=== PATIENT | female | born 1940 | race Caucasian/White ===

== ENCOUNTER 2023-04-29 20:00 | Emergency (ER) | payer MEDICARE, OTHER, SELFPAY ==
[2023-04-29 20:10] VITALS: BP 133/92; PULSE 74; RESP 18; TEMP 36.4; O2SAT 97
--- NOTE | 2023-04-29 20:53 | XR_ITS ---
The [address] [address] Patient Name: MARY SHEPHERD MRN: [facility]:[id number] date: 1940 Sex: F Assigned Patient Location: ER Current Patient Location: ER Accession/Order Number: [id number] Exam Date: 04/29/2023 21:33 Report Date: 04/29/2023 22:23 At the request of: NOLBERTO ESPINO Procedure: XR knee RT 3V PROCEDURE: XR knee RT 3V DATE: 04/29/2023 8:33 PM CDT COMPARISONS: None CLINICAL INDICATION: trauma Knee pain FINDINGS: There is no evidence of fractures or other acute osseous abnormalities. No right knee joint effusion identified Mild tricompartmental spurring. Mild narrowing of the medial compartment. Evidence of chondrocalcinosis which can be seen with pseudogout or can sometimes be associated with degenerative changes IMPRESSION: Mild tricompartmental spurring most prominently involving the medial compartment. No evidence of acute osseous abnormalities.. Electronically authenticated by: DAVE RACHEL Date: 04/29/2023 22:23
--- NOTE | 2023-04-29 20:53 | XR_ITS ---
The [address] [address] Patient Name: MARY SHEPHERD MRN: [facility]:[id number] date: 1940 Sex: F Assigned Patient Location: ER Current Patient Location: ER Accession/Order Number: [id number] Exam Date: 04/29/2023 21:33 Report Date: 04/29/2023 22:27 At the request of: NOLBERTO ESPINO Procedure: XR foot LT min 3V PROCEDURE: XR foot LT min 3V DATE: 04/29/2023 8:33 PM CDT COMPARISONS: None CLINICAL INDICATION: Reason trauma. Left foot pain. FINDINGS: There is no evidence of fractures or other acute osseous abnormalities. There is small spur off the posterior inferior os calcis. IMPRESSION: Left foot radiographs show no evidence of significant abnormalities. Electronically authenticated by: DAVE RACHEL Date: 04/29/2023 22:27
--- NOTE | 2023-04-29 20:53 | XR_ITS ---
The [address] [address] Patient Name: MARY SHEPHERD MRN: [facility]:[id number] date: 1940 Sex: F Assigned Patient Location: ER Current Patient Location: ER Accession/Order Number: [id number] Exam Date: 04/29/2023 21:33 Report Date: 04/29/2023 22:28 At the request of: NOLBERTO ESPINO Procedure: XR hip LT 2V w/ pelvis EXAM: XR hip LT 2V w/ pelvis HISTORY: Fall onto left side COMPARISON: None. TECHNIQUE: AP pelvis and 2 views of the left hip FINDINGS: No visualized fracture, dislocation, subluxation or osseous lesion. 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 The hip joints, pubic symphysis and sacroiliac joints are otherwise unremarkable for patient's age. Bowel gas pattern is nonobstructed. IMPRESSION: No visualized acute abnormality. Chondrocalcinosis pyrophosphate deposition disease. Electronically authenticated by: VAN HAN Date: 04/29/2023 22:28
--- NOTE | 2023-04-29 20:53 | ECG_ITS ---
The [facility] Test Date: 2023-04-29 Pat Name: Morena Vivas Department: Room: - Gender: Female Religious Assistant: : 1940 Requested By: EDI JOSEPH Order Number: [id number] Reading MD: JUNO KURTZ Measurements Intervals [place] Rate: 64 P: 42 RI: 152 QRS: -11 QRSD: 76 T: 53 QT: 392 QTc: 401 Interpretive Statements 1100 Sinus rhythm 8102 Low QRS voltage in chest leads 9120 atypical ECG No previous ECG available for comparison Electronically Signed On 05-01-2023 6:44:34 EDT by JUNO KURTZ
--- NOTE | 2023-04-29 20:56 | CT_ITS ---
[address] [address] Patient Name: MARY SHEPHERD MRN: [facility]:[id number] date: 1940 Sex: F Assigned Patient Location: ER Current Patient Location: Accession/Order Number: [id number] Exam Date: 04/29/2023 21:33 Report Date: 04/29/2023 22:35 At the request of: NOLBERTO ESPINO Procedure: CT chest wo con CT chest wo con: 04/29/2023 9:33 PM EDT CLINICAL HISTORY: 82 years old Female with trauma. Fall with left-sided pain. TECHNIQUE: CT chest wo con was performed with axial CT images obtained as well as sagittal and coronal reformations without the administration of intravenous contrast. Dose reduction techniques were achieved by using automated exposure control and/or adjustment of mA and/or kV according to patient size and/or use of iterative reconstruction technique. COMPARISON: None available. FINDINGS: Evaluation of the vasculature and hilar lymphadenopathy is degraded secondary to lack of intravenous contrast. The heart appears borderline enlarged without pericardial effusion with mild biatrial prominence. Mitral annular calcifications and minimal coronary artery calcifications are present.. The aorta is normal in course and caliber without aneurysm. There are no enlarged mediastinal lymph nodes. The tracheobronchial tree is patent. The lungs are clear. There is no consolidation, mass or pleural effusion. There is no pneumothorax. Left simple renal cyst is partially included measuring 1.9 x 1.7 cm. The visualized portion of the upper abdomen is otherwise grossly unremarkable. Likely soft tissue contusion at the lateral left breast is partially included. Osseous structures:No acute compression fracture deformity or suspicious osseous abnormality. No displaced rib fractures are identified. Senescent changes are present with diffuse endplate spurring and intervertebral disc space narrowing at the thoracic spine. IMPRESSION: 1. Likely soft tissue contusion/hematoma at the left lateral breast partially included. Correlate for site of injury and need for mammographic/sonographic workup or follow-up. 2. No acute fracture or dislocation or intrathoracic traumatic injury is identified. CT is not sensitive for nondisplaced rib fractures. 3. The lungs are clear. 4. Borderline cardiomegaly and mild coronary artery calcifications. 5. Left simple renal cyst. Electronically authenticated by: MUKESH CORTES Date: 04/29/2023 22:35
--- NOTE | 2023-04-29 20:57 | ED.FALL1 ---
HPI - Fall General Chief Complaint: Fall Stated Complaint: LEFT SIDE AND ANKLE PAIN Time Seen by Provider: 04/29/23 20:53 Source: patient and family Limitations: no limitations History of Present Illness HPI Narrative: states she loss her balance while walking on concrete and fell. Injured her left hip, left 4th toe and left breast/rib cage. also has minor abrasion left elbow but only mild pain. Injured right knee. Has pain with weight bearing. No numbness or weakness of her extremities. Denies hitting her head. denies neck pain or nausea. No complaint of abdominal pain. Not short of breath and denies pain of her back Onset (ago): hour(s) Fall from: Reports standing Fall witnessed: Reports yes, by family Place fall occurred: Reports home and street Loss of consciousness: none Location of injury: Reports pelvis Location of injury - extremities: Left: arm and foot and Right: knee Related Data Home Medications Medication Instructions Recorded Confirmed aspirin 325 mg tablet,delayed 325 mg PO DAILY 04/29/23 04/29/23 release (Aspir-Leelee) atorvastatin 40 mg tablet 30 mg PO DAILY 04/29/23 04/29/23 budesonide-formoterol HFA 80 2 puff inhalation Q12H 04/29/23 04/29/23 mcg-4.5 mcg/actuation aerosol inhaler (Symbicort) colestipol 1 gram tablet 2 g PO DAILY 04/29/23 04/29/23 levothyroxine 112 mcg tablet mcg PO DAILY 04/29/23 metoprolol tartrate 25 mg tablet 37.5 mg PO Q12H 04/29/23 04/29/23 omeprazole 20 mg capsule,delayed mg 04/29/23 release venlafaxine 150 mg mg PO DAILY 04/29/23 capsule,extended release 24 hr Allergies Allergy/AdvReac Type Severity Reaction Status Date / Time Penicillins Allergy Unknown Verified 04/29/23 20:17 shellfish Allergy Unknown Uncoded 04/29/23 20:17 Review of Systems ROS Status of ROS 10 or more systems reviewed and unremarkable except as noted in history and below PFSH PFS Social History Smoking status: Never smoker Exam Constitutional Vital Signs - 24 hr 04/29/23 20:10 Temperature 97.5 F L Pulse Rate [Monitor] 74 Respiratory Rate 18 Blood Pressure [Left Arm] 133/92 H Pulse Oximetry 97 Oxygen Delivery Method Room Air HENUT Common normals: normocephalic and head/scalp atraumatic Head and scalp: normal to inspection Face and sinus: normal facial exam Nose: external nose normal Eye Common normals: PERRL, EOMs intact bilaterally and conjunctivae normal Neck & C-Spine Common normals: full ROM and no lymphadenopathy Chest Other: left chest wall tender Respiratory Common normals: normal respiratory effort, no use of accessory muscles and clear to auscultation bilaterally Cardio Common normals: regular rate and regular rhythm GI Common normals: Normal to inspection, nondistended, normoactive bowel sounds present and soft to palpation Common normals: no CVA tenderness Back & Pelvis Other: left hip tender Extremity Other: minor abrasion left elbow. FROM of the elbow without sign of pain mild tenderness left 4th toe. No obvious defromity right knee with ecchymotic contusions, mild swelling and mod. tenderness Neuro Common normals: oriented x3 and CN's II-XII intact bilaterally Psych Common normals: mental status grossly normal Course Vital Signs Vital signs: Vital Signs Temperature 97.5 F L 04/29/23 20:10 Pulse Rate 74 04/29/23 20:10 Respiratory Rate 18 04/29/23 20:10 Blood Pressure 133/92 H 04/29/23 20:10 Pulse Oximetry 97 04/29/23 20:10 Oxygen Delivery Method Room Air 04/29/23 20:10 Temperature 97.5 F L 04/29/23 20:10 Pulse Rate 74 04/29/23 20:10 Respiratory Rate 18 04/29/23 20:10 Blood Pressure 133/92 H 04/29/23 20:10 Pulse Oximetry 97 04/29/23 20:10 Oxygen Delivery Method Room Air 04/29/23 20:10 MDM - Fall MDM Narrative Medical decision making narrative: patient presents after ground level fall at home. Injury to her left breast and chest wall as well as her left hip, left 4th toe and right knee. diagnostic studies demonstrate contusion to the left breath. No fractures seen. Patient and family informed of the above and she is discharged home. she does have elevated creat 1.36 that will need follow up per her PCP Lab Data Labs: Lab Results 04/29/23 Range/Units 21:15 WBC 9.0 (4.0-11.0) 10^3/uL RBC 3.72 L (4.20-5.40) 10^6/uL Hgb 11.6 L (12.0-16.0) g/dL Hct 36.1 (36.0-48.0) % MCV 97.0 (81.0-99.0) fL MCH 31.2 (26.7-34.0) pg MCHC 32.1 (29.9-35.2) g/dL RDW 13.2 (11.0-15.0) % Plt Count 229 (150-450) 10^3/uL MPV 10.3 (9.5-13.5) fL Neut % (Auto) 56.7 (43.0-75.0) % Lymph % (Auto) 27.6 (20.5-60.0) % Taliaferro % (Auto) 11.8 (1.7-12.0) % Eos % (Auto) 2.9 (0.9-7.0) % Baso % (Auto) 0.6 (0.2-2.0) % Neut # (Auto) 5.1 (1.4-6.5) 10^3/uL Lymph # (Auto) 2.5 (1.2-3.8) 10^3/uL Taliaferro # (Auto) 1.1 H (0.3-0.8) 10^3/uL Eos # (Auto) 0.3 (0.0-0.7) 10^3/uL Baso # (Auto) 0.1 (0.0-0.1) 10^3/uL Sodium 142 (136-145) mmol/L Potassium 4.1 (3.5-5.1) mmol/L Chloride 107 (98-107) mmol/L Carbon Dioxide 26.3 (21.0-32.0) mmol/L Anion Gap 12.8 BUN 30.0 H (7.0-18.0) mg/dL Creatinine 1.36 H (0.55-1.02) mg/dL Est GFR ( Amer) 45 L (>=60) Est GFR (Non-Af Amer) 37 L (>=60) BUN/Creatinine Ratio 22.1 Glucose 71 L (74-106) mg/dL Lactate 0.8 (0.4-2.0) mmol/L Calcium 9.0 (8.5-10.1) mg/dL Total Bilirubin 0.6 (0.2-1.0) mg/dL AST 21 (15-37) U/L ALT 32 (14-59) U/L Troponin I High Sens 9.7 (4.0-51.3) pg/mL Total Protein 6.3 L (6.4-8.2) g/dL Albumin 3.3 L (3.4-5.0) g/dL Globulin 3.0 g/dL Albumin/Globulin Ratio 1.1 Discharge Plan Discharge Chief Complaint: Fall Clinical Impression: Contusion of chest wall, Contusion of breast, left, Contusion of hip, left, Contusion of knee, right Prescriptions / Home Meds: No Action atorvastatin 40 mg tablet 30 mg PO DAILY levothyroxine 112 mcg tablet PO DAILY budesonide-formoterol [Symbicort] 80-4.5 mcg/actuation HFA aerosol inhaler 2 puff INHALATION Q12H metoprolol tartrate 25 mg tablet 37.5 mg PO Q12H venlafaxine 150 mg capsule,extended release 24hr PO DAILY omeprazole 20 mg capsule,delayed release(DR/EC) colestipol 1 gram tablet 2 g PO DAILY aspirin [Aspir-Leelee] 325 mg tablet,delayed release (DR/EC) 325 mg PO DAILY Instructions: Contusion in Adults (ED), Foot Contusion (ED), Hip Contusion (ED), Rib Contusion (ED) Stand Alone Forms: Portal Instructions Referrals: EDI JOSEPH [Primary Care Provider] - 1 week Follow Up Appointments: follow up with family doctor next week for recheck
[2023-04-29] MEDS: 0.9 % SODIUM CHLORIDE 1,000 ML 999 ML IV (21:24)
[2023-04-29 21:27] LABS: Basophils Absolute Auto 0.1 10^3/uL (0.0-0.1); Basophils Percent Auto 0.6 % (0.2-2.0); Eosinophils Absolute Auto 0.3 10^3/uL (0.0-0.7); Eosinophils Percent Auto 2.9 % (0.9-7.0); Hematocrit 36.1 % (36.0-48.0); Hemoglobin 11.6 g/dL (12.0-16.0); Immature Granulocytes Abs Auto 0.04 10^3/uL (0.00-0.03); Immature Granulocytes Pct Auto 0.4 % (0.0-0.5); Lymphocytes Absolute Auto 2.5 10^3/uL (1.2-3.8); Lymphocytes Percent Auto 27.6 % (20.5-60.0); Mean Corpuscular HGB Conc 32.1 g/dL (29.9-35.2); Mean Corpuscular Hemoglobin 31.2 pg (26.7-34.0); Mean Platelet Volume 10.3 fL (9.5-13.5); Monocytes Absolute Auto 1.1 10^3/uL (0.3-0.8); Monocytes Percent Auto 11.8 % (1.7-12.0); Neutrophils Absolute Auto 5.1 10^3/uL (1.4-6.5); Neutrophils Percent Auto 56.7 % (43.0-75.0); Platelet Count 229 10^3/uL (150-450); Red Blood Count 3.72 10^6/uL (4.20-5.40); Red Cell Distribution Width 13.2 % (11.0-15.0)
[2023-04-29 21:31] VITALS: PULSE 64
--- NOTE | 2023-04-29 21:34 | PC.NURSE ---
PT LOST BALANCE AT HOME AND FELL ON LEFT SIDE. LEFT BREAST SWOLLEN AND BRUISED, ABRASIONS TO LEFT ARM AND LEG. BRUISING TO LEFT HIP
[2023-04-29 21:43] LABS: Lactate/Lactic Acid 0.8 mmol/L (0.4-2.0)
[2023-04-29 21:52] LABS: Alanine Aminotransferase 32 U/L (14-59); Albumin Globulin Ratio 1.1; Albumin Level 3.3 g/dL (3.4-5.0); Alkaline Phosphatase 128 U/L (46-116); Anion Gap 12.8; Aspartate Amino Transferase 21 U/L (15-37); BUN Creatinine Ratio 22.1; Bilirubin Total 0.6 mg/dL (0.2-1.0); Carbon Dioxide 26.3 mmol/L (21.0-32.0); Chloride 107 mmol/L (98-107); Estimated GFR (African America 45 (>=60); Estimated GFR (Non-African Ame 37 (>=60); Glucose 71 mg/dL (74-106); Potassium 4.1 mmol/L (3.5-5.1); Sodium 142 mmol/L (136-145); Total Protein 6.3 g/dL (6.4-8.2); Troponin I High Sensitivity 9.7 pg/mL (4.0-51.3)
== END 2023-04-30 00:09 | disposition home or self-care (01) ==
PROVIDERS: Emergency Provider Internal Medicine; PCP Family Medicine
DX: S20.219A Contusion of unspecified front wall of thorax, initial encounter (principal); S70.02XA Contusion of left hip, initial encounter; W18.30XA Fall on same level, unspecified, initial encounter; S80.01XA Contusion of right knee, initial encounter; S20.02XA Contusion of left breast, initial encounter; Z79.82 Long term (current) use of aspirin; Z79.890 Hormone replacement therapy; Z79.899 Other long term (current) drug therapy
CPT/HCPCS: 36415; 71250; 73502; 73562; 73630; 80053; 81001; 83605; 84484; 85025; 93005; 99285

== ENCOUNTER 2024-06-09 18:58 | Emergency (ER) | payer MEDICARE, OTHER, SELFPAY ==
[2024-06-09 19:05] VITALS: BP 156/93; PULSE 82; TEMP 36.6; O2SAT 99; BMI 31.1
--- NOTE | 2024-06-09 19:14 | CT_ITS ---
The [address] [address] Patient Name: MARY SHEPHERD MRN: [facility]:[id number] date: 1940 Sex: F Assigned Patient Location: ER Current Patient Location: Accession/Order Number: [id number] Exam Date: 06/09/2024 19:32 Report Date: 06/09/2024 21:12 At the request of: CELSO DEE Procedure: CT lumbar spine wo con EXAM: CT lumbar spine wo con HISTORY: The patient is an 83-year-old female, fall, low back pain COMPARISON: CT scan of the abdomen and pelvis from 03/17/2018. TECHNIQUE: CT images were obtained through the lumbar spine without intravenous contrast and reformatted in 2 dimensions. Dose reduction techniques were achieved by using automated exposure control and/or adjustment of mA and/or kV according to patient size and/or use of iterative reconstruction technique. FINDINGS: The axial images demonstrate no fractures or cortical discontinuities throughout the lumbar spine. The sacroiliac joints are maintained. The coronal and sagittal reformatted images demonstrate no fractures or loss of vertebral body height throughout the lumbar spine. There is no malalignment throughout the lumbar spine. There is severe narrowing of the L2-L3 and L5-S1 discs, and mild narrowing of the L1-L2 discs. The soft tissue images demonstrate evidence of a sizable left paracentral disc osteophyte complex arising from the L1-L2 level. There is also evidence of disc herniations and posterior element hypertrophy at the L3-L4 and L4-L5 levels. If clinically necessary, the degree of central canal stenosis and neural foraminal narrowing could be better evaluated with an MRI of the lumbar spine. CT/CT lumbar spine wo con IMPRESSION: 1. No fractures or loss of vertebral body height throughout the lumbar spine. 2. Degenerative disc disease throughout the lumbar spine. Electronically authenticated by: GEMINI HILL Date: 06/09/2024 21:12
--- NOTE | 2024-06-09 19:14 | CT_ITS ---
[address] [address] Patient Name: MARY SHEPHERD MRN: [facility]:[id number] date: 1940 Sex: F Assigned Patient Location: ER Current Patient Location: Accession/Order Number: [id number] Exam Date: 06/09/2024 19:32 Report Date: 06/09/2024 20:21 At the request of: CELSO MARKER Procedure: CT cervical spine wo con EXAM: CT cervical spine wo con, CT head/brain wo con CLINICAL INDICATION: fall, head injury and neck pain COMPARISON: None TECHNIQUE: Unenhanced computerized tomography of the head was performed. Automated dose reduction technique was employed. Multiple axial slices of the cervical spine were obtained without contrast and with coronal and sagittal reformatted images. FINDINGS: The ventricles are normal in size, configuration, and position for age. There is no intra- or extra-axial mass, hemorrhage, or fluid collection. No areas of abnormal mass effect or attenuation are noted. There is mild subcortical, deep, and periventricular white matter low-attenuation, compatible with changes of chronic small vessel ischemic disease. Visualized paranasal sinuses are free of mucosal disease. No depressed calvarial fracture. Reversal of normal cervical lordosis. No acute fracture. Stepwise mild retrolisthesis from C4 through C6. Moderate multilevel degenerative changes of the cervical spine, worse at C4-C5, C5-C6 and C6/C7. The atlanto occipital joint is maintained.The odontoid and lateral masses are intact. The prevertebral soft tissues are within normal limits. The adjacent structures appear intact. The visualized soft tissues of the neck are normal. CT/CT cervical spine wo con IMPRESSION: 1. No acute intracranial abnormality noted. 2. No acute fracture or subluxation of the cervical spine. Multilevel degenerative changes of the cervical spine. Electronically authenticated by: ERICKSON OBRIEN Date: 06/09/2024 20:21
--- NOTE | 2024-06-09 19:14 | CT_ITS ---
[address] [address] Patient Name: MARY SHEPHERD MRN: [facility]:[id number] date: 1940 Sex: F Assigned Patient Location: ER Current Patient Location: Accession/Order Number: [id number] Exam Date: 06/09/2024 19:32 Report Date: 06/09/2024 20:21 At the request of: CELSO MARKER Procedure: CT head/brain wo con EXAM: CT cervical spine wo con, CT head/brain wo con CLINICAL INDICATION: fall, head injury and neck pain COMPARISON: None TECHNIQUE: Unenhanced computerized tomography of the head was performed. Automated dose reduction technique was employed. Multiple axial slices of the cervical spine were obtained without contrast and with coronal and sagittal reformatted images. FINDINGS: The ventricles are normal in size, configuration, and position for age. There is no intra- or extra-axial mass, hemorrhage, or fluid collection. No areas of abnormal mass effect or attenuation are noted. There is mild subcortical, deep, and periventricular white matter low-attenuation, compatible with changes of chronic small vessel ischemic disease. Visualized paranasal sinuses are free of mucosal disease. No depressed calvarial fracture. Reversal of normal cervical lordosis. No acute fracture. Stepwise mild retrolisthesis from C4 through C6. Moderate multilevel degenerative changes of the cervical spine, worse at C4-C5, C5-C6 and C6/C7. The atlanto occipital joint is maintained.The odontoid and lateral masses are intact. The prevertebral soft tissues are within normal limits. The adjacent structures appear intact. The visualized soft tissues of the neck are normal. CT/CT head/brain wo con IMPRESSION: 1. No acute intracranial abnormality noted. 2. No acute fracture or subluxation of the cervical spine. Multilevel degenerative changes of the cervical spine. Electronically authenticated by: ERICKSON OBRIEN Date: 06/09/2024 20:21
--- NOTE | 2024-06-09 19:15 | XR_ITS ---
The [address] [address] Patient Name: MARY SHEPHERD MRN: [facility]:[id number] date: 1940 Sex: F Assigned Patient Location: ER Current Patient Location: ER Accession/Order Number: [id number] Exam Date: 06/09/2024 19:32 Report Date: 06/09/2024 20:52 At the request of: CELSO MARKER Procedure: XR hand RT min 3V EXAMINATION: XR hand RT min 3V, , 06/09/2024 7:32 PM EDT INDICATION: fall HISTORY: Ordering Provider Reason for Exam: fall Technologist Note: Additional: COMPARISON: None. TECHNIQUE: Right hand x-ray: 3 view(s). FINDINGS: No acute fracture. Joint alignment is anatomic. Joint spaces are preserved. Soft tissues are within normal limits. XR/XR hand RT min 3V IMPRESSION: No acute fracture or traumatic malalignment. Electronically authenticated by: BRITTNEY NIELSON Date: 06/09/2024 20:52
--- NOTE | 2024-06-09 19:16 | ED.FALL1 ---
HPI HPI - Fall General Chief Complaint: Fall Stated Complaint: FALL Time Seen by Provider: 06/09/24 19:09 Source: patient and family History of Present Illness HPI Narrative: This 83-year-old for male is brought to the emergency department by her daughter. The patient was walking down some stairs and slipped falling backwards. She initially fell onto her buttocks and complains of pain in her buttocks/sacrococcygeal area. She then struck her head. She denies any loss of consciousness. Her daughter states she did not see her fall but saw her immediately after falling. The patient put out her right hand to break her fall and complains of some pain in her right third and fourth fingers. Related Data Home Medications ?Medication ?Instructions ?Recorded ?Confirmed aspirin 325 mg tablet,delayed 325 mg PO DAILY 04/29/23 04/29/23 release (Aspir-Leelee) atorvastatin 40 mg tablet 30 mg PO DAILY 04/29/23 04/29/23 budesonide-formoterol HFA 80 2 puff inhalation Q12H 04/29/23 04/29/23 mcg-4.5 mcg/actuation aerosol inhaler (Symbicort) colestipol 1 gram tablet 2 g PO DAILY 04/29/23 04/29/23 levothyroxine 112 mcg tablet mcg PO DAILY 04/29/23 metoprolol tartrate 25 mg tablet 37.5 mg PO Q12H 04/29/23 04/29/23 omeprazole 20 mg capsule,delayed mg 04/29/23 release venlafaxine 150 mg mg PO DAILY 04/29/23 capsule,extended release 24 hr Allergies Allergy/AdvReac Type Severity Reaction Status Date / Time Penicillins Allergy Unknown Verified 04/29/23 20:17 shellfish Allergy Unknown Uncoded 04/29/23 20:17 Opioid HPI Opioid Management Most Recent Pain and Opioid Data: No Data to Display Review of Systems ROS Status of ROS 10 or more systems reviewed and unremarkable except as noted in history and below PFSH PFSH Social History Smoking status: Never smoker Exam Narrative Exam Narrative: Vital signs and Nursing Notes reviewed: Patient is afebrile with a normal pulse, blood pressure elevated 156/93, she is not hypoxic with pulse ox of 99% on room air General: Awake, alert, oriented, no acute distress, lying comfortably on the stretcher, GCS 15 HEENT: Normocephalic atraumatic, no appreciable scalp hematoma, laceration bruising or other notable abnormality mucous membranes are moist and pink, eyes are clear, normal conjunctiva, vision is grossly intact, posterior pharynx is normal in appearance. Neck: Supple, mild tenderness to the mid lumbar region, no step-off Chest: Lungs are clear to auscultation with good air entry, there is no wheezing rhonchi or rales appreciated no accessory muscle use, patient is speaking in complete sentences-no chest wall tenderness to palpation CVS: Regular rate and rhythm S1-S2, no murmurs rubs or gallops, pulses are brisk and equal bilaterally ABD: Soft, nondistended, nontender, no rebound guarding or rigidity, bowel sounds are normal, no pulsatile masses appreciated Extremities: Moving all extremities, no lower extremity tenderness or swelling noted, negative Homans' sign, pulses are brisk and equal bilaterally, mild tenderness to the third and fourth fingers with no bony deformity, patient is able to make a fist, fingers are warm and sensate Skin: Normal in appearance without rash,pallor, petechiae or purpura Neuro: No focal deficits Constitutional Vital Signs, click to edit/add: Last Vital Signs Temp 97.8 F 06/09/24 19:05 Pulse 75 06/09/24 20:12 Resp 14 06/09/24 20:12 BP 155/99 H 06/09/24 20:12 Pulse Ox 99 06/09/24 20:12 O2 Del Method Room Air 06/09/24 19:05 Course Vital Signs Vital signs: Vital Signs Temperature 97.8 F 06/09/24 19:05 Pulse Rate 82 06/09/24 19:05 Respiratory Rate 18 06/09/24 19:05 Blood Pressure 156/93 H 06/09/24 19:05 Pulse Oximetry 99 06/09/24 19:05 Oxygen Delivery Method Room Air 06/09/24 19:05 Temperature 97.8 F 06/09/24 19:05 Pulse Rate 75 06/09/24 20:12 Respiratory Rate 14 06/09/24 20:12 Blood Pressure 155/99 H 06/09/24 20:12 Pulse Oximetry 99 06/09/24 20:12 Oxygen Delivery Method Room Air 06/09/24 19:05 MDM - Fall MDM Narrative Medical decision making narrative: This 83-year-old female is brought to the emergency department by her daughter after she fell at home. She missed a stair falling backwards onto her buttocks then striking her head. She put out her right hand to break her fall and injured her right third and fourth fingers as well. She was assisted to a standing position and brought to the emergency department by private vehicle. She has mild tenderness to the posterior occipital aspect of her scalp and her sacral coccygeal area. There is some tenderness to the mid thoracic spine and on examination mild tenderness to the cervical spine as well. She did not lose consciousness. She has no focal neurologic symptoms. She was medicated with oral Tylenol and CT scan of the head, cervical spine, thoracic and lumbar spine were ordered. CT scan of the brain and cervical spine was reviewed by radiology with no acute findings. X-ray of the right hand is negative for acute findings. CT scan of the thoracic and lumbar spine are negative for fracture or dislocation but do show degenerative changes throughout. The results of the scans were discussed with the patient and her daughter who verbalized understanding. I encouraged the patient to take Tylenol every 4 hours and Motrin every 6 hours as needed for pain. Patient and her daughter are in agreement with this plan. Medical Records Medical records narrative: The [address] [address] [address] Scan Report Signed Patient: MARY SHEPHERD MR#: [id number] : 1940 Acct:[id number] Age/Sex: 83 / F ADM Date: 06/09/24 Loc: ER Attending Dr: Ordering Physician: Patito Chapin Date of Service: 06/09/24 Procedure(s): CT cervical spine wo con Accession Number(s): [id number] cc: Herlinda Donald M.D.~ The [address] [address] Patient Name: MARY SHEPHERD MRN: [id number] date: 1940 Sex: F Assigned Patient Location: ER Current Patient Location: ER Accession/Order Number: [id number] Exam Date: 06/09/2024 19:32 Report Date: 06/09/2024 20:21 At the request of: PATITO CHAPIN Procedure: CT cervical spine wo con EXAM: CT cervical spine wo con, CT head/brain wo con CLINICAL INDICATION: fall, head injury and neck pain COMPARISON: None TECHNIQUE: Unenhanced computerized tomography of the head was performed. Automated dose reduction technique was employed. Multiple axial slices of the cervical spine were obtained without contrast and with coronal and sagittal reformatted images. FINDINGS: The ventricles are normal in size, configuration, and position for age. There is no intra- or extra-axial mass, hemorrhage, or fluid collection. No areas of abnormal mass effect or attenuation are noted. There is mild subcortical, deep, and periventricular white matter low-attenuation, compatible with changes of chronic small vessel ischemic disease. Visualized paranasal sinuses are free of mucosal disease. No depressed calvarial fracture. Reversal of normal cervical lordosis. No acute fracture. Stepwise mild retrolisthesis from C4 through C6. Moderate multilevel degenerative changes of the cervical spine, worse at C4-C5, C5-C6 and C6/C7. The atlanto occipital joint is maintained.The odontoid and lateral masses are intact. The prevertebral soft tissues are within normal limits. The adjacent structures appear intact. The visualized soft tissues of the neck are normal. CT/CT cervical spine wo con IMPRESSION: 1. No acute intracranial abnormality noted. 2. No acute fracture or subluxation of the cervical spine. Multilevel degenerative changes of the cervical spine. Electronically authenticated by: ERICKSON OBRIEN Date: 06/09/2024 20:[address] [address] [address] Scan Report Signed Patient: MARY SHEPHERD MR#: [id number] : 1940 Acct:[id number] Age/Sex: 83 / F ADM Date: 06/09/24 Loc: ER Attending Dr: Ordering Physician: Patito Chapin Date of Service: 06/09/24 Procedure(s): CT head/brain wo con Accession Number(s): [id number] cc: Herlinda Donald M.D.~ The [address] [address] Patient Name: MARY SHEPHERD MRN: [id number] date: 1940 Sex: F Assigned Patient Location: ER Current Patient Location: ER Accession/Order Number: [id number] Exam Date: 06/09/2024 19:32 Report Date: 06/09/2024 20:21 At the request of: PATITO CHAPIN Procedure: CT head/brain wo con EXAM: CT cervical spine wo con, CT head/brain wo con CLINICAL INDICATION: fall, head injury and neck pain COMPARISON: None TECHNIQUE: Unenhanced computerized tomography of the head was performed. Automated dose reduction technique was employed. Multiple axial slices of the cervical spine were obtained without contrast and with coronal and sagittal reformatted images. FINDINGS: The ventricles are normal in size, configuration, and position for age. There is no intra- or extra-axial mass, hemorrhage, or fluid collection. No areas of abnormal mass effect or attenuation are noted. There is mild subcortical, deep, and periventricular white matter low-attenuation, compatible with changes of chronic small vessel ischemic disease. Visualized paranasal sinuses are free of mucosal disease. No depressed calvarial fracture. Reversal of normal cervical lordosis. No acute fracture. Stepwise mild retrolisthesis from C4 through C6. Moderate multilevel degenerative changes of the cervical spine, worse at C4-C5, C5-C6 and C6/C7. The atlanto occipital joint is maintained.The odontoid and lateral masses are intact. The prevertebral soft tissues are within normal limits. The adjacent structures appear intact. The visualized soft tissues of the neck are normal. CT/CT head/brain wo con IMPRESSION: 1. No acute intracranial abnormality noted. 2. No acute fracture or subluxation of the cervical spine. Multilevel degenerative changes of the cervical spine. Electronically authenticated by: ERICKSON OBRIEN Date: 06/09/2024 20:21 [place] [address] XRay Report Signed Patient: MARY SHEPHERD MR#: [id number] : 1940 Acct:[id number] Age/Sex: 83 / F ADM Date: 06/09/24 Loc: ER Attending Dr: Ordering Physician: Patito Chapin Date of Service: 06/09/24 Procedure(s): XR hand RT min 3V Accession Number(s): [id number] cc: Herlinda Doanld M.D.; Patito Chapin~ The [address] [address] Patient Name: MARY SHEPHERD MRN: [id number] date: 1940 Sex: F Assigned Patient Location: ER Current Patient Location: ER Accession/Order Number: [id number] Exam Date: 06/09/2024 19:32 Report Date: 06/09/2024 20:52 At the request of: PATITO MARKER Procedure: XR hand RT min 3V EXAMINATION: XR hand RT min 3V, , 06/09/2024 7:32 PM EDT INDICATION: fall HISTORY: Ordering Provider Reason for Exam: fall Technologist Note: Additional: COMPARISON: None. TECHNIQUE: Right hand x-ray: 3 view(s). FINDINGS: No acute fracture. Joint alignment is anatomic. Joint spaces are preserved. Soft tissues are within normal limits. XR/XR hand RT min 3V IMPRESSION: No acute fracture or traumatic malalignment. Electronically authenticated by: BRITTNEY NIELSON Date: 06/09/2024 20:52 [place] [address] CT Scan Report Signed Patient: MARY SHEPHERD MR#: [id number] : 1940 Acct:[id number] Age/Sex: 83 / F ADM Date: 06/09/24 Loc: ER Attending Dr: Ordering Physician: Patito Chapin Date of Service: 06/09/24 Procedure(s): CT thoracic spine wo con Accession Number(s): [id number] cc: Herlinda Donald M.D.~ The [address] [id number] Patient Name: MARY SHEPHERD MRN: [id number] date: 1940 Sex: F Assigned Patient Location: ER Current Patient Location: ER Accession/Order Number: [id number] Exam Date: 06/09/2024 19:32 Report Date: 06/09/2024 21:03 At the request of: PATITO MARKER Procedure: CT thoracic spine wo con EXAM: CT thoracic spine wo con HISTORY: The patient is an 83-year-old female, fall, back pain COMPARISON: CT scan of the chest from 04/29/2023. TECHNIQUE: CT images were obtained through the thoracic spine without intravenous contrast and reformatted in 2 dimensions. Dose reduction techniques were achieved by using automated exposure control and/or adjustment of mA and/or kV according to patient size and/or use of iterative reconstruction technique. FINDINGS: The axial images demonstrate no fractures or cortical discontinuities throughout the thoracic spine. The coronal and sagittal reformatted images demonstrate no fractures or loss of vertebral body height throughout the thoracic spine. There is no malalignment throughout the thoracic spine. There is moderate to severe disc space narrowing throughout the thoracic spine. This is unchanged since the prior CT scan of 04/29/2023. The soft tissue images demonstrate no evidence of disc herniations or central canal stenosis throughout the thoracic spine. CT/CT thoracic spine wo con IMPRESSION: This is a relatively negative CT scan of the thoracic spine with no fractures or loss of vertebral body height. Electronically authenticated by: GEMINI HILL Date: 06/09/2024 21:03 [place] [address] CT Scan Report Signed Patient: MARY SHEPHERD MR#: [id number] : 1940 Acct:[id number] Age/Sex: 83 / F ADM Date: 06/09/24 Loc: ER Attending Dr: Ordering Physician: Patito Chapin Date of Service: 06/09/24 Procedure(s): CT lumbar spine wo con Accession Number(s): [id number] cc: Herlinda Donald M.D.~ The [place] [id number] Patient Name: MARY SHEPHERD MRN: [id number] date: 1940 Sex: F Assigned Patient Location: ER Current Patient Location: ER Accession/Order Number: [id number] Exam Date: 06/09/2024 19:32 Report Date: 06/09/2024 21:12 At the request of: PATITO CHAPIN Procedure: CT lumbar spine wo con EXAM: CT lumbar spine wo con HISTORY: The patient is an 83-year-old female, fall, low back pain COMPARISON: CT scan of the abdomen and pelvis from 03/17/2018. TECHNIQUE: CT images were obtained through the lumbar spine without intravenous contrast and reformatted in 2 dimensions. Dose reduction techniques were achieved by using automated exposure control and/or adjustment of mA and/or kV according to patient size and/or use of iterative reconstruction technique. FINDINGS: The axial images demonstrate no fractures or cortical discontinuities throughout the lumbar spine. The sacroiliac joints are maintained. The coronal and sagittal reformatted images demonstrate no fractures or loss of vertebral body height throughout the lumbar spine. There is no malalignment throughout the lumbar spine. There is severe narrowing of the L2-L3 and L5-S1 discs, and mild narrowing of the L1-L2 discs. The soft tissue images demonstrate evidence of a sizable left paracentral disc osteophyte complex arising from the L1-L2 level. There is also evidence of disc herniations and posterior element hypertrophy at the L3-L4 and L4-L5 levels. If clinically necessary, the degree of central canal stenosis and neural foraminal narrowing could be better evaluated with an MRI of the lumbar spine. CT/CT lumbar spine wo con IMPRESSION: 1. No fractures or loss of vertebral body height throughout the lumbar spine. 2. Degenerative disc disease throughout the lumbar spine. Electronically authenticated by: GEMINI HILL Date: 06/09/2024 21:12 Discharge Plan Discharge Stand Alone Forms: Portal Instructions Chief Complaint: Fall Clinical Impression: Fall from standing, Closed head injury, Contusion of sacrum, Contusion of hand, Contusion of back wall of thorax, Lumbar strain Patient Disposition: Home, Self-Care Time of Disposition Decision: 21:30 Condition: Good Prescriptions / Home Meds: No Action atorvastatin 40 mg tablet 30 mg PO DAILY levothyroxine 112 mcg tablet PO DAILY budesonide-formoterol [Symbicort] 80-4.5 mcg/actuation HFA aerosol inhaler 2 puff INHALATION Q12H metoprolol tartrate 25 mg tablet 37.5 mg PO Q12H venlafaxine 150 mg capsule,extended release 24hr PO DAILY omeprazole 20 mg capsule,delayed release(DR/EC) colestipol 1 gram tablet 2 g PO DAILY aspirin [Aspir-Leelee] 325 mg tablet,delayed release (DR/EC) 325 mg PO DAILY Print Language: Kyrgyz Instructions: Fall Prevention for Older Adults (ED), Head Injury (ED), Low Back Strain (ED), Contusion in Adults (ED) Referrals: Herlinda Donald MD [Primary Care Provider] - 1 week
[2024-06-09] MEDS: ACETAMINOPHEN 325 MG TABLET 650 MG PO (20:09)
[2024-06-09 20:12] VITALS: BP 155/99; PULSE 75; O2SAT 99
[2024-06-09 21:30] VITALS: BP 148/78; PULSE 71; O2SAT 97
== END 2024-06-09 21:30 | disposition home or self-care (01) ==
PROVIDERS: Emergency Provider Emergency Medicine; PCP Family Medicine
DX: S30.0XXA Contusion of lower back and pelvis, initial encounter (principal); S60.221A Contusion of right hand, initial encounter; S09.8XXA Other specified injuries of head, initial encounter; S20.229A Contusion of unspecified back wall of thorax, initial encounter; S39.012A Strain of muscle, fascia and tendon of lower back, initial encounter; W10.9XXA Fall (on) (from) unspecified stairs and steps, initial encounter
CPT/HCPCS: 70450; 72125; 72128; 72131; 73130; 99284

== ENCOUNTER 2024-09-14 10:44 | Emergency (ER) | payer MEDICARE, OTHER, SELFPAY ==
[2024-09-14] VITALS (44 sets, daily range): BP systolic 125–169; BP diastolic 61–87; PULSE 60–79; TEMP 36.8; O2SAT 84–100; BMI 22.8
--- NOTE | 2024-09-14 10:58 | ECG_ITS ---
The [facility] Test Date: 2024-09-14 Pat Name: MARY SHEPHERD Department: Room: - Gender: Female Answering Service Telephone Operator: : 1940 Requested By: EDI JOSEPH Order Number: [id number] Reading MD: JUNO KURTZ Measurements Intervals [place] Rate: 69 P: 55 ME: 140 QRS: -34 QRSD: 80 T: 54 QT: 370 QTc: 389 Interpretive Statements 1100 Sinus rhythm 7200 Abnormal left axis deviation, consistent w/ LAFB 8102 Low QRS voltage in chest leads 9130 borderline ECG Compared to ECG 04/29/2023 21:27:46 Left-axis deviation now present Electronically Signed On 09-15-2024 12:40:33 EDT by JUNO KURTZ
[2024-09-14 11:15] LABS: Basophils Percent Auto 0.5 % (0.2-2.0); Eosinophils Absolute Auto 0.3 10^3/uL (0.0-0.7); Hematocrit 37.6 % (36.0-48.0); Hemoglobin 12.3 g/dL (12.0-16.0); Immature Granulocytes Abs Auto 0.02 10^3/uL (0.00-0.03); Immature Granulocytes Pct Auto 0.2 % (0.0-0.5); Lymphocytes Absolute Auto 1.5 10^3/uL (1.2-3.8); Lymphocytes Percent Auto 18.1 % (20.5-60.0); Mean Corpuscular HGB Conc 32.7 g/dL (29.9-35.2); Mean Corpuscular Hemoglobin 31.4 pg (26.7-34.0); Mean Corpuscular Volume 95.9 fL (81.0-99.0); Mean Platelet Volume 9.9 fL (9.5-13.5); Monocytes Absolute Auto 0.7 10^3/uL (0.3-0.8); Neutrophils Absolute Auto 5.9 10^3/uL (1.4-6.5); Neutrophils Percent Auto 70.2 % (43.0-75.0); Platelet Count 206 10^3/uL (150-450); Red Blood Count 3.92 10^6/uL (4.20-5.40); Red Cell Distribution Width 12.9 % (11.0-15.0); White Blood Count 8.4 10^3/uL (4.0-11.0)
[2024-09-14 11:25] LABS: Ethanol <3 mg/dL
[2024-09-14 11:31] LABS: Alanine Aminotransferase 27 U/L (14-59); Albumin Level 2.9 g/dL (3.4-5.0); Alkaline Phosphatase 141 U/L (46-116); Anion Gap 14.2; Aspartate Amino Transferase 20 U/L (15-37); BUN Creatinine Ratio 18.5; Bilirubin Total 0.6 mg/dL (0.2-1.0); Calcium 9.1 mg/dL (8.5-10.1); Carbon Dioxide 28.3 mmol/L (21.0-32.0); Chloride 108 mmol/L (98-107); Estimated GFR (African America 52 (>=60 mL/min/1.73m^2); Estimated GFR (Non-African Ame 43 (>=60 mL/min/1.73m^2); Glucose 90 mg/dL (74-106); Potassium 4.5 mmol/L (3.5-5.1); Sodium 146 mmol/L (136-145); Total Protein 5.9 g/dL (6.4-8.2)
[2024-09-14 12:30] LABS: Amphetamine Screen Urine NEGATIVE (NEGATIVE); Barbiturates Screen Urine NEGATIVE (NEGATIVE); Benzodiazepines Screen Urine NEGATIVE (NEGATIVE); Buprenorphine Screen Urine NEGATIVE (NEGATIVE); Cannabinoid Screen Urine NEGATIVE (NEGATIVE); Cocaine Screen Urine NEGATIVE (NEGATIVE); Methadone Screen Urine NEGATIVE (NEGATIVE); Methamphetamines Screen Urine NEGATIVE (NEGATIVE); Opiate Screen Urine NEGATIVE (NEGATIVE); Oxycodone Screen Urine NEGATIVE (NEGATIVE); Phencyclidine Screen Urine NEGATIVE (NEGATIVE); Tricyclic Antidepressant Urine NEGATIVE (NEGATIVE)
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
[2024-09-14] MEDS: LORAZEPAM 2 MG/ML VIAL 1 MG IV (14:38)
[2024-09-14 15:20] LABS: SARS-CoV-2 Ag NEGATIVE (NEGATIVE)
[2024-09-14 15:21] LABS: Internal Control Within Normal Limits
[2024-09-14 16:37] LABS: Bilirubin Urine NEGATIVE (NEGATIVE); Blood Urine NEGATIVE (NEGATIVE); Clarity Urine CLEAR (CLEAR); Color Urine LT. YELLOW (YELLOW); Glucose Urine UA NEGATIVE (NEGATIVE); Ketones Urine NEGATIVE (NEGATIVE); Leukocyte Esterase Urine TRACE (NEGATIVE); Nitrite Urine NEGATIVE (NEGATIVE); Protein Urine NEGATIVE (NEG/TRACE); Urobilinogen Urine 0.2 EU/dL (0.2-1.0)
[2024-09-14 16:45] LABS: Urine Microscopic Indicated YES
[2024-09-14 16:51] LABS: Bacteria Urine TRACE #/HPF (NONE SEEN); Cast Seen? NONE SEEN #/LPF (NONE SEEN); Crystals Seen? None Seen #/HPF (None Seen); Mucus Urine NONE SEEN (NONE SEEN); RBC Urine NONE SEEN #/HPF (0-2); Squamous Epithelial Cell Urine FEW #/LPF (NONE/RARE); Urine Culture Indicated NO; WBC Urine 0-2 #/HPF (NONE SEEN)
== END 2024-09-14 18:43 ==
PROVIDERS: Emergency Provider Emergency Medicine; PCP Family Medicine
DX: F29 Unspecified psychosis not due to a substance or known physiological condition (principal); Z20.822 Contact with and (suspected) exposure to COVID-19; Z79.899 Other long term (current) drug therapy
CPT/HCPCS: 36415; 80053; 80307; 80320; 81001; 85025; 87811; 93005; 96374; 99285; J2060

== ENCOUNTER 2025-01-24 15:41 | Emergency (ER) | payer MEDICARE, OTHER, SELFPAY ==
[2025-01-24] VITALS (8 sets, daily range): BP systolic 152–177; BP diastolic 74–88; PULSE 70–74; TEMP 36.7; O2SAT 95–98; BMI 29.3
--- OUTSIDE RECORDS SUMMARY | 2025-01-24 15:53 | XMS_ITS | CCD ---
Author Organization [facility] ion [facility] Care Team Providers Care Fork Operator Name Role Phone SHASHIFLORINDAZAFAR Unavailable Unavailable EDI JOSEPH Unavailable Unavailable Shiva Jamison Unavailable Edi Joseph Unavailable JAKE, DR EDI Avelar Primary Care Unavailable HAY ., DR LEE Admitting Unavailable HAY ., DR LEE Attending Unavailable AGUILA, DR CANDIS Winn Consulting Unavailable PAY ., DR DANIELS Consulting Unavailable FRAN ., DR LEE Consulting Unavailable JAKE, DR EDI Avelar Admitting Unavailable JAKE, DR EDI Avelar Attending Unavailable JAKE, DR EDI Avelar Primary Care Unavailable JAKE, DR EDI Avelar Consulting Unavailable DAVE RACHEL Consulting Unavailable HEVER DHILLON Attending Unavailable SHIKHA FARIAS Attending Unavailable MD Edi Joseph Primary Care Provider [phone] DO Eladio Gonzalez Emergency Provider SHELBY Leong Emergency Provider [phone] Unavailable Primary Care Provider Unavailangi STALLINGS DELMER Referring Unavailable CHANDRAKANT DELMER Referring Unavailable NIKOLAY PACK Referring Unavailable Edi Joseph MD Primary Care Provider [phone] Eladio Gonzalez DO Emergency Provider Erlin Murillo MD Attending Provider [phone] Kevon Leong PA-C Emergency Provider Edi Joseph Admitting Unavailable NON STAFF Primary Care Unavailable Edi Joseph Attending Unavailable Edi Joseph Primary Care Unavailable Erlin Murillo Attending Unavailab Erlin Laughlin Admitting Unavailab Kevon Moody Attending Unavailable Kevon Leong Admitting Unavailable Edi Joseph Primary Care Unavailable Eladio Gonzalez Attending Unavailable Eladio Gonzalez Admitting Unavailable Edi Joseph Primary Care Unavailable Allergies Allergy Classification Reported Allergen(s) Allergy Type Date of Onset Reaction(s) Facility (12 sources) Furosemide; Translations: [FUROSEMIDE] Drug Allergy 4 [facility] Repository (6 sources) Shellfish Propensity to adverse reactions [facility] Other (6 sources) Sulfonamides (Antibiotic) Propensity to adverse reactions [facility] Other (1 source) Furosemide Drug Allergy 4 [facility] Repository (1 source) oxybutynin Drug Allergy 6 [facility] Repository (1 source) Shellfish Drug allergy (disorder) 4 [facility] Repository (1 source) Sulfonamides (Antibiotic) Drug allergy (disorder) 0 [facility] Repository (7 sources) Sulfonamides (Antibiotic); Translations: [SULFA (SULFONAMIDE ANTIBIOTICS)] Propensity to adverse reactions to drug (disorder) 2 [facility] Repository (1 source) SHELLFISH CONTAINING PRODUCTS; Translations: [SHELLFISH CONTAINING PRODUCTS] Propensity to adverse reactions to drug (disorder) 4 [facility] Repository (6 sources) Shellfish; Translations: [shellfish derived] Allergy to substance 4 [facility] (1 source) Furosemide Drug Allergy [address] [facility] Repository Medications Current Medications Medication Drug Class(es) Dates Sig (Normalized) Sig (Original) acetaminophen 500 mg oral capsule (1 source) Start: 10-11-2024 take 1 capsule by mouth every six hours as needed Acetaminophen 500 mg capsule Active 500 MG PO Every 6 hours as needed October 11, 2024 12:00am aspirin 325 mg oral tablet (8 sources) Platelet Aggregation Inhibitor, Nonsteroidal Anti-inflammatory Drug Start: 08-26-2024 take 1 tablet by mouth once daily Aspirin 325 mg tablet Active 325 MG PO Daily August 25, 2024 11:00pm take 1 tablet by kecia th every twenty-four hours Aspirin 325 MG 1 tablet Orally Once a day for 30 day(s) Active atorvastatin 40 mg oral tablet (18 sources) HMG-CoA Reductase Inhibitor Start: 10-11-2024 take 1 tablet by mouth once daily Atorvastatin 40 mg tablet Active 40 MG PO Daily October 11, 2024 12:00am Start: 08-21-2024 End: 10-11-2024 Atorvastatin 40 mg tablet Discontinued 0 .ROUTE .COMPLEX August 21, 2024 12:22pm October 11, 2024 12:33pm TAKE 1 TABLET EVERY DAY Start: 08-21-2024 Atorvastatin A ctive 0 .ROUTE .COMPLEX August 21, 2024 1:22pm TAKE 1 TABLET EVERY DAY Start: 06-18-2024 End: 08-21-2024 take 1 tablet by mouth once daily Atorvastatin 40 mg tablet Discontinued 40 MG PO Daily June 17, 2024 11:00pm August 21, 2024 12:22pm FreeTextSig: TAKE 1 TABLET EVERY DAY; Note: Source Status: Start; Refills: 3; Qty: 90 Tablet; Provider: Jake Pate ( ) take 1 tablet by kecia th every twenty-four hours Atorvastatin Calcium 40 MG 1 tablet Orally Once a day for 90 days Active Lipitor Active Azo Tabs (6 sources) Azo Tabs Active colestipol hydrochloride 1000 mg oral tablet (7 sources) Bile Acid Sequestrant Start: 10-11-2024 Colestipol 1 gram tablet Active 2 GM PO Daily October 11, 2024 12:00am Start: 11-08-2019 take 2 tablets by mo [facility] every twenty-four hours Colestipol HCl 1 GM 2 tablets Orally Once a day for 90 days Oct, Active donepezil hydrochloride 5 mg oral tablet (7 sources) Start: 10-11-2024 End: 10-15-2024 take 1 tablet by mouth once daily Donepezil 5 mg tablet Active 5 MG PO Daily October 15, 2024 1:43pm Start: 06-18-2024 End: 08-26-2024 take 1 tablet by mouth once daily at bedtime Donepezil (Aricept) 5 mg tablet Discontinued 5 MG PO Daily at bedtime June 17, 2024 11:00pm August 26, 2024 10:45am Geriatric Gngxtwqx-Jayi-Jppr (4 sources) Start: 06-18-2024 take 1 tablet by mouth once daily Geriatric Xrjzittd-Siwp-Telc Active 1 TAB PO Daily June 18, 2024 12:00am Geriatric Cmxzuicd-Cmcq-Fiko tablet (1 source) Start: 06-18-2024 take 1 tablet by mouth once daily Geriatric Rjvqbwfx-Ggii-Rgoa tablet Active 1 TAB PO Daily June 17, 2024 11:00pm levothyroxine sodium 0.112 mg oral tablet (14 sources) l-Thyro xine Start: 08-21-2024 Levothyroxine 112 mc g tablet Active 0 .ROUTE .COMPLEX August 21, 2024 12:22pm TAKE 1 TABLET ONE TIME DAILY IN THE MORNING ON AN EMPTY STOMACH Start: 06-18-2024 End: 08-21-2024 take 1 tablet by mouth once daily in the morning Levothyroxine 112 mcg tablet Discontinued 112 MCG PO Daily June 17, 2024 11:00pm August 21, 2024 12:22pm FreeTextSig: TAKE 1 TABLET ONE TIME DAILY IN THE MORNING ON AN EMPTY STOMACH; Note: Source Status: Start; Refills: 3; Qty: 90 Tablet; Provider: Jake Pate ( ) take 1 tablet by kecia th once daily in the morning Levothyroxine Sodium 112 MCG 1 tablet in the morning on an empty stomach Orally Once a day for 90 days Active take 1 tablet by kecia th once daily Levothyroxine Sodium 100 MCG TAKE 1 TABLET BY MOUTH DAILY Oral for 90 Active LORazepam 0.5 mg oral tablet (1 source) Benzodiazepine Start: 10-11-2024 take 1 tablet by mouth once daily as needed Lorazepam 0.5 mg tablet Active 0.5 MG PO Daily as needed October 11, 2024 12:00am melatonin 5 mg oral capsule (1 source) Start: 10-15-2024 take 1 mg by mouth at bedtime Melatonin 5 mg capsule Active MG PO Bedtime October 15, 2024 12:00am metoprolol tartrate 25 mg oral tablet (13 sources) beta-Adrenergic Nidhi Start: 10-15-2024 take 1 tablet by mouth twice daily Metoprolol Tartrate 25 mg tablet Active 25 MG PO Twice daily 60 October 15, 2024 1:34pm Start: 10-11-2024 End: 10-15-2024 take 1 tablet by mouth twice daily Metoprolol Tartrate 50 mg tablet Discontinued 50 MG PO Twice daily October 11, 2024 12:00am October 15, 2024 1:44pm Start: 06-18-2024 End: 10-11-2024 Metoprolol Succinate 25 mg t ablet extended release 24 hr Discontinued 75 MG PO Daily June 17, 2024 11:00pm October 11, 2024 12:33pm Start: 06-18-2024 take 75 mg by mouth once daily Metoprolol Succinate Active 75 MG PO Daily June 18, 2024 12:00am Metoprolol Succi jah Active Multivitamin preparation (6 sources) Multivitamin Act valarie omeprazole 20 mg delayed release oral capsule (11 sources) Proton Pump Inhibitor Start: take 1 capsule by mouth once daily Omeprazole 20 mg capsule,delayed release(DR/EC) Active 1 CAP PO Daily June 17, 2024 11:00pm FreeTextSi capsule 30 minutes before morning meal Orally Once a day; Note: Source Status: Refill; Refills: 11; Provider: Shaheen Monroe take 1 capsule by mouth once gabo ly PriLOSEC 20 MG 1 capsule Orally Once a day for 90 days Active risperiDONE 0.5 mg oral tablet (6 sources) Atypical Antipsychotic Start: 10-11-2024 take 1 tablet by mouth twice daily Risperidone (Risperdal) 0.5 mg tablet Active 0.5 MG PO Twice daily October 11, 2024 12:00am Start: 08-26-2024 End: 10-11-2024 take 1 tablet by mouth twice daily Risperidone 0.25 mg tablet Discontinued 0.25 MG PO Twice daily 60 September 02, 2024 7:20am October 11, 2024 12:33pm Start: 08-26-2024 End: 08-26-2024 take 1 tablet by mouth once daily Risperidone 0.25 mg tablet Discontinued 0.25 MG PO Daily August 25, 2024 11:00pm August 26, 2024 10:52am 24 hr venlafaxine 75 mg extended release oral capsule (12 sources) Serotonin and Norepinephrine Reuptake Inhibitor Start: 10-15-2024 take 1 capsule by mouth once daily Venlafaxine 75 mg capsule,extended release 24hr Active 75 MG PO Daily October 15, 2024 12:00am Start: 06-18-2024 take 1 capsule by [facility] once daily at mealtime Venlafaxine 150 mg capsule,extended release 24hr Active 1 CAP PO Daily June 17, 2024 11:00pm FreeTextSi capsule with food Orally Once a day; Note: Source Status: Taking; Provider: Shaheen Shannon ( ) take 1 capsule by [facility] every twenty-four hours Venlafaxine HCl ER 150 MG 1 capsule with food Orally Once a day Active Venlafaxine HCl Active Vitamin D3 (6 sources) Vitamin D3 Activ e Vitamins A,C,L-Hasy-Ycnirw (Icaps Areds) 4,296 mcg-226 mg-90 mg capsule (5 sources) Start: 06-18-2024 take 1 capsule by mouth twice daily Vitamins A,C,Z-Tmyx-Jruzzk (Icaps Areds) 4,296 mcg-226 mg-90 mg capsule Active 1 CAP PO Twice daily June 17, 2024 11:00pm Start: 06-18-2024 take 1 capsule by [facility] twice daily Vitamins A,C,J-Oywf-Jpilaf (Icaps Areds) 4,296 mcg-226 mg-90 mg capsule Active 1 CAP PO Twice daily June 18, 2024 12:00am Completed/Discontinued Medications Medication Drug Class(es) Dates Sig (Normalized) Sig (Original) [id number] 200 actuat albuterol 0.09 mg/actuat metered dose inhaler (11 sources) beta2-Adrenergic Agonist Start: 06-18-2024 End: 10-11-2024 take 2 puff(s) by inhalation every four hours as needed Albuterol Sulfate (Ventolin Hfa) 90 mcg/actuation HFA aerosol inhaler Discontinued 2 PUFF INHALATION Every 4 hours June 17, 2024 11:00pm October 11, 2024 12:33pm FreeTextSi puffs as needed Inhalation every 4 hrs; Note: Source Status: Taking; Provider: Ameena Ponce take 2 puff(s) by in halation every four hours as needed Ventolin HFA 108 (90 Base) MCG/ACT 2 puffs as needed Inhalation every 4 hrs Active bimatoprost 0.1 mg/ml ophthalmic solution (5 sources) Prostaglandin Analog Start: 06-18-2024 End: 10-15-2024 take 0.01 drop(s) into the eye(s) once daily Bimatoprost (Lumigan) 0.01 % drops Discontinued 1 DROPS EYE-BOTH Daily June 17, 2024 11:00pm October 15, 2024 1:13pm bisacodyl 10 mg rectal suppository (1 source) Stimulant Laxative Start: 10-11-2024 End: 10-15-2024 Bisacodyl (Dulcolax (Bisacodyl)) 10 mg suppository Discontinued 10 MG IN Daily as needed October 11, 2024 12:00am October 15, 2024 1:13pm 120 actuat budesonide 0.08 mg/actuat / formoterol fumarate 0.0045 mg/actuat metered dose inhaler (12 sources) Corticosteroid, beta2-Adrenergic Agonist Start: 10-11-2024 End: 10-15-2024 take 1 puff(s) by inhalation every twelve hours Budesonide-Formot ronak (Symbicort) 80-4.5 mcg/actuation HFA aerosol inhaler Discontinued 2 PUFF INHALATION Every 12 hours October 11, 2024 12:00am October 15, 2024 1:13pm Start: 06-18-2024 End: 08-26-2024 take 2 puff(s) by inhalation twice daily Budesonide-Formoterol (Symbicort) 160-4.5 mcg/actuation HFA aerosol inhaler Discontinued 2 PUFF INHALATION Twice daily June 17, 2024 11:00pm August 26, 2024 10:45am FreeTextSi puffs Inhalation Twice a day; Note: Source Status: Taking; Provider: Ameena Ponce Start: 03-13-2014 take 2 puff(s) by in halation twice daily Symbicort 160-4.5 MCG/ACT 2 puffs Inhalation Twice a day Feb, Active cholecalciferol 0.125 mg oral capsule (5 sources) Vitamin D Start: 06-18-2024 End: 10-15-2024 take 1 capsule by mouth once daily Cholecalciferol (Vitamin D3) 125 mcg (5,000 unit) capsule Discontinued 125 MCG PO Daily June 17, 2024 11:00pm October 15, 2024 1:13pm Cranberry (11 sources) Non-Standardized Food Allergenic Extract, Non-Standardized Plant Allergenic Extract Start: 06-18-2024 End: 10-15-2024 take 1 capsule by mouth twice daily at mealtime Cranberry 500 mg capsule Discontinued 500 MG PO Twice daily June 17, 2024 11:00pm October 15, 2024 1:13pm administer with meals Start: 06-18-2024 take 500 mg by mouth twice daily at mealtime Cranberry Active 500 MG PO Twice daily June 18, 2024 12:00am administer with meals Cranberry Active docusate sodium 100 mg oral capsule (1 source) Start: 10-11-2024 End: 10-15-2024 take 1 capsule by mouth once daily Docusate Sodium (Colace) 100 mg capsule Discontinued 100 MG PO Daily October 11, 2024 12:00am October 15, 2024 1:13pm folic acid 0.4 mg oral tablet (8 sources) Start: 06-18-2024 End: 10-15-2024 take 1 tablet by mouth once daily Folic Acid 400 mcg tablet Discontinued 1 TAB PO Daily June 17, 2024 11:00pm October 15, 2024 1:14pm FreeTextSi tablet Orally Once a day; Note: Source Status: Taking; Provider: Shaheen Shannon ( ) Start: 06-18-2024 take 1 tablet by kecia th once daily Folic Acid Active 1 TAB PO Daily June 18, 2024 12:00am FreeTextSi tablet Orally Once a day; Note: Source Status: Taking; Provider: Shaheen Shannon ( ) take 1 tablet by kecia th every twenty-four hours Folic Acid 400 MCG 1 tablet Orally Once a day Active hydroCHLOROthiazide 25 mg oral tablet (12 sources) Thiazide Diuretic Start: 10-11-2024 End: 10-15-2024 take 1 tablet by mouth once daily Hydrochlorothiazide 25 mg tablet Discontinued 25 MG PO Daily October 11, 2024 12:00am October 15, 2024 1:14pm Start: 06-18-2024 End: 08-26-2024 take 1 tablet by mouth once daily Hydrochlorothiazide 25 mg tablet Discontinued 1 TAB PO Daily June 17, 2024 11:00pm August 26, 2024 10:45am FreeTextSi tablet Orally Once a day; Note: Source Status: Not-TakingundefinedPRNQOD; Provider: Shaheen Shannon ( ) take 1 tablet by kecia th every twenty-four hours hydroCHLOROthiazide 25 MG 1 tablet Orall y Once a day for 30 day(s) QOD Not-Taking 24 hr mirabegron 25 mg extended release oral tablet (6 sources) beta3-Adrenergic Agonist take 1 tablet by mouth every twenty-four hours Myrbetriq 25 MG 1 tablet Orally Once a day Not-Taking nystatin [id number] unt/ml topical cream (9 sources) Polyene Antifungal Start: End: 024 Nystatin 100,000 unit/gram cream Discontinued 1 APPLIC TOPICAL Twice daily July 05, 2024 11:07am August 26, 2024 10:46am Problems Active Problems Problem Classification Problem Date Documented Date Episodic/Chronic Abdominal pain (6 sources) Epigastric pain; Translations: [Epigastric pain] Episodic Attention-deficit, conduct, and disruptive behavior disorders (4 sources) Altered behavior; Translations: [Other symptoms and signs involving appearance and behavior] 08-06-2024 Episodic Chronic obstructive pulmonary disease and bronchiectasis (7 sources) Chronic obstructive lung disease; Translations: [Chronic obstructive pulmonary disease, unspecified] Onset: 11-03-20 Chronic Congestive heart failure; nonhypertensive (1 source) Heart failure, unspecified; Translations: [HEART FAILURE UNSPECIFIED] Onset: 11-03-20 Chronic Delirium, dementia, and amnestic and other cognitive disorders (14 sources) Alzheimer's disease; Translations: [Alzheimer's disease, unspecified] Chronic Disorders of lipid metabolism (1 source) Pure hypercholesterolemia, unspecified; Translations: [PURE HYPERCHOLESTEROLEMIA UNSPEC] Onset: 11-03-20 Chronic E Codes: Fall (4 sources) Fall; Translations: [Unspecified fall, initial encounter] 08-06-2024 Episodic Esophageal disorders (8 sources) Gastroesophageal reflux disease; Translations: [Gastro-esophageal reflux disease without esophagitis] Onset: 11-03-20 Chronic Essential hypertension (2 sources) Malignant essential hypertension; Translations: [Essential (primary) hypertension] 09-02-2024 Chronic Genitourinary symptoms and ill-defined conditions (1 source) Dysuria; Translations: [Dysuria] Onset: 11-05-20 Episodic Heart valve disorders (2 sources) Nonrheumatic mitral (valve) insufficiency; Translations: [Nonrheumatic mitral (valve) insufficiency] Onset: 08-22-20 Chronic Hypertension with complications and secondary hypertension (1 source) Hypertensive heart disease with heart failure; Translations: [HTN HEART DISEASE W/HEART FAIL] Onset: 11-03-20 Chronic Mood disorders (2 sources) Major depression with psychotic features; Translations: [Major depressive disorder, single episode, severe with psychotic features] 09-02-2024 Chronic Mycoses (9 sources) Candidiasis of skin; Translations: [Candidiasis of skin and nail] 06-18-2024 Episodic Other aftercare (3 sources) Other shelter (current) drug therapy; Translations: [OTH REVENUE DIRECTOR CURRENT DRUG THERAPY] Onset: 11-03-20 Episodic Other connective tissue disease (5 sources) Recurrent falls ; Translations: [Repeated falls] 06-18-2024 Episodic Other connective tissue disease (4 sources) Repeated falls; Translations: [History of fall] 06-18-2024 Episodic Other gastrointestinal disorders (6 sources) Diarrhea; Translations: [Diarrhea, unspecified] Episodic Other gastrointestinal disorders (1 source) Diarrhea, unspecified Episodic Other nervous system disorders (5 sources) Impairment of balance; Translations: [Other abnormalities of gait and mobility] 06-18-2024 Episodic Other nervous system disorders (4 sources) Other abnormalities of gait and mobility; Translations: [Other symptoms involving nervous and musculoskeletal systems] 06-18-2024 Episodic Other non-traumatic joint disorders (5 sources) Pain in right knee; Translations: [PAIN IN RIGHT KNEE] Onset: 03-13-20 Episodic Other screening for suspected conditions (not mental disorders or infectious disease) (6 sources) Elevated liver enzymes level; Translations: [Other specified abnormal findings of blood chemistry] Episodic Residual codes; unclassified (6 sources) Obstructive sleep apnea syndrome; Translations: [Obstructive sleep apnea (adult) (pediatric)] Chronic Residual codes; unclassified (1 source) Sleep apnea, unspecified; Translations: [SLEEP APNEA UNSPECIFIED] Onset: 11-03-20 Chronic Residual codes; unclassified (1 source) Restlessness and agitation; Translations: [Restlessness and agitation] Onset: 08-06-20 24 Chronic Thyroid disorders (1 source) Hypothyroidism, unspecified; Translations: [HYPOTHYROIDISM UNSPECIFIED] Onset: 11-03-20 Chronic Past or Other Problems Problem Classification Problem Date Documented Da te Episodic/Chronic Nausea and vomiting (4 sources) Nausea with vomiting, unspecified; Translations: [NAUSEA WITH VOMITING UNSPECIFIED] Onset: 11-01-2022 Episodic Other aftercare (1 source) manager intermediate (current) use of aspirin; Translations: [REVENUE DIRECTOR CURRENT USE OF ASPIRIN] Onset: 11-03-2022 Episodic Other circulatory disease (1 source) Personal history of transient ischemic attack (TIA), and cerebral infarction without residual deficits; Translations: [PERS HX TIA AND CI NO RESID DEFICIT] Onset: 11-03-2022 Episodic Residual codes; unclassified (1 source) Acquired absence of other specified parts of digestive tract; Translations: [ACQ ABSENCE OTH PART DIGESTV TRACT] Onset: 11-03-2022 Episodic Residual codes; unclassified (1 source) Acquired absence of both cervix and uterus; Translations: [ACQUIRED ABSENCE BOTH CERVIX AND UTERUS] Onset: 11-03-2022 Episodic Residual codes; unclassified (3 sources) Altered mental status, unspecified; Translations: [Altered mental status, unspecified] Onset: 08-12-2024 Episodic Unclassified (1 source) Dementia in other diseases classified elsewhere, moderate, without behavioral disturbance, psychotic disturbance, mood disturbance, and anxiety F02.B0 Urinary tract infections (1 source) Urinary tract infection, site not specified; Translations: [UTI SITE NOT SPECIFIED] Onset: 11-03-2022 Episodic Results Test Name Value Interpretation Reference Range Facility Urine Cultureon 11-05-2024 Bacteria identified Cx Nom (U) 40,000 colonies/ml mixed bacterial skin contaminants 2 Days PERFORMED BY: [facility] [address] [place] [address] PATHOLOGIST TIME ANALYSIS CLERK FLAKITO MAYS M.D. Normal [facility] Comment on above: Performed By: #### C UU ####[facility] [id number] [facility] [place] [id number] [facility] Lipid Panelon 11-12-2024 Cholesterol [Mass/Vol] 170 mg/dL 0 - 1 99 mg/dL [facility] [employer] Comment on above: Cholesterol Guidelines: <200 Desirable 200-240 Borderline >240 Undesirable Cholesterol in HDL [Mass/Vol] 47 mg/dL 40 - PINF mg/dL [facility] [employer] Comment on above: HDL Guidelines: <40 Undesirable 40-59 Borderline >59 Desirable Cholesterol in LDL [Mass/Vol] 92 mg/dL 0 - 100 mg/dL [facility] [employer] Comment on above: LDL Guidelines: <100 Desirable 100-129 Near to/above Desirable 130-159 Borderline >159 Undesirable Direct (measured) LDL and calculated LDL are not interchangeable tests. Cholesterol in VLDL [Mass/Vol] 31 mg/dL High 1 - 30 mg/dL [facility] [employer] Cholesterol.total/Chol esterol in HDL [Mass ratio] 3.6 {ratio} [facility] [employer] Interpretation and review of laboratory results Abnormal [facility] [employer] Triglyceride [Mass/Vol] 156 mg/dL High NINF - 150 mg/dL [facility] [employer] Comment on above: Triglyceride Guidelines: <150 Desirable 150-199 Borderline 200-499 High >499 Very high Based on AHA Guidelines for fasting triglyceride, August 2012. [facility] [employer] Lipid Profileon 10-08-2024 Cholesterol [Mass/Vol] 170 mg/dL Normal 0-199 [facility] Comment on above: Result Comment: Cholesterol Guidelines: <200 Desirable 200-240 Borderline >240 Undesirable Performed By: #### L IPR #### [employer] [address] [place], [place] [id number] Vehicle Fare Collector: Tal Silva MD Cholesterol in HDL [Mass/Vol] 47 mg/dL Normal >[address] [facility] Comment on above: Result Comment: HDL Guidelines: <40 Undesirable 40-59 Borderline >59 Desirable Performed By: #### L IPR #### [employer] [address] [place], [place] [id number] Vehicle Fare Collector: Tal Silva MD Cholesterol in LDL [Mass/Vol] 92 mg/dL Normal 0-[address] [facility] Comment on above: Result Comment: LDL Guidelines: <100 Desirable 100-129 Near to/above Desirable 130-159 Borderline >159 Undesirable Direct (measured) LDL and calculated LDL are not interchangeable tests. Performed By: #### L IPR #### [place] [id number] [place] [address] Vehicle Fare Collector: Tal Silva MD Cholesterol in VLDL [Mass/Vol] 31 mg/dL High 1-[address] [facility] Comment on above: Performed By: #### L IPR #### [address] [address] Vehicle Fare Collector: Tal Silva MD Cholesterol.total/Chol esterol in HDL [Mass ratio] 3.6 {ratio} Normal [facility] Comment on above: Performed By: #### L IPR #### [address] [address] Vehicle Fare Collector: Tal Silva MD Triglyceride [Mass/Vol] 156 mg/dL High <[address] [facility] Comment on above: Result Comment: Triglyceride Guidelines: <150 Desirable 150-199 Borderline 200-499 High >499 Very high Based on AHA Guidelines for fasting triglyceride, August 2012. Performed By: #### L IPR #### [address] [address] Vehicle Fare Collector: Tal Silva MD Cult,Urineon 09-26-2024 Cult,Urine Specimen Description .VOIDED URINE Culture NO SIGNIFICANT GROWTH Report Status FINAL 09/26/[address] [facility] Comment on above: Performed By: #### U RC #### [address] [address] Vehicle Fare Collector: Tal Silva MD [facility] [address] [place] [id number] Vehicle Fare Collector: Aydin Garcia MD Urinalysison 09-25-2024 Bilirubin Ql (U) Negative NEGATIVE [facility] [employer] Clarity (U) Clear Clear [facility] [employer] Color (U) Yellow Yellow [facility] [employer] Glucose Test strip (U) [Mass/Vol] Negative NEGATIVE mg/dL [facility] [employer] Hemoglobin Auto test strip Ql (U) Negative NEGATIVE [facility] Ketones (U) [Mass/Vol] Negative NEGAT VALARIE mg/dL [facility] Leukocyte esterase Test strip Ql (U) Negative NEGATIVE [facility] Nitrite Ql (U) Negative NEGATIVE [facility] pH (U) 6.5 [pH] 5.0 - 9.0 [facility] Protein (U) [Mass/Vol] Negative NEGAT VALARIE mg/dL [facility] Specific gravity (U) [Rel density] 1.015 1.010 - 1.020 [facility] Urobilinogen Qn (U) Normal 0.0 - 1. 0 EU/dL [facility] Urinalysis, Microon 09-25-20 24 Bacteria LM Ql (Urine sed) TRACE Abnormal None [facility] Epithelial cells LM.HPF (Urine sed) [#/Area] 0 TO 2 [facility] Interpretation and review of laboratory results Abnormal [facility] RBC LM.HPF (Urine sed) [#/Area] None [facility] WBC LM.HPF (Urine sed) [#/Area] None [facility] Urinalysis, Routineon 2023 Bilirubin, SemiQt,Ur Negative Normal NEG [facility] Comment on above: Performed By: #### U JODI, UA #### [facility] [address] [place] [address] Vehicle Fare Collector: Aydin Garcia MD Blood, Urine Negative Normal NEG [facility] Comment on above: Performed By: #### U JODI, UA #### [facility] [address] [place] [address] Vehicle Fare Collector: Aydin Garcia MD Clarity (U) Clear Normal CLEAR [facility] Comment on above: Performed By: #### U JODI, UA #### [facility] [address] [place] [address] Vehicle Fare Collector: Aydin Garcia MD Color (U) Yellow Normal YEL [facility] Comment on above: Performed By: #### U JODI, UA #### [facility] [address] [place], [place] [id number] Vehicle Fare Collector: Aydin Garcia MD Glucose Ql (U) Negative Normal NEG [facility] Comment on above: Performed By: #### U JODI, UA #### [facility] [address] [place], [place] [id number] Vehicle Fare Collector: Aydin Garcia MD Ketones Ql (U) Negative Normal NEG [facility] Comment on above: Performed By: #### U JODI, UA #### [address] [place], [place] [id number] Vehicle Fare Collector: Aydin Garcia MD Leukocyte esterase Test strip Ql (U) Negative Normal NEG [facility] Comment on above: Performed By: #### U JODI, UA #### [facility] [address] [place] [address] Dr[place], [place] [phone] Vehicle Fare Collector: Aydin Garcia MD Nitrite,Ur Negative Normal [facility] Comment on above: Performed By: #### U JODI, UA #### [facility] [address] [place] [address] Dr[place], [place] [phone] Vehicle Fare Collector: Aydin Garcia MD PH,Ur 6.5 Normal 5.0-9.[address] [facility] Comment on above: Performed By: #### U JODI, UA #### [facility] [address] [place], [place] [id number] Vehicle Fare Collector: Aydin Garcia MD Protein Ql (U) Negative Normal [facility] Comment on above: Performed By: #### U JODI, UA #### [facility] [address] [place] [address] Dr. [place], [place] [id number] Vehicle Fare Collector: Aydin Gacria MD Spec. [place],Ur 1.015 Normal 1.010-1.[address] [facility] Comment on above: Performed By: #### U JODI, UA #### [facility] [address] [place] [address] Vehicle Fare Collector: Aydin Garcia MD Urobilinogen,Ur Normal Normal 0.0-1.[address] [facility] Comment on above: Performed By: #### U JODI, UA #### [facility] [address] [place], [place] [phone] Vehicle Fare Collector: Aydin Garcia MD Urinalysis,Microon 4 Bacteria TRACE Abnormal NONE [facility] Comment on above: Performed By: #### U JODI, UA #### [facility] [address] [place] [address] Vehicle Fare Collector: Aydin Garcia MD Epithelial cells LM Ql (Urine sed) 0 TO 2 Normal 0-[address] [facility] Comment on above: Performed By: #### U JODI, UA #### [facility] [address] [place] [address] Vehicle Fare Collector: Aydin Garcia MD Urine RBC's None Normal 0-[address] [facility] Comment on above: Performed By: #### U JODI, UA #### [facility] [address] [place] [address] Vehicle Fare Collector: Aydin Garcia MD Urine WBC's None Normal 0-[address] [facility] Comment on above: Performed By: #### U JODI, UA #### [facility] [address] [place] [address] Vehicle Fare Collector: Aydin Garcia MD Basophils Auto (Bld) [#/Vol] on 09-14-2024 Basophils (Bld) [#/Vol] Automated basophil count 0.0-0.1 [facility] Basophils/100 WBC Auto (Bld) on 09-14-2024 Basophils/100 WBC (Bld) Automated basophil % 0.2-2.[address] [facility] Buprenorphine [Presence] in Urineon 09-14-2024 Buprenorphine Ql (U) Buprenorphine [Pres ence] in Urine NEGATIVE [facility] Comment on above: DRUG CLASS TEST SYST EM CUT-OFF CONCENTRATIONS ARE ASFOLLOWS:AMP (Amphetamine): 500 ng/mLBAR (Barbiturates): 200 ng/mLBZO (Benzodiazepines): 150 ng/mLBUP (Buprenorphine): 10 ng/mLCOC (Cocaine): 150 ng/mLmAMP (Methamphetamine): 500 ng/mLMTD (Methadone): 200 ng/mLOPI (Opiates): 100 ng/mLOXY (Oxycodone): 100 ng/mLPCP (Phencyclidine): 25 ng/mLTHC (Cannabinoids): 50 ng/mLTCA (Trycyclic Antidepressants): 300 ng/mL Eosinophils/100 WBC Auto (Bl d)on 09-14-2024 Eosinophils/100 WBC (Bld) Automated eosinophil % 0.9-7.[address] [facility] Erythrocyte distribution wid th Auto (RBC) [Ratio]on 09-14-2024 Erythrocyte distribution width (RBC) [Ratio] Erythrocyte distribution width [Ratio] by Automated count 11.0-15.[address] [facility] Estimated glomerular filtrat ion rate (GFR) non- Americanon 09-14-2024 GFR/1.73 sq M.predicted among non-blacks MDRD (S/P/Bld) [Vol rate/Area] Estimated glomerular filtration rate (GFR) non- Low >=60 mL/min/1.7 3m [address] [facility] Globulin Calc (S) [Mass/Vol] on 09-14-2024 Globulin (S) [Mass/Vol] Serum globulin measurement by calculation (mass/volume) [facility] Hematocrit Auto (Bld) [Volum e fraction]on 09-14-2024 Hematocrit (Bld) [Volume fraction] Hematocrit [Volume Fraction] of Blood by Automated count 36.0-48.[address] [facility] Hemoglobin [Mass/volume] in Bloodon 09-14-2024 Hemoglobin (Bld) [Mass/Vol] Hemoglobin [Mass/volume] in Blood 12.0-16.[address] [facility] Laboratory - Chemistry and C hemistry - challengeon 09-14-2024 Bilirubin Ql (U) Negative NEGATIVE [facility] Glucose (U) [Mass/Vol] Negative NEGATIVE Fi [facility] Ketones Ql (U) Negative NEGATIVE [facility] pH (U) 6.0 [pH] 5.0-9.[address] [facility] Specific gravity (U) [Rel density] 1.020 1.005-1.[address] [facility] Urobilinogen Qn (U) 0.2 {Kip'U}/dL 0.2-1.[address] [facility] Albumin [Mass/Vol] 2.9 g/dL Low 3.4-5.0 [facility] ALP [Catalytic activity/Vol] 141 U/L High 46-[address] [facility] ALT [Catalytic activity/Vol] 27 U/L 14-[address] [facility] AST [Catalytic activity/Vol] 20 U/L 15-[address] [facility] Bilirubin [Mass/Vol] 0.6 mg/dL 0.2-1.0 [facility] Calcium [Mass/Vol] 9.1 mg/dL 8.5-10.1 [facility] Chloride [Moles/Vol] 108 mmol/L High 98-107 [facility] CO2 [Moles/Vol] 28.3 mmol/L 21.0-32.0 [facility] Creatinine [Mass/Vol] 1.19 mg/dL High 0.55-1.02 [facility] GFR/1.73 sq M.predicted MDRD (S/P/Bld) [Vol rate/Area] 52 mL/min/{1.73_m2} Low >=60 mL/min/1.7 3m [address] [facility] Glucose [Mass/Vol] 90 mg/dL 74-106 [facility] Potassium [Moles/Vol] 4.5 mmol/L 3.5-5.1 [facility] Protein [Mass/Vol] 5.9 g/dL Low 6.4-8.2 [facility] Sodium [Moles/Vol] 146 mmol/L High 136-145 [facility] Urea nitrogen [Mass/Vol] 22.0 mg/dL High 7.0-18.[address] [facility] Urea nitrogen/Creatinine [Mass ratio] 18.5 mg/mg [facility] Laboratory - Drug toxicology on 09-14-2024 Amphetamines Ql (U) Negative NEGATIVE [facility] Benzodiazepines Ql (U) Negative NEGATIVE relaFormerly [facility] Cocaine Ql (U) Negative NEGATIVE [facility] Opiates Ql (U) Negative NEGATIVE [facility] Phencyclidine Ql (U) Negative NEGATIVE [facility] Laboratory - Hematology and Cell countson 09-14-2024 Immature granulocytes/100 WBC (Bld) 0.2 % 0.0-0.[address] [facility] Laboratory - Microbiology an d Antimicrobial susceptibilityon 09-14-2024 SARS-CoV-2 (COVID-19) RNA LAURA+probe Ql (Unsp spec) Negative NEGATIVE [facility] Comment on above: This test has not be en FDA cleared or approved, but has beenauthorized by the FDA under an Emergency Use Authorization(EUA) for use by authorized laboratories certified underIA that meet the requirements to perform moderate or highcomplexity testing. This test has been authorized only forthe detection of proteins from SARS-CoV-2, not for any otherviruses or pathogens. The emergency use of this test isauthorized for the duration of the declaration thatcircumstances exist justifying the authorization ofemergency use of in vitro diagnostic tests for detectionand/or diagnosis of Covid-19 under section 564(b)(1) of theAct, 21 U.S.C. 360bbb-3(b)(1), unless the declaration isterminated or authorization is revoked sooner. Laboratory - Specimen inform ationon 09-14-2024 Appearance (U) CLEAR CLEAR [facility] Color (U) LT. YELLOW YELLOW [facility] Laboratory - Urinalysison Leukocyte esterase Test strip Ql (U) TRACE Abnormal NEGATIVE [facility] Mucus Ql (Urine sed) NONE SEEN NONE SEEN [facility] Nitrite Ql (U) Negative NEGATIVE [facility] Protein Ql (U) Negative NEG/TRACE [facility] Leukocytes [#/volume] correc wilfrido for nucleated erythrocytes in Blood by Automated counon 09-14-2024 WBC corrected for nucl RBC Auto (Bld) [#/Vol] Leukocytes [#/volume] corrected for nucleated erythrocytes in Blood by Automated coun 4.0-11.[address] [facility] Lymphocytes Auto (Bld) [#/Vo l]on 09-14-2024 Lymphocytes (Bld) [#/Vol] Lymphocytes [#/volume] in Blood by Automated count 1.2-3.[address] [facility] Lymphocytes/100 WBC Auto (Bl d)on 09-14-2024 Lymphocytes/100 WBC (Bld) Lymphocytes/100 leukocytes in Blood by Automated count Low 20.5-60.[address] [facility] MCH Auto (RBC) [Entitic mass ]on 09-14-2024 MCH (RBC) [Entitic mass] MCH [Entitic mass] by Automated count 26.7-34.[address] [facility] MCHC Auto (RBC) [Mass/Vol]on 09-14-2024 MCHC (RBC) [Mass/Vol] MCHC [Mass/volume] by Automated count 29.9-35.[address] [facility] MCV Auto (RBC) [Entitic vol] on 09-14-2024 MCV (RBC) [Entitic vol] MCV [Entitic volume] by Automated count 81.0-99.[address] [facility] Methadone [Presence] in Urin e by Screen methodon 09-14-2024 Methadone Screen Ql (U) Methadone [Presence] in Urine by Screen method NEGATIVE [facility] Monocytes Auto (Bld) [#/Vol] on 09-14-2024 Monocytes (Bld) [#/Vol] Automated blood monocyte count 0.3-0.[address] [facility] Monocytes/100 WBC Auto (Bld) on 09-14-2024 Monocytes/100 WBC (Bld) Automated monocyte % 1.7-12.[address] [facility] Neutrophils Auto (Bld) [#/Vo l]on 09-14-2024 Neutrophils (Bld) [#/Vol] Neutrophils [#/volume] in Blood by Automated count 1.4-6.[address] [facility] Neutrophils/100 WBC Auto (Bl d)on 09-14-2024 Neutrophils/100 WBC (Bld) Automated neutrophil % 43.0-75.[address] [facility] No Panel Informationon 09-14 Urine Bacteria TRACE #/HPF Abnormal NONE SEEN [facility] Urine Barbiturates Screen Negative NEGATIVE [facility] Urine Culture Reflexed NO Fi [facility] Urine Marijuana (THC) Screen Negative NEGATIVE [facility] Urine Methamphetamines Screen Negative NEGATIVE [facility] Urine Microscopic Review YES [facility] Urine Occult Blood Negative NEGATIVE [facility] Urine Other Casts NONE SEEN #/LPF NONE SEEN Fi [facility] Urine Other Crystals None Seen #/HPF None Seen [facility] Urine RBC NONE SEEN #/HPF 0-[address] [facility] Urine Squamous Epithelial Cells FEW #/LPF Abnormal NONE/RARE [facility] Urine WBC 0-2 #/HPF Abnormal NONE SEEN [facility] Eosinophils # (Auto) 0.3 10 3/uL 0.0-0.7 [facility] Ethyl Alcohol Level <3 mg/dL [facility] Comment on above: NOTE: 80 mg/dl is th e legal limit for a blood alcohol level Immature Granulocyte # (Auto) 0.02 10 3/uL 0.00-0.[address] [facility] Platelet mean volume Auto (B ld) [Entitic vol]on 09-14-2024 Platelet mean volume (Bld) [Entitic vol] Platelet mean volume [Entitic volume] in Blood by Automated count 9.5-13.[address] [facility] Platelets Auto (Bld) [#/Vol] on 09-14-2024 Platelets (Bld) [#/Vol] Platelets [#/volume] in Blood by Automated count 150-[address] [facility] RBC Auto (Bld) [#/Vol]on RBC (Bld) [#/Vol] Erythrocytes [#/volu me] in Blood by Automated count Low 4.20-5.[address] [facility] Serum or plasma albumin/glob ulin mass ratioon 09-14-2024 Albumin/Globulin [Mass ratio] Serum or plasma albumin/globulin mass ratio [facility] Serum or plasma anion gap de terminationon 09-14-2024 Anion gap [Moles/Vol] Serum or plasma an ion gap determination [facility] Urine tricyclic antidepressa nt measurementon 09-14-2024 Tricyclic antidepressants (U) [Mass/Vol] Urine tricyclic antidepressant measurement NEGATIVE [facility] oxyCODONE+oxyMORphone [Prese nce] in Urine by Screen methodon 09-14-2024 oxyCODONE+oxyMORphone Screen Ql (U) oxyCODONE+oxyMORphone [Presence] in Urine by Screen method NEGATIVE [facility] Alanine aminotransferase [En zymatic activity/volume] in Serum or PlasmaOrdered By: Kevon Leong on 08-12-2024 ALT [Catalytic activity/Vol] 22 U/L Normal [facility] Comment on above: Performed By: #### C MP, CBC, ETOH ####[facility] [id number] [place] [id number] [facility] ALT [Catalytic activity/Vol] Alanine aminotransferase [Enzymatic activity/volume] in Serum or Plasma [facility] Albumin [Mass/volume] in Ser um or Plasma by Bromocresol green (BCG) dye binding methoOrdered By: Kevon Leong on 08-12-2024 Albumin BCG dye [Mass/Vol] 3.6 g/dL 3.5-5.[address] [facility] Albumin BCG dye [Mass/Vol] Albumin [Mass/volume] in Serum or Plasma by Bromocresol green (BCG) dye binding metho 3.5-5.[address] [facility] Alkaline phosphatase [Enzyma tic activity/volume] in Serum or PlasmaOrdered By: Kevon Leong on 08-12-2024 ALP [Catalytic activity/Vol] 113 U/L High 34-[address] [facility] Comment on above: Performed By: #### C MP, CBC, ETOH ####[facility] [id number] [place] [id number] [facility] ALP [Catalytic activity/Vol] Alkaline phosphatase [Enzymatic activity/volume] in Serum or Plasma High 34-[address] [facility] Amphetamine Screen Ql (U)Ord ered By: Kevon Leong on 08-12-2024 Amphetamines Ql (U) Amphetamines screen Negativ e [facility] Amphetamines Ql (U) Negative Negative [facility] Appearance of UrineOrdered B y: Kevon Leong on 08-12-2024 Appearance (U) Urine appearance Clear [facility] Aspartate aminotransferase [ Enzymatic activity/volume] in Serum or PlasmaOrdered By: Kevon Leong on 08-12-2024 AST [Catalytic activity/Vol] 27 U/L Normal [facility] Comment on above: Performed By: #### C MP, CBC, ETOH ####[place] [id number] [address] AST [Catalytic activity/Vol] Aspartate aminotransferase [Enzymatic activity/volume] in Serum or Plasma [facility] Automated basophil %Ordered By: Kevon Leong on 08-12-2024 Basophils/100 WBC (Bld) 1.1 % Normal . [facility] Comment on above: Performed By: #### C MP, CBC, ETOH ####[address] Automated basophil countOrde red By: Kevon Leong on 08-12-2024 Basophils (Bld) [#/Vol] 0.1 10*3/uL Normal 0.0-0.[address] [facility] Comment on above: Result Comment: PERF ORMED BY: [facility] [address] [facility] [place] [address] PATHOLOGIST TIME ANALYSIS CLERK TOÑA MCFARLAND M.D. Performed By: #### C MP, CBC, ETOH ####[address] Automated blood monocyte cou ntOrdered By: Kevon Leong on 08-12-2024 Monocytes (Bld) [#/Vol] 0.7 10*3/uL Normal 0.0-0.[address] [facility] Comment on above: Performed By: #### C MP, CBC, ETOH ####[address] Automated eosinophil %Ordere d By: Kevon Leong on 08-12-2024 Eosinophils/100 WBC (Bld) 4.3 % Normal . [facility] Comment on above: Performed By: #### C MP, CBC, ETOH ####[place] [id number] [facility] Automated eosinophil countOr dered By: Kevon Leong on 08-12-2024 Eosinophils (Bld) [#/Vol] 0.3 10*3/uL Normal 0.0-0.[address] [facility] Comment on above: Performed By: #### C MP, CBC, ETOH ####[facility] [id number] Automated monocyte %Ordered By: Kevon Leong on 08-12-2024 Monocytes/100 WBC (Bld) 9.9 % Normal . [facility] Comment on above: Performed By: #### C MP, CBC, ETOH ####[facility] Automated neutrophil %Ordere d By: Kevon Leong on 08-12-2024 Neutrophils/100 WBC (Bld) 59.6 % Normal . [facility] Comment on above: Performed By: #### C MP, CBC, ETOH ####[address] Bacteria [Presence] in Urine by AutomatedOrdered By: Kevon Leong on 08-12-2024 Bacteria Auto Ql (U) 1+ [HPF] High None Seen [facility] Bacteria Auto Ql (U) Bacteria [Presence] in Urine by Automated High None Seen [facility] Barbiturates [Presence] in U rine by Screen methodOrdered By: Kevon Leong on 08-12-2024 Barbiturates Screen Ql (U) Negative Negative [facility] Barbiturates Screen Ql (U) Barbiturates [Presence] in Urine by Screen method Negative [facility] Basophils Auto (Bld) [#/Vol] Ordered By: Kevon Leong on 08-12-2024 Basophils (Bld) [#/Vol] Automated basophil count 0.0-0.2 [facility] Basophils/100 WBC Auto (Bld) Ordered By: Kevon Leong on 08-12-2024 Basophils/100 WBC (Bld) Automated basophil % . [facility] Benzodiazepines Screen Ql (U )Ordered By: Kevon Leong on 08-12-2024 Benzodiazepines Ql (U) Negative Negative [facility] Benzodiazepines Ql (U) Benzodiazepines [ Presence] in Urine by Screen method Negative [facility] Benzoylecgonine [Presence] i n Urine by Screen methodOrdered By: Kevon Leong on 08-12-2024 Benzoylecgonine Screen Ql (U) Negative Negative [facility] Benzoylecgonine Screen Ql (U) Benzoylecgonine [Presence] in Urine by Screen method Negative [facility] Bilirubin Test strip Ql (U)O rdered By: Kevon Leong on 08-12-2024 Bilirubin Ql (U) Negative Negative [facility] Bilirubin Ql (U) Bilirubin.total [Pre sence] in Urine by Test strip Negative [facility] Bilirubin.total [Mass/volume ] in Serum or PlasmaOrdered By: Kevon Leong on 08-12-2024 Bilirubin [Mass/Vol] 0.4 mg/dL Normal 0.3-1.0 [facility] Comment on above: Performed By: #### C MP, CBC, ETOH ####[facility] [id number] Bilirubin [Mass/Vol] Bilirubin.total [Mass/volume] in Serum or Plasma 0.3-1.[address] [facility] COVID-19 Antigenon COVID-19 Antigen Healthcare Worker?: N Reference Range: Negative Negative results, from patients with symptom onset beyond five days, should be treated as presumptive and confirmation with a molecular assay, if necessary, for patient management, may be performed. Negative results do not rule out COVID-19 and should not be used as the sole basis for treatment or patient management decisions, including infection control decisions. Negative results should be considered in the context of a patient's recent exposures, history and the presence of clinical signs and symptoms consistent with COVID-19. The Kalpesh SARS Antigen ARIANNA does not differentiate between SARS-CoV and SARS-CoV-2. This test was developed and its performance characteristic determined by [employer] and validated at [facility]. This test has not been FDA cleared or approved. This test has been authorized by FDA under an Emergency Use Authorization (EUA). This test has been validated in accordance with the FDA's Guidance Document (Policy for Diagnostics Testing in Laboratories Certified to Perform High Complexity Testing under CLIA prior to Emergency Use Authorization for Coronavirus Disease-2019 during the Public Health Emergency) issued on February 27, 2020. This test is only authorized for the duration of time the declaration that circumstances exist justifying the authorization of the emergency use of in vitro diagnostic tests for detection of SARS-CoV-2 virus and/or diagnosis of COVID-19 infection under section 564(b)(1) of the Act, 21 U.S.C. 360bbb-3(b)(1), unless the authorization is terminated or revoked sooner. SARS-CoV+SARS-CoV-2 (COVID-19) Ag [Presence] in Respiratory specimen by Rapid immunoassay Negative for SARS Antigen by ARIANNA PERFORMED BY: [place] [address] PATHOLOGIST TIME ANALYSIS CLERK TOÑA MCFARLAND M.D. Normal [facility] Comment on above: Performed By: #### C OVID-19 KALPESH, SOFIANEG #### [facility] [address] COVID-19 SOFIAOrdered By: Kenney Leong on 08-12-2024 SARS-CoV+SARS-CoV-2 (COVID-19) Ag IA.rapid Ql (Resp) Negative Negative [facility] Comment on above: This is a duplicate Kalpesh SARS Antigen (ARIANNA) result to be used for statistical tracking purpose only. Calcium [Mass/volume] in Ser um or PlasmaOrdered By: Kevon Leong on 08-12-2024 Calcium [Mass/Vol] 8.8 mg/dL Normal 8.6-10.3 [facility] System Comment on above: Performed By: #### C MP, CBC, ETOH ####[facility] [id number] Calcium [Mass/Vol] Calcium [Mass/volume ] in Serum or Plasma 8.6-10.[address] [facility] Cannabinoids [Presence] in U rine by Screen methodOrdered By: Kevon Leong on 08-12-2024 Cannabinoids Screen Ql (U) Negative Negative [facility] Comment on above: These are unconfirme d results and should not be used for legal purposes. Drug Cut-Off Concentration: AMPH 1000 ng/mL SONIA 200 ng/mL AMANUEL 200 ng/mL COCM 300 ng/mL OP 300 ng/mL PCP 25 ng/mL THC 20 ng/mL Cannabinoids Screen Ql (U) Cannabinoids [Presence] in Urine by Screen method Negative [facility] Comment on above: These are unconfirme d results and should not be used for legal purposes. Drug Cut-Off Concentration: AMPH 1000 ng/mL SONIA 200 ng/mL AMANUEL 200 ng/mL COCM 300 ng/mL OP 300 ng/mL PCP 25 ng/mL THC 20 ng/mL Carbon dioxide, total [Moles /volume] in Serum or PlasmaOrdered By: Kevon Leong on 08-12-2024 CO2 [Moles/Vol] 28.8 mmol/L Normal 21.0-31.0 [facility] Comment on above: Performed By: #### C MP, CBC, ETOH ####[facility] [id number] [address] CO2 [Moles/Vol] Carbon dioxide, tota l [Moles/volume] in Serum or Plasma 21.0-31.[address] [facility] Chloride [Moles/volume] in S lisandro or PlasmaOrdered By: Kevon Leong on 08-12-2024 Chloride [Moles/Vol] 108 mmol/L High 98-107 [facility] Comment on above: Performed By: #### C MP, CBC, ETOH ####[facility] [id number] Chloride [Moles/Vol] Chloride [Moles/vol ume] in Serum or Plasma High 98-[address] [facility] Color Auto (U)Ordered By: Kenney Leong on 08-12-2024 Color (U) Color of Urine by Auto Yellow [facility] Color of Urine by AutoOrdere d By: Kevon Leong on 08-12-2024 Color (U) Light-yellow Normal Yellow [facility] Comment on above: Order Comment: Name Collection Type:: Voided Performed By: #### C UU, ADDONUAPLUS ####[address] Complete Blood Count Auto Di ffon 08-12-2024 Mean Corpuscular HGB Conc 33.8 g/dL Normal 32.0-35.0 [facility] Comment on above: Performed By: #### C MP, CBC, ETOH ####[place] [id number] [facility] Monocytes/100 WBC (Bld) 18.67 % Normal 0.00-20.00 [facility] Comment on above: Performed By: #### C MP, CBC, ETOH ####[address] NRBC% 0.1 /100{WBC} Normal 0-0.5 [facility] Comment on above: Performed By: #### C MP, CBC, ETOH ####[address] Comprehensive Metabolic Pane dixie 08-12-2024 Albumin [Mass/Vol] 3.6 g/dL Normal 3.5-5.7 [facility] Comment on above: Performed By: #### C MP, CBC, ETOH ####[address] Creatinine Clr Calc Pharmacy 42.80 Normal [facility] Comment on above: Result Comment: PERF ORMED BY: [facility] [address] [place] [address] PATHOLOGIST TIME ANALYSIS CLERK TOÑA MCFARLAND M.D. Performed By: #### C MP, CBC, ETOH ####[place] [id number] [facility] GFR/1.73 sq M.predicted MDRD (S/P/Bld) [Vol rate/Area] 55.235 mL/min/{1.73_m2} Normal [facility] Comment on above: Performed By: #### C MP, CBC, ETOH ####[place] [id number] [facility] Creatinine [Mass/volume] in Serum or PlasmaOrdered By: Kevon Leong on 08-12-2024 Creatinine [Mass/Vol] 1.01 mg/dL Normal 0.60-1.20 [facility] Comment on above: Performed By: #### C MP, CBC, ETOH ####[place] [address] Creatinine [Mass/Vol] Creatinine [Mass/v olume] in Serum or Plasma 0.60-1.[address] [facility] Dipstick and Microscopicon 0 08-12-2024 Bacteria,Urine 1+ High None Seen [facility] Comment on above: Order Comment: Name Collection Type:: Voided Performed By: #### C UU, ADDONUAPLUS ####[address] Bilirubin,Urine Negative Normal Negative [facility] Comment on above: Order Comment: Name Collection Type:: Voided Performed By: #### C UU, ADDONUAPLUS ####[address] Glucose Ql (U) Normal Normal Normal [facility] Comment on above: Order Comment: Name Collection Type:: Voided Performed By: #### C UU, ADDONUAPLUS ####[address] Hyaline Casts,Urine None Normal 0-8 [facility] Comment on above: Order Comment: Name Collection Type:: Voided Result Comment: PERF ORMED BY: [address] [place] [address] PATHOLOGIST TIME ANALYSIS CLERK TOÑA MCFARLAND M.D. Performed By: #### C UU, ADDONUAPLUS ####[address] Nitrite,Urine Positive High Negative [facility] Comment on above: Order Comment: Name Collection Type:: Voided Performed By: #### C UU, ADDONUAPLUS ####[place] [id number] [facility] Occult Blood,Urine Negative Normal Negative [facility] Comment on above: Order Comment: Name Collection Type:: Voided Result Comment: PERF ORMED BY: [facility] [address] [place] [address] PATHOLOGIST TIME ANALYSIS CLERK TOÑA MCFARLAND M.D. Performed By: #### C UU, ADDONUAPLUS ####[place] [id number] Protein,Urine Negative Normal Negative [facility] Comment on above: Order Comment: Name Collection Type:: Voided Performed By: #### C UU, ADDONUAPLUS ####[address] RBC,Urine 1-2 Normal 0-4 [facility] Comment on above: Order Comment: Name Collection Type:: Voided Performed By: #### C UU, ADDONUAPLUS ####[address] Specificy [place],Urine 1.018 Normal 1.001-1.03 0 [facility] Comment on above: Order Comment: Name Collection Type:: Voided Performed By: #### C UU, ADDONUAPLUS ####[address] Squamous Epithelial Cell,Urine 1-2 Normal 0-2 [facility] Comment on above: Order Comment: Name Collection Type:: Voided Performed By: #### C UU, ADDONUAPLUS ####[address] Urobilinogen,Urine Normal Normal Normal [facility] Comment on above: Order Comment: Name Collection Type:: Voided Performed By: #### C UU, ADDONUAPLUS ####[address] WBC,Urine 5-9 High 0-4 [facility] Comment on above: Order Comment: Name Collection Type:: Voided Performed By: #### C UU, ADDONUAPLUS ####[address] Drug Screen,Urineon 08-12-20 24 Amphetamine Screen,Urine Negative Normal Negative [facility] Comment on above: Performed By: #### U RDS #### [facility] [address] Barbiturate Screen,Urine Negative Normal Negative [facility] Comment on above: Performed By: #### U RDS #### [address] Benzodiazepines Screen,Urine Negative Normal Negative [facility] Comment on above: Performed By: #### U RDS #### [address] Cannabinoid Screen,Urine Negative Normal Negative [facility] Comment on above: Result Comment: Thes e are unconfirmed results and should not be used for legal purposes. Drug Cut-Off Concentration: AMPH 1000 ng/mL SONIA 200 ng/mL AMANUEL 200 ng/mL COCM 300 ng/mL OP 300 ng/mL PCP 25 ng/mL THC 20 ng/mL PERFORMED BY: [place] [address] PATHOLOGIST TIME ANALYSIS CLERK TOÑA MCFARLAND M.D. Performed By: #### U RDS #### [address] Cocaine Screen,Urine Negative Normal Negative [facility] Comment on above: Performed By: #### U RDS #### [address] Opiate Screen,Urine Negative Normal Negative [facility] Comment on above: Performed By: #### U RDS #### [address] Phencyclidine Screen,Urine Negative Normal Negative [facility] Comment on above: Performed By: #### U RDS #### [place] [address] [place] Eosinophils Auto (Bld) [#/Vo l]Ordered By: Kevon Leong on 08-12-2024 Eosinophils (Bld) [#/Vol] Automated eosinophil count 0.0-0.45 [facility] Eosinophils/100 WBC Auto (Bl d)Ordered By: Kevon Leong on 08-12-2024 Eosinophils/100 WBC (Bld) Automated eosinophil % . [facility] Epithelial cells.squamous [# /area] in Urine sediment by Automated countOrdered By: Kevon Leong on 08-12-2024 Epithelial cells.squamous Auto (Urine sed) [#/Area] 1-2 [HPF] 0-[address] [facility] Epithelial cells.squamous Auto (Urine sed) [#/Area] Epithelial cells.squamous [#/area] in Urine sediment by Automated count 0-[address] [facility] Erythrocyte distribution wid th Auto (RBC) [Ratio]Ordered By: Kevon Leong on 08-12-2024 Erythrocyte distribution width (RBC) [Ratio] Erythrocyte distribution width [Ratio] by Automated count 11.9-15.[address] [facility] Erythrocyte distribution wid th [Ratio] by Automated countOrdered By: Kevon Leong on 08-12-2024 Erythrocyte distribution width (RBC) [Ratio] 13.4 % Normal 11.9-15.[address] [facility] Comment on above: Performed By: #### C MP, CBC, ETOH ####[place] [id number] [address] Erythrocytes [#/area] in Uri ne sediment by Automated countOrdered By: Kevon Leong on 08-12-2024 RBC Auto (Urine sed) [#/Area] 1-2 [HPF] 0-[address] [facility] RBC Auto (Urine sed) [#/Area] Erythrocytes [#/area] in Urine sediment by Automated count 0-[address] [facility] Erythrocytes [#/volume] in B lood by Automated countOrdered By: Kevon Leong on 08-12-2024 RBC (Bld) [#/Vol] 3.46 10*6/uL Low 3.60-5.00 [facility] Comment on above: Performed By: #### C MP, CBC, ETOH ####[address] Ethanol [Mass/volume] in Ser um or PlasmaOrdered By: Kevon Leong on 08-12-2024 Ethanol [Mass/Vol] mg/dL Normal [facility] Comment on above: Performed By: #### C MP, CBC, ETOH ####[address] Ethanol [Mass/Vol] TNP [facility] Comment on above: Test not performed Ethanol [Mass/Vol] Ethanol [Mass/volume ] in Serum or Plasma [facility] Comment on above: Test not performed Ethyl Alcohol Profileon 07-28 Percent Ethanol Not performed Normal [facility] Comment on above: Result Comment: PERF ORMED BY: [facility] [address] [place] [id number] PATHOLOGIST TIME ANALYSIS CLERK TOÑA MCFARLAND M.D. Performed By: #### C MP, CBC, ETOH ####[facility] [id number] [place] [id number] [facility] Globulin Calc (S) [Mass/Vol] Ordered By: Kevon Leong on 08-12-2024 Globulin (S) [Mass/Vol] Serum globulin measurement by calculation (mass/volume) [facility] Glucose [Mass/volume] in Ser um or PlasmaOrdered By: Kevon Leong on 08-12-2024 Glucose [Mass/Vol] 80 mg/dL Normal 70-100 [facility] Comment on above: ADA recommended refe rence rangeRandom Glucose Reference Range is dependent on time and content of last meal. Glucose of more than 200 mg/dL in a nonstressed, ambulatory subject supports the diagnosis of Diabetes Mellitus. Result Comment: [place] Glucose Reference Range is dependent on time and content of last meal. Glucose of more than 200 mg/dL in a nonstressed, ambulatory subject supports the diagnosis of Diabetes Mellitus. ADA recommended reference range Performed By: #### C MP, CBC, ETOH ####[facility] [id number] [place] [address] [facility] Glucose [Mass/Vol] Glucose [Mass/volume ] in Serum or Plasma 70-[address] [facility] Comment on above: ADA recommended refe rence rangeRandom Glucose Reference Range is dependent on time and content of last meal. Glucose of more than 200 mg/dL in a nonstressed, ambulatory subject supports the diagnosis of Diabetes Mellitus. Glucose [Mass/volume] in Uri ne by Test stripOrdered By: Kevon Leong on 08-12-2024 Glucose Test strip (U) [Mass/Vol] Normal mg/dL Normal [facility] Glucose Test strip (U) [Mass/Vol] Glucose [Mass/volume] in Urine by Test strip Normal [facility] Hematocrit Auto (Bld) [Volum e fraction]Ordered By: Kevon Leong on 08-12-2024 Hematocrit (Bld) [Volume fraction] Hematocrit [Volume Fraction] of Blood by Automated count Low 34.0-46.[address] [facility] Hematocrit [Volume Fraction] of Blood by Automated countOrdered By: Kevon Leong on 08-12-2024 Hematocrit (Bld) [Volume fraction] 32.7 % Low 34.0-46.[address] [facility] Comment on above: Performed By: #### C MP, CBC, ETOH ####[facility] [id number] [address] Hemoglobin Test strip Ql (U) Ordered By: Kevon Leong on 08-12-2024 Hemoglobin Ql (U) Negative Negative [facility] Hemoglobin Ql (U) Hemoglobin [Presence ] in Urine by Test strip Negative [facility] Hemoglobin [Mass/volume] in BloodOrdered By: Kevon Leong on 08-12-2024 Hemoglobin (Bld) [Mass/Vol] 11.1 g/dL Low 11.8-15.[address] [facility] Comment on above: Performed By: #### C MP, CBC, ETOH ####[facility] [id number] [address] Hemoglobin (Bld) [Mass/Vol] Hemoglobin [Mass/volume] in Blood Low 11.8-15.[address] [facility] Hyaline casts [#/area] in Ur ine sediment by Automated countOrdered By: Kevon Leong on 08-12-2024 Hyaline casts Auto (Urine sed) [#/Area] None [LPF] 0-[address] [facility] Hyaline casts Auto (Urine sed) [#/Area] Hyaline casts [#/area] in Urine sediment by Automated count 0-[address] [facility] Ketones Test strip Ql (U)Ord ered By: Kevon Leong on 08-12-2024 Ketones Ql (U) Ketones [Presence] i n Urine by Test strip Negative [facility] Ketones [Presence] in Urine by Test stripOrdered By: Kevon Leong on 08-12-2024 Ketones Ql (U) Negative Normal Negative [facility] Comment on above: Order Comment: Name Collection Type:: Voided Performed By: #### C UU, ADDONUAPLUS ####[facility] Leukocyte esterase [Presence ] in Urine by Test stripOrdered By: Kevon Leong on 08-12-2024 Leukocyte esterase Test strip Ql (U) 2+ High Negative [facility] Comment on above: Order Comment: Name Collection Type:: Voided Performed By: #### C UU, ADDONUAPLUS ####[place] [id number] [address] Leukocyte esterase Test strip Ql (U) Leukocyte esterase [Presence] in Urine by Test strip High Negative [facility] Leukocytes [#/area] in Urine sediment by Automated countOrdered By: Kevon Leong on 08-12-2024 WBC Auto (Urine sed) [#/Area] 5-9 [HPF] High 0-[address] [facility] WBC Auto (Urine sed) [#/Area] Leukocytes [#/area] in Urine sediment by Automated count High 0-[address] [facility] Leukocytes [#/volume] correc wilfrido for nucleated erythrocytes in Blood by Automated counOrdered By: Kevon Leong on 08-12-2024 WBC corrected for nucl RBC Auto (Bld) [#/Vol] 7.1 10*3/uL 3.8-11.[address] [facility] WBC corrected for nucl RBC Auto (Bld) [#/Vol] Leukocytes [#/volume] corrected for nucleated erythrocytes in Blood by Automated coun 3.8-11.[address] [facility] Leukocytes [#/volume] in Blo od by Automated countOrdered By: Kevon Leong on 08-12-2024 WBC (Bld) [#/Vol] 7.1 10*3/uL Normal 3.8-11.6 [facility] Comment on above: Performed By: #### C MP, CBC, ETOH ####[facility] [id number] [place] [address] Lymphocytes Auto (Bld) [#/Vo l]Ordered By: Kevon Leong on 08-12-2024 Lymphocytes (Bld) [#/Vol] Lymphocytes [#/volume] in Blood by Automated count 1.00-4.[address] [facility] Lymphocytes [#/volume] in Bl ood by Automated countOrdered By: Kevon Leong on 08-12-2024 Lymphocytes (Bld) [#/Vol] 1.8 10*3/uL Normal 1.00-4.[address] [facility] Comment on above: Performed By: #### C MP, CBC, ETOH ####[facility] [id number] [address] Lymphocytes/100 WBC Auto (Bl d)Ordered By: Kevon Leong on 08-12-2024 Lymphocytes/100 WBC (Bld) Lymphocytes/100 leukocytes in Blood by Automated count . [facility] Lymphocytes/100 leukocytes i n Blood by Automated countOrdered By: Kevon Leong on 08-12-2024 Lymphocytes/100 WBC (Bld) 25.1 % Normal . [facility] Comment on above: Performed By: #### C MP, CBC, ETOH ####[address] MCH Auto (RBC) [Entitic mass ]Ordered By: Kevon Leong on 08-12-2024 MCH (RBC) [Entitic mass] MCH [Entitic mass] by Automated count 24.7-34.[address] [facility] MCH [Entitic mass] by Automa wilfrido countOrdered By: Kevon Leong on 08-12-2024 MCH (RBC) [Entitic mass] 32.0 pg Normal 24.7-34.[address] [facility] Comment on above: Performed By: #### C MP, CBC, ETOH ####[address] MCHC Auto (RBC) [Mass/Vol]Or dered By: Kevon Leong on 08-12-2024 MCHC (RBC) [Mass/Vol] 33.8 g/dL 32.0-35.0 [facility] MCHC (RBC) [Mass/Vol] MCHC [Mass/volume] by Automated count 32.0-35.[address] [facility] MCV Auto (RBC) [Entitic vol] Ordered By: Kevon Leong on 08-12-2024 MCV (RBC) [Entitic vol] MCV [Entitic volume] by Automated count 80-100 [facility] MCV [Entitic volume] by Auto mated countOrdered By: Kevon Leong on 08-12-2024 MCV (RBC) [Entitic vol] 94.5 fL Normal 80-[address] [facility] Comment on above: Performed By: #### C MP, CBC, ETOH ####[facility] [id number] [address] Monocyte distribution width [Entitic volume] in Blood by AutomatedOrdered By: Kevon Leong on 08-12-2024 Monocyte distribution width Auto (Bld) [Entitic vol] 18.67 % 0.00-20.[address] [facility] Monocyte distribution width Auto (Bld) [Entitic vol] Monocyte distribution width [Entitic volume] in Blood by Automated 0.00-20.[address] [facility] Monocytes Auto (Bld) [#/Vol] Ordered By: Kevon Leong on 08-12-2024 Monocytes (Bld) [#/Vol] Automated blood monocyte count 0.0-0.[address] [facility] Monocytes/100 WBC Auto (Bld) Ordered By: Kevon Leong on 08-12-2024 Monocytes/100 WBC (Bld) Automated monocyte % . [facility] Neutrophils Auto (Bld) [#/Vo l]Ordered By: Kevon Leong on 08-12-2024 Neutrophils (Bld) [#/Vol] Neutrophils [#/volume] in Blood by Automated count 1.8-7.[address] [facility] Neutrophils [#/volume] in Bl ood by Automated countOrdered By: Kevon Leong on 08-12-2024 Neutrophils (Bld) [#/Vol] 4.2 10*3/uL Normal 1.8-7.[address] [facility] Comment on above: Performed By: #### C MP, CBC, ETOH ####[facility] [id number] [address] Neutrophils/100 WBC Auto (Bl d)Ordered By: Kevon Leong on 08-12-2024 Neutrophils/100 WBC (Bld) Automated neutrophil % . [facility] Nitrite Test strip Ql (U)Ord ered By: Kevon Leong on 08-12-2024 Nitrite Ql (U) Positive High Negative [facility] Nitrite Ql (U) Nitrite [Presence] i n Urine by Test strip High Negative [facility] No Panel InformationOrdered By: Kevon Leong on 08-12-2024 SARS Antigen (LFIA) [facility] SARS Antigen (LFIA) [facility] Estimated GFR (CKD-EPI) 55.235 mL/Min [facility] Creatinine Clearance (Chem 42.[address] [facility] Nucleated erythrocytes [Pres ence] in Blood by Automated countOrdered By: Kevon Leong on 08-12-2024 Nucleated RBC Auto Ql (Bld) 0.1 /100{WBC} 0-0.[address] [facility] Nucleated RBC Auto Ql (Bld) Nucleated erythrocytes [Presence] in Blood by Automated count 0-0.[address] [facility] Opiates [Presence] in Urine by Screen methodOrdered By: Kevon Leong on 08-12-2024 Opiates Screen Ql (U) Negative Negative [facility] Opiates Screen Ql (U) Opiates [Presence] in Urine by Screen method Negative [facility] Phencyclidine Screen Ql (U)O rdered By: Kevon Leong on 08-12-2024 Phencyclidine Ql (U) Negative Negative [facility] Phencyclidine Ql (U) Phencyclidine [Pres ence] in Urine by Screen method Negative [facility] Platelet mean volume Auto (B ld) [Entitic vol]Ordered By: Kevon Leong on 08-12-2024 Platelet mean volume (Bld) [Entitic vol] Platelet mean volume [Entitic volume] in Blood by Automated count 6.3-10.[address] [facility] Platelet mean volume [Entiti c volume] in Blood by Automated countOrdered By: Kevon Leong on 08-12-2024 Platelet mean volume (Bld) [Entitic vol] 9.2 fL Normal 6.3-10.[address] [facility] Comment on above: Performed By: #### C MP, CBC, ETOH ####[facility] [id number] [place] [address] [facility] Platelets Auto (Bld) [#/Vol] Ordered By: Kevon Leong on 08-12-2024 Platelets (Bld) [#/Vol] Platelets [#/volume] in Blood by Automated count 150-[address] [facility] Platelets [#/volume] in Bloo d by Automated countOrdered By: Kevon Leong on 08-12-2024 Platelets (Bld) [#/Vol] 206 10*3/uL Normal 150-[address] [facility] Comment on above: Performed By: #### C MP, CBC, ETOH ####[facility] [place] [address] [facility] Potassium [Moles/volume] in Serum or PlasmaOrdered By: Kevon Leong on 08-12-2024 Potassium [Moles/Vol] 4.5 mmol/L Normal 3.5-5.1 [facility] Comment on above: Performed By: #### C MP, CBC, ETOH ####[place] [id number] [facility] Potassium [Moles/Vol] Potassium [Moles/v olume] in Serum or Plasma 3.5-5.[address] [facility] Protein Test strip (U) [Mass /Vol]Ordered By: Kevon Leong on 08-12-2024 Protein (U) [Mass/Vol] Negative Negative [facility] Protein (U) [Mass/Vol] Protein [Mass/vol ume] in Urine by Test strip Negative [facility] Protein [Mass/volume] in Ser um or PlasmaOrdered By: Kevon Leong on 08-12-2024 Protein [Mass/Vol] 6.0 g/dL Low 6.4-8.9 [facility] Comment on above: Performed By: #### C MP, CBC, ETOH ####[place] [id number] [facility] Protein [Mass/Vol] Protein [Mass/volume ] in Serum or Plasma Low 6.4-8.[address] [facility] RBC Auto (Bld) [#/Vol]Ordere d By: Kevon Leong on 08-12-2024 RBC (Bld) [#/Vol] Erythrocytes [#/volu me] in Blood by Automated count Low 3.60-5.[address] [facility] SARS-CoV+SARS-CoV-2 (COVID-1 9) Ag [Presence] in Respiratory specimen by Rapid immunoaOrdered By: Kevon Leong on 08-12-2024 SARS-CoV+SARS-CoV-2 (COVID-19) Ag IA.rapid Ql (Resp) COVID-19 KALPESH Negative [facility] Comment on above: This is a duplicate Kalpesh SARS Antigen (ARIANNA) result to be used for statistical tracking purpose only. Serum globulin measurement b y calculation (mass/volume)Ordered By: Kevon Leong on 08-12-2024 Globulin (S) [Mass/Vol] 2.4 g/dL [facility] Comment on above: Performed By: #### C MP, CBC, ETOH ####[place] [id number] [address] Serum or plasma albumin/glob ulin mass ratioOrdered By: Kevon Leong on 08-12-2024 Albumin/Globulin [Mass ratio] 1.5 {ratio} [facility] Comment on above: Performed By: #### C MP, CBC, ETOH ####[address] Albumin/Globulin [Mass ratio] Serum or plasma albumin/globulin mass ratio [facility] Serum or plasma anion gap de terminationOrdered By: Kevon Leong on 08-12-2024 Anion gap [Moles/Vol] 10.7 mmol/L Normal 6.0-15.0 [facility] Comment on above: Performed By: #### C MP, CBC, ETOH ####[address] Anion gap [Moles/Vol] Serum or plasma an ion gap determination 6.0-15.[address] [facility] Sodium [Moles/volume] in Ser um or PlasmaOrdered By: Kevon Leong on 08-12-2024 Sodium [Moles/Vol] 143 mmol/L Normal 136-145 [facility] Comment on above: Performed By: #### C MP, CBC, ETOH ####[place] [id number] [facility] Sodium [Moles/Vol] Sodium [Moles/volume ] in Serum or Plasma 136-[address] [facility] Kalpesh Ag Negativeon 09-16-20 24 Kalpesh Ag Negative Negative Normal Negative [facility] Comment on above: Result Comment: This is a duplicate Kalpesh SARS Antigen (ARIANNA) result to be used for statistical tracking purpose only. PERFORMED BY: [facility] [address] [id number] PATHOLOGIST TIME ANALYSIS CLERK TOÑA MCFARLAND M.D. Performed By: #### C OVID-19 KALPESH, SOFIANEG ####[place] [address] [place] [address] [facility] Specific gravity Test strip (U) [Rel density]Ordered By: Kevon Leong on 08-12-2024 Specific gravity (U) [Rel density] 1.018 1.001-1.[address] [facility] Specific gravity (U) [Rel density] Specific gravity of Urine by Test strip 1.001-1.[address] [facility] Urea nitrogen [Mass/volume] in Serum or PlasmaOrdered By: Kevon Leong on 08-12-2024 Urea nitrogen [Mass/Vol] 18 mg/dL Normal 06-[address] [facility] Comment on above: Performed By: #### C MP, CBC, ETOH ####[place] [id number] [facility] Urea nitrogen [Mass/Vol] Urea nitrogen [Mass/volume] in Serum or Plasma 06-[address] [facility] Urine Cultureon 08-12-2024 Bacteria identified Cx Nom (U) ORGANISM: Proteus mirabilis (O:PROMIR) [place]lord Count >100,000 Aerobic JODI Charge (NMIC56) SUSCEPTIBILITY ORGANISM: O:PROMIR ANTIBIOTIC INTERPRETATION JODI Amikacin S <16 Amoxacillin/K Clavulanate S <8 Ampicillin S <8 Ampicillin/Sulbactam S <4 Aztreonam S <4 Cefazolin S <2 Cefepime S <2 Ceftazidime S <1 Ceftazidime/Avibactam S <4 Ceftolozane/Tazobactam S <2 Ceftriaxone S <1 Cefuroxime S <4 Ciprofloxacin S <0.25 Ertapenem S <0.5 Gentamicin S <2 Levofloxacin S <0.5 Meropenem S <1 Meropenem/Vaborbactam S <2 Piperacillin/Tazobactam S <8 Tobramycin S <2 Trimethoprim/Sulfamethoxazo le S <0.5 S = SUSCEPTIBLE I = INTERMEDIATE R = RESISTANT BLANK = DATA NOT AVAILABLE, OR DRUG NOT ADVISABLE OR TESTED R* = RESISTANCE DUE TO EXTENDED SPECTRUM BETA-LACTAMASES ESBL = EXTENDED SPECTRUM BETA-LACTAMASE TFG = THYMIDINE-DEPENDENT STRAIN ALENA = BETA-LACTAMASE POSITIVE IB = INDUCIBLE BETA-LACTAMASE. APPEARS IN PLACE OF 'S' WITH SPECIES KNOWN TO POSSESS INDUCIBLE BETA-LACTAMASES. POTENTIALLY THEY MAY BECOME RESISTANT TO ALL B-LACTAM DRUGS. PERFORMED BY: [facility] [address] [place] [address] PATHOLOGIST TIME ANALYSIS CLERK TOÑA MCFARLAND M.D. Normal [facility] Comment on above: Performed By: #### C ADRI BAKERPLUS ####[place] [address] [address] Urine appearanceOrdered By: Kevon Leong on 08-12-2024 Appearance (U) Clear Normal Clear [facility] Comment on above: Order Comment: Name Collection Type:: Voided Performed By: #### C SAMUEL, ADRIPLUS ####[address] Urine cultureOrdered By: Vinay Leong on 08-12-2024 Bacteria identified Cx Nom (U) Abnormal [facility] Urine culture routineOrdered By: Kevon Leong on 08-12-2024 Bacteria identified Cx Nom (U) Proteus mirabilis Abnormal [facility] Urobilinogen Test strip (U) [Mass/Vol]Ordered By: Kevon Leong on 08-12-2024 Urobilinogen (U) [Mass/Vol] Normal mg/dL Normal [facility] Urobilinogen (U) [Mass/Vol] Urobilinogen [Mass/volume] in Urine by Test strip Normal [facility] WBC Auto (Bld) [#/Vol]Ordere d By: Kevon Leong on 09-16-2024 WBC (Bld) [#/Vol] Leukocytes [#/volume ] in Blood by Automated count 3.8-11.[address] [facility] pH Test strip (U)Ordered By: Kevon Leong on 08-12-2024 pH (U) pH of Urine by Test strip 5.0-9.[address] [facility] pH of Urine by Test stripOrd ered By: Kevon Leong on 08-12-2024 pH (U) 7.0 [pH] Normal 5.0-9.[address] [facility] Comment on above: Order Comment: Name Collection Type:: Voided Performed By: #### C UU, ADDONUAPLUS ####[facility] [id number] [place] [address] [place] Alanine aminotransferase [En zymatic activity/volume] in Serum or PlasmaOrdered By: Eladio Gonzalez on 08-06-2024 ALT [Catalytic activity/Vol] 34 U/L Normal [facility] Comment on above: Performed By: #### C BC, CMP, CK, HS TROP #### [facility] [address] [place] [address] [place] ALT [Catalytic activity/Vol] Alanine aminotransferase [Enzymatic activity/volume] in Serum or Plasma [facility] Albumin [Mass/volume] in Ser um or Plasma by Bromocresol green (BCG) dye binding methoOrdered By: Eladio Gonzalez on 08-06-2024 Albumin BCG dye [Mass/Vol] 4.1 g/dL 3.5-5.[address] [facility] Albumin BCG dye [Mass/Vol] Albumin [Mass/volume] in Serum or Plasma by Bromocresol green (BCG) dye binding metho 3.5-5.[address] [facility] Alkaline phosphatase [Enzyma tic activity/volume] in Serum or PlasmaOrdered By: Eladio Gonzalez on 08-06-2024 ALP [Catalytic activity/Vol] 115 U/L High [address] Comment on above: Performed By: #### C BC, CMP, CK, HS TROP #### [facility] [address] [place] [address] [place] ALP [Catalytic activity/Vol] Alkaline phosphatase [Enzymatic activity/volume] in Serum or Plasma High -[address] [facility] Amphetamine Screen Ql (U)Ord ered By: Eladiotaras Bazzizi on 08-06-2024 Amphetamines Ql (U) Amphetamines screen Negativ e [facility] Amphetamines Ql (U) Negative Negative [facility] Appearance of UrineOrdered B y: Eladiotaras Bazzizi on 08-06-2024 Appearance (U) Urine appearance Clear [facility] Aspartate aminotransferase [ Enzymatic activity/volume] in Serum or PlasmaOrdered By: Eladio Gonzalez on 08-06-2024 AST [Catalytic activity/Vol] 30 U/L Normal -[address] [facility] Comment on above: Performed By: #### C BC, CMP, CK, HS TROP #### [facility] [address] [place] [address] AST [Catalytic activity/Vol] Aspartate aminotransferase [Enzymatic activity/volume] in Serum or Plasma [facility] Automated basophil %Ordered By: Eladio Gonzalez on 08-06-2024 Basophils/100 WBC (Bld) 0.7 % Normal . [facility] Comment on above: Performed By: #### C BC, CMP, CK, HS TROP #### [facility] [address] [place] [address] Automated basophil countOrde red By: Eladio Gonzalez on 08-06-2024 Basophils (Bld) [#/Vol] 0.1 10*3/uL Normal 0.0-0.[address] [facility] Comment on above: Result Comment: PERF ORMED BY: [place] [address] PATHOLOGIST TIME ANALYSIS CLERK TOÑA MCFARLAND M.D. Performed By: #### C BC, CMP, CK, HS TROP #### [facility] [address] [place] [address] Automated blood monocyte cou ntOrdered By: Eladio Gonzalez on 08-06-2024 Monocytes (Bld) [#/Vol] 1.1 10*3/uL High 0.0-0.[address] [facility] Comment on above: Performed By: #### C BC, CMP, CK, HS TROP #### [facility] [address] Automated eosinophil %Ordere d By: Eladio Gonzalez on 08-06-2024 Eosinophils/100 WBC (Bld) 4.6 % Normal . [facility] Comment on above: Performed By: #### C BC, CMP, CK, HS TROP #### [address] Automated eosinophil countOr dered By: Eladio Gonzalez on 08-06-2024 Eosinophils (Bld) [#/Vol] 0.4 10*3/uL Normal 0.0-0.[address] [facility] Comment on above: Performed By: #### C BC, CMP, CK, HS TROP #### [address] Automated monocyte %Ordered By: Eladio Gonzalez on 08-06-2024 Monocytes/100 WBC (Bld) 12.6 % Normal . [facility] Comment on above: Performed By: #### C BC, CMP, CK, HS TROP #### [address] Automated neutrophil %Ordere d By: Eladio Gonzalez on 08-06-2024 Neutrophils/100 WBC (Bld) 47.3 % Normal . [facility] Comment on above: Performed By: #### C BC, CMP, CK, HS TROP #### [address] Barbiturates [Presence] in U rine by Screen methodOrdered By: Eladio Gonzalez on 08-06-2024 Barbiturates Screen Ql (U) Negative Negative [facility] Barbiturates Screen Ql (U) Barbiturates [Presence] in Urine by Screen method Negative [facility] Basophils Auto (Bld) [#/Vol] Ordered By: Eladio Gonzalez on 08-06-2024 Basophils (Bld) [#/Vol] Automated basophil count 0.0-0.2 [facility] Basophils/100 WBC Auto (Bld) Ordered By: Eladio Gonzalez on 08-06-2024 Basophils/100 WBC (Bld) Automated basophil % . [facility] Benzodiazepines Screen Ql (U )Ordered By: Eladio Gonzalez on 08-06-2024 Benzodiazepines Ql (U) Negative Negative [facility] Benzodiazepines Ql (U) Benzodiazepines [ Presence] in Urine by Screen method Negative [facility] Benzoylecgonine [Presence] i n Urine by Screen methodOrdered By: Eladio Gonzalez on 08-06-2024 Benzoylecgonine Screen Ql (U) Negative Negative [facility] Benzoylecgonine Screen Ql (U) Benzoylecgonine [Presence] in Urine by Screen method Negative [facility] Bilirubin Test strip Ql (U)O rdered By: Eladio Gonzalez on 08-06-2024 Bilirubin Ql (U) Negative Negative [facility] Bilirubin Ql (U) Bilirubin.total [Pre sence] in Urine by Test strip Negative [facility] Bilirubin.total [Mass/volume ] in Serum or PlasmaOrdered By: Eladio Gonzalez on 08-06-2024 Bilirubin [Mass/Vol] 0.5 mg/dL Normal 0.3-1.0 [facility] Comment on above: Performed By: #### C BC, CMP, CK, HS TROP #### [address] Bilirubin [Mass/Vol] Bilirubin.total [Mass/volume] in Serum or Plasma 0.3-1.[address] [facility] CT cervical spine wo conon 0 08-06-2024 CT cervical spine wo con [facility] [place] [address] CT Scan Report Signed Patient: Mary Vivas MR#: [id number] : 1940 Acct:[id number] Age/Sex: 83 / F ADM Date: 08/06/24 Loc: ER Room: Type: [facility] ER Attending Dr: Copies to: Eladio Gonzalez DO Ordering Provider: Eladio Gonzalez DO Date of Service: 08/06/24 CT/CT head/brain wo con: fall ([id number]) CT/CT cervical spine wo con: fall Unenhanced head CT TECHNIQUE: Contiguous axial imaging of the head. The CT exam was performed using one or more the following dose reduction techniques: Automated exposure control, adjustment of the MA and/or Kv according to patient size, or use of the iterative reconstruction technique. COMPARISON: None HISTORY: Fell. Head injury. Altered mental status VENTRICLES: Within normal limits ATROPHY: Diffuse atrophy BRAIN PARENCHYMA: Decreased density of the white matter is most consistent with chronic small vessel disease. HEMORRHAGE: None HERNIATION: No mass effect or herniation INFARCTION: No recent vascular distribution infarction is seen. EXTRA-AXIAL FLUID COLLECTIONS None MIDBRAIN: Unremarkable MAUREEN: Unremarkable MEDULLA: Unremarkable SINUSES: Unremarkable ORBITS: Grossly unremarkable MASTOIDS: Unremarkable BONY STRUCTURES Intact ADDITIONAL FINDINGS: Atherosclerosis of carotid siphons and V4 segments CT/CT head/brain wo con IMPRESSION: No acute findings. CT Cervical Spine withoutcontrast TECHNIQUE: Axial imaging with 2-D and 3-D reconstruction. The CT exam was performed using one or more the following dose reduction techniques: Automated exposure control, adjustment of the MA and/or Kv according to patient size, or use of the iterative reconstruction technique. COMPARISON: None HISTORY: As above POST SURGERY CHANGES: None BONY ALIGNMENT: Reversal with mild degenerative listhesis BONY SPINAL CANAL: Patent central bony canal FRACTURE: None BONY LESIONS: None SOFT TISSUES: Unremarkable DEGENERATIVE CHANGES: Extensive C4-C7 spondylosis. C2-C4 facet fusion. C4-C7 facet degeneration. LUNG APICES: Unremarkable ADDITIONAL FINDINGS: IMPRESSION: No acute process Impression dictated by: Varghese Heaton M.D.08/06/2024 11:06 PM Dictation Location: [place] [address] Transcribed By: [facility] 08/06/242305 Dictated By: Varghese Heaton DO 08/06/24 105 Signed By: 08/06/242305 Normal [facility] Calcium [Mass/volume] in Ser um or PlasmaOrdered By: Eladio Gonzalez on 08-06-2024 Calcium [Mass/Vol] 9.0 mg/dL Normal 8.6-10.3 [facility] Comment on above: Performed By: #### C BC, CMP, CK, HS TROP #### [address] Calcium [Mass/Vol] Calcium [Mass/volume ] in Serum or Plasma 8.6-10.[address] [facility] Cannabinoids [Presence] in U rine by Screen methodOrdered By: Eladio Gonzalez on 08-06-2024 Cannabinoids Screen Ql (U) Negative Negative [facility] Comment on above: These are unconfirme d results and should not be used for legal purposes. Drug Cut-Off Concentration: AMPH 1000 ng/mL SONIA 200 ng/mL AMANUEL 200 ng/mL COCM 300 ng/mL OP 300 ng/mL PCP 25 ng/mL THC 20 ng/mL Cannabinoids Screen Ql (U) Cannabinoids [Presence] in Urine by Screen method Negative [facility] Comment on above: These are unconfirme d results and should not be used for legal purposes. Drug Cut-Off Concentration: AMPH 1000 ng/mL SONIA 200 ng/mL AMANUEL 200 ng/mL COCM 300 ng/mL OP 300 ng/mL PCP 25 ng/mL THC 20 ng/mL Carbon dioxide, total [Moles /volume] in Serum or PlasmaOrdered By: Eladio Gonzalez on 08-06-2024 CO2 [Moles/Vol] 24.6 mmol/L Normal 21.0-31.0 [facility] Comment on above: Performed By: #### C BC, CMP, CK, HS TROP #### [facility] [address] [place] [id number] [place] CO2 [Moles/Vol] Carbon dioxide, tota l [Moles/volume] in Serum or Plasma 21.0-31.[address] [facility] Chloride [Moles/volume] in S lisandro or PlasmaOrdered By: Eladio Gonzalez on 08-06-2024 Chloride [Moles/Vol] 104 mmol/L Normal 98-107 [facility] Comment on above: Performed By: #### C BC, CMP, CK, HS TROP #### [facility] [address] [place] [address] [place] Chloride [Moles/Vol] Chloride [Moles/vol ume] in Serum or Plasma 98-[address] [facility] Color Auto (U)Ordered By: Henri Gonzalez on 08-06-2024 Color (U) Color of Urine by Auto Yellow [facility] Color of Urine by AutoOrdere d By: Eladio Gonzalez on 08-06-2024 Color (U) Colorless Normal Yellow [facility] Comment on above: Order Comment: Name Collection Type:: Straight Catheter Performed By: #### U A ####[facility] Complete Blood Count Auto Di ffon 08-06-2024 Mean Corpuscular HGB Conc 32.9 g/dL Normal 32.0-35.0 [facility] Comment on above: Performed By: #### C BC, CMP, CK, HS TROP #### [address] Monocytes/100 WBC (Bld) 18.15 % Normal 0.00-20.00 [facility] Comment on above: Performed By: #### C BC, CMP, CK, HS TROP #### [address] NRBC% 0.2 /100{WBC} Normal 0-0.5 [facility] Comment on above: Performed By: #### C BC, CMP, CK, HS TROP #### [address] Comprehensive Metabolic Pane dixie 08-06-2024 Albumin [Mass/Vol] 4.1 g/dL Normal 3.5-5.7 [facility] Comment on above: Performed By: #### C BC, CMP, CK, HS TROP #### [address] Creatinine Clr Calc Pharmacy 38.36 Normal [facility] Comment on above: Result Comment: PERF ORMED BY: [place] [address] PATHOLOGIST TIME ANALYSIS CLERK TOÑA MCFARLAND M.D. Performed By: #### C BC, CMP, CK, HS TROP #### [address] GFR/1.73 sq M.predicted MDRD (S/P/Bld) [Vol rate/Area] 48.791 mL/min/{1.73_m2} Normal [facility] Comment on above: Performed By: #### C BC, CMP, CK, HS TROP #### [address] Creatine kinase [Enzymatic a ctivity/volume] in Serum or PlasmaOrdered By: Eladio Gonzalez on 08-06-2024 CK [Catalytic activity/Vol] 51 U/L Normal [facility] Comment on above: Performed By: #### C BC, CMP, CK, HS TROP #### [address] CK [Catalytic activity/Vol] Creatine kinase [Enzymatic activity/volume] in Serum or Plasma [facility] Creatinine [Mass/volume] in Serum or PlasmaOrdered By: Eladio Gonzalez on 08-06-2024 Creatinine [Mass/Vol] 1.12 mg/dL Normal 0.60-1.20 [facility] Comment on above: Performed By: #### C BC, CMP, CK, HS TROP #### [address] Creatinine [Mass/Vol] Creatinine [Mass/v olume] in Serum or Plasma 0.60-1.[address] [facility] Drug Screen,Urineon 08-06-20 24 Amphetamine Screen,Urine Negative Normal Negative [facility] Comment on above: Performed By: #### U RDS #### [address] Barbiturate Screen,Urine Negative Normal Negative [facility] Comment on above: Performed By: #### U RDS #### [place] [address] [place] Benzodiazepines Screen,Urine Negative Normal Negative [facility] Comment on above: Performed By: #### U RDS #### [place] [address] [place] Cannabinoid Screen,Urine Negative Normal Negative [facility] Comment on above: Result Comment: Thes e are unconfirmed results and should not be used for legal purposes. Drug Cut-Off Concentration: AMPH 1000 ng/mL SONIA 200 ng/mL AMANUEL 200 ng/mL COCM 300 ng/mL OP 300 ng/mL PCP 25 ng/mL THC 20 ng/mL PERFORMED BY: [address] [place] [address] PATHOLOGIST TIME ANALYSIS CLERK TOÑA MCFARLAND M.D. Performed By: #### U RDS #### [address] Cocaine Screen,Urine Negative Normal Negative [facility] Comment on above: Performed By: #### U RDS #### [address] Opiate Screen,Urine Negative Normal Negative [facility] Comment on above: Performed By: #### U RDS #### [address] Phencyclidine Screen,Urine Negative Normal Negative [facility] Comment on above: Performed By: #### U RDS #### [address] ECG 12 lead ECGon 08-06-2024 ECG 12 lead ECG [facility] [address] [place] [address] [place] [address] Electrocardiograph Report Signed Patient: Mary Vivas MR#: [id number] : 1940 Acct:[id number] Age/Sex: 83 / F ADM Date: 08/06/24 Loc: ER Room: Type: [facility] ER Attending Dr: Ordering Provider: Eladio Gonzalez DO Date of Service: 08/06/2409/19/1818 ECG/ECG 12 lead ECG: Altered Mental Status Copies to: Test Reason : Blood Pressure : */* mmHG Vent. Rate : 67 BPM Atrial Rate : 67 BPM P-R Int : 126 ms QRS Dur : 74 ms QT Int : 378 ms P-R-T Axes : 37 -1 29 degrees QTcB Int : 399 ms Normal sinus rhythm Low voltage QRS Borderline ECG No previous ECGs available Confirmed by Eladio Gonzalez DO ([id number]) on 08/07/2024 12:41:47 AM Referred By: Electronically Signed By: Eladio Gonzalez DO Transcribed By: MUS Signed By Eladio Gonzalez DO 4 0041 Normal [facility] Eosinophils Auto (Bld) [#/Vo l]Ordered By: Eladio Gonzalez on 08-06-2024 Eosinophils (Bld) [#/Vol] Automated eosinophil count 0.0-0.45 [facility] Eosinophils/100 WBC Auto (Bl d)Ordered By: Eladio Gonzalez on 08-06-2024 Eosinophils/100 WBC (Bld) Automated eosinophil % . [facility] Erythrocyte distribution wid th Auto (RBC) [Ratio]Ordered By: Eladio Gonzalez on 08-06-2024 Erythrocyte distribution width (RBC) [Ratio] Erythrocyte distribution width [Ratio] by Automated count 11.9-15.[address] [facility] Erythrocyte distribution wid th [Ratio] by Automated countOrdered By: Eladio Gonzalez on 08-06-2024 Erythrocyte distribution width (RBC) [Ratio] 13.8 % Normal 11.9-15.[address] [facility] Comment on above: Performed By: #### C BC, CMP, CK, HS TROP #### [facility] [address] [place] [address] [place] Erythrocytes [#/volume] in B lood by Automated countOrdered By: Eladio Gonzalez on 08-06-2024 RBC (Bld) [#/Vol] 4.16 10*6/uL Normal 3.60-5.00 [facility] Comment on above: Performed By: #### C BC, CMP, CK, HS TROP #### [facility] [address] Ethanol [Mass/volume] in Ser um or PlasmaOrdered By: Eladio Gonzalez on 08-06-2024 Ethanol [Mass/Vol] mg/dL Normal [facility] Comment on above: Performed By: #### E MASSIMO ####[facility] [address] [place] [address] [place] Ethanol [Mass/Vol] TNP [facility] Comment on above: Test not performed Ethanol [Mass/Vol] Ethanol [Mass/volume ] in Serum or Plasma [facility] Comment on above: Test not performed Ethyl Alcohol Profileon 07-28 Percent Ethanol Not performed Normal [facility] Comment on above: Result Comment: PERF ORMED BY: [facility] [address] [place] [address] PATHOLOGIST TIME ANALYSIS CLERK TOÑA MCFARLAND M.D. Performed By: #### E MASSIMO ####[facility] [id number] [place] [id number] [facility] Globulin Calc (S) [Mass/Vol] Ordered By: Eladio Gonzalez on 08-06-2024 Globulin (S) [Mass/Vol] Serum globulin measurement by calculation (mass/volume) [facility] Glucose [Mass/volume] in Ser um or PlasmaOrdered By: Eladio Gonzalez on 08-06-2024 Glucose [Mass/Vol] 81 mg/dL Normal 70-100 [facility] Comment on above: ADA recommended refe rence rangeRandom Glucose Reference Range is dependent on time and content of last meal. Glucose of more than 200 mg/dL in a nonstressed, ambulatory subject supports the diagnosis of Diabetes Mellitus. Result Comment: [place] om Glucose Reference Range is dependent on time and content of last meal. Glucose of more than 200 mg/dL in a nonstressed, ambulatory subject supports the diagnosis of Diabetes Mellitus. ADA recommended reference range Performed By: #### C BC, CMP, CK, HS TROP #### [facility] [address] Glucose [Mass/Vol] Glucose [Mass/volume ] in Serum or Plasma 70-[address] [facility] Comment on above: ADA recommended refe rence rangeRandom Glucose Reference Range is dependent on time and content of last meal. Glucose of more than 200 mg/dL in a nonstressed, ambulatory subject supports the diagnosis of Diabetes Mellitus. Glucose [Mass/volume] in Uri ne by Test stripOrdered By: Eladio Gonzalez on 08-06-2024 Glucose Test strip (U) [Mass/Vol] Normal mg/dL Normal [facility] Glucose Test strip (U) [Mass/Vol] Glucose [Mass/volume] in Urine by Test strip Normal [facility] Hematocrit Auto (Bld) [Volum e fraction]Ordered By: Eladio Gonzalez on 08-06-2024 Hematocrit (Bld) [Volume fraction] Hematocrit [Volume Fraction] of Blood by Automated count 34.0-46.[address] [facility] Hematocrit [Volume Fraction] of Blood by Automated countOrdered By: Eladio Gonzalez on 08-06-2024 Hematocrit (Bld) [Volume fraction] 39.4 % Normal 34.0-46.[address] [facility] Comment on above: Performed By: #### C BC, CMP, CK, HS TROP #### [facility] [address] Hemoglobin Test strip Ql (U) Ordered By: Eladio Gonzalez on 08-06-2024 Hemoglobin Ql (U) Negative Negative [facility] Hemoglobin Ql (U) Hemoglobin [Presence ] in Urine by Test strip Negative [facility] Hemoglobin [Mass/volume] in BloodOrdered By: Eladio Gonzalez on 08-06-2024 Hemoglobin (Bld) [Mass/Vol] 13.0 g/dL Normal 11.8-15.[address] [facility] Comment on above: Performed By: #### C BC, CMP, CK, HS TROP #### [facility] [address] Hemoglobin (Bld) [Mass/Vol] Hemoglobin [Mass/volume] in Blood 11.8-15.[address] [facility] Ketones Test strip Ql (U)Ord ered By: Eladio Gonzalez on 08-06-2024 Ketones Ql (U) Ketones [Presence] i n Urine by Test strip Negative [facility] Ketones [Presence] in Urine by Test stripOrdered By: Eladio Gonzalez on 08-06-2024 Ketones Ql (U) Negative Normal Negative [facility] Comment on above: Order Comment: Name Collection Type:: Straight Catheter Performed By: #### U A ####[facility] [place] [address] [place] Leukocyte esterase [Presence ] in Urine by Test stripOrdered By: Eladio Gonzalez on 08-06-2024 Leukocyte esterase Test strip Ql (U) Negative Normal Negative [facility] Comment on above: Order Comment: Name Collection Type:: Straight Catheter Performed By: #### U A ####[facility] Leukocyte esterase Test strip Ql (U) Leukocyte esterase [Presence] in Urine by Test strip Negative [facility] Leukocytes [#/volume] correc wilfrido for nucleated erythrocytes in Blood by Automated counOrdered By: Eladio Gonzalez on 08-06-2024 WBC corrected for nucl RBC Auto (Bld) [#/Vol] 8.4 10*3/uL 3.8-11.[address] [facility] WBC corrected for nucl RBC Auto (Bld) [#/Vol] Leukocytes [#/volume] corrected for nucleated erythrocytes in Blood by Automated coun 3.8-11.[address] [facility] Leukocytes [#/volume] in Blo od by Automated countOrdered By: Eladio Gonzalez on 08-06-2024 WBC (Bld) [#/Vol] 8.4 10*3/uL Normal 3.8-11.6 [facility] Comment on above: Performed By: #### C BC, CMP, CK, HS TROP #### [facility] [address] [place] [address] Lymphocytes Auto (Bld) [#/Vo l]Ordered By: Eladio Gonzalez on 08-06-2024 Lymphocytes (Bld) [#/Vol] Lymphocytes [#/volume] in Blood by Automated count 1.00-4.[address] [facility] Lymphocytes [#/volume] in Bl ood by Automated countOrdered By: Eladio Gonzalez on 08-06-2024 Lymphocytes (Bld) [#/Vol] 2.9 10*3/uL Normal 1.00-4.[address] [facility] Comment on above: Performed By: #### C BC, CMP, CK, HS TROP #### [address] Lymphocytes/100 WBC Auto (Bl d)Ordered By: Eladio Gonzalez on 08-06-2024 Lymphocytes/100 WBC (Bld) Lymphocytes/100 leukocytes in Blood by Automated count . [facility] Lymphocytes/100 leukocytes i n Blood by Automated countOrdered By: Eladio Gonzalez on 08-06-2024 Lymphocytes/100 WBC (Bld) 34.8 % Normal . [facility] Comment on above: Performed By: #### C BC, CMP, CK, HS TROP #### [facility] [address] [place] [address] MCH Auto (RBC) [Entitic mass ]Ordered By: Eladio Gonzalez on 08-06-2024 MCH (RBC) [Entitic mass] MCH [Entitic mass] by Automated count 24.7-34.[address] [facility] MCH [Entitic mass] by Automa wilfrido countOrdered By: Eladio Gonzalez on 08-06-2024 MCH (RBC) [Entitic mass] 31.1 pg Normal 24.7-34.[address] [facility] Comment on above: Performed By: #### C BC, CMP, CK, HS TROP #### [facility] [address] MCHC Auto (RBC) [Mass/Vol]Or dered By: Eladio Gonzalez on 08-06-2024 MCHC (RBC) [Mass/Vol] 32.9 g/dL 32.0-35.0 [facility] MCHC (RBC) [Mass/Vol] MCHC [Mass/volume] by Automated count 32.0-35.[address] [facility] MCV Auto (RBC) [Entitic vol] Ordered By: Eladio Gonzalez on 08-06-2024 MCV (RBC) [Entitic vol] MCV [Entitic volume] by Automated count 80-[address] [facility] MCV [Entitic volume] by Auto mated countOrdered By: Eladio Gonzalez on 08-06-2024 MCV (RBC) [Entitic vol] 94.8 fL Normal 80-[address] [facility] Comment on above: Performed By: #### C BC, CMP, CK, HS TROP #### [facility] [address] Monocyte distribution width [Entitic volume] in Blood by AutomatedOrdered By: Eladio Gonzalez on 08-06-2024 Monocyte distribution width Auto (Bld) [Entitic vol] 18.15 % 0.00-20.[address] [facility] Monocyte distribution width Auto (Bld) [Entitic vol] Monocyte distribution width [Entitic volume] in Blood by Automated 0.00-20.[address] [facility] Monocytes Auto (Bld) [#/Vol] Ordered By: Eladio Gonzalez on 08-06-2024 Monocytes (Bld) [#/Vol] Automated blood monocyte count High 0.0-0.[address] [facility] Monocytes/100 WBC Auto (Bld) Ordered By: Eladio Gonzalez on 08-06-2024 Monocytes/100 WBC (Bld) Automated monocyte % . [facility] Neutrophils Auto (Bld) [#/Vo l]Ordered By: Eladio Gonzalez on 08-06-2024 Neutrophils (Bld) [#/Vol] Neutrophils [#/volume] in Blood by Automated count 1.8-7.[address] [facility] Neutrophils [#/volume] in Bl ood by Automated countOrdered By: Eladio Gonzalez on 08-06-2024 Neutrophils (Bld) [#/Vol] 4.0 10*3/uL Normal 1.8-7.[address] [facility] Comment on above: Performed By: #### C BC, CMP, CK, HS TROP #### [address] Neutrophils/100 WBC Auto (Bl d)Ordered By: Eladio Gonzalez on 08-06-2024 Neutrophils/100 WBC (Bld) Automated neutrophil % . [facility] Nitrite Test strip Ql (U)Ord ered By: Eladio Gonzalez on 08-06-2024 Nitrite Ql (U) Negative Negative [facility] Nitrite Ql (U) Nitrite [Presence] i n Urine by Test strip Negative [facility] No Panel InformationOrdered By: Eladio Gonzalez on 08-06-2024 Estimated GFR (CKD-EPI) 48.791 mL/Min [facility] Creatinine Clearance (Chem 38.[address] [facility] Nucleated erythrocytes [Pres ence] in Blood by Automated countOrdered By: Eladio Gonzalez on 08-06-2024 Nucleated RBC Auto Ql (Bld) 0.2 /100{WBC} 0-0.[address] [facility] Nucleated RBC Auto Ql (Bld) Nucleated erythrocytes [Presence] in Blood by Automated count 0-0.[address] [facility] Opiates [Presence] in Urine by Screen methodOrdered By: Eladio Gonzalez on 08-06-2024 Opiates Screen Ql (U) Negative Negative [facility] Opiates Screen Ql (U) Opiates [Presence] in Urine by Screen method Negative [facility] Phencyclidine Screen Ql (U)O rdered By: Eladio Gonzalez on 08-06-2024 Phencyclidine Ql (U) Negative Negative [facility] Phencyclidine Ql (U) Phencyclidine [Pres ence] in Urine by Screen method Negative [facility] Platelet mean volume Auto (B ld) [Entitic vol]Ordered By: Eladio Gonzalez on 08-06-2024 Platelet mean volume (Bld) [Entitic vol] Platelet mean volume [Entitic volume] in Blood by Automated count 6.3-10.[address] [facility] Platelet mean volume [Entiti c volume] in Blood by Automated countOrdered By: Eladio Gonzalez on 08-06-2024 Platelet mean volume (Bld) [Entitic vol] 8.6 fL Normal 6.3-10.[address] [facility] Comment on above: Performed By: #### C BC, CMP, CK, HS TROP #### [facility] [address] Platelets Auto (Bld) [#/Vol] Ordered By: Eladio Gonzalez on 08-06-2024 Platelets (Bld) [#/Vol] Platelets [#/volume] in Blood by Automated count 150-[address] [facility] Platelets [#/volume] in Bloo d by Automated countOrdered By: Eladio Gonzalez on 08-06-2024 Platelets (Bld) [#/Vol] 224 10*3/uL Normal 150-[address] [facility] Comment on above: Performed By: #### C BC, CMP, CK, HS TROP #### [facility] [address] [place] [address] Potassium [Moles/volume] in Serum or PlasmaOrdered By: Eladio Gonzalez on 08-06-2024 Potassium [Moles/Vol] 4.5 mmol/L Normal 3.5-5.1 [facility] Comment on above: Hemolysis is present at a level that could interfere with the result.Contact lab if redraw is required Result Comment: Hemo lysis is present at a level that could interfere with the result. Contact lab if redraw is required Performed By: #### C BC, CMP, CK, HS TROP #### [facility] [address] Potassium [Moles/Vol] Potassium [Moles/v olume] in Serum or Plasma 3.5-5.[address] [facility] Comment on above: Hemolysis is present at a level that could interfere with the result.Contact lab if redraw is required Protein Test strip (U) [Mass /Vol]Ordered By: Eladio Gonzalez on 08-06-2024 Protein (U) [Mass/Vol] Negative Negative [facility] Protein (U) [Mass/Vol] Protein [Mass/vol ume] in Urine by Test strip Negative [facility] Protein [Mass/volume] in Ser um or PlasmaOrdered By: Eladio Gonzalez on 08-06-2024 Protein [Mass/Vol] 6.9 g/dL Normal 6.4-8.9 [facility] Comment on above: Performed By: #### C BC, CMP, CK, HS TROP #### [address] Protein [Mass/Vol] Protein [Mass/volume ] in Serum or Plasma 6.4-8.[address] [facility] RBC Auto (Bld) [#/Vol]Ordere d By: Eladio Gonzalez on 08-06-2024 RBC (Bld) [#/Vol] Erythrocytes [#/volu me] in Blood by Automated count 3.60-5.[address] [facility] Serum globulin measurement b y calculation (mass/volume)Ordered By: Eladio Gonzalez on 08-06-2024 Globulin (S) [Mass/Vol] 2.8 g/dL Normal [facility] Comment on above: Performed By: #### C BC, CMP, CK, HS TROP #### [facility] [address] [place] [address] Serum or plasma albumin/glob ulin mass ratioOrdered By: Eladio Gonzalez on 08-06-2024 Albumin/Globulin [Mass ratio] 1.5 {ratio} [facility] Comment on above: Performed By: #### C BC, CMP, CK, HS TROP #### [facility] [address] [place] [address] Albumin/Globulin [Mass ratio] Serum or plasma albumin/globulin mass ratio [facility] Serum or plasma anion gap de terminationOrdered By: Eladio Gonzalez on 08-06-2024 Anion gap [Moles/Vol] 12.9 mmol/L Normal 6.0-15.0 [facility] Comment on above: Performed By: #### C BC, CMP, CK, HS TROP #### [facility] [address] Anion gap [Moles/Vol] Serum or plasma an ion gap determination 6.0-15.[address] [facility] Sodium [Moles/volume] in Ser um or PlasmaOrdered By: Eladio Gonzalez on 08-06-2024 Sodium [Moles/Vol] 137 mmol/L Normal 136-145 [facility] Comment on above: Performed By: #### C BC, CMP, CK, HS TROP #### [facility] [address] Sodium [Moles/Vol] Sodium [Moles/volume ] in Serum or Plasma 136-[address] [facility] Specific gravity Test strip (U) [Rel density]Ordered By: Eladio Gonzalez on 08-06-2024 Specific gravity (U) [Rel density] 1.005 1.001-1.[address] [facility] Specific gravity (U) [Rel density] Specific gravity of Urine by Test strip 1.001-1.[address] [facility] Troponin I High Sensitivityo n 08-06-2024 Troponin I High Sensitivity 10.8 pg/mL Normal 0.0-15.0 [facility] Comment on above: Result Comment: PERF ORMED BY: [place] [address] PATHOLOGIST TIME ANALYSIS CLERK TOÑA MCFARLAND M.D. Performed By: #### C BC, CMP, CK, HS TROP #### [facility] [address] Troponin I.cardiac [Mass/vol ume] in Serum or Plasma by Detection limit <= 0.01 ng/Ordered By: Eladio Gonzalez on 08-06-2024 Troponin I.cardiac DL <= 0.01 ng/mL [Mass/Vol] 10.8 pg/mL 0.0-15.[address] [facility] Troponin I.cardiac DL <= 0.01 ng/mL [Mass/Vol] Troponin I.cardiac [Mass/volume] in Serum or Plasma by Detection limit <= 0.01 ng/ 0.0-15.[address] [facility] Urea nitrogen [Mass/volume] in Serum or PlasmaOrdered By: Eladio Gonzalez on 08-06-2024 Urea nitrogen [Mass/Vol] 22 mg/dL Normal 06-[address] [facility] Comment on above: Performed By: #### C BC, CMP, CK, HS TROP #### [facility] [address] Urea nitrogen [Mass/Vol] Urea nitrogen [Mass/volume] in Serum or Plasma 06-[address] [facility] Urinalysison 08-06-2024 Bilirubin,Urine Negative Normal Negative [facility] Comment on above: Order Comment: Name Collection Type:: Straight Catheter Performed By: #### U A ####[place] [address] [address] Glucose Ql (U) Normal Normal Normal [facility] Comment on above: Order Comment: Name Collection Type:: Straight Catheter Performed By: #### U A ####[place] [address] [place] [address] [facility] Nitrite,Urine Negative Normal Negative [facility] Comment on above: Order Comment: Name Collection Type:: Straight Catheter Performed By: #### U A ####[place] [id number] [facility] Occult Blood,Urine Negative Normal Negative [facility] Comment on above: Order Comment: Name Collection Type:: Straight Catheter Result Comment: PERF ORMED BY: [facility] [address] [facility] [place] [address] PATHOLOGIST TIME ANALYSIS CLERK TOÑA MCFARLAND M.D. Performed By: #### U A ####[place] [id number] [facility] Protein,Urine Negative Normal Negative [facility] Comment on above: Order Comment: Name Collection Type:: Straight Catheter Performed By: #### U A ####[address] Specificy [place],Urine 1.005 Normal 1.001-1.03 0 [facility] Comment on above: Order Comment: Name Collection Type:: Straight Catheter Performed By: #### U A ####[address] Urobilinogen,Urine Normal Normal Normal [facility] Comment on above: Order Comment: Name Collection Type:: Straight Catheter Performed By: #### U A ####[address] Urine appearanceOrdered By: Eladio Gonzalez on 08-06-2024 Appearance (U) Clear Normal Clear [facility] Comment on above: Order Comment: Name Collection Type:: Straight Catheter Performed By: #### U A ####[address] Urobilinogen Test strip (U) [Mass/Vol]Ordered By: Eladio Gonzalez on 08-06-2024 Urobilinogen (U) [Mass/Vol] Normal mg/dL Normal [facility] Urobilinogen (U) [Mass/Vol] Urobilinogen [Mass/volume] in Urine by Test strip Normal [facility] WBC Auto (Bld) [#/Vol]Ordere d By: Eladio Gonzalez on 08-06-2024 WBC (Bld) [#/Vol] Leukocytes [#/volume ] in Blood by Automated count 3.8-11.[address] [facility] XR chest 1V portableon 08-06 XR chest 1V portable [facility] [place] [address] XRay Report Signed Patient: Mary Vivas MR#: [id number] : 1940 Acct:[id number] Age/Sex: 83 / F ADM Date: 08/06/24 Loc: ER Room: Type: PRE ER Attending Dr: Copies to: Eladio Gonzalez DO Ordering Provider: Eladio Gonzalez DO Date of Service: 08/06/24 XR/XR chest 1V portable: Altered Mental Status Plain film chest Single view HISTORY: History of fall. COMPARISON: None FINDINGS: SUPPORT DEVICES: None POSTSURGICAL CHANGES: None HEART: Within normal limits PULMONARY GUILHERME: Within normal limits MEDIASTINUM: Unremarkable LUNGS AND PLEURA: No acute lung process, pleural effusion or pneumothorax identified. BONY STRUCTURES: Intact ADDITIONAL FINDINGS None XR/XR chest 1V portable IMPRESSION: No acute process. Impression dictated by: Varghese Heaton M.D.08/06/2024 10:50 PM Dictation Location: [place] [address] Transcribed By: [facility] 08/06/242249 Dictated By: Varghese Heaton DO 08/06/242247 Signed By: 08/06/242249 Normal [facility] pH Test strip (U)Ordered By: Eladio Gonzalez on 08-06-2024 pH (U) pH of Urine by Test strip 5.0-9.[address] [facility] pH of Urine by Test stripOrd ered By: Eladio Gonzalez on 08-06-2024 pH (U) 6.0 [pH] Normal 5.0-9.[address] [facility] Comment on above: Order Comment: Name Collection Type:: Straight Catheter Performed By: #### U A ####[facility] [address] [place] [address] [facility] Follow-Upon 08-22-2023 Follow-Up [id number] Sonia Vivas 1940 F Date Provider Department Center 08/22/2023 Flor-HEVER DHILLON [facility] Family History Problem Relation Age of Onset Hypertension Mother Other Mother Hypertension Father Family Status - Relation Status Age at Mother Father Level of Service:12886 IN OFFICE/OUTPATIENT ESTABLISHED LOW MDM 20-29 MIN Normal [facility] CULTURE URINEon 11-03-2022 CULTURE URINE Isolate 1 Escherichia coli >100,000 cfu/mL of ORGANISM 1 Escherichia coli ANTIBIOTIC M.I.C RX STATUS Ampicillin <=2 S F Ampicillin/Sulbactam <=2 S F Piperacillin/Tazobactam <=4 S F Cefazolin <=4 S F Ceftazidime <=1 S F Ceftriaxone <=1 S F Ertapenem <=0.5 S F Imipenem <=0.25 S F Amikacin <=2 S F Gentamicin <=1 S F Tobramycin <=1 S F Ciprofloxacin <=0.25 S F Levofloxacin <=0.12 S F Nitrofurantoin <=16 S F Trimethoprim/Sulfamethoxazo le <=20 S F Normal [facility] Comment on above: Performed By: #### U RCX #### [facility] [address] [place] [address] Dr. Mervat Haynes AMYLASEon 11-01-2022 Amylase [Catalytic activity/Vol] 51 U/L Normal 25-115 [facility] Comment on above: Performed By: #### A MY, CMP, LIPA #### [facility] [address] [place] [address] Dr. Mervat Haynes CBC AUTO DIFFon 11-01-2022 BASO # 0.0 103/ul Normal 0.0-0.1 [facility] Comment on above: Performed By: #### C BC #### [facility] [address] [place] [address] Dr. Mervat Haynes Basophils/100 WBC (Bld) 0.5 % Normal 0.2-2.0 [facility] Comment on above: Performed By: #### C BC #### [facility] [address] [place] [address] Dr. Mervat Haynes EO # 0.3 103/ul Normal 0.0-0.7 [facility] Comment on above: Performed By: #### C BC #### [facility] [address] [place] [address] Dr. Mervat Haynes Eosinophils/100 WBC (Bld) 3.8 % Normal 0.9-7.0 [facility] Comment on above: Performed By: #### C BC #### [facility] [address] [place] [address] Dr. Mervat Haynes Erythrocyte distribution width (RBC) [Ratio] 12.5 % Normal 11.0-15.0 [facility] Comment on above: Performed By: #### C BC #### [facility] [address] [place] [address] Dr. Mervat Haynes Hematocrit (Bld) [Volume fraction] 41.8 % Normal 36.0-48.0 [facility] Comment on above: Performed By: #### C BC #### [facility] [address] [place] [address] Dr. Mervat Haynes Hemoglobin (Bld) [Mass/Vol] 13.7 g/dL Normal 12.0-16.0 [facility] Comment on above: Performed By: #### C BC #### [facility] [address] [place] [address] Dr. Mervat Haynes IG # 0.02 10e3/ul Normal 0.00-0.03 [facility] Comment on above: Performed By: #### C BC #### [facility] [address] [place] [address] Dr. Mervat Haynes IG % 0.3 % Normal 0.0-0.5 [facility] Comment on above: Performed By: #### C BC #### [facility] [address] [place] [address] Dr. Mervat Haynes LYMPH # 1.7 103/ul Normal 1.2-3.8 [facility] Comment on above: Performed By: #### C BC #### [facility] [address] [place] [address] Dr. Mervat Haynes Lymphocytes/100 WBC (Bld) 22.8 % Normal 20.5-60.0 [facility] Comment on above: Performed By: #### C BC #### [facility] [address] [place] [address] Dr. Mervat Haynes MANUAL DIFF REQ NO Normal [facility] Comment on above: Performed By: #### C BC #### [facility] [address] [place] [address] Dr. Mervat Haynes MCH (RBC) [Entitic mass] 30.7 pg Normal 26.7-34.0 [facility] Comment on above: Performed By: #### C BC #### [facility] [address] [place] [address] Dr. Mervat Haynes MCHC (RBC) [Mass/Vol] 32.8 g/dL Normal 29.9-35.2 [facility] Comment on above: Performed By: #### C BC #### [facility] [address] [place] [address] Dr. Mervat Haynes MCV (RBC) [Entitic vol] 93.7 fL Normal 81.0-99.0 [facility] Comment on above: Performed By: #### C BC #### [facility] [address] [place] [address] Dr. Mervat Haynes MONO # 0.6 103/ul Normal 0.3-0.8 [facility] Comment on above: Performed By: #### C BC #### [facility] [address] [place] [address] Dr. Mervat Haynes Monocytes/100 WBC (Bld) 8.3 % Normal 1.7-12.0 [facility] Comment on above: Performed By: #### C BC #### [facility] [address] [place] [address] Dr. Mervat Haynes NEUT # 4.7 103/ul Normal 1.4-6.5 [facility] Comment on above: Performed By: #### C BC #### [facility] [address] [place] [address] Dr. Mervat Haynes Neutrophils/100 WBC (Bld) 64.3 % Normal 43.0-75.0 [facility] Comment on above: Performed By: #### C BC #### [facility] [address] [place] [address] Dr. Mervat Haynes Platelet mean volume (Bld) [Entitic vol] 10.3 fL Normal 9.5-13.5 [facility] Comment on above: Performed By: #### C BC #### [facility] [address] [place] [address] Dr. Mervat Haynes PLT 238 103/ul Normal 150-450 [facility] Comment on above: Performed By: #### C BC #### [facility] [address] [place] [address] Dr. Mervat Haynes RBC 4.46 106/ul Normal 4.20-5.40 [facility] Comment on above: Performed By: #### C BC #### [facility] [address] [place] [address] Dr. Mervat Haynes WBC 7.4 103/ul Normal 4.0-11.0 [facility] Comment on above: Performed By: #### C BC #### [facility] [address] [place] [address] Dr. Mervat Haynes ER URINE PROFILEon 2 Bilirubin Ql (U) Negative Normal NEGATIVE [facility] Comment on above: Performed By: #### E RUR UMICRO #### [facility] [address] [place] [address] Dr. Mervat Haynes Clarity (U) SL CLOUDY Abnormal CLEAR [facility] Comment on above: Performed By: #### Rosio RUR UMICRO #### [facility] [address] [place] [address] Dr. Mervat Haynes Color (U) YELLOW Normal YELLOW [facility] Comment on above: Performed By: #### E RUR UMICRO #### [facility] [address] [place] [address] Dr. Mervat Haynes ERUSELVIN A micrscopic examina tion will be performed if indicated. Normal [facility] Comment on above: Performed By: #### Rosio SOLER UMICRO #### [facility] [address] [place] [address] Dr. Mervat Haynes Glucose Ql (U) Negative Normal NEGATIVE [facility] Comment on above: Performed By: #### E RUR, UMICRO #### [facility] [address] [place] [address] Dr. Mervat Haynes Hemoglobin Ql (U) Negative Normal NEGATIVE [facility] Comment on above: Performed By: #### E RUR, UMICRO #### [facility] [address] [place] [address] Dr. Mervat Haynes Ketones Ql (U) TRACE Abnormal NEGATIVE [facility] Comment on above: Performed By: #### E RUR UMICRO #### [facility] [address] [place] [address] Dr. Mervat Haynes LEUKOCYTES SMALL Abnormal NEGATIVE [facility] Comment on above: Performed By: #### COOPER URIBE #### [facility] [address] [place] [address] Dr. Mervat Haynes Nitrite Ql (U) Positive Abnormal NEGATIVE [facility] Comment on above: Performed By: #### COOPER URIBE #### [facility] [address] [place] [address] Dr. Mervat Haynes pH (U) 6.0 [pH] Normal 5-9 [facility] Comment on above: Performed By: #### COOPER URIBE #### [facility] [address] [place] [address] Dr. Mervat Haynes SPEC GRAVITY 1.025 Normal 1.005-<=1. 025 [facility] Comment on above: Performed By: #### COOPER URIBE #### [facility] [address] [place] [address] Dr. Mervat Haynes UA PROTEIN TRACE Normal NEGATIVE/ TRACE [facility] Comment on above: Performed By: #### COOPER URIBE #### [facility] [address] [place] [address] Dr. Mervat Haynes UR MICRO IND INDICATED Normal [facility] Comment on above: Performed By: #### COOPER URIBE #### [facility] [address] [place] [address] Dr. Mervat Haynes Urobilinogen Qn (U) 0.2 {Kip'U}/dL Normal 0.2 - 1. 0 [facility] Comment on above: Performed By: #### KD URIBERO #### [facility] [address] [place] [address] Dr. Mervat Haynes LIPASEon 11-01-2022 Lipase [Catalytic activity/Vol] 114.0 U/L Normal 73.0-393.0 [facility] Comment on above: Performed By: #### A MY, CMP, LIPA #### [facility] [address] [address] [address] Mervat Haynes PROF 14(COMP METB)on 022 Albumin [Mass/Vol] 3.6 g/dL Normal 3.4-5.0 [facility] Comment on above: Performed By: #### A MY, CMP, LIPA #### [facility] [address] [address] [address] Mervat Haynes Albumin/Globulin [Mass ratio] 1.0 {ratio} Normal [facility] Comment on above: Performed By: #### A MY, CMP, LIPA #### [facility] [address] [address] [address] Mervat Haynes ALP [Catalytic activity/Vol] 153 U/L Critically high 46-116 [facility] Comment on above: Performed By: #### A MY, CMP, LIPA #### [facility] [address] [address] [address] Mervat Haynes ALT [Catalytic activity/Vol] 24 U/L Normal 14-59 [facility] Comment on above: Performed By: #### A MY, CMP, LIPA #### [facility] [address] [address] [address] Mervta Haynes Anion gap [Moles/Vol] 10.1 mmol/L Normal [facility] Comment on above: Performed By: #### A MY, CMP, LIPA #### [facility] [address] [address] [address] Mervat Haynes AST [Catalytic activity/Vol] 19 U/L Normal 15-37 [facility] Comment on above: Performed By: #### A MY, CMP, LIPA #### [facility] [address] [address] [address] Mervat Haynes Bilirubin [Mass/Vol] 0.8 mg/dL Normal 0.2-1.0 [facility] Comment on above: Performed By: #### A MY, CMP, LIPA #### [facility] [address] [address] [address] Mervat Haynes Calcium [Mass/Vol] 9.6 mg/dL Normal 8.5-10.1 [facility] Comment on above: Performed By: #### A MY, CMP, LIPA #### [facility] [address] [address] [address] Mervat Haynes Chloride [Moles/Vol] 104 mmol/L Normal 98-107 [facility] Comment on above: Performed By: #### A MY, CMP, LIPA #### [facility] [address] [address] [address] Mervat Haynes CO2 [Moles/Vol] 29.7 mmol/L Normal 21.0-32.0 [facility] Comment on above: Performed By: #### A MY, CMP, LIPA #### [facility] [address] [place] [address] Dr. Mervat Haynes Creatinine [Mass/Vol] 1.19 mg/dL Critically high 0.55-1.02 [facility] Comment on above: Performed By: #### A MY, CMP, LIPA #### [facility] [address] [place] [address] Dr. Mervat Haynes EGFR-AF [place] 53 mL/min/1.73m2 Critically low >=60 [facility] Comment on above: Performed By: #### A MY, CMP, LIPA #### [facility] [address] [place] [address] Dr. Mervat Haynes EGFR-NON AF [place] 44 mL/min/1.73m2 Critically low >=60 [facility] Comment on above: Performed By: #### A MY, CMP, LIPA #### [facility] [address] [place] [address] Dr. Mervat Haynes Globulin (S) [Mass/Vol] 3.5 g/dL Normal [facility] Comment on above: Performed By: #### A MY, CMP, LIPA #### [facility] [address] [place] [address] Dr. Mervat Haynes Glucose [Mass/Vol] 102 mg/dL Normal 74-106 [facility] Comment on above: Performed By: #### A MY, CMP, LIPA #### [facility] [address] [address] [address] Mervat Haynes Potassium [Moles/Vol] 3.8 mmol/L Normal 3.5-5.1 [facility] Comment on above: Performed By: #### A MY, CMP, LIPA #### [facility] [address] [place] [address] Dr. Mervat Haynes Protein [Mass/Vol] 7.1 g/dL Normal 6.4-8.2 [facility] Comment on above: Performed By: #### A MY, CMP, LIPA #### [facility] [address] [place] [address] Dr. Mervat Haynes Sodium [Moles/Vol] 140 mmol/L Normal 136-145 [facility] Comment on above: Performed By: #### A MY, CMP, LIPA #### [facility] [address] [place] [address] Dr. Mervat Haynes Urea nitrogen [Mass/Vol] 16.0 mg/dL Normal 7.0-18.0 [facility] Comment on above: Performed By: #### A MY, CMP, LIPA #### [facility] [address] [place] [address] Dr. Mervat Haynes Urea nitrogen/Creatinine [Mass ratio] 13.4 mg/mg Normal [facility] Comment on above: Performed By: #### A MY, CMP, LIPA #### [facility] [address] [place] [address] Dr. Mervat Haynes URINE MICROSCOPIC ONLYon BACTERIA SMALL Abnormal NONE SEEN [facility] Comment on above: Performed By: #### Rosio SOLER UMICRO #### [facility] [address] [place] [address] Dr. Mervat Haynes Bacteria identified Cx Nom (U) INDICATED Normal [facility] Comment on above: Performed By: #### E RENAYR, UMICRO #### [facility] [address] [place] [address] Dr. Mervat Haynes CAST NONE SEEN Normal NONE SEEN [facility] Comment on above: Performed By: #### E RUR, UMICRO #### [facility] [address] [address] [address] Mervat Haynes Crystals LM Nom (Urine sed) NONE SEEN Normal NONE SEEN [facility] Comment on above: Performed By: #### E RUR, UMICRO #### [facility] [address] [address] [address] Mervat Haynes Epithelial cells LM Ql (Urine sed) RARE Normal NONE SEEN /RARE [facility] Comment on above: Performed By: #### E RUR, UMICRO #### [facility] [address] [address] [address] Mervat Haynes MUCOUS NONE SEEN Normal NONE SEEN [facility] Comment on above: Performed By: #### E RUR, UMICRO #### [facility] [address] [place] [address] Dr. Mervat Haynes RBC NONE SEEN Abnormal 0-2 [facility] Comment on above: Performed By: #### Rosio SOLER, UMICRO #### [facility] [address] [place] [address] Dr. Mervat Haynes WBC 5-10 Abnormal NONE SEEN [facility] Comment on above: Performed By: #### E RENAYR, UMICRO #### [facility] [address] [place] [address] Dr. Mervat Haynes XR ABD FLAT UP_PA Amy 11-01 XR ABD FLAT UP_PA CH EXAMINATION: XR ABD FLAT UP_PA CH HISTORY: NAUSEA WITH VOMITING, UNSPECIFIED , diarrhea, abdominal pain COMPARISON: No relevant comparison available. FINDINGS: LUNGS: No infiltrate, pneumothorax, or pleural effusion. MEDIASTINUM: No abnormal widening. BOWEL GAS PATTERN: Non-obstructed. No abnormal dilation or suspicious fluid levels. Moderate stool burden. FREE AIR: None. CALCIFICATIONS: None significant. BONES: Moderate degenerative changes of the hip joints. OTHER: Negative. IMPRESSION: 1. No acute cardiopulmonary process. 2. Normal bowel gas pattern. No suspicious findings. Electronically authenticated by: CANDIS SHEEHAN Date: 2022-11-01 15:15 Normal [facility] CNOVSPon 04-02-2018 CNOVSP Visit (SP) Office ([place]) -------MARY VIVAS ([id number]) 1940 FDate Time Provider Department04/02/18 3:00 PM ZAFAR CARRENOASA During your visit today, we recorded the following information about you: Temperature Pulse Respiration Blood pressure 98.2 degrees 77/minute 18/minute 130/53 Weight Height 80 kg 1.651 Zafar Irvin 04/02/2018 3:38 PM SignedHPSerge Vivas is a 77 year old female who presents in consultation todaywith an elevated ferritin. Her grandfather had sideroblastic anemia and sheremembers when his nailbeds would get white. This indicated that it was timefor transfusion. She's had pancreatitis and an elevated ferritin and morerecently she says that her nail beds have gotten white. She has pancreatitisof unknown etiology. She will be seeing gastroenterology soon. Her ferritinis elevated in the 600 range, expected with a diagnosis of pancreatitis. Sheis not anemic. Her hemoglobin is normal.PAST MEDICAL HISTORYDiagnosis Date- Depression- Elevated ferritin- GERD (gastroesophageal reflux disease)- Hyperlipidemia- Thyroid diseasePAST SURGICAL HISTORYProcedure Laterality Date- CARDIAC CATH 2008- CHOLECYSTECTOMY HX- HYSTERECTOMY HX- IN ANESTH,LUMBAR SPINE,CORD SURGERY 1973, 1978Social HistorySubstance Use Topics- Smoking status: Never Smoker- Smokeless tobacco: Never Used- Alcohol use Yes Comment: socialFAMILY HISTORYProblem Relation Age of Onset- dementia [OTHER] MotherCurrent Outpatient Prescriptions:LATANOPROST OPHTHALMIC Use 1 Drop in eyes once daily. 1 drop in right eye atnight every daycolestipol (COLESTID) 1 gram tablet colestipol 1 gram tablethydroCHLOROthiazide (HYDRODIURIL, ESIDRIX) 25 mg tablet hydrochlorothiazide 25mg tabletcholecalciferol (VITAMIN D-3) 5,000 unit tab Take 5,000 Units by mouth oncedaily.nystatin (MYCOSTATIN) powder nystatin 100,000 unit/gram topical powdermetoprolol tartrate, short acting, (LOPRESSOR) 25 mg tablet Take 25 mg by mouthtwice daily.lisinopril (ZESTRIL, PRINIVIL) 5 mg tablet Take 5 mg by mouth once daily.levothyroxine (SYNTHROID) 100 mcg tablet Take 100 mcg by mouth daily beforebreakfast.aspirin 325 mg tablet Take 325 mg by mouth once daily.venlafaxine ER (EFFEXOR XR) 150 mg 24 hr capsule Take 150 mg by mouth everymorning.TOVIAZ 8 mg Tb24 Take 1 tablet by mouth once daily.SYMBICORT 80-4.5 mcg/actuation inhaler use 2 (TWO) puffs TWICE DAILYatorvastatin (LIPITOR) 20 mg tablet Take 20 mg by mouth once daily.Omeprazole Magnesium (PRILOSEC OTC) 20 mg tablet Take 20 mg by mouth oncedaily.No current facility-administered medications for this visit.ALLERGIESAllergen Reactions- Furosemide Other: See Comments- Oxybutynin Hives- Shellfish Containin* Other: See Comments hivesREVIEW OF SYSTEMSGENERAL: No weight loss, malaise or fevers., SEE HPIHEENT: Negative for frequent or significant headaches, No changes in hearing orvision, no nose bleeds or other nasal problemsNECK: Negative for lumps, goiter, pain and significant neck swellingRESPIRATORY: Negative for cough, wheezing or shortness of breath.CARDIOVASCULAR: Negative for chest pain, leg swelling or palpitations.GI: Negative for abdominal discomfort, blood in stools or black stools orchange in bowel habitsMUSCULOSKELETAL: Negative for joint pain or swelling, back pain or muscle pain.SKIN: Negative for lesions, rash, and itching.PSYCH: Negative for sleep disturbance, mood disorder and recent psychosocialstressors.HEMAT OLOGY/LYMPHOLOGY: Negative for prolonged bleeding, bruising easily orswollen nodes.NEURO: No history of headaches, syncope, paralysis, seizures or tremorsAll other reviewed and negative other than HPI.PHYSICAL EXAM:BP 130/53 Pulse 77 Temp 36.8 ?C (98.2 ?F) (Oral) Resp 18 Ht 165.1cm (5' 5 ) Wt 80 kg (176 lb 6.4 oz) LMP (LMP Unknown) SpO2 99% BMI29.35 kg/m?General Appearance: alert and oriented, appearing in no acute distressSkin: skin color, texture, turgor normal, no suspicious rashes or lesions.Head: normal.Eyes: Anicteric sclera. Pupils are equally round. Extraocular movements areintact. .Ears: external ears normalNeck: Supple, no adenopathy; thyroid symmetric, normal size, no bruits.Back:no pain with ambulationLungs: good air exchange overallHeart: RRRAbdomen: No obvious evidence of rebound tenderness or guardingExtremities: Extremities normal. No deformities, edema, or skin discoloration.Good capillary refill..Musculoskeletal: Spine range of motion normal. Muscular strength intact.Peripheral Pulses: Normal.Neurologic: Gait normal. No gross cerebellar defectsPsychiatric: the patient has an appropriate affectNo results found for: HB, HCT, WBC, PLTASSESSMENT/PLAN:1. Acute pancreatitis, unspecified complication status, unspecifiedpancreatitis type - ICD9: 577.0, ICD10: K85.90The patient's pancreatitis is causing her elevation of ferritin and no workupneeds to be done for this. I've given the patient reassurance that she doesnot have sideroblastic anemia given her normal hemoglobin and hematocrit. Nofollow-up is needed at this time.Zafar Carreno, MDReferring Provider: EDI JOSEPH [[id number]]Allergies As of Date: 04/02/2018 Noted Allergy ReactionFUROSEMIDE 11/14/2014 14 - Other: See CommentsOXYBUTYNIN 08/09/2016 4 - HivesSHELLFISH CONTAINING PRODUCTS 11/14/2014 14 - Other: See Comments Comments: hivesDate Reviewed: 04/02/2018Reviewed by: Sandy Castro - Fully AssessedReason for Visit: elevated ferritin with no anemia [Other] Cmt: consultPrimary Visit Diagnosis:Acute pancreatitis, unspecified complication status, unspecified pancreatitis type [K85.90]Follow-up and Disposition History RecordedPrescriptions as of 04/02/2018 Sig: LATANOPROST OPHTHALMIC Use 1 Drop in eyes once daily* COLESTIPOL 1 GRAM TABLET colestipol 1 gram tablet HYDROCHLOROTHIAZIDE 25 MG TAB* hydrochlorothiazide 25 mg tab* CHOLECALCIFEROL (VITAMIN D3) * Take 5,000 Units by mouth onc* NYSTATIN 100,000 UNIT/GRAM TO* nystatin 100,000 unit/gram to* METOPROLOL TARTRATE 25 MG TAB* Take 25 mg by mouth twice gabo* LISINOPRIL 5 MG TABLET Take 5 mg by mouth once daily. LEVOTHYROXINE 100 MCG TABLET Take 100 mcg by mouth daily b* ASPIRIN 325 MG TABLET Take 325 mg by mouth once gabo* VENLAFAXINE ER 150 MG CAPSULE* Take 150 mg by mouth every mo* TOVIAZ 8 MG TABLET,EXTENDED R* Take 1 tablet by mouth once d* SYMBICORT 80 MCG-4.5 MCG/ACTU* use 2 (TWO) puffs TWICE DAILY ATORVASTATIN 20 MG TABLET Take 20 mg by mouth once flakito* OMEPRAZOLE MAGNESIUM 20 MG TA* Take 20 mg by mouth once flakito*Problem List As Of Date 04/02/2018 Noted Resolved Acute pancreatitis [K85.90] INVALID FOR*Encounter Status:Closed by ZAFAR CARRENO MD on 04/02/18 [facility] PROGRESSon 04-02-2018 PROGRESS HNO ID: [id number] thor: Zafar Carreno EService: (none)Author Type: PhysicianType: Progress NotesFiled: 04/02/2018 3:38 PMNote Text:Rick Vivas is a 77 year old female who presents in consultationtoday with an elevated ferritin. Her grandfather had sideroblastic anemiaand she remembers when his nailbeds would get white. This indicated thatit was time for transfusion. She's had pancreatitis and an elevatedferritin and more recently she says that her nail beds have gotten white.She has pancreatitis of unknown etiology. She will be seeinggastroenterology soon. Her ferritin is elevated in the 600 range,expected with a diagnosis of pancreatitis. She is not anemic. Herhemoglobin is normal.PAST MEDICAL HISTORYDiagnosis Date- Depression- Elevated ferritin- GERD (gastroesophageal reflux disease)- Hyperlipidemia- Thyroid diseasePAST SURGICAL HISTORYProcedure Laterality Date- CARDIAC CATH 2008- CHOLECYSTECTOMY HX- HYSTERECTOMY HX- IN ANESTH,LUMBAR SPINE,CORD SURGERY 1973, 1978Social HistorySubstance Use Topics- Smoking status: Never Smoker- Smokeless tobacco: Never Used- Alcohol use Yes Comment: socialFAMILY HISTORYProblem Relation Age of Onset- dementia [OTHER] MotherCurrent Outpatient Prescriptions:LATANOPROST OPHTHALMIC Use 1 Drop in eyes once daily. 1 drop in right eyeat night every daycolestipol (COLESTID) 1 gram tablet colestipol 1 gram tablethydroCHLOROthiazide (HYDRODIURIL, ESIDRIX) 25 mg tablethydrochlorothiazide 25 mg tabletcholecalciferol (VITAMIN D-3) 5,000 unit tab Take 5,000 Units by mouthonce daily.nystatin (MYCOSTATIN) powder nystatin 100,000 unit/gram topical powdermetoprolol tartrate, short acting, (LOPRESSOR) 25 mg tablet Take 25 mg bymouth twice daily.lisinopril (ZESTRIL, PRINIVIL) 5 mg tablet Take 5 mg by mouth once daily.levothyroxine (SYNTHROID) 100 mcg tablet Take 100 mcg by mouth dailybefore breakfast.aspirin 325 mg tablet Take 325 mg by mouth once daily.venlafaxine ER (EFFEXOR XR) 150 mg 24 hr capsule Take 150 mg by mouthevery morning.TOVIAZ 8 mg Tb24 Take 1 tablet by mouth once daily.SYMBICORT 80-4.5 mcg/actuation inhaler use 2 (TWO) puffs TWICE DAILYatorvastatin (LIPITOR) 20 mg tablet Take 20 mg by mouth once daily.Omeprazole Magnesium (PRILOSEC OTC) 20 mg tablet Take 20 mg by mouth oncedaily.No current facility-administered medications for this visit.ALLERGIESAllergen Reactions- Furosemide Other: See Comments- Oxybutynin Hives- Shellfish Containin* Other: See Comments hivesREVIEW OF SYSTEMSGENERAL: No weight loss, malaise or fevers., SEE HPIHEENT: Negative for frequent or significant headaches, No changes inhearing or vision, no nose bleeds or other nasal problemsNECK: Negative for lumps, goiter, pain and significant neck swellingRESPIRATORY: Negative for cough, wheezing or shortness of breath.CARDIOVASCULAR: Negative for chest pain, leg swelling or palpitations.GI: Negative for abdominal discomfort, blood in stools or black stools orchange in bowel habitsMUSCULOSKELETAL: Negative for joint pain or swelling, back pain or musclepain.SKIN: Negative for lesions, rash, and itching.PSYCH: Negative for sleep disturbance, mood disorder and recentpsychosocial stressors.HEMATOLOGY/LYMPHO LOGY: Negative for prolonged bleeding, bruising easily orswollen nodes.NEURO: No history of headaches, syncope, paralysis, seizures or tremorsAll other reviewed and negative other than HPI.PHYSICAL EXAM:BP 130/53 Pulse 77 Temp 36.8 ?C (98.2 ?F) (Oral) Resp 18 Ht165.1 cm (5' 5 ) Wt 80 kg (176 lb 6.4 oz) LMP (LMP Unknown) [id number]% BMI 29.35 kg/m?General Appearance: alert and oriented, appearing in no acute distressSkin: skin color, texture, turgor normal, no suspicious rashes or lesions.Head: normal.Eyes: Anicteric sclera. Pupils are equally round. Extraocular movementsare intact. .Ears: external ears normalNeck: Supple, no adenopathy; thyroid symmetric, normal size, no bruits.Back:no pain with ambulationLungs: good air exchange overallHeart: RRRAbdomen: No obvious evidence of rebound tenderness or guardingExtremities: Extremities normal. No deformities, edema, or skindiscoloration. Good capillary refill..Musculoskeletal: Spine range of motion normal. Muscular strength intact.Peripheral Pulses: Normal.Neurologic: Gait normal. No gross cerebellar defectsPsychiatric: the patient has an appropriate affectNo results found for: HB, HCT, WBC, PLTASSESSMENT/PLAN:1. Acute pancreatitis, unspecified complication status, unspecifiedpancreatitis type - ICD9: 577.0, ICD10: K85.90The patient's pancreatitis is causing her elevation of ferritin and noworkup needs to be done for this. I've given the patient reassurance thatsteff does not have sideroblastic anemia given her normal hemoglobin andhematocrit. No follow-up is needed at this time.Zafar Carreno MD Normal [facility] Vital Signs Date Time Vital Sign Value Performing Clinician Facility 10-15-2024 13: Body mass index (BMI) [Ratio] 31.8 kg/m2 Edi Joseph MD Work Phone: [facility] 10-15-2024 13: Body weight 81.64 kg Edi Joseph MD Work Phone: [facility] 10-15-2024 13:07-0500 Diastolic blood pressure 60 mm[Hg] Edi Joseph MD Work Phone: [facility] 10-15-2024 13:07-0500 Heart rate 76 /min Edi Joseph MD Work Phone: [facility] 10-15-2024 13:07-0500 Systolic blood pressure 91 mm[Hg] Edi Joseph MD Work Phone: [facility] 10-15-2024 08:22-0500 Body height 160.02 cm Edi Joseph MD Work Phone: [facility] 08-26-2024 11:40-0400 Body height 160.02 cm MD Edi Joseph Work Phone: [facility] 08-26-2024 11:40-0400 Body mass index (BMI) [Ratio] 31.5 kg/m2 MD Edi Joseph Work Phone: [facility] 08-26-2024 11:40-0400 Body weight 80.73 kg MD Edi Joseph Work Phone: [facility] 08-26-2024 11:40-0400 Diastolic blood pressure 65 mm[Hg] MD Edi Joseph Work Phone: [facility] 08-26-2024 11:40-0400 Heart rate 70 /min MD Edi Joseph Work Phone: [facility] 08-26-2024 11:40-0400 Systolic blood pressure 100 mm[Hg] MD Edi Joseph Work Phone: [facility] 08-12-2024 23:40-0400 Diastolic blood pressure 88 mm[Hg] MD Edi Joseph Work Phone: [facility] 08-12-2024 23:40-0400 Heart rate 61 /min MD Edi Joseph Work Phone: [facility] 08-12-2024 23:40-0400 Respiratory rate 18 /min MD Edi Joseph Work Phone: [facility] 08-12-2024 23:40-0400 SaO2% (BldA) [Mass fraction] 98 % MD Edi Joseph Work Phone: [facility] 08-12-2024 23:40-0400 Systolic blood pressure 142 mm[Hg] MD Edi Joseph Work Phone: [facility] 08-12-2024 15:39-0400 Body height 160.02 cm MD Edi Joseph Work Phone: [facility] 08-12-2024 15:39-0400 Body temperature 98.3 [degF] MD Edi Joseph Work Phone: [facility] 08-12-2024 15:39-0400 Body weight 82 kg MD Edi Joseph Work Phone: [facility] 08-07-2024 04:10-0400 Diastolic blood pressure 83 mm[Hg] MD Edi Joseph Work Phone: [facility] 08-07-2024 04:10-0400 Heart rate 76 /min MD Edi Joseph Work Phone: [facility] 08-07-2024 04:10-0400 Respiratory rate 16 /min MD dEi Joseph Work Phone: [facility] 08-07-2024 04:10-0400 SaO2% (BldA) [Mass fraction] 99 % MD Edi Joseph Work Phone: [facility] 08-07-2024 04:10-0400 Systolic blood pressure 175 mm[Hg] MD Edi Joseph Work Phone: [facility] 08-06-2024 20:28-0400 Body temperature 98 [degF] MD Edi Joseph Work Phone: [facility] 08-06-2024 18:14-0400 Body height 160.02 cm MD Edi Joseph Work Phone: [facility] 08-06-2024 18:14-0400 Body weight 81 kg MD Edi Joseph Work Phone: [facility] 06-18-2024 14:09-0400 Body height 160.02 cm [facility] 06-18-2024 14:09-0400 Body mass index (BMI) [Ratio] 31.1 kg/m2 [facility] 06-18-2024 14:09-0400 Body weight 79.83 kg [facility] 06-18-2024 14:09-0400 Diastolic blood pressure 65 mm[Hg] [facility] 06-18-2024 14:09-0400 Heart rate 62 /min [facility] 06-18-2024 14:09-0400 Respiratory rate 12 /min [facility] 06-18-2024 14:09-0400 Systolic blood pressure 101 mm[Hg] [facility] 03-13-2023 14:45-0400 Body height 160.02 cm Edi Joseph Other [facility] Other 03-13-2023 14:45-0400 Body mass index (BMI) [Ratio] 33.12 kg/m2 Edi Joseph Other [facility] [employer] Other 03-13-2023 14:45-0400 Body weight 84.82 kg Edi Joseph Other [facility] [employer] Other 03-13-2023 14:45-0400 Diastolic blood pressure 68 mm[Hg] Edi Joseph Other [facility] Other 03-13-2023 14:45-0400 SaO2% (BldA) [Mass fraction] 98 % Edi Joseph Other [facility] Other 03-13-2023 14:45-0400 Systolic blood pressure 142 mm[Hg] Edi Joseph Other [facility] Other 08-24-2022 15:15-0400 Body height 167.64 cm Shiva Jamison Other [facility] Other 08-24-2022 15:15-0400 Body mass index (BMI) [Ratio] 30.18 kg/m2 Shiva Jamison Other [facility] Other 08-24-2022 15:15-0400 Body weight 84.82 kg Shiva Jamison Other [facility] Other Encounters Encounter Date Encounter Type Care Provider Facility Start: 11-05-2024 End: 11-05-2024 ambulatory Edi Joseph Facility:[facility] Start: 10-15-2024 End: 10-15-2024 ambulatory Edi Joseph MD Work Phone: [facility] Work Phone: Start: 10-15-2024 End: 10-15-2024 Patient encounter procedure Edi Joseph MD Work Phone: [facility] Work Phone: Start: 10-08-2024 End: 10-08-2024 ambulatory [facility]IKOL[facility] Start: 10-08-2024 End: 10-08-2024 Subsequent hospital visit by physician [facility] Start: 09-25-2024 End: 09-25-2024 ambulatory DELMER STALLINGS [facility] Start: 09-25-2024 End: 09-25-2024 Subsequent hospital visit by physician [facility] Start: 09-15-2024 Non-patient / Non-visit Edi Jospeh MD Work Phone: [facility] Work Phone: Start: 09-14-2024 Non-patient / Non-visit Edi Joseph MD Work Phone: [facility] Work Phone: Start: 08-26-2024 End: 08-26-2024 ambulatory MD Edi Joseph Work Phone: [facility] Work Phone: Start: 08-26-2024 End: 08-26-2024 Patient encounter procedure MD dEi Joseph Work Phone: [facility] Work Phone: Start: 08-12-2024 End: 08-13-2024 Emergency department patient visit MD Edi Joseph Work Phone: [facility] Work Phone: Start: 08-12-2024 ambulatory Edi Joseph Facility :[facility] Start: 08-12-2024 Registered Recurring Edi sullivan MD Work Phone: [facility] Start: 08-06-2024 End: 08-07-2024 Emergency department patient visit MD Edi Joseph Work Phone: [facility] Work Phone: Start: 06-18-2024 End: 06-18-2024 ambulatory [facility] Work Phone: Start: 06-18-2024 End: 06-18-2024 Patient encounter procedure [facility] Work Phone: Start: 02-28-2024 End: 02-28-2024 ambulatory SHIKHA FARIAS Not Available Start: 08-22-2023 End: 08-24-2023 ambulatory EHAB [facility] Start: 06-13-2023 End: 06-13-2023 ambulatory Shiva Jamison Other [employer] Other Start: 06-13-2023 Telephone encounter Shiva BURLESON [facility] Start: 03-29-2023 End: 03-29-2023 ambulatory Edi Joseph Other [employer] Other Start: 03-29-2023 Telephone encounter Edi Joseph [facility] Start: 03-13-2023 End: 03-14-[address] EDI JOSEPH [facility] [employer] Other Start: 03-13-2023 Office outpatient visit 15 minutes Edi Joseph [facility] Start: 01-09-2023 End: 01-09-2023 ambulatory Edi Joseph Other [employer] Other Start: 01-09-2023 Telephone encounter Edi Joseph [facility] Start: 11-01-2022 End: 11-01-[address] EDI JOSEPH Facility: Start: 08-24-2022 End: 08-24-2022 ambulatory Shiva Jamison Other [employer] Other Start: 08-24-2022 Patient encounter procedure Shiva CORDERO [facility] Start: 07-19-2022 End: 07-19-2022 ambulatory Shiva Jamison Other [employer] Other Start: 07-19-2022 Telephone encounter Shiva Jamison [facility] Start: 04-02-2018 End: 04-03-2018 Ambulatory ZAFAR Avelar SHASHIFLORINDA [facility] Procedures Date Procedure Procedure Detail Performing Clinician Start: 10-08-2024 Lipid panel Nikolay bowles MD Work Phone: Start: 09-25-2024 Urnls dip stick/tabl et reagent auto microscopy [employer] Work Phone: Start: 09-25-2024 Urnls dip stick/tabl et rgnt auto w/o microscopy Delmer Chandrakant Work Phone: Start: 08-12-2024 SARS Antigen (LFIA) MD Edi Joseph Work Phone: Start: 08-12-2024 Urine culture MD Edi Joseph Work Phone: Start: 08-06-2024 CT cervical spine wi thout contrast MD Edi Joseph Work Phone: Start: 08-06-2024 CT of head without contrast MD Edi Joseph Work Phone: Start: 08-06-2024 Plain chest X-ray MD Ortega Joseph Work Phone: Plan of Treatment Date Care Activity Detail Author Start: 08-12-2024 Bacteria identified in Urine by Culture [facility] Start: 07-28-2024 COVID-19 Vaccine ( season) COVID-19 Vaccine ( season) [facility] [employer] Start: 06-27-2024 Influenza vaccination Flu vaccine (# 1) [facility] Start: 2000 Respiratory Syncytia l Virus (RSV) or age 60 yrs+ (1 - 1-dose 60+ series) Respiratory Syncytial Virus (RSV) or age 60 yrs+ (1 - 1-dose 60+ series) [facility] Start: 1959 DTaP/Tdap/Td vaccine (1 - Tdap) DTaP/Tdap/Td vaccine (1 - Tdap) [facility] End: 09-25-2024 Culture, Urine [facility] Work Phone: Comment on above: Once for 1 Occurrenc es starting 09/25/2024 until 09/25/2024 Patient Education Altered Mental Status Preventing Falls ED [facility] Work Phone: Patient referral [facility] Work Phone: Payers Date Payer Category Payer Unknown [id number] 2024 Self-pay [id number] 2024 Unknown [id number] 2010 Unknown [id number] 1959 Medicare [id number] 2.1 [id number] 1959 Unknown [id number] 1940 Unknown [id number] 1940 Unknown [id number] 1940 Unknown [id number] 1940 Unknown [id number] Private Health Insurance [facility] [id number] Unknown [id number] Unknown [id number] Unknown [id number] Unknown [id number] Social History Date Type Detail Facility Unknown if ever smoked [facility] [employer] Other Start: 03-17-2013 Sex Assigned At N [facility] Other Start: 01-17-2019 End: 08-13-2024 Tobacco smoking status PRIS Never smoked tobacco (finding) [facility] Start: 1940 Sex Assigned At Female F [facility] Tobacco smoking status [facility] Tobacco smoking consumption unknown [place] Start: 03-17-2013 History of Social function [place] Start: 1940 Sex assigned at Not on file [facility] [place] Start: 10-15-2024 Sex Female (finding) [facility] Evaluation note 08-26-2024 Note Date & Type Note Facility 08-26-2024 Evaluation note Diagnosis Onset Date Resolution Accelerated essential hypertension acute August 26, 2024 11:27am Dementia acute July 11:27am Major depressive disorder with psychotic features acute August 26, 2024 11:27am [facility] Work Phone: Progress note 08-22-2023 Note Date & Type Note Facility 08-22-2023 Note [facility] Clinic Note Chief Complaint: Patient here for 1 year follow up CAD, hypertension, and hyperlipidemia. She was seen in [facility] ED in April 2023 for fall. She denies lightheadedness and syncope. Denies chest pain and SOB. Palpitations are no more than her usual, about once a week- lasting seconds at a time. HPI: Mary Vivas is a 82 y.o. female Cardiology ROS: Review of Systems Constitutional: Positive for diaphoresis. Cardiovascular: Positive for irregular heartbeat and palpitations. Hematologic/Lymphatic: Bruises/bleeds easily. Neurological: Positive for headaches. Psychiatric/Behavioral: Positive for memory loss. All other systems reviewed and are negative. Past Medical History She has a past medical history of Coronary artery disease, Hyperlipidemia, and Hypertension. Surgical History She has a past surgical history that includes Cardiac catheterization (06/10/2010) and Cardiac catheterization (10/13/2009). Social History She reports that she has never smoked. She has never used smokeless tobacco. She reports current alcohol use. She reports that she does not use drugs. Family History Family History Problem Relation Name Age of Onset Hypertension Mother Other (pacemaker) Mother Hypertension Father Allergies Furosemide, Shellfish containing products, and Sulfa (sulfonamide antibiotics) Medications Current Outpatient Medications: aspirin 325 mg tablet, Take 325 mg by mouth in the morning., Disp: , Rfl: atorvastatin (Lipitor) 20 mg tablet, Take 1 tablet every day by oral route., Disp: , Rfl: budesonide-formoteroL (Symbicort) 80-4.5 mcg/actuation inhaler, Inhale 2 puffs twice a day by inhalation route for 90 days., Disp: , Rfl: cholecalciferol (D3-5) 5,000 Units tablet, Take 1 tablet every day by oral route., Disp: , Rfl: colestipol (Colestid) 1 gram tablet, Take 2 tablets every day by oral route for 30 days., Disp: , Rfl: levothyroxine (Tirosint) 112 mcg capsule, Take by mouth before breakfast., Disp: , Rfl: metoprolol tartrate (Lopressor) 25 mg tablet, Take 1.5 tablets in the morning and 1.5 tablets in the evening, Disp: 270 tablet, Rfl: 3 omeprazole (PriLOSEC) [address] capsule, Take 1 capsule every day by oral route for 90 days., Disp: , Rfl: venlafaxine XR (Effoxor-XR) 150 mg 24 hr capsule, Take 1 capsule every day by oral route for 90 days., Disp: , Rfl: Last Recorded Vitals BP 128/78 (BP Location: Left arm, Patient Position: Sitting) Pulse 60 Ht 1.676 m (5' 6 ) Wt 87.1 kg (192 lb) SpO2 98% BMI 30.99 kg/m??? Physical Examination: GENERAL: alert and oriented x3, well developed, in no acute distress. HEAD: atraumatic, normocephalic. EYES: SANDER, EOMI. NECK: trachea midline, no JVD present, no carotid bruits present. CARDIAC: S1, S2 present. RRR. No murmur, rubs, or gallops. RESPIRATORY: CTAB, no increased effort of breathing, no rales, rhonchi, or wheezing. ABDOMEN: soft, nontender, nondistended. EXTREMITIES: no lower extremity edema, peripheral pulses are 2+ bilaterally. No rash/skin discoloration present. NEURO: strength/sensation equal and symmetric in bilateral upper and lower extremities. PSYCH: appropriate mood, affect, and judgement. CV Testing: Lexiscan stress test 08/24/2020 normal Echocardiogram 02/13/2020 essentially normal ECHO 2012 The left ventricle is normal in size and wall thickness is within normal limits. Global left ventricular systolic function is normal, no regional wall motion abnormalities. Mild diastolic dysfunction is seen by Doppler echo. The left atrium is normal in size. The right atrium is mildly enlarged. The right ventricle is mildly enlarged with normal systolic function. Doppler studies suggest normal right-sided pressures. The tricuspid valve is thickened with normal mobility, mild regurgitation is noted. The mitral valve is thickened with normal mobility, mild regurgitation noted. Mild mitral annular calcification is seen. The aortic valve is thickened with normal mobility, trivial regurgitation is noted. The aortic root is normal in size. The pulmonic valve is normal, trivial regurgitation is noted. No pericardial effusion is seen. Cardiovascular Laboratory Report 06/10/2010 FINAL IMPRESSION: 1. Mildly elevated right-sided heart pressures. 2. Mildly elevated pulmonary capillary wedge pressures. 3. Normal transpulmonary gradient suggesting pulmonary venous hypertension. 4. Normal cardiac output/index. RECOMMENDATIONS: 1. Optimization of medical management; will start her on Lasix 10 mg p.o. every day. 2. A follow-up chem-7 has been ordered. 3. Follow-up with me in the [place] [facility] in 1 month. 4. Follow-up with Dr. Joseph as scheduled. Cardiovascular Laboratory Report 09/2009 FINAL IMPRESSION: 1. Mild atherosclerotic coronary disease. 2. Normal global left ventricular systolic function. 3. Mild mitral regurgitat (more content not included)... [facility] Clinical Note 03-13-2023 Note Date & Type Note Facility 03-13-2023 Note PROCEDURE: XR KNEE R T 4V or > DATE: 03/13/2023 1:53 PM CDT COMPARISONS: 08/18/2021 CLINICAL INDICATION: Pain of right knee joint FINDINGS: There is no evidence of fractures or other acute osseous abnormalities. There is mild to moderate narrowing of the medial femoral tibial joint space compartment consistent with medial compartment degenerative change. There is slight patellofemoral degenerative change. There is slight lateral compartment spurring. There is chondrocalcinosis which could be related to the degenerative changes. Alternatively, this may be secondary to pseudogout. It is stable. IMPRESSION: 1. No evidence of acute osseous abnormalities 2. No right knee joint effusion 3. Mild to moderate knee degenerative changes most prominently involving the medial compartment area #4 images are similar to 08/18/2021 . Electronically authenticated by: DAVE RACHEL Date: 2023-03-13 15:23 [facility] Evaluation note 03-13-2023 Note Date & Type Note Facility 03-13-2023 Evaluation note Encounter Date Diagnosis Assessment Notes Feb, Right anterior knee pain (ICD-10 - M25.561) PT order given to pt. Continue NSAIDs. Will check xray. Feb, Alzheimer's disease, unspecified (ICD-10 - G30.9) No acute concerns. Continue present meds. Feb, Dementia in other diseases classified elsewhere, moderate, without behavioral disturbance, psychotic disturbance, mood disturbance, and anxiety (ICD-10 - F02.B0) [employer] Other Evaluation note 08-24-2022 Note Date & Type Note Facility 08-24-2022 Evaluation note Encounter Date Diagnosis Assessment Notes Jul, GERD (gastroesoph ageal reflux disease) (ICD-10 - K21.9) PATIENT AND DAUGTER STATES THAT THIS IS UNDER CONTROL WITH THE MEDICATION. PATIENT DOES NOT GET SYMPTOMS DURING THE DAY. WE WILL CONTINUE ON THE MEDICATION DIRECTED. Jul, Diarrhea (ICD-10 - R19.7) PATIENT IS MAINTAINED ON THE MEDICATION WE WILL CONTINUE THE MEDICATION. [employer] Other Evaluation note Note Date & Type Note Facility Evaluation note No Information [employer] Other Evaluation note Note Date & Type Note Facility Evaluation note Diagnosis Onset Date Balance disorder acute Cutaneous candidiasis acute Dementia acute Multiple falls acute [facility] Work Phone: History general Narrative - Reported Note Date & Type Note Facility History general Narrative - Reported Type Medical History asthma Medical History Esophageal reflux Medical History sleep apnea Medical History congestive heart failure Medical History COPD Medical History HARDIK (obstructive sleep apnea) Medical History hypothyroidism Medical History HTN Medical History hyperlipidemia Medical History HARDIK (obstructive sleep apnea) Surgical History back surgery Surgical History hysterectomy Surgical History cholecystectomy Surgical History stroke Hospitalization History see above [employer] Other Hospital Discharge instructions Note Date & Type Note Facility Hospital Discharge instructions Additional Instructions Follow-up with your primary care doctor and with mental health as directed Return to ED if develop worsening symptoms or concerns [facility] Work Phone: Summary Purpose Family History No Family History Records Found Relationship Condition Age at Onset Recorded Date/T ramesh father Unknown Heart disease Unknown mother Unknown Family history of mental disorder Unknown Advance Directives No Advanced Directives Records Found Advance Directive Response Recorded Date/ Time Advance Directives No July 12:10pm Advance Directive Response Recorded Date/ Time Advance Directives No July 11:10am Chief Complaint and Reason for Visit Chief Complaint fall f/u, rash under breast, [facility] paperwork Reason for Visit Balance disorder Cutaneous candidiasis Dementia Multiple falls Chief Complaint fall f/u, rash under breast, [facility] paperwork ams after fall Reason for Visit Balance disorder Cutaneous candidiasis Dementia Multiple falls Chief Complaint fall f/u, rash under breast, [facility] paperwork ams after fall mental eval Reason for Visit Balance disorder Cutaneous candidiasis Dementia Multiple falls Chief Complaint fall f/u, rash under breast, [facility] paperwork ams after fall mental eval [facility], Major depression disorder/phycosis Reason for Visit Balance disorder Cutaneous candidiasis Dementia Multiple falls Chief Complaint Admit Date ams after fall August 06, 2024 5:52pm BH August 12, 2024 11:01am mental eval August 12, 2024 3:30pm [facility], Major depression disorde r/phycosis August 26, 2024 11:27am Psychosis f/u October 15, 2024 1:02pm Reason for Visit Admit Date Accelerated essential hypertension [facility] 2023 11:27am Dementia August 26, 2024 11:27am Major depressive disorder with psychotic features August 26, 2024 11:27am Additional Source Comments INFORMATION SOURCE (unrecogn ized section and content) DATE CREATED AUTHOR 05/17/2018 [facility] DATE CREATED AUTHOR AUTHOR'S ORGANIZ ATION 03/22/2023 [facility] DATE CREATED AUTHOR AUTHOR'S ORGANIZ ATION 08/30/2023 [facility] DATE CREATED AUTHOR AUTHOR'S ORGANIZ ATION 02/29/2024 [facility] DATE CREATED AUTHOR AUTHOR'S ORGANIZ ATION 10/09/2024 [facility] DATE CREATED AUTHOR AUTHOR'S ORGANIZ ATION 11/12/2024 [facility] REASON FOR VISIT (unrecogniz ed section and content) PREVIOUS DR FREIRE PATIENT - PT HERE FOR FOLLOW UP, PATIENT STATES LONG CONTINUE ON THE OMEPRAZOLE BEFORE BED SHE IS FINE.RefillsHandicap PlacardKneeorderELECTRONIC REFILL REQUEST Care Teams (unrecognized sec tion and content) Team Status: Active Member Role Status Dates Edi Joseph MD Primary Care Provider Active Team Status: Inactive Member Role Status Dates Edi Joseph MD Primary Care Provide r, Attending Provider Active Start: June 18, 2024 End: June 18, 2024 Team Status: Inactive Member Role Status Dates Edi Joseph MD Primary Care Provider Active Start: August 06, 2024 End: August 07, 2024 Eladio Gonzalez DO Emergency Provider Active Sta rt: August 06, 2024 End: August 07, 2024 Carlos Hall DO RES Active Start: August 06, 2024 End: August 07, 2024 Team Status: Inactive Member Role Status Dates Edi Joseph MD Primary Care Provider Active Start: August 12, 2024 End: August 13, 2024 Kevon Leong PA-C Emergency Provider Active Start: August 12, 2024 End: August 13, 2024 Team Status: Inactive Member Role Status Dates Edi Joseph MD Primary Care Provide r, Attending Provider Active Start: August 26, 2024 End: August 26, 2024 Team Status: Active Member Role Status Dates Edi Joseph MD Primary Care Provider Active Start: August 12, 2024 Erlin Murillo MD Attending Provider Active Start: August 12, 2024 Team Status: Active Member Role Status Dates Edi Joseph MD Primary Care Provider Active Start: September 14, 2024 Rebecca Cadena MD Attending Provider Active Sta rt: September 14, 2024 Team Status: Active Member Role Status Dates Edi Joseph MD Primary Care Provider Active Start: September 15, 2024 Archie Pardo DO Attending Provider Active Sta rt: September 15, 2024 Team Status: Inactive Member Role Status Dates Edi Joseph MD Primary Care Provide r, Attending Provider Active Start: October 15, 2024 End: October 15, 2024 Goals (unrecognized section and content) Goals may be documented in a n alternate section FOR RECORDS PERTAINING TO PATIENTS WHO ARE OR HAVE BEEN ENROLLED IN A CHEMICAL DEPENDENCY/SUBSTANCEABUSE PROGRAM, SOME INFORMATION MAY BE OMITTED. This clinical summary was aggregated from multiple sources. Caution should be exercised in using it in the provision of clinical care. This summary normalizes information from multiple sources, and as a consequence, information in this document may materially change the coding, format and clinical context of patient data. In addition, data may be omitted in some cases. CLINICAL DECISIONS SHOULD BE BASED ON THE PRIMARY CLINICAL RECORDS. [facility] provides no warranty or guarantee of the accuracy or completeness of information in this document.
--- NOTE | 2025-01-24 15:55 | ED.GENADUL1 ---
HPI HPI - General Adult General Chief complaint: Weakness Stated complaint: FATIGUE Time Seen by Provider: 01/24/25 15:54 Source: other Source information: ems Mode of arrival: ambulance Limitations: other Limitations comment: dementia History of Present Illness HPI narrative: Patient is a 84-year-old patient who has 2 daughters at bedside is here for generalized weakness today, unsteady gait and almost falling twice with daughter. Patient uses a cane, sometimes a walker. Patient lives at home by herself, but they have 24 care during the week, and the daughter stay with her on the weekends. Patient was going to a hair appointment today. Patient felt weak when she is walking from the car into the hair appointment approximate 20 feet. Patient had to sit down and take a breath. She was able to get a hair appointment and have her hair done at a salon. Then they went to the grocery store. Patient sat in the car while daughter was in the grocery store. Then they went back home, patient felt fatigued, would sit down and states she feels weak. Patient was given the following take a nap this afternoon. Patient however Stating today that she was weak, and with the 2-week episode/almost falls trying to get into the salon, and earlier today, patient came in by EMS and daughters are at bedside is excellent historians. Patient has no cardiac history. She has no history of WA or stents. Patient had no nausea or vomiting. Patient been having intermittent chest tightness or sharp pain in the last 2 or 3 days, she has not had it today. Patient did have a few episodes of diarrhea 2 days ago. Patient had some nausea earlier today, not now. Patient is asymptomatic at this time. All systems are negative except as noted/marked. All systems reviewed and otherwise negative. Nurses note and vital signs reviewed and patient is not hypoxic. General: The patient appears well and in no apparent distress. Patient is resting comfortably on cart. Patient is not toxic, lethargic, or listless Skin: Warm, dry, no pallor noted. There is no rash noted. No petechiae, purpura. Head: Normocephalic, atraumatic Eye: Normal conjunctiva, no drainage, EOMI. PERRL Ears, Nose, Mouth, and Throat: oral mucosa is slightly dry, upper dentures.. Nares patent. Mouth without vesicles. Cardiovascular: Regular Rate and Rhythm, no murmur, gallop, rub Respiratory: Patient is in no distress, no accessory muscle use, lungs are clear to auscultation, no wheezing, rales or rhonchi Back: non-tender, no CVA tenderness bilaterally to percussion. No CT LS midline pain GI: No midepigastric tenderness palpation, no peritoneal signs, no pulsatile mass, no tenderness to palpation, no masses appreciated. No rebound, guarding, or rigidity noted. No distention Musculoskeletal: Patient has full range of motion of all of the extremities, no motor, sensory, or focal neurological deficits Neurological: A&O x4, normal speech; NIH of 0 Psychiatric: Cooperative Related Data Home Medications ?Medication ?Instructions ?Recorded ?Confirmed aspirin 325 mg tablet,delayed 325 mg PO DAILY 04/29/23 09/14/24 release (Aspir-Leelee) atorvastatin 40 mg tablet 30 mg PO DAILY 04/29/23 09/14/24 budesonide-formoterol HFA 80 2 puff inhalation Q12H 04/29/23 09/14/24 mcg-4.5 mcg/actuation aerosol inhaler (Symbicort) colestipol 1 gram tablet 2 g PO DAILY 04/29/23 09/14/24 levothyroxine 112 mcg tablet 112 mcg PO DAILY 04/29/23 09/14/24 metoprolol tartrate 25 mg tablet 37.5 mg PO Q12H 04/29/23 09/14/24 omeprazole 20 mg capsule,delayed 20 mg PO DAILY 04/29/23 09/14/24 release venlafaxine 150 mg 150 mg PO DAILY 04/29/23 09/14/24 capsule,extended release 24 hr donepezil 5 mg tablet 5 mg PO DAILY 09/14/24 09/14/24 risperidone 0.25 mg tablet 0.25 mg PO BID 09/14/24 09/14/24 Allergies Allergy/AdvReac Type Severity Reaction Status Date / Time Penicillins Allergy Unknown Rash Verified 01/24/25 15:55 shellfish Allergy Unknown Anaphylaxis Uncoded 01/24/25 15:55 Opioid HPI Opioid Management Most Recent Opioid Data: Ur Phencyclidine Scrn Negative (NEGATIVE) 09/14/24 12:05 09/14/24 PFSH PFSH Social History Smoking status: Never smoker Exam Constitutional Vital Signs, click to edit/add: Last Vital Signs Temp 98.1 F 01/24/25 15:45 Pulse 70 01/24/25 16:30 Resp 16 01/24/25 16:30 BP 177/88 H 01/24/25 15:52 Pulse Ox 96 01/24/25 16:30 O2 Del Method Room Air 01/24/25 15:45 Course Vital Signs Vital signs: Vital Signs Temperature 98.1 F 01/24/25 15:45 Pulse Rate 72 01/24/25 15:45 Respiratory Rate 12 01/24/25 15:45 Blood Pressure 177/88 H 01/24/25 15:45 Pulse Oximetry 96 01/24/25 15:45 Oxygen Delivery Method Room Air 01/24/25 15:45 Temperature 98.1 F 01/24/25 15:45 Pulse Rate 70 01/24/25 16:30 Respiratory Rate 16 01/24/25 16:30 Blood Pressure 177/88 H 01/24/25 15:52 Pulse Oximetry 96 01/24/25 16:30 Oxygen Delivery Method Room Air 01/24/25 15:45 Medical Decision Making MDM Narrative Medical decision making narrative: Patient will have 1 L of IV fluids, lab test done. She has not had any chest pain today. Patient looks well. 2 daughters at bedside and are excellent historians. Patient has no symptoms when she is laying at this time. Patient lab work is not showing any significant abnormalities. Patient did receive 1 L of IV fluid. Patient did ambulate with a walker, patient was feeling better and had no unsteadiness when she ambulated with a walker. Education increasing fluids at home was discussed. Patient will be discharged. Patient daughter is on the questions. Patient feels safe going home along with daughters feel safe taking her home as well. Lab Data Labs: Lab Results 01/24/25 Range/Units 16:27 WBC 10.8 (4.0-11.0) 10^3/uL RBC 4.10 L (4.20-5.40) 10^6/uL Hgb 12.3 (12.0-16.0) g/dL Hct 37.9 (36.0-48.0) % MCV 92.4 (81.0-99.0) fL MCH 30.0 (26.7-34.0) pg MCHC 32.5 (29.9-35.2) g/dL RDW 12.9 (11.0-15.0) % Plt Count 178 (150-450) 10^3/uL MPV 10.2 (9.5-13.5) fL Neut % (Auto) 71.1 (43.0-75.0) % Lymph % (Auto) 15.4 L (20.5-60.0) % [place] % (Auto) 9.5 (1.7-12.0) % Eos % (Auto) 1.8 (0.9-7.0) % Baso % (Auto) 0.7 (0.2-2.0) % Neut # (Auto) 7.7 H (1.4-6.5) 10^3/uL Lymph # (Auto) 1.7 (1.2-3.8) 10^3/uL [place] # (Auto) 1.0 H (0.3-0.8) 10^3/uL Eos # (Auto) 0.2 (0.0-0.7) 10^3/uL Baso # (Auto) 0.1 (0.0-0.1) 10^3/uL Abs Immat Gran (auto) 0.16 H (0.00-0.03) 10^3/uL Imm/Tot Granulo (auto) 1.5 H (0.0-0.5) % Sodium 140 (136-145) mmol/L Potassium 4.1 (3.5-5.1) mmol/L Chloride 104 (98-107) mmol/L Carbon Dioxide 25.4 (21.0-32.0) mmol/L Anion Gap 14.7 BUN 12.0 (7.0-18.0) mg/dL Creatinine 0.98 (0.55-1.02) mg/dL Est GFR ( Amer) >60 (>=60 mL/min/1.73m^2) Est GFR (Non-Af Amer) 54 L (>=60 mL/min/1.73m^2) BUN/Creatinine Ratio 12.2 Glucose 77 (74-106) mg/dL Calcium 9.1 (8.5-10.1) mg/dL Total Bilirubin 0.4 (0.2-1.0) mg/dL AST 17 (15-37) U/L ALT 12 L (14-59) U/L Alkaline Phosphatase 163 H (46-116) U/L Troponin I High Sens 14.9 (4.0-51.3) pg/mL NT-Pro-B Natriuret Pep 711.0 (<=1800.0) pg/mL Total Protein 6.1 L (6.4-8.2) g/dL Albumin 3.0 L (3.4-5.0) g/dL Globulin 3.1 g/dL Albumin/Globulin Ratio 1.0 Lipase 43.0 (16.0-77.0) U/L Free T4 1.44 (0.76-1.46) ng/dL TSH & Free T4 Interp 0.120 L (0.358-3.740) uIU/mL ECG Data Attestation: I personally reviewed and interpreted this ECG as follows: (EKG interpretation. Normal sinus rhythm at 76 beats a minute. Left axis deviation. No acute ST elevation, no acute ectopy. QTc of 431.) Discharge Plan Discharge Chief Complaint: Weakness Clinical Impression: Weakness, Mild dehydration Patient Disposition: Home, Self-Care Time of Disposition Decision: 18:08 Condition: Fair Prescriptions / Home Meds: No Action atorvastatin 40 mg tablet 30 mg PO DAILY levothyroxine 112 mcg tablet 112 mcg PO DAILY budesonide-formoterol [Symbicort] 80-4.5 mcg/actuation HFA aerosol inhaler 2 puff INHALATION Q12H metoprolol tartrate 25 mg tablet 37.5 mg PO Q12H venlafaxine 150 mg capsule,extended release 24hr 150 mg PO DAILY omeprazole 20 mg capsule,delayed release(DR/EC) 20 mg PO DAILY colestipol 1 gram tablet 2 g PO DAILY aspirin [Aspir-Leelee] 325 mg tablet,delayed release (DR/EC) 325 mg PO DAILY donepezil 5 mg tablet 5 mg PO DAILY risperidone 0.25 mg tablet 0.25 mg PO BID Print Language: Marshallese Instructions: Dehydration (ED), Weakness (ED) Additional Instructions: Continue to increase fluids at home; Gatorade, Powerade, water. If patient continues to have unsteadiness with gait, follow-up with PCP or neurology evaluation. Dr. Cedeño name and number has been given to you for neurology from [facility]. Referrals: Herlinda Donald MD [Primary Care Provider] - 1 week
--- NOTE | 2025-01-24 15:59 | ECG_ITS ---
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
[2025-01-24 16:40] LABS: Basophils Absolute Auto 0.1 10^3/uL (0.0-0.1); Basophils Percent Auto 0.7 % (0.2-2.0); Eosinophils Absolute Auto 0.2 10^3/uL (0.0-0.7); Eosinophils Percent Auto 1.8 % (0.9-7.0); Hematocrit 37.9 % (36.0-48.0); Hemoglobin 12.3 g/dL (12.0-16.0); Immature Granulocytes Abs Auto 0.16 10^3/uL (0.00-0.03); Immature Granulocytes Pct Auto 1.5 % (0.0-0.5); Lymphocytes Absolute Auto 1.7 10^3/uL (1.2-3.8); Lymphocytes Percent Auto 15.4 % (20.5-60.0); Mean Corpuscular HGB Conc 32.5 g/dL (29.9-35.2); Mean Corpuscular Volume 92.4 fL (81.0-99.0); Mean Platelet Volume 10.2 fL (9.5-13.5); Monocytes Percent Auto 9.5 % (1.7-12.0); Neutrophils Absolute Auto 7.7 10^3/uL (1.4-6.5); Neutrophils Percent Auto 71.1 % (43.0-75.0); Platelet Count 178 10^3/uL (150-450); Red Cell Distribution Width 12.9 % (11.0-15.0); White Blood Count 10.8 10^3/uL (4.0-11.0)
[2025-01-24] MEDS: 0.9 % SODIUM CHLORIDE 1,000 ML 1000 ML IV (16:42)
[2025-01-24 17:07] LABS: Alanine Aminotransferase 12 U/L (14-59); Alkaline Phosphatase 163 U/L (46-116); Anion Gap 14.7; Aspartate Amino Transferase 17 U/L (15-37); BUN Creatinine Ratio 12.2; Bilirubin Total 0.4 mg/dL (0.2-1.0); Calcium 9.1 mg/dL (8.5-10.1); Carbon Dioxide 25.4 mmol/L (21.0-32.0); Chloride 104 mmol/L (98-107); Estimated GFR (African America >60 (>=60 mL/min/1.73m^2); Estimated GFR (Non-African Ame 54 (>=60 mL/min/1.73m^2); Glucose 77 mg/dL (74-106); Potassium 4.1 mmol/L (3.5-5.1); Sodium 140 mmol/L (136-145); Total Protein 6.1 g/dL (6.4-8.2); Troponin I High Sensitivity 14.9 pg/mL (4.0-51.3)
[2025-01-24 17:08] LABS: Globulin 3.1 g/dL
[2025-01-24 17:27] LABS: Free T4 1.44 ng/dL (0.76-1.46)
--- NOTE | 2025-01-24 18:06 | PC.NURSE ---
pt ambulated with walker at baseline status. pt denies dizziness or lightheadedness while ambulating. 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 daughters at bedside state she is walking almost better than her normal . pt expresses readiness for discharge and daughters at bedside are agreeable with discharging pt back home. Dr. Ang notified.
== END 2025-01-24 18:27 | disposition home or self-care (01) ==
PROVIDERS: Emergency Provider Emergency Medicine; PCP Family Medicine
DX: E86.0 Dehydration (principal); R53.1 Weakness; R07.9 Chest pain, unspecified
CPT/HCPCS: 36415; 71045; 80053; 83690; 83880; 84439; 84443; 84484; 85025; 93005; 96360; 99285

== ENCOUNTER 2025-03-17 10:59 | Outpatient (OUT) | payer MEDICARE, OTHER, SELFPAY ==
--- NOTE | 2025-03-17 11:08 | XR_ITS ---
The [address] [address] Patient Name: MARY SHEPHERD MRN: [id number] date: 1940 Sex: F Assigned Patient Location: [facility] Current Patient Location: [facility] Accession/Order Number: [id number] Exam Date: 03/17/2025 14:09 Report Date: 03/17/2025 14:11 At the request of: EDI JOSEPH MD Procedure: XR lumbar spine 2-3V 3 views Lumbar Spine HISTORY: Left posterior hip and lumbar pain for one month COMPARISON: CT lumbar spine 06/09/2024 POSTSURGICAL CHANGES: None BONY ALIGNMENT: Mild scoliosis HYPERMOBILITY:No bending imaging. 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 No new findings. Impression dictated by: Varghese Heaton M.D.03/17/2025 2:11 PM Dictation Location: [place] [address] Electronically authenticated by: [id number] Y Date: 03/17/2025 14:11
--- NOTE | 2025-03-17 11:08 | XR_ITS ---
[address] [address] Patient Name: MARY SHEPHERD MRN: [id number] date: 1940 Sex: F Assigned Patient Location: [facility] Current Patient Location: [facility] Accession/Order Number: [id number] Exam Date: 03/17/2025 14:00 Report Date: 03/17/2025 14:02 At the request of: EDI JOSEPH MD Procedure: XR pelvis 1-2V Single view of the pelvis plain film HISTORY: Left posterior hip pain. COMPARISON: 04/29/2023 ACUTE FINDINGS: None BONY ALIGNMENT: Adequate SOFT TISSUES: Unremarkable DEGENERATIVE CHANGE:Unremarkable INTRAPELVIC STRUCTURES: Unremarkable POSTSURGICAL CHANGES:None XR/XR pelvis 1-2V IMPRESSION:Unremarkable exam. Impression dictated by: Varghese Heaton M.D.03/17/2025 2:02 PM Dictation Location: [place] [address] Electronically authenticated by: [id number] Y Date: 03/17/2025 14:02
== END 2025-03-17 11:00 | disposition home or self-care (01) ==
LOC: RAD 11:01
PROVIDERS: PCP Family Medicine; Visit Provider Family Medicine
DX: M25.552 Pain in left hip (principal); M51.369 Other intervertebral disc degeneration, lumbar region without mention of lumbar back pain or lower extremity pain
CPT/HCPCS: 72100; 72170

== ENCOUNTER 2025-05-26 10:36 | Emergency (ER) | payer MEDICARE, OTHER, SELFPAY ==
[2025-05-26] VITALS (24 sets, daily range): BP systolic 142; BP diastolic 68; PULSE 59–79; TEMP 36.3; O2SAT 96; BMI 27.4
--- NOTE | 2025-05-26 10:53 | XR_ITS ---
The [address] [address] Patient Name: MARY SHEPHERD MRN: [facility]:[id number] date: 1940 Sex: F Assigned Patient Location: ER Current Patient Location: ER Accession/Order Number: [id number] Exam Date: 05/26/2025 11:47 Report Date: 05/26/2025 11:48 At the request of: JEAN-CLAUDE EDWARD MD Procedure: XR chest 1V PORTABLE AP ERECT CHEST 1057 hours CLINICAL HISTORY: Chest pain and shortness of breath today. COMPARISON: 01/24/2025 The heart is within normal limits. There is no vascular congestion. There is continued blunting at the left lateral costophrenic angle. No developing consolidation, sizable effusion or pneumothorax is noted. The osseous structures are intact. Ankle tendons are visualized at the right humeral head. There is slight dextroscoliotic curvature. XR/XR chest 1V IMPRESSION: CONTINUED BLUNTING AT THE LEFT LATERAL COSTOPHRENIC ANGLE. NO ACUTE FINDINGS Impression dictated by: Yari Estrada M.D. 05/26/2025 11:48 AM Dictation Location: [place] [address] Electronically authenticated by: [id number] Y Date: 05/26/2025 11:48
--- NOTE | 2025-05-26 10:53 | ECG_ITS ---
The 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 Measurements Intervals [place] Rate: 69 P: 55 MN: 130 QRS: -13 QRSD: 82 T: 50 QT: 376 QTc: 395 Interpretive Statements 1100 Sinus rhythm 8102 Low QRS voltage in chest leads 9120 atypical ECG Compared to ECG 01/24/2025 16:00:17 No significant changes Electronically Signed On 05-26-2025 17:11:28 EDT by ISH HILL M.D.
--- NOTE | 2025-05-26 10:54 | ED.GENADUL1 ---
HPI HPI - General Adult General Chief complaint: Chest Pain Stated complaint: CHEST PAINS SOB Time Seen by Provider: 05/26/25 10:49 Source: patient and family Mode of arrival: Wheelchair Limitations: no limitations History of Present Illness HPI narrative: 84-year-old female presents to the emergency department for chest pain. She has dementia and is not a great historian. The patient's daughter gives much of the history and states she was with her mother at 4 AM and the patient was not having chest pain at that time. It may have started around 830 this morning, a few hours ago. There was no injury or fever or cough. She has no history of heart disease. The patient points to the right upper chest and states it feels like a pressure. Related Data Home Medications ?Medication ?Instructions ?Recorded ?Confirmed aspirin 325 mg tablet,delayed 325 mg PO HS 04/29/23 05/26/25 release (Aspir-Leelee) atorvastatin 40 mg tablet 40 mg PO BEDTIME 04/29/23 05/26/25 colestipol 1 gram tablet 2 g PO DAILY 04/29/23 05/26/25 levothyroxine 112 mcg tablet 112 mcg PO DAILY 04/29/23 05/26/25 metoprolol tartrate 25 mg tablet 12.5 mg PO Q12H 04/29/23 05/26/25 omeprazole 20 mg capsule,delayed 20 mg PO HS 04/29/23 05/26/25 release venlafaxine 150 mg 150 mg PO DAILY 04/29/23 05/26/25 capsule,extended release 24 hr risperidone 0.25 mg tablet 0.5 mg PO TID 09/14/24 05/26/25 albuterol sulfate 90 mcg/actuation 2 inh inhalation Q4H PRN shortness 05/26/25 05/26/25 aerosol inhaler (Ventolin HFA) of breath or wheezing bimatoprost 0.01 % eye drops 1 drp ophthalmic (eye) QPM 05/26/25 05/26/25 (Opal) donepezil 10 mg tablet 10 mg PO HS 05/26/25 05/26/25 lorazepam 0.5 mg tablet 0.5 mg PO DAILY 05/26/25 05/26/25 multivitamin (Daily Multi-Vitamin 1 tab PO DAILY 05/26/25 05/26/25 tablet) vitamins A,C,F-iaaw-uwlrjg 2,148 1 tab PO BID 05/26/25 05/26/25 mcg-113 mg-45 mg-17.4 mg tablet (PreserVision AREDS) Allergies Allergy/AdvReac Type Severity Reaction Status Date / Time Penicillins Allergy Unknown Rash Verified 05/26/25 10:44 shellfish derived Allergy Unknown Unknown Verified 05/26/25 10:44 Opioid HPI Opioid Management Most Recent Opioid Data: Last Pain Scale 1 Today, 11:08 Last ED Pain Assessment Today, 11:08 Ur Phencyclidine Scrn, (NEGATIVE) Negative 09/14/24, 12:05 Review of Systems ROS Narrative A ten point review of systems is negative except as noted above. PFSH PFSH Social History Smoking status: Never smoker Little interest or pleasure in doing things: not at all Feeling down, depressed, or hopeless: not at all Exam Narrative Exam Narrative: Nurses note and vital signs reviewed and patient is not hypoxic. General: The patient appears well and in no apparent distress. Patient is resting comfortably on cart. Skin: Warm, dry, no pallor noted. There is no rash noted. Head: Normocephalic, atraumatic Eye: Normal conjunctiva, no drainage Ears, Nose, Mouth, and Throat: oral mucosa is moist. Nares patent. Cardiovascular: Regular Rate and Rhythm Respiratory: Patient is in no distress, no accessory muscle use, lungs are clear to auscultation, no wheezing, rales or rhonchi Back: non-tender GI: Normal bowel sounds, no tenderness to palpation, no masses appreciated. No rebound, guarding, or rigidity noted. Musculoskeletal: The patient has no evidence of calf tenderness, no pitting edema, symmetrical pulses noted bilaterally Neurological: Awake and alert. She knows who she is and where she is and why she is here. She does not know the year. Psychiatric: Cooperative Constitutional Vital Signs, click to edit/add: Last Vital Signs Temp 97.4 F L 05/26/25 10:44 Pulse 59 L 05/26/25 13:00 Resp 20 05/26/25 13:00 BP 142/68 H 05/26/25 10:45 Pulse Ox 96 05/26/25 11:08 O2 Del Method Room Air 05/26/25 11:08 Course Vital Signs Vital signs: Vital Signs Temperature 97.4 F L 05/26/25 10:44 Pulse Rate 73 06/30/25 10:44 Respiratory Rate 16 05/26/25 10:44 Blood Pressure 142/68 H 05/26/25 10:44 Pulse Oximetry 96 05/26/25 10:44 Oxygen Delivery Method Room Air 05/26/25 10:44 Temperature 97.4 F L 05/26/25 10:44 Pulse Rate 59 L 05/26/25 13:00 Respiratory Rate 20 05/26/25 13:00 Blood Pressure 142/68 H 05/26/25 10:45 Pulse Oximetry 96 05/26/25 11:08 Oxygen Delivery Method Room Air 05/26/25 11:08 Medical Decision Making MDM Narrative Medical decision making narrative: Workup including 2 sets of troponin and a CTA of her chest is negative. She will be discharged home. At this point I do not suspect acute coronary syndrome. There is no evidence of pneumothorax or PE or pneumonia or CA. Treatment diagnosis and follow-up were discussed with the patient and her family. Differential Diagnosis Differential Diagnosis: CA, PE, pneumothorax, pneumonia, muscle strain Lab Data Lab results reviewed: Yes I reviewed the patient's lab results Labs: Lab Results 05/26/25 05/26/25 Range/Units 11:05 13:17 WBC 9.1 (4.0-11.0) 10^3/uL RBC 3.93 L (4.20-5.40) 10^6/uL Hgb 12.4 (12.0-16.0) g/dL Hct 37.7 (36.0-48.0) % MCV 95.9 (81.0-99.0) fL MCH 31.6 (26.7-34.0) pg MCHC 32.9 (29.9-35.2) g/dL RDW 13.4 (11.0-15.0) % Plt Count 246 (150-450) 10^3/uL MPV 10.5 (9.5-13.5) fL Neut % (Auto) 70.0 (43.0-75.0) % Lymph % (Auto) 18.2 L (20.5-60.0) % [place] % (Auto) 8.9 (1.7-12.0) % Eos % (Auto) 2.0 (0.9-7.0) % Baso % (Auto) 0.6 (0.2-2.0) % Neut # (Auto) 6.4 (1.4-6.5) 10^3/uL Lymph # (Auto) 1.7 (1.2-3.8) 10^3/uL [place] # (Auto) 0.8 (0.3-0.8) 10^3/uL Eos # (Auto) 0.2 (0.0-0.7) 10^3/uL Baso # (Auto) 0.1 (0.0-0.1) 10^3/uL Abs Immat Gran (auto) 0.03 (0.00-0.03) 10^3/uL Imm/Tot Granulo (auto) 0.3 (0.0-0.5) % D-Dimer 1.72 H* (<=0.59) mg/L FEU Sodium 143 (136-145) mmol/L Potassium 4.2 (3.5-5.1) mmol/L Chloride 106 (98-107) mmol/L Carbon Dioxide 29.2 (21.0-32.0) mmol/L Anion Gap 12.0 BUN 18.0 (7.0-18.0) mg/dL Creatinine 0.92 (0.55-1.02) mg/dL Est GFR ( Amer) >60 (>=60 mL/min/1.73m^2) Est GFR (Non-Af Amer) 58 L (>=60 mL/min/1.73m^2) BUN/Creatinine Ratio 19.6 Glucose 96 (74-106) mg/dL Calcium 9.3 (8.5-10.1) mg/dL Troponin I High Sens 14.4 14.1 (4.0-51.3) pg/mL Imaging Data Chest x-ray: Radiologist's impression: ITS Impressions Chest X-Ray 05/26/25 10:53 IMPRESSION: CONTINUED BLUNTING AT THE LEFT LATERAL COSTOPHRENIC ANGLE. NO ACUTE FINDINGS Impression dictated by: Yari Estrada M.D. 05/26/2025 11:48 AM Dictation Location: [place] [address] Electronically authenticated by: [id number] Y Date: 05/26/2025 11:48 Chest CTA 05/26/25 11:45 IMPRESSION: No acute findings. No acute aortic pathology. No evidence of acute pulmonary embolism. Impression dictated by: Tray Bonilla Jr., D.O. 05/26/2025 12:58 PM Dictation Location: [place] [address] Electronically authenticated by: [id number] Y Date: 05/26/2025 12:58 ECG Data Attestation: I personally reviewed and interpreted this ECG as follows: (EKG on my interpretation shows normal sinus rhythm with rate of 69 and no acute change) Discharge Plan Discharge Chief Complaint: Chest Pain Clinical Impression: Chest pain Patient Disposition: Home, Self-Care Time of Disposition Decision: 13:50 Condition: Good Mode of Transportation: Private Vehicle Prescriptions / Home Meds: No Action atorvastatin 40 mg tablet 40 mg PO BEDTIME levothyroxine 112 mcg tablet 112 mcg PO DAILY metoprolol tartrate 25 mg tablet 12.5 mg PO Q12H venlafaxine 150 mg capsule,extended release 24hr 150 mg PO DAILY omeprazole 20 mg capsule,delayed release(DR/EC) 20 mg PO HS colestipol 1 gram tablet 2 g PO DAILY aspirin [Aspir-Leelee] 325 mg tablet,delayed release (DR/EC) 325 mg PO HS risperidone 0.25 mg tablet 0.5 mg PO TID albuterol sulfate [Ventolin HFA] 90 mcg/actuation HFA aerosol inhaler 2 inh inhalation Q4H PRN (Reason: shortness of breath or wheezing) donepezil 10 mg tablet 10 mg PO HS lorazepam 0.5 mg tablet 0.5 mg PO DAILY Rx Instructions: NOON multivitamin [Daily Multi-Vitamin] Tablet 1 tab PO DAILY PreserVision AREDS 2,148 mcg-113 mg-45 mg-17.4mg tablet 1 tab PO BID Rx Instructions: administer with AM and PM meals [place] 0.01 % drops 1 drp ophthalmic (eye) QPM Print Language: [place]ican Instructions: Chest Pain (ED) Referrals: Herlinda Donald MD [Primary Care Provider, Family Practice] - 1 week
--- OUTSIDE RECORDS SUMMARY | 2025-05-26 11:01 | XMS_ITS | CCD ---
Author Organization [facility] Care Team Providers Care Site Coordinator Name Role Phone ZAFAR CARRENO Unavailable Unavailable EDI JOSEPH Unavailable Unavailable Shiva Jamison Unavailable Edi Joseph Unavailable DR EDI JOSEPH Primary Care Unavailable HAY ., DR LEE Admitting Unavailable HAY ., DR LEE Attending Unavailable ZICELY, DR CANDIS Winn Consulting Unavailable PAY ., DR DANIELS Consulting Unavailable HAY ., DR LEE Consulting Unavailable JAKE, DR EDI Avelar Admitting Unavailable JAKE, DR EDI Avelar Attending Unavailable JAKE, DR EDI Avelar Primary Care Unavailable JAKE, DR EDI Avelar Consulting Unavailable DAVE RACHEL Consulting Unavailable MD Edi Joseph Primary Care Provider [phone] DO Eladio Gonzalez Emergency Provider SHELBY Leong Emergency Provider Unavailable Primary Care Provider Unavailangi e BAKIES, DELMER Referring Unavailable CHANDRAKANT, DELMER Referring Unavailable NIKOLAY PACK Referring Unavailable Edi Joseph MD Primary Care Provider Eladio Gonzalez DO Emergency Provider [phone] Erlin Murillo MD Attending Provider [phone] Kevon Leong PA-C Emergency Provider NON STAFF Primary Care Unavailable Edi Joseph Admitting Unavailable Edi Joseph Attending Unavailable Edi Joseph Primary Care Unavailable Erlin Murillo Admitting Unavailab Erlin Laughlin Attending Unavailab le Edi Joseph Primary Care Unavailable Kevon Leong Admitting Unavailable Kevon Leong Attending Unavailable Eladio Gonzalez Attending Unavailable Edi Joseph Primary Care Unavailable Eladio Gonzalez Admitting Unavailable Edi Joseph MD Primary Care Provider [phone] CANDIS SENIOR Attending Unavailable Allergies Allergy Classification Reported Allergen(s) Allergy Type Date of Onset Reaction(s) Facility (12 sources) Furosemide Drug Allergy 06-18-20 24 [facility] (6 sources) Shellfish Propensity to adverse reactions [facility] [employer] Other (6 sources) Sulfonamides (Antibiotic) Propensity to adverse reactions [facility] [employer] Other (1 source) Furosemide Drug Allergy 02-01-20 14 [facility] (1 source) oxybutynin Drug Allergy 08-09-20 16 [facility] (1 source) Shellfish Drug allergy (disorder) 02-01-20 14 [facility] (1 source) Sulfonamides (Antibiotic) Drug allergy (disorder) 11-27-18 80 [facility] (7 sources) Shellfish; Translations: [shellfish derived] Allergy to substance 06-18-20 [facility] (7 sources) Sulfonamides (Antibiotic); Translations: [Sulfa (Sulfonamide Antibiotics)] Allergy to substance 06-18-20 [facility] (1 source) Furosemide Drug Allergy 10-15-20 24 [facility] (3 sources) Furosemide Drug Allergy 11-14-20 14 Unknown, [facility] (3 sources) oxybutynin Drug Allergy 08-09-20 16 [facility] (3 sources) Shellfish Allergy to substance 11-14-20 14 Hives, Unknown, [facility] (3 sources) Sulfonamides (Antibiotic) Drug Allergy 07-19-20 22 [facility] Medications Current Medications Medication Drug Class(es) Dates Sig (Normalized) Sig (Original) acetaminophen 500 mg oral capsule (2 sources) Start: 10-11-2024 take 1 capsule by mouth every six hours as needed Acetaminophen 500 mg capsule Active 500 MG PO Every 6 hours as needed October 11, 2024 1:00am aspirin 325 mg oral tablet (12 sources) Platelet Aggregation Inhibitor, Nonsteroidal Anti-inflammatory Drug Start: 08-26-2024 take 1 tablet by mouth once daily Aspirin 325 mg tablet Active 325 MG PO Daily August 26, 2024 12:00am atorvastatin 40 mg oral tablet (20 sources) HMG-CoA Reductase Inhibitor Start: 08-21-2024 End: 10-11-2024 Atorvastatin 40 mg tablet Discontinued 0 .ROUTE .COMPLEX August 21, 2024 1:22pm October 11, 2024 1:33pm TAKE 1 TABLET EVERY DAY Start: 08-21-2024 End: 10-11-2024 Atorvastatin 40 mg tablet Discontinued 0 .ROUTE .COMPLEX August 21, 2024 12:22pm October 11, 2024 12:33pm TAKE 1 TABLET EVERY DAY Start: 08-21-2024 Atorvastatin A ctive 0 .ROUTE .COMPLEX August 21, 2024 1:22pm TAKE 1 TABLET EVERY DAY Start: 01-13-2024 End: 08-21-2024 atorvastatin (Lipitor) 40 MG tablet 01/13/2024 Active atorvastatin (Li pitor) 20 MG tablet Active take 1 tablet by kecia every twenty-four hours Atorvastatin Calcium 40 MG 1 tablet Orally Once a day for 90 days Active Lipitor Active Azo Tabs (6 sources) Azo Tabs Active colestipol hydrochloride 1000 mg oral tablet (12 sources) Bile Acid Sequestrant Start: 10-11-2024 End: 01-02-2025 Colestipol 1 gram tablet Active 2 GM PO Daily January 02, 2025 1:43pm Start: 11-08-2019 take 2 tablets by mo [facility] every twenty-four hours Colestipol HCl 1 GM 2 tablets Orally Once a day for 90 days Oct, Active donepezil hydrochloride 10 mg oral tablet (14 sources) Start: 10-21-2024 take 1 tablet by mouth once daily Donepezil 10 mg tablet Active 10 MG PO Daily October 21, 2024 1:00am Dr Payne prescribes. Start: 06-18-2024 End: 10-21-2024 donepezil (Aricept) 5 MG tab let 06/18/2024 Active Geriatric Okwnuxki-Kxah-Yxkz (4 sources) Start: 06-18-2024 take 1 tablet by mouth once daily Geriatric Wqbfviik-Azcb-Qwer Active 1 TAB PO Daily June 18, 2024 12:00am Geriatric Ncioqxir-Oqlu-Pdnm tablet (2 sources) Start: 06-18-2024 take 1 tablet by mouth once daily Geriatric Bogjpddi-Cmvw-Hord tablet Active 1 TAB PO Daily June 18, 2024 12:00am Start: 06-18-2024 take 1 tablet by kecia th once daily Geriatric Ddnujgjd-Jwqe-Uojh tablet Active 1 TAB PO Daily June 17, 2024 11:00pm hydroCHLOROthiazide 25 mg oral tablet (17 sources) Thiazide Diuretic Start: 06-18-2024 End: 10-15-2024 hydroCHLOROthiazide (HYDRODiuril) 25 MG tablet 1 tablet 06/18/2024 Active take 1 tablet by kecia th every twenty-four hours hydroCHLOROthiazide 25 MG 1 tablet Orall y Once a day for 30 day(s) QOD Not-Taking levothyroxine sodium 0.112 mg oral tablet (19 sources) l-Thyroxine Start: 08-21-2024 Levothyroxine 112 mcg tablet Active 0 .ROUTE .COMPLEX 90 August 21, 2024 1:22pm TAKE 1 TABLET ONE TIME DAILY IN THE MORNING ON AN EMPTY STOMACH Start: 08-12-2023 End: 08-21-2024 levothyroxine (Synthroid, Le voxyl) 112 MCG tablet 08/12/2023 Active take 1 tablet by kecia th once daily in the morning Levothyroxine Sodium 112 MCG 1 tablet in the morning on an empty stomach Orally Once a day for 90 days Active take 1 tablet by kecia th once daily Levothyroxine Sodium 100 MCG TAKE 1 TABLET BY MOUTH DAILY Oral for 90 Active LORazepam 0.5 mg oral tablet (5 sources) Benzodiazepine Start: 10-11-2024 End: 03-17-2025 take 1 tablet by mouth once daily Lorazepam 0.5 mg tablet Active 0.5 MG PO Daily March 17, 2025 10:16am melatonin 5 mg oral capsule (2 sources) Start: 10-15-2024 take 1 mg by mouth at bedtime Melatonin 5 mg capsule Active MG PO Bedtime October 15, 2024 1:00am Melatonin / pyridoxine (2 sources) Melatonin-Pyrido xi ne (MELATONIN CR PO) Take by mouth Active metoprolol tartrate 25 mg oral tablet (19 sources) beta-Adrenergic Nidhi Start: 10-11-2024 End: 10-15-2024 take 1 tablet by mouth twice daily Metoprolol Tartrate 50 mg tablet Discontinued 50 MG PO Twice daily October 11, 2024 1:00am October 15, 2024 2:44pm Start: 06-18-2024 End: 10-11-2024 Metoprolol Succinate 25 mg t ablet extended release 24 hr Discontinued 75 MG PO Daily June 18, 2024 12:00am October 11, 2024 1:33pm Start: 06-18-2024 take 75 mg by mouth once daily Metoprolol Succinate Active 75 MG PO Daily June 18, 2024 12:00am Start: 09-26-2022 metoprolol tar trate (Lopressor) 25 MG tablet 09/26/2022 Active Metoprolol Succi jah Active 24 hr mirabegron 25 mg extended release oral tablet (7 sources) beta3-Adrenergic Agonist Start: 03-13-2025 take 1 tablet by mouth once daily Mirabegron (Myrbetriq) 25 mg tablet extended release 24 hr Active 25 MG PO Daily March 13, 2025 12:00am Free[employer] tablet Orally Once a day; Note: Source Status: Not-TakingundefinedPRN; Provider: Shaheen Shannon ( ) take 1 tablet by kecia th every twenty-four hours Myrbetriq 25 MG 1 tablet Orally Once a day Not-Taking Multiple Vitamin (multivitamin) tablet (2 sources) take 1 tablet by mouth once daily Multiple Vitamin (multivitamin) tablet Take 1 tablet by mouth Daily Active Multiple Vitamins-Minerals (ICAPS AREDS 2 PO) (2 sources) Multiple Vitamins-Minerals (ICAPS AREDS 2 PO) Take by mouth Active Multivitamin preparation (6 sources) Multivitamin Act valarie nystatin [id number] unt/ml topical cream (14 sources) Polyene Antifungal Start: 06-18-20 nystatin (Mycostatin) cream Twice daily 06/18/2024 Active Start: 06-18-2024 End: 08-26-2024 Nystatin 100,000 unit/gram c ream Discontinued 1 APPLIC TOPICAL Twice daily July 05, 2024 12:07pm August 26, 2024 11:46am omeprazole 20 mg delayed release oral capsule (15 sources) Proton Pump Inhibitor Start: 06-18-2024 take 1 capsule by mouth once daily Omeprazole 20 mg capsule,delayed release(DR/EC) Active 1 CAP PO Daily June 18, 2024 12:00am FreeTextSi capsule 30 minutes before morning meal Orally Once a day; Note: Source Status: Refill; Refills: 11; Provider: Shaheen Monroe risperiDONE 0.5 mg oral tablet (10 sources) Atypical Antipsychotic Start: 10-11-2024 take 1 tablet by mouth twice daily Risperidone (Risperdal) 0.5 mg tablet Active 0.5 MG PO Twice daily October 11, 2024 1:00am Start: 08-26-2024 End: 10-11-2024 take 1 tablet by mouth twice daily Risperidone 0.25 mg tablet Discontinued 0.25 MG PO Twice daily 60 September 02, 2024 8:20am October 11, 2024 1:33pm Start: 08-26-2024 End: 08-26-2024 take 1 tablet by mouth once daily Risperidone 0.25 mg tablet Discontinued 0.25 MG PO Daily August 26, 2024 12:00am August 26, 2024 11:52am 24 hr venlafaxine 75 mg extended release oral capsule (17 sources) Serotonin and Norepinephrine Reuptake Inhibitor Start: 10-15-2024 take 1 capsule by mouth once daily Venlafaxine 75 mg capsule,extended release 24hr Active 75 MG PO Daily October 15, 2024 1:00am Start: 06-18-2024 take 1 capsule by mo ut once daily at mealtime Venlafaxine 150 mg capsule,extended release 24hr Active 1 CAP PO Daily June 18, 2024 12:00am FreeTextSi capsule with food Orally Once a day; Note: Source Status: Taking; Provider: Shaheen Shannon ( ) venlafaxine XR ( Effexor XR) 150 MG 24 hr capsule Active take 1 capsule by mo uth every twenty-four hours Venlafaxine HCl ER 150 MG 1 capsule with food Orally Once a day Active Venlafaxine HCl Active Vitamin D3 (6 sources) Vitamin D3 Activ e Vitamins A,C,R-Hcnp-Nhrsla (Icaps Areds) 4,296 mcg-226 mg-90 mg capsule (6 sources) Start: 06-18-2024 take 1 capsule by mouth twice daily Vitamins A,C,Q-Djug-Sqyjdd (Icaps Areds) 4,296 mcg-226 mg-90 mg capsule Active 1 CAP PO Twice daily June 17, 2024 11:00pm Start: 06-18-2024 take 1 capsule by [facility] twice daily Vitamins A,C,X-Ucex-Mchftd (Icaps Areds) 4,296 mcg-226 mg-90 mg capsule Active 1 CAP PO Twice daily June 18, 2024 12:00am Completed/Discontinued Medications Medication Drug Class(es) Dates Sig (Normalized) Sig (Original) [id number] 200 actuat albuterol 0.09 mg/actuat metered dose inhaler (15 sources) beta2-Adrenergic Agonist Start: 06-18-2024 End: 10-11-2024 take 2 puff(s) by inhalation every four hours as needed Albuterol Sulfate (Ventolin Hfa) 90 mcg/actuation HFA aerosol inhaler Discontinued 2 PUFF INHALATION Every 4 hours June 18, 2024 12:00am October 11, 2024 1:33pm FreeTextSi puffs as needed Inhalation every 4 hrs; Note: Source Status: Taking; Provider: Ameena Ponce Start: 05-12-2023 take 2 puff(s) by in halation every four hours for wheezing albuterol HFA 90 mcg/act inhaler Indications: Chronic obstructive pulmonary disease, unspecified COPD type (CMS/HCC) Inhale 2 puffs every 4 (four) hours if needed for wheezing. 54 g 3 05/12/2023 Active take 2 puff(s) by in halation every four hours as needed Ventolin HFA 108 (90 Base) MCG/ACT 2 puffs as needed Inhalation every 4 hrs Active bimatoprost 0.1 mg/ml ophthalmic solution (9 sources) Prostaglandin Analog Start: 06-18-2024 End: 10-15-2024 take 0.01 drop(s) into the eye(s) once daily Bimatoprost (Lumigan) 0.01 % drops Discontinued 1 DROPS EYE-BOTH Daily June 18, 2024 12:00am October 15, 2024 2:13pm Start: 10-24-2023 Lumigan 0.01 % ophthalmic solution 10/24/2023 Active bisacodyl 10 mg rectal suppository (2 sources) Stimulant Laxative Start: 10-11-2024 End: 10-15-2024 Bisacodyl (Dulcolax (Bisacodyl)) 10 mg suppository Discontinued 10 MG OH Daily as needed October 11, 2024 1:00am October 15, 2024 2:13pm 120 actuat budesonide 0.08 mg/actuat / formoterol fumarate 0.0045 mg/actuat metered dose inhaler (17 sources) Corticosteroid, beta2-Adrenergic Agonist Start: 10-11-2024 End: 10-15-2024 take 1 puff(s) by inhalation every twelve hours Budesonide-Formote rol (Symbicort) 80-4.5 mcg/actuation HFA aerosol inhaler Discontinued 2 PUFF INHALATION Every 12 hours October 11, 2024 1:00am October 15, 2024 2:13pm Start: 06-18-2024 End: 08-26-2024 take 2 puff(s) by inhalation twice daily Budesonide-Formoterol (Symbicort) 160-4.5 mcg/actuation HFA aerosol inhaler Discontinued 2 PUFF INHALATION Twice daily June 18, 2024 12:00am August 26, 2024 11:45am FreeTextSi puffs Inhalation Twice a day; Note: Source Status: Taking; Provider: Ameena Ponce Start: 02-28-2024 take 2 puff(s) by in halation in the morning budesonide-formoterol (Symbicort) 80-4.5 MCG/ACT inhaler Indications: Chronic obstructive pulmonary disease, unspecified COPD type (CMS/HCC) Inhale 2 puffs in the morning and 2 puffs before bedtime. Rinse mouth with water after use to reduce aftertaste and incidence of candidiasis. Do not swallow.. 3 each 3 02/28/2024 Active Start: 03-13-2014 take 2 puff(s) by in halation twice daily Symbicort 160-4.5 MCG/ACT 2 puffs Inhalation Twice a day Feb, Active cholecalciferol 0.125 mg oral capsule (9 sources) Vitamin D Start: 06-18-2024 End: 10-15-2024 take 1 capsule by mouth once daily Cholecalciferol (Vitamin D3) 125 mcg (5,000 unit) capsule Discontinued 125 MCG PO Daily June 18, 2024 12:00am October 15, 2024 2:13pm cholecalciferol (D3-5) 5,000 Units tablet Daily. Active Cranberry (15 sources) Non-Standardized Food Allergenic Extract, Non-Standardized Plant Allergenic Extract Start: 06-18-2024 End: 10-15-2024 take 1 capsule by mouth twice daily at mealtime Cranberry 500 mg capsule Discontinued 500 MG PO Twice daily June 18, 2024 12:00am October 15, 2024 2:13pm administer with meals Start: 06-18-2024 End: 10-15-2024 take 1 capsule by mouth twice daily at mealtime Cranberry 500 mg capsule Discontinued 500 MG PO Twice daily June 17, 2024 11:00pm October 15, 2024 1:13pm administer with meals Start: 06-18-2024 take 500 mg by mouth twice daily at mealtime Cranberry Active 500 MG PO Twice daily June 18, 2024 12:00am administer with meals Cranberry 250 MG capsule as directed Orally Active Cranberry Active docusate sodium 100 mg oral capsule (2 sources) Start: 10-11-2024 End: 10-15-2024 take 1 capsule by mouth once daily Docusate Sodium (Colace) 100 mg capsule Discontinued 100 MG PO Daily October 11, 2024 1:00am October 15, 2024 2:13pm folic acid 0.4 mg oral tablet (12 sources) Start: 06-18-2024 End: 10-15-2024 take 1 tablet by mouth once daily Folic Acid 400 mcg tablet Discontinued 1 TAB PO Daily June 18, 2024 12:00am October 15, 2024 2:14pm FreeTextSi tablet Orally Once a day; Note: Source Status: Taking; Provider: Shaheen Shannon ( ) take 1 tablet by kecia th every twenty-four hours Folic Acid 400 MCG 1 tablet Orally Once a day Active Problems Active Problems Problem Classification Problem Date Documented Date Episodic/Chronic Abdominal pain (6 sources) Epigastric pain; Translations: [Epigastric pain] Episodic Attention-deficit, conduct, and disruptive behavior disorders (5 sources) Altered behavior; Translations: [Other symptoms and signs involving appearance and behavior] 08-06-2024 Episodic Chronic obstructive pulmonary disease and bronchiectasis (10 sources) Chronic obstructive lung disease; Translations: [Chronic obstructive pulmonary disease, unspecified] Onset: 08-23-20 12 05-10-2023 Chronic Congestive heart failure; nonhypertensive (1 source) Heart failure, unspecified; Translations: [HEART FAILURE UNSPECIFIED] Onset: 11-03-20 Chronic Delirium, dementia, and amnestic and other cognitive disorders (15 sources) Alzheimer's disease; Translations: [Alzheimer's disease, unspecified] Chronic Disorders of lipid metabolism (1 source) Pure hypercholesterolemia, unspecified; Translations: [PURE HYPERCHOLESTEROLEMIA UNSPEC] Onset: 11-03-20 Chronic E Codes: Fall (5 sources) Fall; Translations: [Unspecified fall, initial encounter] 08-06-2024 Episodic Esophageal disorders (8 sources) Gastroesophageal reflux disease; Translations: [Gastro-esophageal reflux disease without esophagitis] Onset: 11-03-20 Chronic Genitourinary symptoms and ill-defined conditions (2 sources) Dysuria; Translations: [Dysuria] Onset: 11-05-2011-05-2024 Episodic Hypertension with complications and secondary hypertension (1 source) Hypertensive heart disease with heart failure; Translations: [HTN HEART DISEASE W/HEART FAIL] Onset: 11-03-20 Chronic Mood disorders (3 sources) Major depression with psychotic features; Translations: [Major depressive disorder, single episode, severe with psychotic features] 09-02-2024 Chronic Mycoses (15 sources) Candidiasis of skin; Translations: [Candidiasis of skin and nail] Onset: 07-16-20 Resolved : 07-16-20 24 06-18-2024 Episodic Osteoarthritis (6 sources) Osteoarthritis of right knee joint; Translations: [Unilateral primary osteoarthritis, right knee] Onset: 08-23-20 Resolved : 02-26-20 24 04-20-2023 Chronic Other aftercare (3 sources) Other ocean transportation intermediary (current) drug therapy; Translations: [OTH INTERMEDIATE CURRENT DRUG THERAPY] Onset: 11-03-20 Episodic Other connective tissue disease (4 sources) Repeated falls; Translations: [History of fall] 06-18-2024 Episodic Other connective tissue disease (2 sources) Pain in hallux; Translations: [Pain in left toe(s)] 04-03-2025 Episodic Other gastrointestinal disorders (6 sources) Diarrhea; Translations: [Diarrhea, unspecified] Episodic Other gastrointestinal disorders (1 source) Diarrhea, unspecified Episodic Other nervous system disorders (5 sources) Difficulty walking; Translations: [Difficulty in walking, not elsewhere classified] Onset: 04-20-2004-20-2023 Chronic Other nervous system disorders (4 sources) Other abnormalities of gait and mobility; Translations: [Other symptoms involving nervous and musculoskeletal systems] 06-18-2024 Episodic Other non-traumatic joint disorders (1 source) Arthralgia of the pelvic region and thigh; Translations: [Pain in left hip] 03-17-2025 Episodic Other non-traumatic joint disorders (1 source) Pain in left hip; Translations: [Pain in joint, pelvic region and thigh] 03-17-2025 Episodic Other skin disorders (2 sources) Ingrowing nail; Translations: [Ingrowing nail] 04-03-2025 Episodic Pulmonary heart disease (3 sources) Chronic cor pulmonale; Translations: [Pulmonary heart disease, unspecified] Onset: 09-18-20 13 05-10-2023 Chronic Residual codes; unclassified (6 sources) Obstructive sleep apnea syndrome; Translations: [Obstructive sleep apnea (adult) (pediatric)] Chronic Residual codes; unclassified (1 source) Sleep apnea, unspecified; Translations: [SLEEP APNEA UNSPECIFIED] Onset: 11-03-20 Chronic Residual codes; unclassified (1 source) Restlessness and agitation; Translations: [Restlessness and agitation] Onset: 08-06-20 Chronic Skin and subcutaneous tissue infections (2 sources) Paronychia of toe of left foot; Translations: [Cellulitis of left toe] 04-03-2025 Episodic Thyroid disorders (1 source) Hypothyroidism, unspecified; Translations: [HYPOTHYROIDISM UNSPECIFIED] Onset: 11-03-20 Chronic Past or Other Problems Problem Classification Problem Date Documented Da te Episodic/Chronic Cardiac dysrhythmias (3 sources) Palpitations; Translations: [Palpitations] Onset: 08-23-2012 Resolved: 02-26-2024 02-26-2024 Episodic Coronary atherosclerosis and other heart disease (3 sources) Coronary atherosclerosis; Translations: [Atherosclerotic heart disease of [place] coronary artery without angina pectoris] Onset: 08-23-2012 Resolved: 02-26-2024 02-26-2024 Chronic Essential hypertension (6 sources) Malignant essential hypertension; Translations: [Essential (primary) hypertension] Onset: 08-23-2012 Resolved: 02-26-2024 09-02-2024 Chronic Heart valve disorders (6 sources) Mitral valve disorder; Translations: [Rheumatic mitral valve disease, unspecified] Onset: 08-23-2012 Resolved: 02-26-2024 02-26-2024 Chronic Nausea and vomiting (4 sources) Nausea with vomiting, unspecified; Translations: [NAUSEA WITH VOMITING UNSPECIFIED] Onset: 11-01-2022 Episodic Nonspecific chest pain (3 sources) Chest pain; Translations: [Chest pain, unspecified] Onset: 08-23-2012 Resolved: 02-26-2024 02-26-2024 Episodic Other aftercare (1 source) 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; Translations: [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] Onset: 11-03-2022 Episodic Other and ill-defined heart disease (3 sources) Diastolic dysfunction; Translations: [Other ill-defined heart diseases] Onset: 07-19-2022 Resolved: 02-26-2024 02-26-2024 Chronic Other circulatory disease (1 source) Personal history of transient ischemic attack (TIA), and cerebral infarction without residual deficits; Translations: [PERS HX TIA AND CI NO RESID DEFICIT] Onset: 11-03-2022 Episodic Other connective tissue disease (9 sources) Recurrent falls ; Translations: [Repeated falls] Onset: 07-16-2024 Resolved: 07-16-2024 06-18-2024 Episodic Other nervous system disorders (9 sources) Impairment of balance; Translations: [Other abnormalities of gait and mobility] Onset: 07-16-2024 Resolved: 07-16-2024 06-18-2024 Episodic Other non-epithelial cancer of skin (3 sources) Primary malignant neoplasm of skin; Translations: [Unspecified malignant neoplasm of skin, unspecified] Onset: 08-23-2012 Resolved: 02-26-2024 02-26-2024 Episodic Other non-traumatic joint disorders (8 sources) Pain in right knee; Translations: [Pain in joint, lower leg] Onset: 03-13-2023 Episodic Other screening for suspected conditions (not mental disorders or infectious disease) (9 sources) Elevated liver enzymes level; Translations: [Other specified abnormal findings of blood chemistry] Onset: 02-07-2014 Resolved: 02-26-2024 02-26-2024 Episodic Pancreatic disorders (not diabetes) (3 sources) Acute pancreatitis; Translations: [Acute pancreatitis without necrosis or infection, unspecified] Onset: 04-02-2018 Resolved: 02-26-2024 02-26-2024 Episodic Residual codes; unclassified (1 source) Acquired [...] Test Name Value Interpretation Reference Range Facility 36on 04-02-2025 36 Patient has not been seen since 2022. Patient needs an appointment Normal [facility] Basophils Auto (Bld) [#/Vol] on 01-24-2025 Basophils (Bld) [#/Vol] Automated basophil count 0.0-0.1 [facility] Basophils/100 WBC Auto (Bld) on 01-24-2025 Basophils/100 WBC (Bld) Automated basophil % 0.2-2.0 [facility] Eosinophils/100 WBC Auto (Bl d)on 01-24-2025 Eosinophils/100 WBC (Bld) Automated eosinophil % 0.9-7.0 [facility] Erythrocyte distribution wid th Auto (RBC) [Ratio]on 01-24-2025 Erythrocyte distribution width (RBC) [Ratio] Erythrocyte distribution width [Ratio] by Automated count 11.0-15.0 [facility] Estimated glomerular filtrat ion rate (GFR) non- Americanon 01-24-2025 GFR/1.73 sq M.predicted among non-blacks MDRD (S/P/Bld) [Vol rate/Area] Estimated glomerular filtration rate (GFR) non- Low >=60 mL/min/1.7 3m 2 [facility] Globulin Calc (S) [Mass/Vol] on 01-24-2025 Globulin (S) [Mass/Vol] Serum globulin measurement by calculation (mass/volume) [facility] Hematocrit Auto (Bld) [Volum e fraction]on 01-24-2025 Hematocrit (Bld) [Volume fraction] Hematocrit [Volume Fraction] of Blood by Automated count 36.0-48.0 [facility] Hemoglobin [Mass/volume] in Bloodon 01-24-2025 Hemoglobin (Bld) [Mass/Vol] Hemoglobin [Mass/volume] in Blood 12.0-16.0 [facility] Laboratory - Chemistry and C hemistry - challengeon 01-24-2025 Albumin [Mass/Vol] 3.0 g/dL Low 3.4-5.0 [facility] ALP [Catalytic activity/Vol] 163 U/L High 46-116 [facility] ALT [Catalytic activity/Vol] 12 U/L Low 14-59 [facility] AST [Catalytic activity/Vol] 17 U/L 15-37 [facility] Bilirubin [Mass/Vol] 0.4 mg/dL 0.2-1.0 [facility] Calcium [Mass/Vol] 9.1 mg/dL 8.5-10.1 [facility] Chloride [Moles/Vol] 104 mmol/L 98-107 [facility] CO2 [Moles/Vol] 25.4 mmol/L 21.0-32.0 [facility] Creatinine [Mass/Vol] 0.98 mg/dL 0.55-1.02 [facility] Free T4 [Mass/Vol] 1.44 ng/dL 0.76-1.46 [facility] GFR/1.73 sq M.predicted MDRD (S/P/Bld) [Vol rate/Area] mL/min/{1.73_m2} >=60 mL/min/1.7 3m 2 [facility] Glucose [Mass/Vol] 77 mg/dL 74-106 [facility] Lipase [Catalytic activity/Vol] 43.0 U/L 16.0-77.0 [facility] Natriuretic peptide B (Bld) [Mass/Vol] 711.0 pg/mL <=1800.0 [facility] Potassium [Moles/Vol] 4.1 mmol/L 3.5-5.1 [facility] Protein [Mass/Vol] 6.1 g/dL Low 6.4-8.2 [facility] Sodium [Moles/Vol] 140 mmol/L 136-145 [facility] TSH Qn 0.120 m[IU]/L Low 0.358-3.74 0 [facility] Urea nitrogen [Mass/Vol] 12.0 mg/dL 7.0-18.0 [facility] Urea nitrogen/Creatinine [Mass ratio] 12.2 mg/mg [facility] Laboratory - Hematology and Cell countson 01-24-2025 Immature granulocytes/100 WBC (Bld) 1.5 % High 0.0-0.5 [facility] Leukocytes [#/volume] correc wilfrido for nucleated erythrocytes in Blood by Automated counon 01-24-2025 WBC corrected for nucl RBC Auto (Bld) [#/Vol] Leukocytes [#/volume] corrected for nucleated erythrocytes in Blood by Automated coun 4.0-11.0 [facility] Lymphocytes Auto (Bld) [#/Vo l]on 01-24-2025 Lymphocytes (Bld) [#/Vol] Lymphocytes [#/volume] in Blood by Automated count 1.2-3.8 [facility] Lymphocytes/100 WBC Auto (Bl d)on 01-24-2025 Lymphocytes/100 WBC (Bld) Lymphocytes/100 leukocytes in Blood by Automated count Low 20.5-60.0 [facility] MCH Auto (RBC) [Entitic mass ]on 01-24-2025 MCH (RBC) [Entitic mass] MCH [Entitic mass] by Automated count 26.7-34.0 [facility] MCHC Auto (RBC) [Mass/Vol]on 01-24-2025 MCHC (RBC) [Mass/Vol] MCHC [Mass/volume] by Automated count 29.9-35.2 [facility] MCV Auto (RBC) [Entitic vol] on 01-24-2025 MCV (RBC) [Entitic vol] MCV [Entitic volume] by Automated count 81.0-99.0 [facility] Monocytes Auto (Bld) [#/Vol] on 01-24-2025 Monocytes (Bld) [#/Vol] Automated blood monocyte count High 0.3-0.8 [facility] Monocytes/100 WBC Auto (Bld) on 01-24-2025 Monocytes/100 WBC (Bld) Automated monocyte % 1.7-12.0 [facility] Neutrophils Auto (Bld) [#/Vo l]on 01-24-2025 Neutrophils (Bld) [#/Vol] Neutrophils [#/volume] in Blood by Automated count High 1.4-6.5 [facility] Neutrophils/100 WBC Auto (Bl d)on 01-24-2025 Neutrophils/100 WBC (Bld) Automated neutrophil % 43.0-75.0 [facility] No Panel Informationon 01-24 Eosinophils # (Auto) 0.2 10 3/uL 0.0-0.7 [facility] Immature Granulocyte # (Auto) 0.16 10 3/uL High 0.00-0.03 [facility] Troponin I High Sensitivity 14.9 pg/mL 4.0-51.3 [facility] Comment on above: CUT-OFF POINTS HAVE BEEN ESTABLISHED BASED ON THE FOURTHUNIVERSAL DEFINITION OF MYOCARDIAL INFARCTION. THE UPPERREFERENCE LIMIT (URL) OF TROPONIN, DEFINED THE 99THPERCENTILE OF cTnI DISTRIBUTION IN A REFERENCE POPULATION,HAS BEEN CONFIRMED THE DECISION THRESHOLD FOR MIDIAGNOSIS.99TH PERCENTILE = 51.4 PG/MLNOTE: HIGH-SENSITIVITY TROPONIN ASSAY IS NOT INTENDED TO BEUSED IN ISOLATION BUT SHOULD BE INTERPRETED IN CONJUNCTIONWITH OTHER DIAGNOSTIC AND CLINICAL INFORMATION. Platelet mean volume Auto (B ld) [Entitic vol]on 01-24-2025 Platelet mean volume (Bld) [Entitic vol] Platelet mean volume [Entitic volume] in Blood by Automated count 9.5-13.5 [facility] Platelets Auto (Bld) [#/Vol] on 01-24-2025 Platelets (Bld) [#/Vol] Platelets [#/volume] in Blood by Automated count 150-450 [facility] RBC Auto (Bld) [#/Vol]on RBC (Bld) [#/Vol] Erythrocytes [#/volu me] in Blood by Automated count Low 4.20-5.40 [facility] Serum or plasma albumin/glob ulin mass ratioon 01-24-2025 Albumin/Globulin [Mass ratio] Serum or plasma albumin/globulin mass ratio [facility] Serum or plasma anion gap de terminationon 01-24-2025 Anion gap [Moles/Vol] Serum or plasma an ion gap determination [facility] Urine Cultureon 11-05-2024 Bacteria identified Cx Nom (U) 40,000 colonies/ml mixed bacterial skin contaminants 2 Days PERFORMED BY: [facility] [address] [place] [address] PATHOLOGIST [employer]PER[employer] FLAKITO Mckenna [facility] Comment on above: Performed By: #### C UU ####[facility] [id number] [id number] [facility] Lipid Panelon 10-08-2024 Cholesterol [Mass/Vol] 170 mg/dL 0 - 1 99 mg/dL [facility] Comment on above: Cholesterol Guidelines: <200 Desirable 200-240 Borderline >240 Undesirable Cholesterol in HDL [Mass/Vol] 47 mg/dL 40 - PINF mg/dL [facility] Comment on above: HDL Guidelines: <40 Undesirable 40-59 Borderline >59 Desirable Cholesterol in LDL [Mass/Vol] 92 mg/dL 0 - 100 mg/dL [facility] Comment on above: LDL Guidelines: <100 Desirable 100-129 Near to/above Desirable 130-159 Borderline >159 Undesirable Direct (measured) LDL and calculated LDL are not interchangeable tests. Cholesterol in VLDL [Mass/Vol] 31 mg/dL High 1 - 30 mg/dL [facility] Cholesterol.total/Chol esterol in HDL [Mass ratio] 3.6 {ratio} [facility]me Interpretation and review of laboratory results Abnormal [facility] Triglyceride [Mass/Vol] 156 mg/dL High NINF - 150 mg/dL [facility] Comment on above: Triglyceride Guidelines: <150 Desirable 150-199 Borderline 200-499 High >499 Very high Based on AHA Guidelines for fasting triglyceride, August 2012. [facility] Lipid Profileon 10-08-2024 Cholesterol [Mass/Vol] 170 mg/dL Normal 0-199 [facility] Comment on above: Result Comment: Cholesterol Guidelines: <200 Desirable 200-240 Borderline >240 Undesirable Performed By: #### L IPR #### [facility] [address] [place] [id number] Hydraulics Engineer: Tal Silva MD Cholesterol in HDL [Mass/Vol] 47 mg/dL Normal >40 [facility] Comment on above: Result Comment: HDL Guidelines: <40 Undesirable 40-59 Borderline >59 Desirable Performed By: #### L IPR #### [facility] [address] [place] [id number] Hydraulics Engineer: Tal Silva MD Cholesterol in LDL [Mass/Vol] 92 mg/dL Normal 0-100 [facility] Comment on above: Result Comment: LDL Guidelines: <100 Desirable 100-129 Near to/above Desirable 130-159 Borderline >159 Undesirable Direct (measured) LDL and calculated LDL are not interchangeable tests. Performed By: #### L IPR #### [facility] [address] [place] [id number] Hydraulics Engineer: Tal Silva MD Cholesterol in VLDL [Mass/Vol] 31 mg/dL High 1-30 [facility] Comment on above: Performed By: #### L IPR #### [facility] [address] [place] [id number] Hydraulics Engineer: Tal Silva MD Cholesterol.total/Chol esterol in HDL [Mass ratio] 3.6 {ratio} Normal [facility] Comment on above: Performed By: #### L IPR #### [facility] [address] [place] [id number] Hydraulics Engineer: Tal Silva MD Triglyceride [Mass/Vol] 156 mg/dL High <150 [facility] Comment on above: Result Comment: Triglyceride Guidelines: <150 Desirable 150-199 Borderline 200-499 High >499 Very high Based on AHA Guidelines for fasting triglyceride, August 2012. Performed By: #### L IPR #### [facility] [address] [place] [address] Hydraulics Engineer: Tal Silva MD Cult,Urineon 09-26-2024 Cult,Urine Specimen Description .VOIDED URINE Culture NO SIGNIFICANT GROWTH Report Status FINAL 09/26/2024 Normal [facility] Comment on above: Performed By: #### U RC #### [facility] [address] [place] [address] Hydraulics Engineer: Tal Silva MD [facility] [address] [place] [address] Hydraulics Engineer: Aydin Garcia MD Urinalysison 09-25-2024 Bilirubin Ql (U) Negative NEGATIVE [facility] Clarity (U) Clear Clear [facility] Color (U) Yellow Yellow [facility] Glucose Test strip (U) [Mass/Vol] Negative NEGATIVE mg/dL [facility] Hemoglobin Auto test strip Ql (U) Negative NEGATIVE [facility] Ketones (U) [Mass/Vol] Negative NEGAT VALARIE mg/dL [facility] Leukocyte esterase Test strip Ql (U) Negative NEGATIVE [facility] Nitrite Ql (U) Negative NEGATIVE [facility] pH (U) 6.5 [pH] 5.0 - 9.0 [facility] Protein (U) [Mass/Vol] Negative NEGAT VALARIE mg/dL [facility] Specific gravity (U) [Rel density] 1.015 1.010 - 1.020 [facility] Urobilinogen Qn (U) Normal 0.0 - 1. 0 EU/dL [facility] Urinalysis, Microon 09-25-20 24 Bacteria LM Ql (Urine sed) TRACE Abnormal None [facility] Epithelial cells LM.HPF (Urine sed) [#/Area] 0 TO 2 [facility] Interpretation and review of laboratory results Abnormal [facility] RBC LM.HPF (Urine sed) [#/Area] None [facility] WBC LM.HPF (Urine sed) [#/Area] None [facility] Urinalysis, Routineon 2023 Bilirubin, SemiQt,Ur Negative Normal NEG [facility] Comment on above: Performed By: #### U JODI, UA #### [facility] [address] [place], [place] [id number] Hydraulics Engineer: Aydin Garcia MD Blood, Urine Negative Normal NEG [facility] Comment on above: Performed By: #### U JODI, UA #### [facility] [address] [place], [place] [id number] Hydraulics Engineer: Aydin Garcia MD Clarity (U) Clear Normal CLEAR [facility] Comment on above: Performed By: #### U JODI, UA #### [facility] [address] [place], [place] [id number] Hydraulics Engineer: Aydin Garcia MD Color (U) Yellow Normal YEL [facility] Comment on above: Performed By: #### U JODI, UA #### [facility] [address] [place], [place] [id number] Hydraulics Engineer: Aydin Garcia MD Glucose Ql (U) Negative Normal [facility] Comment on above: Performed By: #### U JODI, UA #### [facility] [address] [place], [place] [id number] Hydraulics Engineer: Aydin Garcia MD Ketones Ql (U) Negative Normal NEG [facility] Comment on above: Performed By: #### U JODI, UA #### [facility] [address] [place], [place] [id number] Hydraulics Engineer: Aydin Garcia MD Leukocyte esterase Test strip Ql (U) Negative Normal NEG [facility] Comment on above: Performed By: #### U JODI, UA #### [facility] [address] [place] [address] Hydraulics Engineer: Aydin Garcia MD Nitrite,Ur Negative Normal NEG [facility] Comment on above: Performed By: #### U JODI, UA #### [facility] [address] [place], [facility] Hydraulics Engineer: Aydin Garcia MD PH,Ur 6.5 Normal 5.0-9.0 [facility] Comment on above: Performed By: #### U JODI, UA #### [facility] [address] [place], [facility] Hydraulics Engineer: Aydin Garcia MD Protein Ql (U) Negative Normal NEG [facility] Comment on above: Performed By: #### U JODI, UA #### [address] [place] [id number] Hydraulics Engineer: Aydin Garcia MD Spec. [place],Ur 1.015 Normal 1.010-1.02 0 [facility] Comment on above: Performed By: #### U JODI, UA #### [facility] [address] [place] [address] Dr[place], [facility] Hydraulics Engineer: Aydin Garcia MD Urobilinogen,Ur Normal Normal 0.0-1.0 [facility] Comment on above: Performed By: #### U JODI, UA #### [address] [place], [facility] Hydraulics Engineer: Aydin Garcia MD Urinalysis,Microon 4 Bacteria TRACE Abnormal NONE [facility] Comment on above: Performed By: #### U JODI, UA #### [facility] [address] [place], [facility] Hydraulics Engineer: Aydin Garcia MD Epithelial cells LM Ql (Urine sed) 0 TO 2 Normal 0-25 [facility] Comment on above: Performed By: #### U JODI, UA #### [facility] [address] [place] [address] Dr. [place], [facility] Hydraulics Engineer: Aydin Garcia MD Urine RBC's None Normal 0-2 [facility] Comment on above: Performed By: #### U JODI, UA #### [facility] [address] [place] [address] Hydraulics Engineer: Aydin Garcia MD Urine WBC's None Normal 0-5 [facility] Comment on above: Performed By: #### U JODI, UA #### [facility] [address] [place] [address] Hydraulics Engineer: Aydin Garcia MD Basophils Auto (Bld) [#/Vol] on 09-14-2024 Basophils (Bld) [#/Vol] Automated basophil count 0.0-0.1 [facility] Basophils/100 WBC Auto (Bld) on 09-14-2024 Basophils/100 WBC (Bld) Automated basophil % 0.2-2.0 [facility] Buprenorphine [Presence] in Urineon 09-14-2024 Buprenorphine Ql (U) Buprenorphine [Pres ence] in Urine NEGATIVE [facility] Comment on above: DRUG CLASS TEST SYST EM CUT-OFF CONCENTRATIONS ARE ASFOLLOWS:AMP (Amphetamine): 500 ng/mLBAR (Barbiturates): 200 ng/mLBZO (Benzodiazepines): 150 ng/mLBUP (Buprenorphine): 10 ng/mLCOC (Cocaine): 150 ng/mLmAMP (Methamphetamine): 500 ng/mLMTD (Methadone): 200 ng/mLOPI (Opiates): 100 ng/mLOXY (Oxycodone): 100 ng/mLPCP (Phencyclidine): 25 ng/mLTHC (Cannabinoids): 50 ng/mLTCA (Trycyclic Antidepressants): 300 ng/mL Eosinophils/100 WBC Auto (Bl d)on 09-14-2024 Eosinophils/100 WBC (Bld) Automated eosinophil % 0.9-7.0 [facility] Erythrocyte distribution wid th Auto (RBC) [Ratio]on 09-14-2024 Erythrocyte distribution width (RBC) [Ratio] Erythrocyte distribution width [Ratio] by Automated count 11.0-15.0 [facility] Estimated glomerular filtrat ion rate (GFR) non- Americanon 09-14-2024 GFR/1.73 sq M.predicted among non-blacks MDRD (S/P/Bld) [Vol rate/Area] Estimated glomerular filtration rate (GFR) non- Low >=60 mL/min/1.7 3m 2 [facility] Globulin Calc (S) [Mass/Vol] on 09-14-2024 Globulin (S) [Mass/Vol] Serum globulin measurement by calculation (mass/volume) [facility] Hematocrit Auto (Bld) [Volum e fraction]on 09-14-2024 Hematocrit (Bld) [Volume fraction] Hematocrit [Volume Fraction] of Blood by Automated count 36.0-48.0 [facility] Hemoglobin [Mass/volume] in Bloodon 09-14-2024 Hemoglobin (Bld) [Mass/Vol] Hemoglobin [Mass/volume] in Blood 12.0-16.0 [facility] Laboratory - Chemistry and C hemistry - challengeon 09-14-2024 Bilirubin Ql (U) Negative NEGATIVE [facility] Glucose (U) [Mass/Vol] Negative NEGATIVE [facility] Ketones Ql (U) Negative NEGATIVE [facility] pH (U) 6.0 [pH] 5.0-9.0 [facility] Specific gravity (U) [Rel density] 1.020 1.005-1.02 5 [facility] Urobilinogen Qn (U) 0.2 {Kip'U}/dL 0.2-1.0 [facility] Albumin [Mass/Vol] 2.9 g/dL Low 3.4-5.0 [facility] ALP [Catalytic activity/Vol] 141 U/L High 46-116 [facility] ALT [Catalytic activity/Vol] 27 U/L 14-59 [facility] AST [Catalytic activity/Vol] 20 U/L 15-37 [facility] Bilirubin [Mass/Vol] 0.6 mg/dL 0.2-1.0 [facility] Calcium [Mass/Vol] 9.1 mg/dL 8.5-10.1 [facility] Chloride [Moles/Vol] 108 mmol/L High 98-107 [facility] CO2 [Moles/Vol] 28.3 mmol/L 21.0-32.0 [facility] Creatinine [Mass/Vol] 1.19 mg/dL High 0.55-1.02 [facility] GFR/1.73 sq M.predicted MDRD (S/P/Bld) [Vol rate/Area] 52 mL/min/{1.73_m2} Low >=60 mL/min/1.7 3m 2 [facility] Glucose [Mass/Vol] 90 mg/dL 74-106 [facility] Potassium [Moles/Vol] 4.5 mmol/L 3.5-5.1 [facility] Protein [Mass/Vol] 5.9 g/dL Low 6.4-8.2 [facility] Sodium [Moles/Vol] 146 mmol/L High 136-145 [facility] Urea nitrogen [Mass/Vol] 22.0 mg/dL High 7.0-18.0 [facility] Urea nitrogen/Creatinine [Mass ratio] 18.5 mg/mg [facility] Laboratory - Drug toxicology on 09-14-2024 Amphetamines Ql (U) Negative NEGATIVE [facility] Benzodiazepines Ql (U) Negative NEGATIVE [facility] Cocaine Ql (U) Negative NEGATIVE [facility] Opiates Ql (U) Negative NEGATIVE [facility] Phencyclidine Ql (U) Negative NEGATIVE [facility] Laboratory - Hematology and Cell countson 09-14-2024 Immature granulocytes/100 WBC (Bld) 0.2 % 0.0-0.5 [facility] Laboratory - Microbiology an d Antimicrobial susceptibilityon 09-14-2024 SARS-CoV-2 (COVID-19) RNA LAURA+probe Ql (Unsp spec) Negative NEGATIVE [facility] Comment on above: This test has not be en FDA cleared or approved, but has beenauthorized by the FDA under an Emergency Use Authorization(EUA) for use by authorized laboratories certified underCLIA that meet the requirements to perform moderate [...] inform ationon 09-14-2024 Appearance (U) CLEAR CLEAR [facility] Color (U) LT. YELLOW YELLOW [facility] Laboratory - Urinalysison Leukocyte esterase Test strip Ql (U) TRACE Abnormal NEGATIVE [facility] Mucus Ql (Urine sed) NONE SEEN NONE SEEN [facility] Nitrite Ql (U) Negative NEGATIVE [facility] Protein Ql (U) Negative NEG/TRACE [facility] Leukocytes [#/volume] correc wilfrido for nucleated erythrocytes in Blood by Automated counon 09-14-2024 WBC corrected for nucl RBC Auto (Bld) [#/Vol] Leukocytes [#/volume] corrected for nucleated erythrocytes in Blood by Automated coun 4.0-11.0 [facility] Lymphocytes Auto (Bld) [#/Vo l]on 09-14-2024 Lymphocytes (Bld) [#/Vol] Lymphocytes [#/volume] in Blood by Automated count 1.2-3.8 [facility] Lymphocytes/100 WBC Auto (Bl d)on 09-14-2024 Lymphocytes/100 WBC (Bld) Lymphocytes/100 leukocytes in Blood by Automated count Low 20.5-60.0 [facility] MCH Auto (RBC) [Entitic mass ]on 09-14-2024 MCH (RBC) [Entitic mass] MCH [Entitic mass] by Automated count 26.7-34.0 [facility] MCHC Auto (RBC) [Mass/Vol]on 09-14-2024 MCHC (RBC) [Mass/Vol] MCHC [Mass/volume] by Automated count 29.9-35.2 [facility] MCV Auto (RBC) [Entitic vol] on 09-14-2024 MCV (RBC) [Entitic vol] MCV [Entitic volume] by Automated count 81.0-99.0 [facility] Methadone [Presence] in Urin e by Screen methodon 09-14-2024 Methadone Screen Ql (U) Methadone [Presence] in Urine by Screen method NEGATIVE [facility] Monocytes Auto (Bld) [#/Vol] on 09-14-2024 Monocytes (Bld) [#/Vol] Automated blood monocyte count 0.3-0.8 [facility] Monocytes/100 WBC Auto (Bld) on 09-14-2024 Monocytes/100 WBC (Bld) Automated monocyte % 1.7-12.0 [facility] Neutrophils Auto (Bld) [#/Vo l]on 09-14-2024 Neutrophils (Bld) [#/Vol] Neutrophils [#/volume] in Blood by Automated count 1.4-6.5 [facility] Neutrophils/100 WBC Auto (Bl d)on 09-14-2024 Neutrophils/100 WBC (Bld) Automated neutrophil % 43.0-75.0 [facility] No Panel Informationon 09-14 Urine Bacteria TRACE #/HPF Abnormal NONE SEEN [facility] Urine Barbiturates Screen Negative NEGATIVE [facility] Urine Culture Reflexed NO [facility] Urine Marijuana (THC) Screen Negative NEGATIVE [facility] Urine Methamphetamines Screen Negative NEGATIVE [facility] Urine Microscopic Review YES [facility] Urine Occult Blood Negative NEGATIVE [facility] Urine Other Casts NONE SEEN #/LPF NONE SEEN [facility] Urine Other Crystals None Seen #/HPF None Seen [facility] Urine RBC NONE SEEN #/HPF 0-2 [facility] Urine Squamous Epithelial Cells FEW #/LPF Abnormal NONE/RARE [facility] Urine WBC 0-2 #/HPF Abnormal NONE SEEN [facility] Eosinophils # (Auto) 0.3 10 3/uL 0.0-0.7 [facility] Ethyl Alcohol Level <3 mg/dL [facility] Comment on above: NOTE: 80 mg/dl is th e legal limit for a blood alcohol level Immature Granulocyte # (Auto) 0.02 10 3/uL 0.00-0.03 [facility] Platelet mean volume Auto (B ld) [Entitic vol]on 09-14-2024 Platelet mean volume (Bld) [Entitic vol] Platelet mean volume [Entitic volume] in Blood by Automated count 9.5-13.5 [facility] [facility] Platelets Auto (Bld) [#/Vol] on 09-14-2024 Platelets (Bld) [#/Vol] Platelets [#/volume] in Blood by Automated count 150-450 [facility] RBC Auto (Bld) [#/Vol]on RBC (Bld) [#/Vol] Erythrocytes [#/volu me] in Blood by Automated count Low 4.20-5.40 [facility] Serum or plasma albumin/glob ulin mass ratioon 09-14-2024 Albumin/Globulin [Mass ratio] Serum or plasma albumin/globulin mass ratio [facility] Serum or plasma anion gap de terminationon 09-14-2024 Anion gap [Moles/Vol] Serum or plasma an ion gap determination [facility] Urine tricyclic antidepressa nt measurementon 09-14-2024 Tricyclic antidepressants (U) [Mass/Vol] Urine tricyclic antidepressant measurement NEGATIVE [facility] oxyCODONE+oxyMORphone [Prese nce] in Urine by Screen methodon 09-14-2024 oxyCODONE+oxyMORphone Screen Ql (U) oxyCODONE+oxyMORphone [Presence] in Urine by Screen method NEGATIVE [facility] Alanine aminotransferase [En zymatic activity/volume] in Serum or PlasmaOrdered By: Kevon Leong on 08-12-2024 ALT [Catalytic activity/Vol] 22 U/L Normal [facility] Comment on above: Performed By: #### C MP, CBC, ETOH ####[facility] [id number] ALT [Catalytic activity/Vol] Alanine aminotransferase [Enzymatic activity/volume] in Serum or Plasma [facility] Albumin [Mass/volume] in Ser um or Plasma by Bromocresol green (BCG) dye binding methoOrdered By: Kevon Leong on 08-12-2024 Albumin BCG dye [Mass/Vol] 3.6 g/dL 3.5-5.7 [facility] Albumin BCG dye [Mass/Vol] Albumin [Mass/volume] in Serum or Plasma by Bromocresol green (BCG) dye binding metho 3.5-5.7 [facility] Alkaline phosphatase [Enzyma tic activity/volume] in Serum or PlasmaOrdered By: Kevon Leong on 08-12-2024 ALP [Catalytic activity/Vol] 113 U/L High 34-104 [facility] Comment on above: Performed By: #### C MP, CBC, ETOH ####[place] [id number] [address] ALP [Catalytic activity/Vol] Alkaline phosphatase [Enzymatic activity/volume] in Serum or Plasma High [address] [facility] Amphetamine Screen Ql (U)Ord ered By: Kevon Leong on 08-12-2024 Amphetamines Ql (U) Amphetamines screen Negativ e [facility] Amphetamines Ql (U) Negative Negative [facility] Appearance of UrineOrdered B y: Kevon Leong on 08-12-2024 Appearance (U) Urine appearance Clear [facility] Aspartate aminotransferase [ Enzymatic activity/volume] in Serum or PlasmaOrdered By: Kevon Leong on 08-12-2024 AST [Catalytic activity/Vol] 27 U/L Normal [facility] Comment on above: Performed By: #### C MP, CBC, ETOH ####[address] AST [Catalytic activity/Vol] Aspartate aminotransferase [Enzymatic activity/volume] in Serum or Plasma [facility] Automated basophil %Ordered By: Kevon Leong on 08-12-2024 Basophils/100 WBC (Bld) 1.1 % Normal . [facility] Comment on above: Performed By: #### C MP, CBC, ETOH ####[address] Automated basophil countOrde red By: Kevon Leong on 08-12-2024 Basophils (Bld) [#/Vol] 0.1 10*3/uL Normal 0.0-0.2 [facility] Comment on above: Result Comment: PERF ORMED BY: [facility] [address] [place] [id number] PATHOLOGIST [employer] SUPERVISOR TOÑA MCFARLAND M.D. Performed By: #### C MP, CBC, ETOH ####[address] Automated blood monocyte cou ntOrdered By: Kevon Leong on 08-12-2024 Monocytes (Bld) [#/Vol] 0.7 10*3/uL Normal 0.0-0.8 [facility] Comment on above: Performed By: #### C MP, CBC, ETOH ####[address] Automated eosinophil %Ordere d By: Kevon Leong on 08-12-2024 Eosinophils/100 WBC (Bld) 4.3 % Normal . [facility] Comment on above: Performed By: #### C MP, CBC, ETOH ####[address] Automated eosinophil countOr dered By: Kevon Leong on 08-12-2024 Eosinophils (Bld) [#/Vol] 0.3 10*3/uL Normal 0.0-0.45 [facility] Comment on above: Performed By: #### C MP, CBC, ETOH ####[address] Automated monocyte %Ordered By: Kevon Leong on 08-12-2024 Monocytes/100 WBC (Bld) 9.9 % Normal . [facility] Comment on above: Performed By: #### C MP, CBC, ETOH ####[address] Automated neutrophil %Ordere d By: Kevon Leong on 08-12-2024 Neutrophils/100 WBC (Bld) 59.6 % Normal . [facility] Comment on above: Performed By: #### C MP, CBC, ETOH ####[address] Bacteria [Presence] in Urine by AutomatedOrdered By: Kevon Leong on 08-12-2024 Bacteria Auto Ql (U) 1+ [HPF] High None Seen [facility] Bacteria Auto Ql (U) Bacteria [Presence] in Urine by Automated High None Seen [facility] Barbiturates [Presence] in U rine by Screen methodOrdered By: Kevon Leong on 08-12-2024 Barbiturates Screen Ql (U) Negative Negative [facility] Barbiturates Screen Ql (U) Barbiturates [Presence] in Urine by Screen method Negative [facility] Basophils Auto (Bld) [#/Vol] Ordered By: Kevon Leong on 08-12-2024 Basophils (Bld) [#/Vol] Automated basophil count 0.0-0.2 [facility] Basophils/100 WBC Auto (Bld) Ordered By: Kevon Leong on 08-12-2024 Basophils/100 WBC (Bld) Automated basophil % . [facility] Benzodiazepines Screen Ql (U )Ordered By: Kevon Leong on 08-12-2024 Benzodiazepines Ql (U) Negative Negative [facility] Benzodiazepines Ql (U) Benzodiazepines [ Presence] in Urine by Screen method Negative [facility] Benzoylecgonine [Presence] i n Urine by Screen methodOrdered By: Kevon Leong on 08-12-2024 Benzoylecgonine Screen Ql (U) Negative Negative [facility] Benzoylecgonine Screen Ql (U) Benzoylecgonine [Presence] in Urine by Screen method Negative [facility] Bilirubin Test strip Ql (U)O rdered By: Kevon Leong on 08-12-2024 Bilirubin Ql (U) Negative Negative [facility] Bilirubin Ql (U) Bilirubin.total [Pre sence] in Urine by Test strip Negative [facility] Bilirubin.total [Mass/volume ] in Serum or PlasmaOrdered By: Kevon Leong on 08-12-2024 Bilirubin [Mass/Vol] 0.4 mg/dL Normal 0.3-1.0 [facility] Comment on above: Performed By: #### C MP, CBC, ETOH ####[facility] [id number] [place] [id number] [facility] Bilirubin [Mass/Vol] Bilirubin.total [Mass/volume] in Serum or Plasma 0.3-1.0 [facility] COVID-19 Antigenon 09-16-202 4 COVID-19 Antigen Healthcare Worker?: N Reference Range: [...] developed and its performance characteristic determined by [employer] and validated at [facility]. This test has not been FDA cleared [...] for SARS Antigen by ARIANNA PERFORMED BY: [place] [address] PATHOLOGIST [employer] SUPERVISOR TOÑA MCFARLAND M.D. Normal [facility] Comment on above: Performed By: #### C OVID-19 ROCIO POSEY #### [address] COVID-19 SOFIAOrdered By: Kenney Leong on 08-12-2024 SARS-CoV+SARS-CoV-2 (COVID-19) Ag IA.rapid Ql (Resp) Negative Negative [facility] Comment on above: This is a duplicate [facility] SARS Antigen (ARIANNA) result to be used for statistical tracking purpose only. Calcium [Mass/volume] in Ser um or PlasmaOrdered By: Kevon Leong on 08-12-2024 Calcium [Mass/Vol] 8.8 mg/dL Normal 8.6-10.3 [facility] Comment on above: Performed By: #### C MP, CBC, ETOH ####[facility] [id number] [place] [id number] [facility] Calcium [Mass/Vol] Calcium [Mass/volume ] in Serum or Plasma 8.6-10.3 [facility] Cannabinoids [Presence] in U rine by Screen methodOrdered By: Kevon Leong on 08-12-2024 Cannabinoids Screen Ql (U) Negative Negative [facility] Comment on above: These are unconfirme d results and should not be used for legal purposes. Drug Cut-Off Concentration: AMPH 1000 ng/mL AMBAR 200 ng/mL AMANUEL 200 ng/mL COCM 300 ng/mL OP 300 ng/mL PCP 25 ng/mL THC 20 ng/mL Cannabinoids Screen Ql (U) Cannabinoids [Presence] in Urine by Screen method Negative [facility] Comment on above: These are unconfirme d results and should not be used for legal purposes. Drug Cut-Off Concentration: AMPH 1000 ng/mL AMBAR 200 ng/mL AMANUEL 200 ng/mL COCM 300 ng/mL OP 300 ng/mL PCP 25 ng/mL THC 20 ng/mL Carbon dioxide, total [Moles /volume] in Serum or PlasmaOrdered By: Kevon Leong on 08-12-2024 CO2 [Moles/Vol] 28.8 mmol/L Normal 21.0-31.0 [facility] Comment on above: Performed By: #### C MP, CBC, ETOH ####[facility] [id number] [place] [address] [facility] CO2 [Moles/Vol] Carbon dioxide, tota l [Moles/volume] in Serum or Plasma 21.0-31.0 [facility] Chloride [Moles/volume] in S lisandro or PlasmaOrdered By: Kevon Leong on 08-12-2024 Chloride [Moles/Vol] 108 mmol/L High 98-107 [facility] Comment on above: Performed By: #### C MP, CBC, ETOH ####[place] [id number] [facility] Chloride [Moles/Vol] Chloride [Moles/vol ume] in Serum or Plasma [facility] 98-107 [facility] Color Auto (U)Ordered By: Kenney Leong on 08-12-2024 Color (U) Color of Urine by Auto Yellow Fi [facility] Color of Urine by AutoOrdere d By: Kevon Leong on 08-12-2024 Color (U) Light-yellow Normal Yellow [facility] Comment on above: Order Comment: Name Collection Type:: Voided Performed By: #### C UU, ADDONUAPLUS ####[address] Complete Blood Count Auto Di ffon 08-12-2024 Mean Corpuscular HGB Conc 33.8 g/dL Normal 32.0-35.0 [facility] Comment on above: Performed By: #### C MP, CBC, ETOH ####[address] Monocytes/100 WBC (Bld) 18.67 % Normal 0.00-20.00 [facility] Comment on above: Performed By: #### C MP, CBC, ETOH ####[place] [id number] [facility] NRBC% 0.1 /100{WBC} Normal 0-0.5 [facility] Comment on above: Performed By: #### C MP, CBC, ETOH ####[place] [id number] [facility] Comprehensive Metabolic Pane dixie 08-12-2024 Albumin [Mass/Vol] 3.6 g/dL Normal 3.5-5.7 [facility] Comment on above: Performed By: #### C MP, CBC, ETOH ####[place] [id number] [facility] Creatinine Clr Calc Pharmacy 42.80 Normal [facility] Comment on above: Result Comment: PERF ORMED BY: [facility] [address] [place] [id number] PATHOLOGIST [employer] SUPERVISOR TOÑA MCFARLAND M.D. Performed By: #### C MP, CBC, ETOH ####[address] [address] [facility] GFR/1.73 sq M.predicted MDRD (S/P/Bld) [Vol rate/Area] 55.235 mL/min/{1.73_m2} Normal [facility] Comment on above: Performed By: #### C MP, CBC, ETOH ####[place] [id number] [facility] Creatinine [Mass/volume] in Serum or PlasmaOrdered By: Kevon Leong on 08-12-2024 Creatinine [Mass/Vol] 1.01 mg/dL Normal 0.60-1.20 [facility] Comment on above: Performed By: #### C MP, CBC, ETOH ####[place] [id number] [facility] Creatinine [Mass/Vol] Creatinine [Mass/v olume] in Serum or Plasma 0.60-1.20 [facility] Dipstick and Microscopicon 0 08-12-2024 Bacteria,Urine 1+ High None Seen [facility] Comment on above: Order Comment: Name Collection Type:: Voided Performed By: #### C UU, ADDONUAPLUS ####[place] [id number] [facility] Bilirubin,Urine Negative Normal Negative [facility] Comment on above: Order Comment: Name Collection Type:: Voided Performed By: #### C UU, ADDONUAPLUS ####[address] [address] [facility] Glucose Ql (U) Normal Normal Normal [facility] Comment on above: Order Comment: Name Collection Type:: Voided Performed By: #### C UU, ADDONUAPLUS ####[address] [address] [facility] Hyaline Casts,Urine None Normal 0-8 [facility] Comment on above: Order Comment: Name Collection Type:: Voided Result Comment: PERF ORMED BY: [place] [id number] PATHOLOGIST [employer] SUPERVISOR TOÑA MCFARLAND M.D. Performed By: #### C UU, ADDONUAPLUS ####[address] [address] [facility] Nitrite,Urine Positive High Negative [facility] Comment on above: Order Comment: Name Collection Type:: Voided Performed By: #### C UU, ADDONUAPLUS ####[address] [address] [facility] Occult Blood,Urine Negative Normal Negative [facility] Comment on above: Order Comment: Name Collection Type:: Voided Result Comment: PERF ORMED BY: [place] [address] PATHOLOGIST [employer] SUPERVISOR TOÑA MCFARLAND M.D. Performed By: #### C UU, ADDONUAPLUS ####[address] [address] [facility] Protein,Urine Negative Normal Negative [facility] Comment on above: Order Comment: Name Collection Type:: Voided Performed By: #### C UU, ADDONUAPLUS ####[address] [address] [facility] RBC,Urine 1-2 Normal 0-4 [facility] Comment on above: Order Comment: Name Collection Type:: Voided Performed By: #### C UU, ADDONUAPLUS ####[address] [address] [facility] Specificy [place],Urine 1.018 Normal 1.001-1.03 0 [facility] Comment on above: Order Comment: Name Collection Type:: Voided Performed By: #### C UU, ADDONUAPLUS ####[address] [address] [facility] Squamous Epithelial Cell,Urine 1-2 Normal 0-2 [facility] Comment on above: Order Comment: Name Collection Type:: Voided Performed By: #### C UU, ADDONUAPLUS ####[facility] [place] Urobilinogen,Urine Normal Normal Normal [facility] Comment on above: Order Comment: Name Collection Type:: Voided Performed By: #### C UU, ADDONUAPLUS ####[facility] [place] [address] WBC,Urine 5-9 High 0-4 [facility] Comment on above: Order Comment: Name Collection Type:: Voided Performed By: #### C UU, ADDONUAPLUS ####[address] Drug Screen,Urineon 08-12-20 24 Amphetamine Screen,Urine Negative Normal Negative [facility] Comment on above: Performed By: #### U RDS #### [address] Barbiturate Screen,Urine Negative Normal Negative [facility] Comment on above: Performed By: #### U RDS #### [address] Benzodiazepines Screen,Urine Negative Normal Negative [facility] Comment on above: Performed By: #### U RDS #### [address] Cannabinoid Screen,Urine Negative Normal Negative [facility] Comment on above: Result Comment: Thes e are unconfirmed results and should not be used for legal purposes. Drug Cut-Off Concentration: AMPH 1000 ng/mL AMBAR 200 ng/mL AMANUEL 200 ng/mL COCM 300 ng/mL OP 300 ng/mL PCP 25 ng/mL THC 20 ng/mL PERFORMED BY: [place] [address] PATHOLOGIST [employer] SUPERVISOR TOÑA MCFARLAND M.D. Performed By: #### U RDS #### [address] Cocaine Screen,Urine Negative Normal Negative [facility] Comment on above: Performed By: #### U RDS #### [address] Opiate Screen,Urine Negative Normal Negative [facility] Comment on above: Performed By: #### U RDS #### [facility] [address] Phencyclidine Screen,Urine Negative Normal Negative [facility] Comment on above: Performed By: #### U RDS #### [facility] [address] Eosinophils Auto (Bld) [#/Vo l]Ordered By: Kevon Leong on 08-12-2024 Eosinophils (Bld) [#/Vol] Automated eosinophil count 0.0-0.45 [facility] Eosinophils/100 WBC Auto (Bl d)Ordered By: Kevon Leong on 08-12-2024 Eosinophils/100 WBC (Bld) Automated eosinophil % . [facility] Epithelial cells.squamous [# /area] in Urine sediment by Automated countOrdered By: Kevon Leong on 08-12-2024 Epithelial cells.squamous Auto (Urine sed) [#/Area] 1-2 [HPF] 0-2 [facility] Epithelial cells.squamous Auto (Urine sed) [#/Area] Epithelial cells.squamous [#/area] in Urine sediment by Automated count 0-2 [facility] Erythrocyte distribution wid th Auto (RBC) [Ratio]Ordered By: Kevon Leong on 08-12-2024 Erythrocyte distribution width (RBC) [Ratio] Erythrocyte distribution width [Ratio] by Automated count 11.9-15.3 [facility] Erythrocyte distribution wid th [Ratio] by Automated countOrdered By: Kevon Leong on 08-12-2024 Erythrocyte distribution width (RBC) [Ratio] 13.4 % Normal 11.9-15.3 [facility] Comment on above: Performed By: #### C MP, CBC, ETOH ####[facility] [id number] Erythrocytes [#/area] in Uri ne sediment by Automated countOrdered By: Kevon Leong on 08-12-2024 RBC Auto (Urine sed) [#/Area] 1-2 [HPF] 0-4 [facility] RBC Auto (Urine sed) [#/Area] Erythrocytes [#/area] in Urine sediment by Automated count 0-4 [facility] Erythrocytes [#/volume] in B lood by Automated countOrdered By: Kevon Leong on 08-12-2024 RBC (Bld) [#/Vol] 3.46 10*6/uL Low 3.60-5.00 [facility] Comment on above: Performed By: #### C MP, CBC, ETOH ####[facility] [id number] [place] [id number] [facility] Ethanol [Mass/volume] in Ser um or PlasmaOrdered By: Kevon Leong on 08-12-2024 Ethanol [Mass/Vol] mg/dL Normal [facility] Comment on above: Performed By: #### C MP, CBC, ETOH ####[facility] [id number] Ethanol [Mass/Vol] TNP [facility] Comment on above: Test not performed Ethanol [Mass/Vol] Ethanol [Mass/volume ] in Serum or Plasma [facility] Comment on above: Test not performed Ethyl Alcohol Profileon 07-28 Percent Ethanol Not performed Normal [facility] Comment on above: Result Comment: PERF ORMED BY: [facility] [address] [place] [address] PATHOLOGIST [employer]STING SUPERVISOR TOÑA MCFARLAND M.D. Performed By: #### C MP, CBC, ETOH ####[facility] [id number] [place] [id number] [facility] Globulin Calc (S) [Mass/Vol] Ordered By: Kevon Leong on 08-12-2024 Globulin (S) [Mass/Vol] Serum globulin measurement by calculation (mass/volume) [facility] Glucose [Mass/volume] in Ser um or PlasmaOrdered By: Kevon Leong on 08-12-2024 Glucose [Mass/Vol] 80 mg/dL Normal 70-100 [facility] Comment on above: ADA recommended refe rence rangeRandom Glucose Reference Range is dependent on time and content of last meal. Glucose of more than 200 mg/dL in a nonstressed, ambulatory subject supports the diagnosis of Diabetes Mellitus. Result Comment: [place] om Glucose Reference Range is dependent on time and content of last meal. Glucose of more than 200 mg/dL in a nonstressed, ambulatory subject supports the diagnosis of Diabetes Mellitus. ADA recommended reference range Performed By: #### C MP, CBC, ETOH ####[place] [id number] [address] Glucose [Mass/Vol] Glucose [Mass/volume ] in Serum or Plasma 70-100 [facility] Comment on above: ADA recommended refe rence rangeRandom Glucose Reference Range is dependent on time and content of last meal. Glucose of more than 200 mg/dL in a nonstressed, ambulatory subject supports the diagnosis of Diabetes Mellitus. Glucose [Mass/volume] in Uri ne by Test stripOrdered By: Kevon Leong on 08-12-2024 Glucose Test strip (U) [Mass/Vol] Normal mg/dL Normal [facility] Glucose Test strip (U) [Mass/Vol] Glucose [Mass/volume] in Urine by Test strip Normal [facility] Hematocrit Auto (Bld) [Volum e fraction]Ordered By: Kevon Leong on 08-12-2024 Hematocrit (Bld) [Volume fraction] Hematocrit [Volume Fraction] of Blood by Automated count Low 34.0-46.4 [facility] Hematocrit [Volume Fraction] of Blood by Automated countOrdered By: Kevon Leong on 08-12-2024 Hematocrit (Bld) [Volume fraction] 32.7 % Low 34.0-46.4 [facility] Comment on above: Performed By: #### C MP, CBC, ETOH ####[address] Hemoglobin Test strip Ql (U) Ordered By: Kevon Leong on 08-12-2024 Hemoglobin Ql (U) Negative Negative [facility] Hemoglobin Ql (U) Hemoglobin [Presence ] in Urine by Test strip Negative [facility] Hemoglobin [Mass/volume] in BloodOrdered By: Kevon Leong on 08-12-2024 Hemoglobin (Bld) [Mass/Vol] 11.1 g/dL Low 11.8-15.4 [facility] Comment on above: Performed By: #### C MP, CBC, ETOH ####[address] Hemoglobin (Bld) [Mass/Vol] Hemoglobin [Mass/volume] in Blood Low 11.8-15.4 [facility] Hyaline casts [#/area] in Ur ine sediment by Automated countOrdered By: Kevon Leong on 08-12-2024 Hyaline casts Auto (Urine sed) [#/Area] None [LPF] 0-8 [facility] Hyaline casts Auto (Urine sed) [#/Area] Hyaline casts [#/area] in Urine sediment by Automated count 0-8 [facility] Ketones Test strip Ql (U)Ord ered By: Kevon Leong on 08-12-2024 Ketones Ql (U) Ketones [Presence] i n Urine by Test strip Negative [facility] Ketones [Presence] in Urine by Test stripOrdered By: Kevon Leong on 08-12-2024 Ketones Ql (U) Negative Normal Negative [facility] Comment on above: Order Comment: Name Collection Type:: Voided Performed By: #### C UU, ADDONUAPLUS ####[facility] [id number] Leukocyte esterase [Presence ] in Urine by Test stripOrdered By: Kevon Leong on 08-12-2024 Leukocyte esterase Test strip Ql (U) 2+ High Negative [facility] [facility] Comment on above: Order Comment: Name Collection Type:: Voided Performed By: #### C UU, ADDONUAPLUS ####[facility] [id number] [place] [address] Leukocyte esterase Test strip Ql (U) Leukocyte esterase [Presence] in Urine by Test strip High Negative [facility] Leukocytes [#/area] in Urine sediment by Automated countOrdered By: Kevon Leong on 08-12-2024 WBC Auto (Urine sed) [#/Area] 5-9 [HPF] High 0-4 [facility] WBC Auto (Urine sed) [#/Area] Leukocytes [#/area] in Urine sediment by Automated count High 0-4 [facility] Leukocytes [#/volume] correc wilfrido for nucleated erythrocytes in Blood by Automated counOrdered By: Kevon Leong on 08-12-2024 WBC corrected for nucl RBC Auto (Bld) [#/Vol] 7.1 10*3/uL 3.8-11.6 [facility] WBC corrected for nucl RBC Auto (Bld) [#/Vol] Leukocytes [#/volume] corrected for nucleated erythrocytes in Blood by Automated coun 3.8-11.6 [facility] Leukocytes [#/volume] in Blo od by Automated countOrdered By: Kevon Leong on 08-12-2024 WBC (Bld) [#/Vol] 7.1 10*3/uL Normal 3.8-11.6 [facility] Comment on above: Performed By: #### C MP, CBC, ETOH ####[facility] [id number] Lymphocytes Auto (Bld) [#/Vo l]Ordered By: Kevon Leong on 08-12-2024 Lymphocytes (Bld) [#/Vol] Lymphocytes [#/volume] in Blood by Automated count 1.00-4.8 [facility] Lymphocytes [#/volume] in Bl ood by Automated countOrdered By: Kevon Leong on 08-12-2024 Lymphocytes (Bld) [#/Vol] 1.8 10*3/uL Normal 1.00-4.8 [facility] Comment on above: Performed By: #### C MP, CBC, ETOH ####[facility] [id number] [place] [address] Lymphocytes/100 WBC Auto (Bl d)Ordered By: Kevon Leong on 08-12-2024 Lymphocytes/100 WBC (Bld) Lymphocytes/100 leukocytes in Blood by Automated count . [facility] Lymphocytes/100 leukocytes i n Blood by Automated countOrdered By: Kevon Leong on 08-12-2024 Lymphocytes/100 WBC (Bld) 25.1 % Normal . [facility] Comment on above: Performed By: #### C MP, CBC, ETOH ####[facility] [id number] [place] [address] MCH Auto (RBC) [Entitic mass ]Ordered By: Kevon Leong on 08-12-2024 MCH (RBC) [Entitic mass] MCH [Entitic mass] by Automated count 24.7-34.3 [facility] MCH [Entitic mass] by Automa wilfrido countOrdered By: Kevon Leong on 08-12-2024 MCH (RBC) [Entitic mass] 32.0 pg Normal 24.7-34.3 [facility] Comment on above: Performed By: #### C MP, CBC, ETOH ####[facility] [id number] MCHC Auto (RBC) [Mass/Vol]Or dered By: Kevon Leong on 08-12-2024 MCHC (RBC) [Mass/Vol] 33.8 g/dL 32.0-35.0 [facility] MCHC (RBC) [Mass/Vol] MCHC [Mass/volume] by Automated count 32.0-35.0 [facility] MCV Auto (RBC) [Entitic vol] Ordered By: Kevon Leong on 08-12-2024 MCV (RBC) [Entitic vol] MCV [Entitic volume] by Automated count 80-100 [facility] MCV [Entitic volume] by Auto mated countOrdered By: Kevon Leong on 08-12-2024 MCV (RBC) [Entitic vol] 94.5 fL Normal 80-100 [facility] Comment on above: Performed By: #### C MP, CBC, ETOH ####[facility] [id number] [place] [address] Monocyte distribution width [Entitic volume] in Blood by AutomatedOrdered By: Kevon Leong on 08-12-2024 Monocyte distribution width Auto (Bld) [Entitic vol] 18.67 % 0.00-20.00 [facility] Monocyte distribution width Auto (Bld) [Entitic vol] Monocyte distribution width [Entitic volume] in Blood by Automated 0.00-20.00 [facility] Monocytes Auto (Bld) [#/Vol] Ordered By: Kevon Leong on 08-12-2024 Monocytes (Bld) [#/Vol] Automated blood monocyte count 0.0-0.8 [facility] Monocytes/100 WBC Auto (Bld) Ordered By: Kevon Leong on 08-12-2024 Monocytes/100 WBC (Bld) Automated monocyte % . [facility] Neutrophils Auto (Bld) [#/Vo l]Ordered By: Kevon Leong on 08-12-2024 Neutrophils (Bld) [#/Vol] Neutrophils [#/volume] in Blood by Automated count 1.8-7.7 [facility] Neutrophils [#/volume] in Bl ood by Automated countOrdered By: Kevon Leong on 08-12-2024 Neutrophils (Bld) [#/Vol] 4.2 10*3/uL Normal 1.8-7.7 [facility] Comment on above: Performed By: #### C MP, CBC, ETOH ####[facility] [id number] [place] [address] [facility] Neutrophils/100 WBC Auto (Bl d)Ordered By: Kevon Leong on 08-12-2024 Neutrophils/100 WBC (Bld) Automated neutrophil % . [facility] Nitrite Test strip Ql (U)Ord ered By: Kevon Leong on 08-12-2024 Nitrite Ql (U) Positive High Negative [facility] Nitrite Ql (U) Nitrite [Presence] i n Urine by Test strip High Negative [facility] No Panel InformationOrdered By: Kevon Leong on 08-12-2024 SARS Antigen (LFIA) [facility] SARS Antigen (LFIA) [facility] Estimated GFR (CKD-EPI) 55.235 mL/Min [facility] Creatinine Clearance (Chem 42.80 [facility] Nucleated erythrocytes [Pres ence] in Blood by Automated countOrdered By: Kevon Leong on 08-12-2024 Nucleated RBC Auto Ql (Bld) 0.1 /100{WBC} 0-0.5 [facility] Nucleated RBC Auto Ql (Bld) Nucleated erythrocytes [Presence] in Blood by Automated count 0-0.5 [facility] Opiates [Presence] in Urine by Screen methodOrdered By: Kevon Leong on 08-12-2024 Opiates Screen Ql (U) Negative Negative [facility] Opiates Screen Ql (U) Opiates [Presence] in Urine by Screen method Negative [facility] Phencyclidine Screen Ql (U)O rdered By: Kevon Leong on 08-12-2024 Phencyclidine Ql (U) Negative Negative [facility] Phencyclidine Ql (U) Phencyclidine [Pres ence] in Urine by Screen method Negative [facility] Platelet mean volume Auto (B ld) [Entitic vol]Ordered By: Kevon Leong on 08-12-2024 Platelet mean volume (Bld) [Entitic vol] Platelet mean volume [Entitic volume] in Blood by Automated count 6.3-10.7 [facility] Platelet mean volume [Entiti c volume] in Blood by Automated countOrdered By: Kevon Leong on 08-12-2024 Platelet mean volume (Bld) [Entitic vol] 9.2 fL Normal 6.3-10.7 [facility] Comment on above: Performed By: #### C MP, CBC, ETOH ####[facility] [id number] Platelets Auto (Bld) [#/Vol] Ordered By: Kevon Leong on 08-12-2024 Platelets (Bld) [#/Vol] Platelets [#/volume] in Blood by Automated count 150-450 [facility] Platelets [#/volume] in Bloo d by Automated countOrdered By: Kevon Leong on 08-12-2024 Platelets (Bld) [#/Vol] 206 10*3/uL Normal 150-450 [facility] Comment on above: Performed By: #### C MP, CBC, ETOH ####[facility] [id number] [place] [id number] [facility] Potassium [Moles/volume] in Serum or PlasmaOrdered By: Kevon Leong on 08-12-2024 Potassium [Moles/Vol] 4.5 mmol/L Normal 3.5-5.1 [facility] Comment on above: Performed By: #### C MP, CBC, ETOH ####[facility] [id number] [place], [place] [id number] [facility] Potassium [Moles/Vol] Potassium [Moles/v olume] in Serum or Plasma 3.5-5.1 [facility] Protein Test strip (U) [Mass /Vol]Ordered By: Kevon Leong on 08-12-2024 Protein (U) [Mass/Vol] Negative Negative [facility] Protein (U) [Mass/Vol] Protein [Mass/vol ume] in Urine by Test strip Negative [facility] Protein [Mass/volume] in Ser um or PlasmaOrdered By: Kevon Leong on 08-12-2024 Protein [Mass/Vol] 6.0 g/dL Low 6.4-8.9 [facility] Comment on above: Performed By: #### C MP, CBC, ETOH ####[facility] [id number] Protein [Mass/Vol] Protein [Mass/volume ] in Serum or Plasma Low 6.4-8.9 [facility] RBC Auto (Bld) [#/Vol]Ordere d By: Kevon Leong on 08-12-2024 RBC (Bld) [#/Vol] Erythrocytes [#/volu me] in Blood by Automated count Low 3.60-5.00 [facility] SARS-CoV+SARS-CoV-2 (COVID-1 9) Ag [Presence] in Respiratory specimen by Rapid immunoaOrdered By: Kevon Leong on 08-12-2024 SARS-CoV+SARS-CoV-2 (COVID-19) Ag IA.rapid Ql (Resp) COVID-19 KALPESH Negative [facility] Comment on above: This is a duplicate Kalepsh SARS Antigen (ARIANNA) result to be used for statistical tracking purpose only. Serum globulin measurement b y calculation (mass/volume)Ordered By: Kveon Leong on 08-12-2024 Globulin (S) [Mass/Vol] 2.4 g/dL Normal [facility] Comment on above: Performed By: #### C MP, CBC, ETOH ####[facility] [id number] Serum or plasma albumin/glob ulin mass ratioOrdered By: Kevon Leong on 08-12-2024 Albumin/Globulin [Mass ratio] 1.5 {ratio} [facility] Comment on above: Performed By: #### C MP, CBC, ETOH ####[facility] [id number] Albumin/Globulin [Mass ratio] Serum or plasma albumin/globulin mass ratio [facility] Serum or plasma anion gap de terminationOrdered By: Kevon Leong on 08-12-2024 Anion gap [Moles/Vol] 10.7 mmol/L Normal 6.0-15.0 [facility] Comment on above: Performed By: #### C MP, CBC, ETOH ####[place] [address] [place] [id number] [facility] Anion gap [Moles/Vol] Serum or plasma an ion gap determination 6.0-15.0 [facility] Sodium [Moles/volume] in Ser um or PlasmaOrdered By: Kevon Leong on 08-12-2024 Sodium [Moles/Vol] 143 mmol/L Normal 136-145 [facility] Comment on above: Performed By: #### C MP, CBC, ETOH ####[place] [address] [place] [id number] [facility] Sodium [Moles/Vol] Sodium [Moles/volume ] in Serum or Plasma 136-145 [facility] Kalpesh Ag Negativeon 08-12-20 24 Kalpesh Ag Negative Negative Normal Negative [facility] Comment on above: Result Comment: This is a duplicate Kalpesh SARS Antigen (ARIANNA) result to be used for statistical tracking purpose only. PERFORMED BY: [facility] [address] [place] [id number] PATHOLOGIST [employer] TOÑA MCFARLAND M.D. Performed By: #### C OVID-19 KALPESH, SOFIANEG ####[place] [id number] [facility] Specific gravity Test strip (U) [Rel density]Ordered By: Kevon Leong on 08-12-2024 Specific gravity (U) [Rel density] 1.018 1.001-1.03 0 [facility] Specific gravity (U) [Rel density] Specific gravity of Urine by Test strip 1.001-1.03 0 [facility] Urea nitrogen [Mass/volume] in Serum or PlasmaOrdered By: Kevon Leong on 08-12-2024 Urea nitrogen [Mass/Vol] 18 mg/dL Normal 7-25 [facility] Comment on above: Performed By: #### C MP, CBC, ETOH ####[facility] [place] [id number] [facility] Urea nitrogen [Mass/Vol] Urea nitrogen [Mass/volume] in Serum or Plasma 06-20 [facility] Urine Cultureon 08-12-2024 Bacteria identified Cx Nom (U) ORGANISM: Proteus mirabilis (O:PROMIR) [place] Count >100,000 Aerobic JODI Charge (NMIC56) SUSCEPTIBILITY [...] RESISTANT TO ALL B-LACTAM DRUGS. PERFORMED BY: [facility] [address] [address] PATHOLOGIST [employer]PER[employer] TOÑA MCFARLAND M.D. Normal [facility] Comment on above: Performed By: #### C UU, ADDONUAPLUS ####[facility] [place] [id number] [facility] Urine appearanceOrdered By: Kevon Leong on 08-12-2024 Appearance (U) Clear Normal Clear [facility] Comment on above: Order Comment: Name Collection Type:: Voided Performed By: #### C UU, ADDONUAPLUS ####[facility] [id number] Urine cultureOrdered By: Vinay Leong on 08-12-2024 Bacteria identified Cx Nom (U) Abnormal [facility] Urine culture routineOrdered By: Kevon Leong on 08-12-2024 Bacteria identified Cx Nom (U) Proteus mirabilis Abnormal [facility] Urobilinogen Test strip (U) [Mass/Vol]Ordered By: Kevon Leong on 08-12-2024 Urobilinogen (U) [Mass/Vol] Normal mg/dL Normal [facility] Urobilinogen (U) [Mass/Vol] Urobilinogen [Mass/volume] in Urine by Test strip Normal [facility] WBC Auto (Bld) [#/Vol]Ordere d By: Kevon Leong on 08-12-2024 WBC (Bld) [#/Vol] Leukocytes [#/volume ] in Blood by Automated count 3.8-11.6 [facility] pH Test strip (U)Ordered By: Kevon Leong on 08-12-2024 pH (U) pH of Urine by Test strip 5.0-9.0 [facility] pH of Urine by Test stripOrd ered By: Kevon Leong on 08-12-2024 pH (U) 7.0 [pH] Normal 5.0-9.0 [facility] Comment on above: Order Comment: Name Collection Type:: Voided Performed By: #### C UU, ADDONUAPLUS ####[facility] [id number] Alanine aminotransferase [En zymatic activity/volume] in Serum or PlasmaOrdered By: Eladio Gonzalez on 08-06-2024 ALT [Catalytic activity/Vol] 34 U/L Normal 7-52 [facility] Comment on above: Performed By: #### C BC, CMP, CK, HS TROP #### [facility] [address] ALT [Catalytic activity/Vol] Alanine aminotransferase [Enzymatic activity/volume] in Serum or Plasma [facility] Albumin [Mass/volume] in Ser um or Plasma by Bromocresol green (BCG) dye binding methoOrdered By: Eladio Gonzalez on 08-06-2024 Albumin BCG dye [Mass/Vol] 4.1 g/dL 3.5-5.7 [facility] Albumin BCG dye [Mass/Vol] Albumin [Mass/volume] in Serum or Plasma by Bromocresol green (BCG) dye binding metho 3.5-5.7 [facility] Alkaline phosphatase [Enzyma tic activity/volume] in Serum or PlasmaOrdered By: Eladio Gonzalez on 08-06-2024 ALP [Catalytic activity/Vol] 115 U/L High [address] Comment on above: Performed By: #### C BC, CMP, CK, HS TROP #### [facility] [address] ALP [Catalytic activity/Vol] Alkaline phosphatase [Enzymatic activity/volume] in Serum or Plasma [address] Amphetamine Screen Ql (U)Ord ered By: Eladio Gonzalez on 08-06-2024 Amphetamines Ql (U) Amphetamines screen Negativ e [facility] Amphetamines Ql (U) Negative Negative [facility] Appearance of UrineOrdered B y: Eladio Gonzalez on 08-06-2024 Appearance (U) Urine appearance Clear [facility] Aspartate aminotransferase [ Enzymatic activity/volume] in Serum or PlasmaOrdered By: Eladio Gonzalez on 08-06-2024 AST [Catalytic activity/Vol] 30 U/L Normal [facility] Comment on above: Performed By: #### C BC, CMP, CK, HS TROP #### [facility] [address] [place] [address] [place] AST [Catalytic activity/Vol] Aspartate aminotransferase [Enzymatic activity/volume] in Serum or Plasma [facility] Automated basophil %Ordered By: Eladio Gonzalez on 08-06-2024 Basophils/100 WBC (Bld) 0.7 % Normal . [facility] Comment on above: Performed By: #### C BC, CMP, CK, HS TROP #### [address] Automated basophil countOrde red By: Eladio Gonzalez on 08-06-2024 Basophils (Bld) [#/Vol] 0.1 10*3/uL Normal 0.0-0.2 [facility] Comment on above: Result Comment: PERF ORMED BY: [place] [address] PATHOLOGIST [employer]PER[employer] TOÑA MCFARLAND M.D. Performed By: #### C BC, CMP, CK, HS TROP #### [address] Automated blood monocyte cou ntOrdered By: Eladio Gonzalez on 08-06-2024 Monocytes (Bld) [#/Vol] 1.1 10*3/uL High 0.0-0.8 [facility] Comment on above: Performed By: #### C BC, CMP, CK, HS TROP #### [address] Automated eosinophil %Ordere d By: Eladio Gonzalez on 08-06-2024 Eosinophils/100 WBC (Bld) 4.6 % Normal . [facility] Comment on above: Performed By: #### C BC, CMP, CK, HS TROP #### [address] Automated eosinophil countOr dered By: Eladio Gonzalez on 08-06-2024 Eosinophils (Bld) [#/Vol] 0.4 10*3/uL Normal 0.0-0.45 [facility] Comment on above: Performed By: #### C BC, CMP, CK, HS TROP #### [address] Automated monocyte %Ordered By: Eladio Gonzalez on 08-06-2024 Monocytes/100 WBC (Bld) 12.6 % Normal . [facility] Comment on above: Performed By: #### C BC, CMP, CK, HS TROP #### [address] Automated neutrophil %Ordere d By: Eladio Gonzalez on 08-06-2024 Neutrophils/100 WBC (Bld) 47.3 % Normal . [facility] Comment on above: Performed By: #### C BC, CMP, CK, HS TROP #### [address] Barbiturates [Presence] in U rine by Screen methodOrdered By: Eladio Gonzalez on 08-06-2024 Barbiturates Screen Ql (U) Negative Negative [facility] Barbiturates Screen Ql (U) Barbiturates [Presence] in Urine by Screen method Negative [facility] Basophils Auto (Bld) [#/Vol] Ordered By: Eladio Gonzalez on 08-06-2024 Basophils (Bld) [#/Vol] Automated basophil count 0.0-0.2 [facility] Basophils/100 WBC Auto (Bld) Ordered By: Eladio Gonzalez on 08-06-2024 Basophils/100 WBC (Bld) Automated basophil % . [facility] Benzodiazepines Screen Ql (U )Ordered By: Eladio Gonzalez on 08-06-2024 Benzodiazepines Ql (U) Negative Negative [facility] Benzodiazepines Ql (U) Benzodiazepines [ Presence] in Urine by Screen method Negative [facility] Benzoylecgonine [Presence] i n Urine by Screen methodOrdered By: Eladio Gonzalez on 08-06-2024 Benzoylecgonine Screen Ql (U) Negative Negative [facility] Benzoylecgonine Screen Ql (U) Benzoylecgonine [Presence] in Urine by Screen method Negative [facility] Bilirubin Test strip Ql (U)O rdered By: Eladio Gonzalez on 08-06-2024 Bilirubin Ql (U) Negative Negative [facility] Bilirubin Ql (U) Bilirubin.total [Pre sence] in Urine by Test strip Negative [facility] Bilirubin.total [Mass/volume ] in Serum or PlasmaOrdered By: Eladio Gonzalez on 08-06-2024 Bilirubin [Mass/Vol] 0.5 mg/dL Normal 0.3-1.0 [facility] Comment on above: Performed By: #### C BC, CMP, CK, HS TROP #### [place] [id number] [facility] Bilirubin [Mass/Vol] Bilirubin.total [Mass/volume] in Serum or Plasma 0.3-1.0 [facility] CT cervical spine wo conon 0 08-06-2024 CT cervical spine wo con [facility] Main [place] [address] [place] [address] CT Scan Report Signed Patient: Mary Vivas MR#: [id number] : 1940 Acct:[id number] Age/Sex: 83 / F ADM Date: 08/06/24 Loc: ER Room: Type: [facility] ER Attending Dr: Copies to: Eladio Gonzalez DO Ordering Provider: Eladio Gonzalez DO Date of Service: 08/06/24 CT/CT head/brain wo con: fall ([id number]) CT/CT cervical spine wo con: fall Unenhanced [...] Varghese Heaton M.D.08/06/2024 11:06 PM Dictation Location: [place] [address] Transcribed By: [facility] 08/06/242305 Dictated By: Varghese Heaton DO 08/06/242249 Signed By: 08/06/242305 Normal [facility] Calcium [Mass/volume] in Ser um or PlasmaOrdered By: Eladio Gonzalez on 08-06-2024 Calcium [Mass/Vol] 9.0 mg/dL Normal 8.6-10.3 [facility] Comment on above: Performed By: #### C BC, CMP, CK, HS TROP #### [facility] [address] Calcium [Mass/Vol] Calcium [Mass/volume ] in Serum or Plasma 8.6-10.3 [facility] Cannabinoids [Presence] in U rine by Screen methodOrdered By: Eladio Gonzalez on 08-06-2024 Cannabinoids Screen Ql (U) Negative Negative [facility] Comment on above: These are unconfirme d results and should not be used for legal purposes. Drug Cut-Off Concentration: AMPH 1000 ng/mL AMBAR 200 ng/mL AMANUEL 200 ng/mL COCM 300 ng/mL OP 300 ng/mL PCP 25 ng/mL THC 20 ng/mL Cannabinoids Screen Ql (U) Cannabinoids [Presence] in Urine by Screen method Negative [facility] Comment on above: These are unconfirme d results and should not be used for legal purposes. Drug Cut-Off Concentration: AMPH 1000 ng/mL AMBAR 200 ng/mL AMANUEL 200 ng/mL COCM 300 ng/mL OP 300 ng/mL PCP 25 ng/mL THC 20 ng/mL Carbon dioxide, total [Moles /volume] in Serum or PlasmaOrdered By: Eladio Gonzalez on 08-06-2024 CO2 [Moles/Vol] 24.6 mmol/L Normal 21.0-31.0 [facility] Comment on above: Performed By: #### C BC, CMP, CK, HS TROP #### [facility] [address] CO2 [Moles/Vol] Carbon dioxide, tota l [Moles/volume] in Serum or Plasma 21.0-31.0 [facility] Chloride [Moles/volume] in S lisandro or PlasmaOrdered By: Eladio Gonzalez on 08-06-2024 Chloride [Moles/Vol] 104 mmol/L Normal 98-107 [facility] Comment on above: Performed By: #### C BC, CMP, CK, HS TROP #### [facility] [address] Chloride [Moles/Vol] Chloride [Moles/vol ume] in Serum or Plasma 98-107 [facility] Color Auto (U)Ordered By: Henri Gonzalez on 08-06-2024 Color (U) Color of Urine by Auto Yellow Fi [facility] Color of Urine by AutoOrdere d By: Eladio Gonzalez on 08-06-2024 Color (U) Colorless Normal Yellow [facility] Comment on above: Order Comment: Name Collection Type:: Straight Catheter Performed By: #### U A ####[facility] Complete Blood Count Auto Di ffon 08-06-2024 Mean Corpuscular HGB Conc 32.9 g/dL Normal 32.0-35.0 [facility] Comment on above: Performed By: #### C BC, CMP, CK, HS TROP #### [place] [address] [place] Monocytes/100 WBC (Bld) 18.15 % Normal 0.00-20.00 [facility] Comment on above: Performed By: #### C BC, CMP, CK, HS TROP #### [facility] [address] [place] [address] [place] NRBC% 0.2 /100{WBC} Normal 0-0.5 [facility] [facility] Comment on above: Performed By: #### C BC, CMP, CK, HS TROP #### [facility] [address] Comprehensive Metabolic Pane dixie 08-06-2024 Albumin [Mass/Vol] 4.1 g/dL Normal 3.5-5.7 [facility] Comment on above: Performed By: #### C BC, CMP, CK, HS TROP #### [address] Creatinine Clr Calc Pharmacy 38.36 Normal [facility] Comment on above: Result Comment: PERF ORMED BY: [place] [address] PATHOLOGIST [employer] SUPERVISOR TOÑA MCFARLAND M.D. Performed By: #### C BC, CMP, CK, HS TROP #### [address] GFR/1.73 sq M.predicted MDRD (S/P/Bld) [Vol rate/Area] 48.791 mL/min/{1.73_m2} Normal [facility] Comment on above: Performed By: #### C BC, CMP, CK, HS TROP #### [address] Creatine kinase [Enzymatic a ctivity/volume] in Serum or PlasmaOrdered By: Eladio Gonzalez on 08-06-2024 CK [Catalytic activity/Vol] 51 U/L Normal [facility] Comment on above: Performed By: #### C BC, CMP, CK, HS TROP #### [address] CK [Catalytic activity/Vol] Creatine kinase [Enzymatic activity/volume] in Serum or Plasma [facility] Creatinine [Mass/volume] in Serum or PlasmaOrdered By: Eladio Gonzalez on 08-06-2024 Creatinine [Mass/Vol] 1.12 mg/dL Normal 0.60-1.20 [facility] Comment on above: Performed By: #### C BC, CMP, CK, HS TROP #### [place] [address] [place] Creatinine [Mass/Vol] Creatinine [Mass/v olume] in Serum or Plasma 0.60-1.20 [facility] Drug Screen,Urineon 08-06-20 24 Amphetamine Screen,Urine Negative Normal Negative [facility] Comment on above: Performed By: #### U RDS #### [place] [address] [place] Barbiturate Screen,Urine Negative Normal Negative [facility] Comment on above: Performed By: #### U RDS #### [place] [address] [place] Benzodiazepines Screen,Urine Negative Normal Negative [facility] Comment on above: Performed By: #### U RDS #### [place] [address] [place] Cannabinoid Screen,Urine Negative Normal Negative [facility] Comment on above: Result Comment: Thes e are unconfirmed results and should not be used for legal purposes. Drug Cut-Off Concentration: AMPH 1000 ng/mL AMBAR 200 ng/mL AMANUEL 200 ng/mL COCM 300 ng/mL OP 300 ng/mL PCP 25 ng/mL THC 20 ng/mL PERFORMED BY: [place] [address] PATHOLOGIST [employer] SUPERVISOR TOÑA MCFARLAND M.D. Performed By: #### U RDS #### [place] [address] [place] Cocaine Screen,Urine Negative Normal Negative [facility] Comment on above: Performed By: #### U RDS #### [place] [address] [place] Opiate Screen,Urine Negative Normal Negative [facility] Comment on above: Performed By: #### U RDS #### [place] [address] [place] Phencyclidine Screen,Urine Negative Normal Negative [facility] Comment on above: Performed By: #### U RDS #### [place] [address] [place] ECG 12 lead ECGon 08-06-2024 ECG 12 lead ECG [facility] Main [place] [address] [place] [address] Electrocardiograph Report Signed Patient: Mary Vivas MR#: [id number] : 1940 Acct:[id number] Age/Sex: 83 / F ADM Date: 08/06/24 Loc: ER Room: Type: [facility] ER Attending Dr: Ordering Provider: Eladio Gonzalez [...] ECGs available Confirmed by Eladio Gonzalez DO ([id number]) on 08/07/2024 12:41:47 AM Referred By: Electronically Signed By: Eladio Gonzalez DO Transcribed By: MUS Signed By Eladio Gonzalez DO 4 0041 Normal [facility] Eosinophils Auto (Bld) [#/Vo l]Ordered By: Eladio Gonzalez on 08-06-2024 Eosinophils (Bld) [#/Vol] Automated eosinophil count 0.0-0.45 [facility] Eosinophils/100 WBC Auto (Bl d)Ordered By: Eladio Gonzalez on 08-06-2024 Eosinophils/100 WBC (Bld) Automated eosinophil % . [facility] Erythrocyte distribution wid th Auto (RBC) [Ratio]Ordered By: Eladio Gonzalez on 08-06-2024 Erythrocyte distribution width (RBC) [Ratio] Erythrocyte distribution width [Ratio] by Automated count 11.9-15.3 [facility] Erythrocyte distribution wid th [Ratio] by Automated countOrdered By: Eladio Gonzalez on 08-06-2024 Erythrocyte distribution width (RBC) [Ratio] 13.8 % Normal 11.9-15.3 [facility] Comment on above: Performed By: #### C BC, CMP, CK, HS TROP #### [facility] [address] [place] [address] Erythrocytes [#/volume] in B lood by Automated countOrdered By: Eladio Gonzalez on 08-06-2024 RBC (Bld) [#/Vol] 4.16 10*6/uL Normal 3.60-5.00 [facility] Comment on above: Performed By: #### C BC, CMP, CK, HS TROP #### [facility] [address] Ethanol [Mass/volume] in Ser um or PlasmaOrdered By: Eladio Gonzalez on 08-06-2024 Ethanol [Mass/Vol] mg/dL Normal [facility] Comment on above: Performed By: #### E MASSIMO ####[facility] Ethanol [Mass/Vol] TNP [facility] Comment on above: Test not performed Ethanol [Mass/Vol] Ethanol [Mass/volume ] in Serum or Plasma [facility] Comment on above: Test not performed Ethyl Alcohol Profileon 07-28 Percent Ethanol Not performed Normal [facility] Comment on above: Result Comment: PERF ORMED BY: [place] [address] PATHOLOGIST [employer] SUPERVISOR TOÑA MCFARLAND M.D. Performed By: #### E MASSIMO ####[place] [id number] [facility] Globulin Calc (S) [Mass/Vol] Ordered By: Eladio Gonzalez on 08-06-2024 Globulin (S) [Mass/Vol] Serum globulin measurement by calculation (mass/volume) [facility] Glucose [Mass/volume] in Ser um or PlasmaOrdered By: Eladio Gonzalez on 08-06-2024 Glucose [Mass/Vol] 81 mg/dL Normal 70-100 [facility] Comment on above: ADA recommended refe rence rangeRandom Glucose Reference Range is dependent on time and content of last meal. Glucose of more than 200 mg/dL in a nonstressed, ambulatory subject supports the diagnosis of Diabetes Mellitus. Result Comment: [place] om Glucose Reference Range is dependent on time and content of last meal. Glucose of more than 200 mg/dL in a nonstressed, ambulatory subject supports the diagnosis of Diabetes Mellitus. ADA recommended reference range Performed By: #### C BC, CMP, CK, HS TROP #### [facility] [address] [place] [address] Glucose [Mass/Vol] Glucose [Mass/volume ] in Serum or Plasma 70-100 [facility] Comment on above: ADA recommended refe rence rangeRandom Glucose Reference Range is dependent on time and content of last meal. Glucose of more than 200 mg/dL in a nonstressed, ambulatory subject supports the diagnosis of Diabetes Mellitus. Glucose [Mass/volume] in Uri ne by Test stripOrdered By: Eladio Gonzalez on 08-06-2024 Glucose Test strip (U) [Mass/Vol] Normal mg/dL Normal [facility] Glucose Test strip (U) [Mass/Vol] Glucose [Mass/volume] in Urine by Test strip Normal [facility] Hematocrit Auto (Bld) [Volum e fraction]Ordered By: Eladio Gonzalez on 08-06-2024 Hematocrit (Bld) [Volume fraction] Hematocrit [Volume Fraction] of Blood by Automated count 34.0-46.4 [facility] Hematocrit [Volume Fraction] of Blood by Automated countOrdered By: Eladio Gonzalez on 08-06-2024 Hematocrit (Bld) [Volume fraction] 39.4 % Normal 34.0-46.4 [facility] Comment on above: Performed By: #### C BC, CMP, CK, HS TROP #### [address] Hemoglobin Test strip Ql (U) Ordered By: Eladio Gonzalez on 08-06-2024 Hemoglobin Ql (U) Negative Negative [facility] Hemoglobin Ql (U) Hemoglobin [Presence ] in Urine by Test strip Negative [facility] Hemoglobin [Mass/volume] in BloodOrdered By: Eladio Gonzalez on 08-06-2024 Hemoglobin (Bld) [Mass/Vol] 13.0 g/dL Normal 11.8-15.4 [facility] Comment on above: Performed By: #### C BC, CMP, CK, HS TROP #### [address] Hemoglobin (Bld) [Mass/Vol] Hemoglobin [Mass/volume] in Blood 11.8-15.4 [facility] Ketones Test strip Ql (U)Ord ered By: Eladio Gonzalez on 08-06-2024 Ketones Ql (U) Ketones [Presence] i n Urine by Test strip Negative [facility] Ketones [Presence] in Urine by Test stripOrdered By: Eladio Gonzalez on 08-06-2024 Ketones Ql (U) Negative Normal Negative [facility] Comment on above: Order Comment: Name Collection Type:: Straight Catheter Performed By: #### U A ####[id number] Leukocyte esterase [Presence ] in Urine by Test stripOrdered By: Eladio Gonzalez on 08-06-2024 Leukocyte esterase Test strip Ql (U) Negative Normal Negative [facility] Comment on above: Order Comment: Name Collection Type:: Straight Catheter Performed By: #### U A ####[facility] Leukocyte esterase Test strip Ql (U) Leukocyte esterase [Presence] in Urine by Test strip Negative [facility] Leukocytes [#/volume] correc wilfrido for nucleated erythrocytes in Blood by Automated counOrdered By: Eladio Gonzalez on 08-06-2024 WBC corrected for nucl RBC Auto (Bld) [#/Vol] 8.4 10*3/uL 3.8-11.6 [facility] WBC corrected for nucl RBC Auto (Bld) [#/Vol] Leukocytes [#/volume] corrected for nucleated erythrocytes in Blood by Automated coun 3.8-11.6 [facility] Leukocytes [#/volume] in Blo od by Automated countOrdered By: Eladio Gonzalez on 08-06-2024 WBC (Bld) [#/Vol] 8.4 10*3/uL Normal 3.8-11.6 [facility] Comment on above: Performed By: #### C BC, CMP, CK, HS TROP #### [facility] [address] [place] [address] [place] Lymphocytes Auto (Bld) [#/Vo l]Ordered By: Eladio Gonzalez on 08-06-2024 Lymphocytes (Bld) [#/Vol] Lymphocytes [#/volume] in Blood by Automated count 1.00-4.8 [facility] Lymphocytes [#/volume] in Bl ood by Automated countOrdered By: Eladio Gonzalez on 08-06-2024 Lymphocytes (Bld) [#/Vol] 2.9 10*3/uL Normal 1.00-4.8 [facility] Comment on above: Performed By: #### C BC, CMP, CK, HS TROP #### [facility] [address] [place] [address] Lymphocytes/100 WBC Auto (Bl d)Ordered By: Eladio Gonzalez on 08-06-2024 Lymphocytes/100 WBC (Bld) Lymphocytes/100 leukocytes in Blood by Automated count . [facility] Lymphocytes/100 leukocytes i n Blood by Automated countOrdered By: Eladio Gonzalez on 08-06-2024 Lymphocytes/100 WBC (Bld) 34.8 % Normal . [facility] Comment on above: Performed By: #### C BC, CMP, CK, HS TROP #### [facility] [address] [place] [address] MCH Auto (RBC) [Entitic mass ]Ordered By: Eladio Gonzalez on 08-06-2024 MCH (RBC) [Entitic mass] MCH [Entitic mass] by Automated count 24.7-34.3 [facility] MCH [Entitic mass] by Automa wilfrido countOrdered By: Eladio Gonzalez on 08-06-2024 MCH (RBC) [Entitic mass] 31.1 pg Normal 24.7-34.3 [facility] Comment on above: Performed By: #### C BC, CMP, CK, HS TROP #### [facility] [address] [place] [address] MCHC Auto (RBC) [Mass/Vol]Or dered By: Eladio Gonzalez on 08-06-2024 MCHC (RBC) [Mass/Vol] 32.9 g/dL 32.0-35.0 [facility] MCHC (RBC) [Mass/Vol] MCHC [Mass/volume] by Automated count 32.0-35.0 [facility] MCV Auto (RBC) [Entitic vol] Ordered By: Eladio Gonzalez on 08-06-2024 MCV (RBC) [Entitic vol] MCV [Entitic volume] by Automated count 80-100 [facility] MCV [Entitic volume] by Auto mated countOrdered By: Eladio Gonzalez on 08-06-2024 MCV (RBC) [Entitic vol] 94.8 fL Normal 80-100 [facility] Comment on above: Performed By: #### C BC, CMP, CK, HS TROP #### [facility] [address] Monocyte distribution width [Entitic volume] in Blood by AutomatedOrdered By: Eladio Gonzalez on 08-06-2024 Monocyte distribution width Auto (Bld) [Entitic vol] 18.15 % 0.00-20.00 [facility] Monocyte distribution width Auto (Bld) [Entitic vol] Monocyte distribution width [Entitic volume] in Blood by Automated 0.00-20.00 [facility] Monocytes Auto (Bld) [#/Vol] Ordered By: Eladio Gonzalez on 08-06-2024 Monocytes (Bld) [#/Vol] Automated blood monocyte count High 0.0-0.8 [facility] Monocytes/100 WBC Auto (Bld) Ordered By: Eladio Gonzalez on 08-06-2024 Monocytes/100 WBC (Bld) Automated monocyte % . [facility] Neutrophils Auto (Bld) [#/Vo l]Ordered By: Eladio Gonzalez on 08-06-2024 Neutrophils (Bld) [#/Vol] Neutrophils [#/volume] in Blood by Automated count 1.8-7.7 [facility] Neutrophils [#/volume] in Bl ood by Automated countOrdered By: Eladio Gonzalez on 08-06-2024 Neutrophils (Bld) [#/Vol] 4.0 10*3/uL Normal 1.8-7.7 [facility] Comment on above: Performed By: #### C BC, CMP, CK, HS TROP #### [facility] [address] [place] [address] Neutrophils/100 WBC Auto (Bl d)Ordered By: Eladio Gonzalez on 08-06-2024 Neutrophils/100 WBC (Bld) Automated neutrophil % . [facility] Nitrite Test strip Ql (U)Ord ered By: Eladio Gonzalez on 08-06-2024 Nitrite Ql (U) Negative Negative [facility] Nitrite Ql (U) Nitrite [Presence] i n Urine by Test strip Negative [facility] No Panel InformationOrdered By: Eladio Gonzalez on 08-06-2024 Estimated GFR (CKD-EPI) 48.791 mL/Min [facility] Creatinine Clearance (Chem 38.36 [facility] Nucleated erythrocytes [Pres ence] in Blood by Automated countOrdered By: Eladio Gonzalez on 08-06-2024 Nucleated RBC Auto Ql (Bld) 0.2 /100{WBC} 0-0.5 [facility] Nucleated RBC Auto Ql (Bld) Nucleated erythrocytes [Presence] in Blood by Automated count 0-0.5 [facility] Opiates [Presence] in Urine by Screen methodOrdered By: Eladio Gonzalez on 08-06-2024 Opiates Screen Ql (U) Negative Negative [facility] Opiates Screen Ql (U) Opiates [Presence] in Urine by Screen method Negative [facility] Phencyclidine Screen Ql (U)O rdered By: Eladio Gonzalez on 08-06-2024 Phencyclidine Ql (U) Negative Negative [facility] Phencyclidine Ql (U) Phencyclidine [Pres ence] in Urine by Screen method Negative [facility] Platelet mean volume Auto (B ld) [Entitic vol]Ordered By: Eladio Gonzalez on 08-06-2024 Platelet mean volume (Bld) [Entitic vol] Platelet mean volume [Entitic volume] in Blood by Automated count 6.3-10.7 [facility] Platelet mean volume [Entiti c volume] in Blood by Automated countOrdered By: Eladio Gonzalez on 08-06-2024 Platelet mean volume (Bld) [Entitic vol] 8.6 fL Normal 6.3-10.7 [facility] Comment on above: Performed By: #### C BC, CMP, CK, HS TROP #### [address] Platelets Auto (Bld) [#/Vol] Ordered By: Eladio Gonzalez on 08-06-2024 Platelets (Bld) [#/Vol] Platelets [#/volume] in Blood by Automated count 150-450 [facility] Platelets [#/volume] in Bloo d by Automated countOrdered By: Eladio Gonzalez on 08-06-2024 Platelets (Bld) [#/Vol] 224 10*3/uL Normal 150-450 [facility] Comment on above: Performed By: #### C BC, CMP, CK, HS TROP #### [facility] [address] [place] [address] [place] Potassium [Moles/volume] in Serum or PlasmaOrdered By: Eladio Gonzalez on 08-06-2024 Potassium [Moles/Vol] 4.5 mmol/L Normal 3.5-5.1 [facility] Comment on above: Hemolysis is present at a level that could interfere with the result.Contact lab if redraw is required Result Comment: Hemo lysis is present at a level that could interfere with the result. Contact lab if redraw is required Performed By: #### C BC, CMP, CK, HS TROP #### [facility] [address] [place] [id number] [facility] Potassium [Moles/Vol] Potassium [Moles/v olume] in Serum or Plasma 3.5-5.1 [facility] Comment on above: Hemolysis is present at a level that could interfere with the result.Contact lab if redraw is required Protein Test strip (U) [Mass /Vol]Ordered By: Eladio Gonzalez on 08-06-2024 Protein (U) [Mass/Vol] Negative Negative [facility] Protein (U) [Mass/Vol] Protein [Mass/vol ume] in Urine by Test strip Negative [facility] Protein [Mass/volume] in Ser um or PlasmaOrdered By: Eladio Gonzalez on 08-06-2024 Protein [Mass/Vol] 6.9 g/dL Normal 6.4-8.9 [facility] Comment on above: Performed By: #### C BC, CMP, CK, HS TROP #### [facility] [address] [place] [id number] [place] Protein [Mass/Vol] Protein [Mass/volume ] in Serum or Plasma 6.4-8.9 [facility] RBC Auto (Bld) [#/Vol]Ordere d By: Eladio Gonzalez on 08-06-2024 RBC (Bld) [#/Vol] Erythrocytes [#/volu me] in Blood by Automated count 3.60-5.00 [facility] Serum globulin measurement b y calculation (mass/volume)Ordered By: Eladio Gonzalez on 08-06-2024 Globulin (S) [Mass/Vol] 2.8 g/dL Normal [facility] Comment on above: Performed By: #### C BC, CMP, CK, HS TROP #### [facility] [address] [place] [address] Serum or plasma albumin/glob ulin mass ratioOrdered By: Eladio Gonzalez on 08-06-2024 Albumin/Globulin [Mass ratio] 1.5 {ratio} [facility] Comment on above: Performed By: #### C BC, CMP, CK, HS TROP #### [facility] [address] [place] [address] Albumin/Globulin [Mass ratio] Serum or plasma albumin/globulin mass ratio [facility] Serum or plasma anion gap de terminationOrdered By: Eladio Gonzalez on 08-06-2024 Anion gap [Moles/Vol] 12.9 mmol/L Normal 6.0-15.0 [facility] Comment on above: Performed By: #### C BC, CMP, CK, HS TROP #### [facility] [address] [place] [address] Anion gap [Moles/Vol] Serum or plasma an ion gap determination 6.0-15.0 [facility] Sodium [Moles/volume] in Ser um or PlasmaOrdered By: Eladio Gonzalez on 08-06-2024 Sodium [Moles/Vol] 137 mmol/L Normal 136-145 [facility] Comment on above: Performed By: #### C BC, CMP, CK, HS TROP #### [address] Sodium [Moles/Vol] Sodium [Moles/volume ] in Serum or Plasma 136-145 [facility] Specific gravity Test strip (U) [Rel density]Ordered By: Eladio Gonzalez on 08-06-2024 Specific gravity (U) [Rel density] 1.005 1.001-1.03 0 [facility] Specific gravity (U) [Rel density] Specific gravity of Urine by Test strip 1.001-1.03 0 [facility] Troponin I High Sensitivityo n 08-06-2024 Troponin I High Sensitivity 10.8 pg/mL Normal 0.0-15.0 [facility] Comment on above: Result Comment: PERF ORMED BY: [place] [address] PATHOLOGIST [employer] SUPERVIS[employer] TOÑA MCFARLAND M.D. Performed By: #### C BC, CMP, CK, HS TROP #### [facility] [address] [place] [address] Troponin I.cardiac [Mass/vol ume] in Serum or Plasma by Detection limit <= 0.01 ng/Ordered By: Eladio Gonzalez on 08-06-2024 Troponin I.cardiac DL <= 0.01 ng/mL [Mass/Vol] 10.8 pg/mL 0.0-15.0 [facility] Troponin I.cardiac DL <= 0.01 ng/mL [Mass/Vol] Troponin I.cardiac [Mass/volume] in Serum or Plasma by Detection limit <= 0.01 ng/ 0.0-15.0 [facility] Urea nitrogen [Mass/volume] in Serum or PlasmaOrdered By: Eladio Gonzalez on 08-06-2024 Urea nitrogen [Mass/Vol] 22 mg/dL Normal 06-20 [facility] Comment on above: Performed By: #### C BC, CMP, CK, HS TROP #### [facility] [address] [place], [place] [id number] [place] Urea nitrogen [Mass/Vol] Urea nitrogen [Mass/volume] in Serum or Plasma 06-20 [facility] Urinalysison 08-06-2024 Bilirubin,Urine Negative Normal Negative [facility] Comment on above: Order Comment: Name Collection Type:: Straight Catheter Performed By: #### U A ####[facility] Glucose Ql (U) Normal Normal Normal [facility] Comment on above: Order Comment: Name Collection Type:: Straight Catheter Performed By: #### U A ####[address] [address] [facility] Nitrite,Urine Negative Normal Negative [facility] Comment on above: Order Comment: Name Collection Type:: Straight Catheter Performed By: #### U A ####[address] [address] [facility] Occult Blood,Urine Negative Normal Negative [facility] Comment on above: Order Comment: Name Collection Type:: Straight Catheter Result Comment: PERF ORMED BY: [facility] [address] [place] [id number] PATHOLOGIST [employer] SUPERVIS[employer] TOÑA MCFARLAND M.D. Performed By: #### U A ####[address] [address] [facility] Protein,Urine Negative Normal Negative [facility] Comment on above: Order Comment: Name Collection Type:: Straight Catheter Performed By: #### U A ####[address] [address] [facility] Specificy [place],Urine 1.005 Normal 1.001-1.03 0 [facility] Comment on above: Order Comment: Name Collection Type:: Straight Catheter Performed By: #### U A ####[address] [address] [facility] Urobilinogen,Urine Normal Normal Normal [facility] Comment on above: Order Comment: Name Collection Type:: Straight Catheter Performed By: #### U A ####[address] [address] [facility] Urine appearanceOrdered By: Eladio Gonzalez on 08-06-2024 Appearance (U) Clear Normal Clear [facility] Comment on above: Order Comment: Name Collection Type:: Straight Catheter Performed By: #### U A ####[address] [address] [facility] Urobilinogen Test strip (U) [Mass/Vol]Ordered By: Eladio Gonzalez on 09-10-2024 Urobilinogen (U) [Mass/Vol] Normal mg/dL Normal [facility] Urobilinogen (U) [Mass/Vol] Urobilinogen [Mass/volume] in Urine by Test strip Normal [facility] WBC Auto (Bld) [#/Vol]Ordere d By: Eladio Gonzalez on 08-06-2024 WBC (Bld) [#/Vol] Leukocytes [#/volume ] in Blood by Automated count 3.8-11.6 [facility] XR chest 1V portableon 08-06 XR chest 1V portable [facility] Main [place] [address] [place] [address] XRay Report Signed Patient: Mary Vivas MR#: [id number] : 1940 Acct:[id number] Age/Sex: 83 / F ADM Date: 08/06/24 [...] Varghese Heaton M.D.08/06/2024 10:50 PM Dictation Location: [place] [address] Transcribed By: [facility] 08/06/242249 Dictated By: Varghese Heaton DO 08/06/242247 Signed By: 08/06/242249 Normal [facility] pH Test strip (U)Ordered By: Eladio Gonzalez on 08-06-2024 pH (U) pH of Urine by Test strip 5.0-9.0 [facility] pH of Urine by Test stripOrd ered By: Eladio Gonzalez on 08-06-2024 pH (U) 6.0 [pH] Normal 5.0-9.0 [facility] Comment on above: Order Comment: Name Collection Type:: Straight Catheter Performed By: #### U A ####[facility] [id number] [id number] [facility] CULTURE URINEon 11-03-2022 CULTURE URINE Isolate 1 [...] F Trimethoprim/Sulfamethoxazo le <=20 S F Normal [facility] Comment on above: Performed By: #### U RCX #### [facility] [address] [place] [address] Dr. Mervat Haynes AMYLASEon 11-01-2022 Amylase [Catalytic activity/Vol] 51 U/L Normal 25-115 [facility] Comment on above: Performed By: #### A MY, CMP, LIPA #### [facility] [address] [place] [address] Dr. Mervat Haynes CBC AUTO DIFFon 11-01-2022 BASO # 0.0 103/ul Normal 0.0-0.1 [facility] Comment on above: Performed By: #### C BC #### [facility] [address] [place] [address] Dr. Mervat Haynes Basophils/100 WBC (Bld) 0.5 % Normal 0.2-2.0 [facility] Comment on above: Performed By: #### C BC #### [facility] [address] [place] [address] Dr. Mervat Haynes EO # 0.3 103/ul Normal 0.0-0.7 [facility] Comment on above: Performed By: #### C BC #### [facility] [address] [place] [address] Dr. Mervat Haynes Eosinophils/100 WBC (Bld) 3.8 % Normal 0.9-7.0 [facility] Comment on above: Performed By: #### C BC #### [facility] [address] [place] [address] Dr. Mervat Haynes Erythrocyte distribution width (RBC) [Ratio] 12.5 % Normal 11.0-15.0 [facility] Comment on above: Performed By: #### C BC #### [facility] [address] [place] [address] Dr. Mervat Haynes Hematocrit (Bld) [Volume fraction] 41.8 % Normal 36.0-48.0 [facility] Comment on above: Performed By: #### C BC #### [facility] [address] [place] [address] Dr. Mervat Haynes Hemoglobin (Bld) [Mass/Vol] 13.7 g/dL Normal 12.0-16.0 [facility] Comment on above: Performed By: #### C BC #### [facility] [address] [place] [address] Dr. Mervat Haynes IG # 0.02 10e3/ul Normal 0.00-0.03 [facility] Comment on above: Performed By: #### C BC #### [facility] [address] [place] [address] Dr. Mervat Haynes IG % 0.3 % Normal 0.0-0.5 [facility] Comment on above: Performed By: #### C BC #### [facility] [address] [place] [address] Dr. Mervat Haynes LYMPH # 1.7 103/ul Normal 1.2-3.8 [facility] Comment on above: Performed By: #### C BC #### [facility] [address] [place] [address] Dr. Mervat Haynes Lymphocytes/100 WBC (Bld) 22.8 % Normal 20.5-60.0 [facility] Comment on above: Performed By: #### C BC #### [facility] [address] [place] [address] Dr. Mervat Haynes MANUAL DIFF REQ NO Normal [facility] Comment on above: Performed By: #### C BC #### [facility] [address] [place] [address] Dr. Mervat Haynes MCH (RBC) [Entitic mass] 30.7 pg Normal 26.7-34.0 [facility] Comment on above: Performed By: #### C BC #### [facility] [address] [place] [address] Dr. Mervat Haynes MCHC (RBC) [Mass/Vol] 32.8 g/dL Normal 29.9-35.2 [facility] Comment on above: Performed By: #### C BC #### [facility] [address] [place] [address] Dr. Mervat Haynes MCV (RBC) [Entitic vol] 93.7 fL Normal 81.0-99.0 [facility] Comment on above: Performed By: #### C BC #### [facility] [address] [place] [address] Dr. Mervat Haynes MONO # 0.6 103/ul Normal 0.3-0.8 [facility] Comment on above: Performed By: #### C BC #### [facility] [address] [place] [address] Dr. Mervat Haynes Monocytes/100 WBC (Bld) 8.3 % Normal 1.7-12.0 [facility] Comment on above: Performed By: #### C BC #### [facility] [address] [place] [address] Dr. Mervat Haynes NEUT # 4.7 103/ul Normal 1.4-6.5 [facility] Comment on above: Performed By: #### C BC #### [facility] [address] [place] [address] Dr. Mervat Haynes Neutrophils/100 WBC (Bld) 64.3 % Normal 43.0-75.0 [facility] Comment on above: Performed By: #### C BC #### [facility] [address] [place] [address] Dr. Mervat Haynes Platelet mean volume (Bld) [Entitic vol] 10.3 fL Normal 9.5-13.5 [facility] Comment on above: Performed By: #### C BC #### [facility] [address] [place] [address] Dr. Mervat Haynes PLT 238 103/ul Normal 150-450 [facility] Comment on above: Performed By: #### C BC #### [facility] [address] [place] [address] Dr. Mervat Haynes RBC 4.46 106/ul Normal 4.20-5.40 [facility] Comment on above: Performed By: #### C BC #### [facility] [address] [place] [address] Dr. Mervat Haynes WBC 7.4 103/ul Normal 4.0-11.0 [facility] Comment on above: Performed By: #### C BC #### [facility] [address] [place] [address] Dr. Mervat Haynes ER URINE PROFILEon 2 Bilirubin Ql (U) Negative Normal NEGATIVE [facility] Comment on above: Performed By: #### KD URIBERO #### [facility] [address] [place] [address] Dr. Mervat Haynes Clarity (U) SL CLOUDY Abnormal CLEAR [facility] Comment on above: Performed By: #### KD URIBERO #### [facility] [address] [place] [address] Dr. Mervat Haynes Color (U) YELLOW Normal YELLOW [facility] Comment on above: Performed By: #### Rosio SOLER UMICRO #### [facility] [address] [place] [address] Dr. Mervat CAMPOS A micrscopic examina tion will be performed if indicated. Normal [facility] Comment on above: Performed By: #### Rosio SOLER UMICRO #### [facility] [address] [place] [address] Dr. Mervat Haynes Glucose Ql (U) Negative Normal NEGATIVE [facility] Comment on above: Performed By: #### Rosio SOLER UMICRO #### [facility] [address] [place] [address] Dr. Mervat Haynes Hemoglobin Ql (U) Negative Normal NEGATIVE [facility] Comment on above: Performed By: #### Rosio SOLER UMICRO #### [facility] [address] [place] [address] Dr. Mervat Haynes Ketones Ql (U) TRACE Abnormal NEGATIVE [facility] Comment on above: Performed By: #### Rosio SOLER UMICRO #### [facility] [address] [place] [address] Dr. Mervat Haynes LEUKOCYTES SMALL Abnormal NEGATIVE [facility] Comment on above: Performed By: #### Rosio SOLER UMICRO #### [facility] [address] [place] [address] Dr. Mervat Haynes Nitrite Ql (U) Positive Abnormal NEGATIVE [facility] Comment on above: Performed By: #### KD URIBERO #### [facility] [address] [place] [address] Dr. Mervat Haynes pH (U) 6.0 [pH] Normal 5-9 [facility] Comment on above: Performed By: #### KD URIBERO #### [facility] [address] [place] [address] Dr. Mervat Haynes SPEC GRAVITY 1.025 Normal 1.005-<=1. 025 [facility] Comment on above: Performed By: #### KD URIBERO #### [facility] [address] [place] [address] Dr. Mervat Haynes UA PROTEIN TRACE Normal NEGATIVE/ TRACE [facility] Comment on above: Performed By: #### KD URIBERO #### [facility] [address] [place] [address] Dr. Mervat Haynes UR MICRO IND INDICATED Normal [facility] Comment on above: Performed By: #### SUKH URIBEICRO #### [facility] [address] [place] [address] Dr. Mervat Haynes Urobilinogen Qn (U) 0.2 {Kip'U}/dL Normal 0.2 - 1. 0 [facility] Comment on above: Performed By: #### E COOPER SOLER #### [facility] [address] [place] [address] Dr. Mervat Haynes LIPASEon 11-01-2022 Lipase [Catalytic activity/Vol] 114.0 U/L Normal 73.0-393.0 [facility] Comment on above: Performed By: #### A MY, CMP, LIPA #### [facility] [address] [address] [address] Mervat Haynes PROF 14(COMP METB)on 022 Albumin [Mass/Vol] 3.6 g/dL Normal 3.4-5.0 [facility] Comment on above: Performed By: #### A MY, CMP, LIPA #### [facility] [address] [place] [address] Dr. Mervat Haynes Albumin/Globulin [Mass ratio] 1.0 {ratio} Normal [facility] Comment on above: Performed By: #### A MY, CMP, LIPA #### [facility] [address] [place] [address] Dr. Mervat Haynes ALP [Catalytic activity/Vol] 153 U/L Critically high 46-116 [facility] Comment on above: Performed By: #### A MY, CMP, LIPA #### [facility] [address] [place] [address] Dr. Mervat Haynes ALT [Catalytic activity/Vol] 24 U/L Normal 14-59 [facility] Comment on above: Performed By: #### A MY, CMP, LIPA #### [facility] [address] [place] [address] Dr. Mervat Haynes Anion gap [Moles/Vol] 10.1 mmol/L Normal [facility] Comment on above: Performed By: #### A MY, CMP, LIPA #### [facility] [address] [address] [address] Mervat Haynes AST [Catalytic activity/Vol] 19 U/L Normal 15-37 [facility] Comment on above: Performed By: #### A MY, CMP, LIPA #### [facility] [address] [address] [address] Mervat Haynes Bilirubin [Mass/Vol] 0.8 mg/dL Normal 0.2-1.0 [facility] Comment on above: Performed By: #### A MY, CMP, LIPA #### [facility] [address] [place] [address] Dr. Mervat Haynes Calcium [Mass/Vol] 9.6 mg/dL Normal 8.5-10.1 [facility] Comment on above: Performed By: #### A MY, CMP, LIPA #### [facility] [address] [place] [address] Dr. Mervat Haynes Chloride [Moles/Vol] 104 mmol/L Normal 98-107 [facility] Comment on above: Performed By: #### A MY, CMP, LIPA #### [facility] [address] [place] [address] Dr. Mervat Haynes CO2 [Moles/Vol] 29.7 mmol/L Normal 21.0-32.0 [facility] Comment on above: Performed By: #### A MY, CMP, LIPA #### [facility] [address] [place] [address] Dr. Mervat Haynes Creatinine [Mass/Vol] 1.19 mg/dL Critically high 0.55-1.02 [facility] Comment on above: Performed By: #### A MY, CMP, LIPA #### [facility] [address] [place] [address] Dr. Mervat Haynes EGFR-AF NICARAGUAN 53 mL/min/1.73m2 Critically low >=60 [facility] Comment on above: Performed By: #### A MY, CMP, LIPA #### [facility] [address] [place] [address] Dr. Mervat Haynes EGFR-NON AF NICARAGUAN 44 mL/min/1.73m2 Critically low >=60 [facility] Comment on above: Performed By: #### A MY, CMP, LIPA #### [facility] [address] [address] [address] Mervat Haynes Globulin (S) [Mass/Vol] 3.5 g/dL Normal [facility] Comment on above: Performed By: #### A MY, CMP, LIPA #### [facility] [address] [address] [address] Mervat Haynes Glucose [Mass/Vol] 102 mg/dL Normal 74-106 [facility] Comment on above: Performed By: #### A MY, CMP, LIPA #### [facility] [address] [address] [address] Mervat Haynes Potassium [Moles/Vol] 3.8 mmol/L Normal 3.5-5.1 [facility] Comment on above: Performed By: #### A MY, CMP, LIPA #### [facility] [address] [place] [address] Dr. Mervat Haynes Protein [Mass/Vol] 7.1 g/dL Normal 6.4-8.2 [facility] Comment on above: Performed By: #### A MY, CMP, LIPA #### [facility] [address] [address] [address] Mervat Haynes Sodium [Moles/Vol] 140 mmol/L Normal 136-145 [facility] Comment on above: Performed By: #### A MY, CMP, LIPA #### [facility] [address] [address] [address] Mervat Haynes Urea nitrogen [Mass/Vol] 16.0 mg/dL Normal 7.0-18.0 [facility] Comment on above: Performed By: #### A MY, CMP, LIPA #### [facility] [address] [address] [address] Mervat Haynes Urea nitrogen/Creatinine [Mass ratio] 13.4 mg/mg Normal [facility] Comment on above: Performed By: #### A MY, CMP, LIPA #### [facility] [address] [place] [address] Dr. Mervat Haynes URINE MICROSCOPIC ONLYon BACTERIA SMALL Abnormal NONE SEEN [facility] Comment on above: Performed By: #### E RUR, UMICRO #### [facility] [address] [place] [address] Dr. Mervat Haynes Bacteria identified Cx Nom (U) INDICATED Normal [facility] Comment on above: Performed By: #### E RUR, UMICRO #### [facility] [address] [place] [address] Dr. Mervat Haynes CAST NONE SEEN Normal NONE SEEN [facility] Comment on above: Performed By: #### E RUR, UMICRO #### [facility] [address] [place] [address] Dr. Mervat Haynes Crystals LM Nom (Urine sed) NONE SEEN Normal NONE SEEN [facility] Comment on above: Performed By: #### E RUR, UMICRO #### [facility] [address] [place] [address] Dr. Mervat Haynes Epithelial cells LM Ql (Urine sed) RARE Normal NONE SEEN /RARE [facility] Comment on above: Performed By: #### E RUR, UMICRO #### [facility] [address] [place] [address] Dr. Mervat Haynes MUCOUS NONE SEEN Normal NONE SEEN [facility] Comment on above: Performed By: #### E RYDER, UMICRO #### [facility] [address] [place] [address] Dr. Mervat Haynes RBC NONE SEEN Abnormal 0-2 [facility] Comment on above: Performed By: #### Rosio SOLER, UMICRO #### [facility] [address] [place] [address] Dr. Mervat Haynes WBC 5-10 Abnormal NONE SEEN [facility] Comment on above: Performed By: #### E RYDER, UMICRO #### [facility] [address] [place] [address] Dr. Mervat Haynes XR ABD FLAT UP_PA [...] by: CANDIS SHEEHAN Date: 2022-11-01 15:15 Normal [facility] CNOVSPon 04-02-2018 CNOVSP Visit (SP) Office ([place]) -------MARY VIVAS ([id number]) 1940 FDa Time Provider Department04/02/18 3:00 PM ZAFAR CARRENO During your visit today, we recorded the following information about you: Temperature Pulse Respiration Blood pressure 98.2 degrees 77/minute 18/minute 130/53 Weight Height 80 kg 1.651 Zafar Irvin 04/02/2018 3:38 PM SignedHPKeyjenni Vivas is a 77 year old female [...] CARDIAC CATH 2008- CHOLECYSTECTOMY HX- HYSTERECTOMY HX- [place] ANESTH,LUMBAR SPINE,CORD SURGERY 1973, 1978Social HistorySubstance Use [...] Nofollow-up is needed at this time.Zafar Carreno, NAMRATAeferring Provider: EDI JOSEPH [[id number]]Allergies As of Date: 04/02/2018 Noted Allergy ReactionFUROSEMIDE [...] ZAFAR CARRENO MD on 04/02/18 [facility] PROGRESSon 04-02-2018 PROGRESS HNO ID: [id number] thor: Zafar Carreno EService: (none)Author Type: PhysicianType: [...] CARDIAC CATH 2008- CHOLECYSTECTOMY HX- HYSTERECTOMY HX- [place] ANESTH,LUMBAR SPINE,CORD SURGERY 1973, 1978Social HistorySubstance Use [...] (176 lb 6.4 oz) LMP (LMP Unknown) [id number]% BMI 29.35 kg/m?General Appearance: alert and oriented, [...] needed at this time.Zafar Carreno MD Normal [facility] Vital Signs Date Time Vital Sign Value Performing Clinician Facility 04-03-2025 08:58-0400 Body height 160 cm Candis Chiu DPM Work Phone: [facility] 04-03-2025 08:58-0400 Body mass index (BMI) [Ratio] 28.34 kg/m2 Candis Senior DPM Work Phone: [facility] 04-03-2025 08:58-0400 Body weight 72.58 kg Candis Chiu DPM Work Phone: [facility] 03-17-2025 10:15-0400 Body height 160.02 cm [facility] 03-17-2025 10:15-0400 Body mass index (BMI) [Ratio] 32 kg/m2 [facility] 03-17-2025 10:15-0400 Body weight 82 kg [facility] 03-17-2025 10:15-0400 Diastolic blood pressure 64 mm[Hg] [facility] 03-17-2025 10:15-0400 Heart rate 80 /min [facility] 03-17-2025 10:15-0400 Respiratory rate 12 /min [facility] 03-17-2025 10:15-0400 SaO2% (BldA) [Mass fraction] 99 % [facility] 03-17-2025 10:15-0400 Systolic blood pressure 94 mm[Hg] [facility] 10-15-2024 13:07-0500 Body mass index (BMI) [Ratio] 31.8 kg/m2 Edi Joseph MD Work Phone: [facility] 10-15-2024 13:07-0500 Body weight 81.64 kg Edi Joseph MD Work Phone: [facility] 10-15-2024 13:07-0500 Diastolic blood pressure 60 mm[Hg] Edi Joseph MD Work Phone: [facility] 10-15-2024 13:07-0500 Heart rate 76 /min Edi Joseph MD Work Phone: [facility] 10-15-2024 13:07-0500 Systolic blood pressure 91 mm[Hg] Edi Joseph MD Work Phone: [facility] 10-15-2024 08:22-0500 Body height 160.02 cm Edi Joseph MD Work Phone: [facility] 08-26-2024 11:40-0400 Body height 160.02 cm MD Edi Joseph Work Phone: [facility] 08-26-2024 11:40-0400 Body mass index (BMI) [Ratio] 31.5 kg/m2 MD Edi Joseph Work Phone: [facility] 08-26-2024 11:40-0400 Body weight 80.73 kg MD Edi Joseph Work Phone: [facility] 08-26-2024 11:40-0400 Diastolic blood pressure 65 mm[Hg] MD Edi Joseph Work Phone: [facility] 08-26-2024 11:40-0400 Heart rate 70 /min MD Edi Joseph Work Phone: [facility] 08-26-2024 11:40-0400 Systolic blood pressure 100 mm[Hg] MD Edi Joseph Work Phone: [facility] 08-12-2024 23:40-0400 Diastolic blood pressure 88 mm[Hg] MD Edi Joseph Work Phone: [facility] 08-12-2024 23:40-0400 Heart rate 61 /min MD Edi Joseph Work Phone: [facility] 08-12-2024 23:40-0400 Respiratory rate 18 /min MD Edi Joseph Work Phone: [facility] 08-12-2024 23:40-0400 SaO2% (BldA) [Mass fraction] 98 % MD Edi Joseph Work Phone: [facility] 08-12-2024 23:40-0400 Systolic blood pressure 142 mm[Hg] MD Edi Joseph Work Phone: [facility] 08-12-2024 15:39-0400 Body height 160.02 cm MD Edi Joseph Work Phone: [facility] 08-12-2024 15:39-0400 Body temperature 98.3 [degF] MD Edi Joseph Work Phone: [facility] 08-12-2024 15:39-0400 Body weight 82 kg MD Edi Joseph Work Phone: [facility] 08-07-2024 04:10-0400 Diastolic blood pressure 83 mm[Hg] MD Edi Joseph Work Phone: [facility] 08-07-2024 04:10-0400 Heart rate 76 /min MD Edi Joseph Work Phone: [facility] 08-07-2024 04:10-0400 Respiratory rate 16 /min MD Edi Joseph Work Phone: [facility] 08-07-2024 04:10-0400 SaO2% (BldA) [Mass fraction] 99 % MD Edi Joseph Work Phone: [facility] 08-07-2024 04:10-0400 Systolic blood pressure 175 mm[Hg] MD Edi Joseph Work Phone: [facility] 08-06-2024 20:28-0400 Body temperature 98 [degF] MD Edi Joseph Work Phone: [facility] 08-06-2024 18:14-0400 Body height 160.02 cm MD Edi Joseph Work Phone: [facility] 08-06-2024 18:14-0400 Body weight 81 kg MD Edi Joseph Work Phone: [facility] 06-18-2024 14:09-0400 Body height 160.02 cm [facility] 06-18-2024 14:09-0400 Body mass index (BMI) [Ratio] 31.1 kg/m2 [facility] 06-18-2024 14:09-0400 Body weight 79.83 kg [facility] 06-18-2024 14:09-0400 Diastolic blood pressure 65 mm[Hg] [facility] 06-18-2024 14:09-0400 Heart rate 62 /min [facility] 06-18-2024 14:09-0400 Respiratory rate 12 /min [facility] 06-18-2024 14:09-0400 Systolic blood pressure 101 mm[Hg] [facility] 03-13-2023 14:45-0400 Body height 160.02 cm Edi Joseph Other [facility] [employer] Other 03-13-2023 14:45-0400 Body mass index (BMI) [Ratio] 33.12 kg/m2 Edi Joseph Other [employer] [facility] [employer] Other 03-13-2023 14:45-0400 Body weight 84.82 kg Edi Joseph Other [employer] [facility] [employer] Other 03-13-2023 14:45-0400 Diastolic blood pressure 68 mm[Hg] Edi Joseph Other [employer] [facility] [employer] Other 03-13-2023 14:45-0400 SaO2% (BldA) [Mass fraction] 98 % Edi Joseph Other [employer] [facility] [employer] Other 03-13-2023 14:45-0400 Systolic blood pressure 142 mm[Hg] Edi Joseph Other [employer] Other 08-24-2022 15:15-0400 Body height 167.64 cm Shiva Jamison Other [employer] Other 08-24-2022 15:15-0400 Body mass index (BMI) [Ratio] 30.18 kg/m2 Shiva Jamison Other [facility] [employer] Other 08-24-2022 15:15-0400 Body weight 84.82 kg Shiva Jamison Other [facility] [employer] Other Encounters Encounter Date Encounter Type Care Provider Facility Start: 04-03-2025 End: 04-03-2025 Bamboo flowsheet Candis Senior DPM Work Phone: [facility] Start: 04-03-2025 End: 04-03-2025 Bamboo flowsheet Candis Senior DPM Work Phone: [facility] Start: 04-03-2025 End: 04-03-2025 ambulatory CANDIS SENIOR Not Available Start: 04-03-2025 End: 04-03-2025 Office outpatient new 30 minutes Candis Senior DPM Work Phone: [facility] Comment on above: Dermatophytosis of n ail (Primary Dx); Onychocryptosis; Paronychia of great toe of left foot; Pain of left great toe; Difficulty walking Start: 03-17-2025 End: 03-17-2025 ambulatory [facility] Work Phone: Start: 03-17-2025 End: 03-17-2025 Patient encounter procedure [facility] Physician [facility] Work Phone: Start: 01-27-2025 Non-patient / Non-visit [facility] Physician [facility] Work Phone: Start: 01-26-2025 Non-patient / Non-visit [facility] Physician [facility] Work Phone: Start: 01-24-2025 Non-patient / Non-visit [facility] Work Phone: Start: 11-05-2024 End: 11-05-2024 ambulatory NON STAFF Facility:[facility] Start: 10-15-2024 End: 10-15-2024 ambulatory Edi Joseph MD Work Phone: [facility] Work Phone: Start: 10-15-2024 End: 10-15-2024 Patient encounter procedure Edi Joseph MD Work Phone: [facility] Work Phone: Start: 10-08-2024 End: 10-08-2024 ambulatory NIKOLAY PACK [facility] Start: 10-08-2024 End: 10-08-2024 Subsequent hospital visit by physician [facility] Start: 09-25-2024 End: 09-25-2024 ambulatory DELMER STALLINGS [facility] Start: 09-25-2024 End: 09-25-2024 Subsequent hospital visit by physician [facility] Start: 09-15-2024 Non-patient / Non-visit Edi Joseph MD Work Phone: [facility] Work Phone: Start: 09-14-2024 Non-patient / Non-visit Edi Joseph MD Work Phone: [facility] Work Phone: Start: 08-26-2024 End: 08-26-2024 ambulatory MD Edi Joseph Work Phone: [facility] Work Phone: Start: 08-26-2024 End: 08-26-2024 Patient encounter procedure MD Edi Joseph Work Phone: [facility] Work Phone: Start: 08-12-2024 End: 08-13-2024 Emergency department patient visit MD Edi Joseph Work Phone: [facility] Work Phone: Start: 08-12-2024 ambulatory Edi Joseph Facility :[facility] Start: 08-12-2024 Registered Recurring Edi sullivan MD Work Phone: [facility] Start: 08-06-2024 End: 08-07-2024 Emergency department patient visit MD Edi Joseph Work Phone: [facility] Work Phone: Start: 06-18-2024 End: 06-18-2024 ambulatory [facility] Work Phone: Start: 06-18-2024 End: 06-18-2024 Patient encounter procedure [facility] Physician [facility] Work Phone: Start: 06-13-2023 End: 06-13-2023 ambulatory Shiva Jamison Other [employer] Other Start: 06-13-2023 Telephone encounter Shiva Jamison [facility] Start: 03-29-2023 End: 03-29-2023 ambulatory Edi Joseph Other [employer] Other Start: 03-29-2023 Telephone encounter Edi Joseph [facility] Start: 03-13-2023 End: 03-14-[address] EDI JOSEPH [facility] Other Start: 03-13-2023 Office outpatient vi sit 15 minutes Edi Joseph [facility] Start: 01-09-2023 End: 01-09-2023 ambulatory Edi Joseph Other [employer] Other Start: 01-09-2023 Telephone encounter Edi Joseph [facility] Start: 11-01-2022 End: 11-01-[address] EDI JOSEPH Facility: Start: 08-24-2022 End: 08-24-2022 ambulatory Shiva Jamison Other [employer] Other Start: 08-24-2022 Patient encounter procedure Shiva Jamison [facility] Gastroenterology Start: 07-19-2022 End: 07-19-2022 ambulatory Shiva Jamison Other [employer] Other Start: 07-19-2022 Telephone encounter Shiva Jamison [facility] Start: 04-02-2018 End: 04-03-2018 Ambulatory ZAFAR CARRENO [facility] Procedures Date Procedure Procedure Detail Performing Clinician Start: 10-08-2024 Lipid panel Nikolay bowles MD Work Phone: Start: 09-25-2024 Urnls dip stick/tabl et reagent auto microscopy [employer] Work Phone: Start: 09-25-2024 Urnls dip stick/tabl et rgnt auto w/o microscopy [employer] Work Phone: Start: 08-12-2024 SARS Antigen (LFIA) [...] Treatment Date Care Activity Detail Author Start: 07-28-2025 Influenza vaccination Influenz a Vaccine (Season Ended) [facility] Start: 08-12-2024 Bacteria identified in Urine by Culture [facility] Start: 07-28-2024 COVID-19 Vaccine ( season) COVID-19 Vaccine ( season) [facility] Start: 06-27-2024 Influenza vaccination Flu vaccine (# 1) [facility] Start: 2000 Respiratory Syncytia l Virus (RSV) or age 60 yrs+ (1 - 1-dose 60+ series) Respiratory Syncytial Virus (RSV) or age 60 yrs+ (1 - 1-dose 60+ series) [facility] Start: 1990 Pneumococcal Vaccine : 65+ Years (1 of 1 - PCV) Pneumococcal Vaccine: 65+ Years (1 of 1 - PCV) [facility] Start: 1959 DTaP/Tdap/Td vaccine (1 - Tdap) DTaP/Tdap/Td vaccine (1 - Tdap) [facility] [place] End: 09-25-2024 Culture, Urine [facility] Work Phone: Comment on above: Once for 1 Occurrenc es starting 09/25/2024 until 09/25/2024 Patient Education Altered Mental Status Preventing Falls ED [facility] Work Phone: Patient referral [facility] Work Phone: XR Lumbar spine 2 or 3 Views [facility] XR Pelvis 1 or 2 Views [facility] Immunizations Immunization Date Immunization Notes Care Provider Fa [facility] 10-14-2022 influenza, injectabl e, quadrivalent, contains preservative Candis Rusher DPM Work Phone: [facility] 10-14-2022 influenza virus vacc ine, unspecified formulation Candis Rusher DPM Work Phone: [facility] 09-28-2021 Influenza, High-dose Seasonal, Quadrivalent, Preservative Free Candis Rusher DPM Work Phone: [facility] 08-17-2019 influenza, high dose seasonal, preservative-free Candis Rusher DPM Work Phone: [facility] 12-25-2009 novel influenza-H1N1 -09, preservative-free, injectable Candis Rusher DPM Work Phone: [facility] Payers Date Payer Category Payer Unknown [id number] 2024 Self-pay [id number] 2024 Unknown [id number] 2010 Private Health Insurance [facility] [place] [id number] 2010 Unknown [id number] 2005 Medicare MEDICARE [id number] 1959 Medicare [id number] 1959 Unknown [id number] 1940 Unknown [id number] 1940 Unknown [id number] 1940 Unknown [id number] 1940 Unknown [id number] Private Health Insurance [facility] [id number] Unknown [id number] Unknown [id number] Unknown [id number] Unknown [id number] Social History Date Type Detail Facility Unknown if ever smoked [facility] [employer] Other Start: 03-17-2013 End: 04-03-2025 Sex Assigned At [employer] [facility] [employer] Other Start: 01-17-2019 End: 05-11-2023 Tobacco smoking status MDIS Never smoked tobacco (finding) [facility] Start: 1940 Sex Assigned At Female [facility] Tobacco smoking stat us [facility] Tobacco smoking consumption unknown [facility] Start: 03-17-2013 End: 04-03-2025 History of Social function [facility] Start: 1940 Sex assigned at Not on file [facility] Start: 10-15-2024 End: 03-17-2025 Sex Female (finding) [facility] Start: 05-11-2023 Tobacco use and exposure Smokeless tobacco non-user [facility] Start: 07-16-2024 End: 04-03-2025 Alcoholic beverage intake Lifetime non-drinker (finding) [facility] Start: 04-11-2023 Gender identity Identifies as female gender (finding) [facility] Start: 04-11-2023 Sexual orientation Choose not to disclose [facility] Clinical Notes 08-24-2022 to 04-03-2025 Candis Senior DPM - 04/03/2025 8:45 AM EDTPatient Instructions Note Date & Type Note Facility 04-03-2025 History of Presen t illness Narrative Images from the original note were not included. Subjective Patient ID: Mary Vivas is a 84 y.o. female who presents for Ingrown Toenail (PT is here today with her daughter for ingrown nails, has been tender for a few days, soaked in epsom salts and neosporin cream with gauze /SS: 8.5). HPI Initial patient encounter and assessment. Accompanied by her daughter, Yamile. Chief complaint: Painful, inflamed ingrown toenail medial margin of the left great toe; which developed insidiously over this past week, without injury or trauma. Denies recent change in activity or footwear. Also notes thickening, discoloration and deformity of bilateral great toenails of multiple years duration. Self care measures are difficult, ineffective and not practical; increasing risk exposure. Family members are unable to provide effective care. The paronychial condition of the left great toe has responded favorably with Epsom salt soaks and Neosporin. There has been no specific treatment for the toenails to date. Risk profile: ASA therapy. Medical comorbidities. Polypharmacy. Mobility, flexibility and dexterity restraints. Toenail deformity. Digital and/or shoe trauma and related complications. Paronychia by history left great toe. Medications Current Outpatient Medications: aspirin (Aspirin Adult) 325 MG tablet, , Disp: , Rfl: atorvastatin (Lipitor) 20 MG tablet, , Disp: , Rfl: budesonide-formoterol (Symbicort) 80-4.5 MCG/ACT inhaler, Inhale 2 puffs in the morning and 2 puffs before bedtime. Rinse mouth with water after use to reduce aftertaste and incidence of candidiasis. Do not swallow.., Disp: 3 each, Rfl: 3 colestipol (Colestid) 1 g tablet, , Disp: , Rfl: donepezil (Aricept) 5 MG tablet, , Disp: , Rfl: levothyroxine (Synthroid, Levoxyl) 112 MCG tablet, , Disp: , Rfl: LORazepam (Ativan) 0.5 MG tablet, Take by mouth, Disp: , Rfl: Lumigan 0.01 % ophthalmic solution, , Disp: , Rfl: Melatonin-Pyridoxine (MELATONIN CR PO), Take by mouth, Disp: , Rfl: metoprolol tartrate (Lopressor) 25 MG tablet, , Disp: , Rfl: Multiple Vitamin (multivitamin) tablet, Take 1 tablet by mouth Daily, Disp: , Rfl: Multiple Vitamins-Minerals (ICAPS AREDS 2 PO), Take by mouth, Disp: , Rfl: omeprazole (PriLOSEC) [address] capsule, , Disp: , Rfl: venlafaxine XR (Effexor XR) 150 MG 24 hr capsule, , Disp: , Rfl: albuterol HFA 90 mcg/act inhaler, Inhale 2 puffs every 4 (four) hours if needed for wheezing., Disp: 54 g, Rfl: 3 atorvastatin (Lipitor) 40 MG tablet, , Disp: , Rfl: cholecalciferol (D3-5) 5,000 Units tablet, Daily. (Patient not taking: Reported on 04/03/2025), Disp: , Rfl: Cranberry 250 MG capsule, as directed Orally, Disp: , Rfl: folic acid (Folvite) 400 MCG tablet, 1 (one) time each day at the same time. (Patient not taking: Reported on 04/03/2025), Disp: , Rfl: hydroCHLOROthiazide (HYDRODiuril) 25 MG tablet, 1 tablet (Patient not taking: Reported on 04/03/2025), Disp: , Rfl: nystatin (Mycostatin) cream, Twice daily (Patient not taking: Reported on 04/03/2025), Disp: , Rfl: Allergies Oxybutynin, Furosemide, Shellfish allergy, and Sulfa antibiotics Past Surgical History Past Surgical History: Procedure Laterality Date BACK SURGERY CHOLECYSTECTOMY EYE SURGERY 2022 HYSTERECTOMY SHOULDER ARTHROSCOPY 2013 Family History Family History Problem Relation Name Age of Onset Hypertension Mother Dementia Mother Cancer Father COPD Other Stroke Other Hypertension Other Glaucoma Other Cancer Other GI problems Other Heart disease Other Objective General assessment: Alert and oriented. Ambulatory with walker assist. Accompanied by her daughter, Yamile (RN). Vascular: DP 1/4 bilateral. PT 1/4 bilateral. CFT: 3 seconds/digit. Gradient temperature: Warm-slightly cool bilateral. Symmetrical, mild, non-pitting ankle edema bilateral. Neurologic: Tactile and light touch sensation intact. Dermatologic: Skin turgor is fair. Web space areas are clean, dry, non-inflamed. Unremarkable for eczema or dermatitis. Toenail pathology: Bilateral great toes: Estimate 20-25% DSO with pincer deformity: The distal nail plate is thickened, discolored with subungual debris. The distal margins are incurvated, keratotic, tender, without drainage. Left great toe: Medial paronychial margin is locally inflamed (blanchable) without swelling, streaking or drainage. Orthopedic: Range of motion: Functional ankle, subtalar and 1st MTP joint range of motion. Lesion pattern: No forefoot or digital discrete keratotic lesions are noted. Radiology: Assessment/Plan Symptomatic DSO/cryptitis bilateral great toes. Recent uncomplicated paronychia medial paronychial margin left great toe. Plan: Review of clinical findings, etiology and contributing/aggravating factors, treatment strategy, rationale and objectives. [place] agreement for conservative and palliative care measures. Patient noted effective and favorable relief upon leaving the clinic. Discussed topical care measures for consideration as able to do so: Use of vinegar and/or Listerine antiseptics as directed; advised as to limited efficacy. Instructions on cuticle massage. Procedure: Toenail debridement: Aseptic technique: Hand and power instrumentation: Onychodebridement in length and thickness, with curettage of any cryptotic margins, all periungual debris; providing effective symptom and pressure relief; reducing shoe and digital trauma. This note was created with the assistance of a speech recognition program. While intending to generate a timely document that accurately reflects the content of the visit, no guarantee can be provided that every grammatical or spelling mistake has been or will be identified or corrected. Thank you for your understanding. Candis Senior DPM documented in this encounter [facility] 04-03-2025 Instructions Candis Senior DPM - 04/03/2025 8:45 AM EDT As noted documented in this encounter [facility] 08-26-2024 Evaluation note Diagnosis Onset Date Resolution Accelerated essential hypertension acute August 26, 2024 11:27am Dementia acute July 11:27am Major depressive disorder with psychotic features acute August 26, 2024 11:27am [facility] Work Phone: [phone] NotePROCEDURE: XR KNEE RT 4V or > DATE: 03/13/2023 1:53 PM [...] Electronically authenticated by: DAVE RACHEL Date: 2023-03-13 15:23[facility]04-17-2023 Evaluation note* Encounter Date Diagnosis Assessment Notes Treatment Notes Treatment Clinical Notes Feb, Right anterior knee pain (ICD-10 - M25.561) PT order given to pt. Continue NSAIDs. Will check xray. Feb, Alzheimer's disease, unspecified (ICD-10 - G30.9) No acute concerns. Continue present meds. Feb, Dementia in other diseases classified elsewhere, moderate, without behavioral disturbance, psychotic disturbance, mood disturbance, and anxiety (ICD-10 - F02.B0) [employer] Other 09-28-2022 Evaluation note* Encounter Date Diagnosis Assessment Notes Treatment Notes Treatment Clinical Notes Jul, GERD (gastroesophageal reflux disease) (ICD-10 - K21.9) PATIENT AND DAUGTER STATES THAT THIS IS UNDER CONTROL WITH THE MEDICATION. PATIENT DOES NOT GET SYMPTOMS DURING THE DAY. WE WILL CONTINUE ON THE MEDICATION DIRECTED. Jul, Diarrhea (ICD-10 - R19.7) PATIENT IS MAINTAINED ON THE MEDICATION WE WILL CONTINUE THE MEDICATION. [employer] Other Evaluation [employer]No [employer] Other Evaluation note* Diagnosis Onset Date Resolution Status Balance disorder acute Cutaneous candidiasis acute Dementia acute Multiple falls acute [facility] Work Phone: Evaluation note* Diagnosis Onset Date Resolution Status Admit Date Pain in joint involving left pelvic region and thigh acute March 172024 9:55am [facility] Work Phone: Evaluation note* Diagnosis Dermatophytosis of nail- Primary Onychocryptosis Ingrowing nail Paronychia of great toe of left foot Pain of left great toe Difficulty walking Difficulty in walking [facility] - [facility]* Type Description Date Medical History asthma Medical History Esophageal reflux Medical History sleep apnea Medical History congestive heart failure Medical History COPD Medical History HARDIK (obstructive sleep apnea) Medical History hypothyroidism Medical History HTN Medical History hyperlipidemia Medical History HARDIK (obstructive sleep apnea) Surgical History back surgery Surgical History hysterectomy Surgical History cholecystectomy Surgical History stroke Hospitalization History see above [employer] Other Hospital Discharge instructions Additional Instructions Follow-up with your primary care doctor and with mental health as directed [facility] ED [facility] develop worsening [facility] Work [facility]: Summary Purpose Family History No [...] paperwork ams after fall mental eval Sojourn Ramez, Major depression disorder/phycosis Reason for Visit Balance disorder Cutaneous candidiasis Dementia Multiple falls Chief Complaint Admit Date ams after fall August 06, 2024 5:52pm BH August 12, 2024 11:01am mental eval August 12, 2024 3:30pm Sojourn Ramez, Major depression disorde r/phycosis August 26, 2024 11:27am Psychosis f/u October 15, 2024 1:02pm Reason for Visit Admit Date Accelerated essential hypertension Zhou mber 2023 11:27am Dementia August 26, 2024 11:27am Major depressive disorder with psychotic features August 26, 2024 11:27am Chief Complaint Admit Date Amb Documentation January 27, 2025 9:04 am Pain in Bottom-HIGH RISK March 17 9:55am Reason for Visit Admit Date Pain in joint involving left pelvic kenan on and thigh March 17, 2025 9:55am Additional Source Comments INFORMATION SOURCE (unrecogn ized section and content) DATE CREATED AUTHOR 05/17/2018 [facility] DATE CREATED AUTHOR AUTHOR'S ORGANIZ ATION 03/22/2023 [facility] DATE CREATED AUTHOR AUTHOR'S ORGANIZ ATION 10/09/2024 [facility] DATE CREATED AUTHOR AUTHOR'S ORGANIZ ATION 03/14/2025 [facility] DATE CREATED AUTHOR AUTHOR'S ORGANIZ ATION 04/05/2025 [facility] DATE CREATED AUTHOR AUTHOR'S ORGANIZ ATION 04/05/2025 [facility] EPIC REASON FOR VISIT (unrecogniz ed section and content) Reason Comments Ingrown Toenail PT is here today wit h her daughter for ingrown nails, has been tender for a few days, soaked in epsom salts and neosporin cream with gauze SS: 8.5 Care Teams (unrecognized sec tion and content) Team Status: Active Member Role Status Dates Edi Joseph MD Primary Care Provider Active Team Status: Active Member Role Status Dates NON STAFF Primary Care Provider Active Start: January 24, 2025 Varghese Ang DO Attending Provider Active Start : January 24, 2025 Team Status: Active Member Role Status Dates NON STAFF Primary Care Provider Active Start: January 26, 2025 Archie Pardo DO Attending Provider Active Sta rt: January 26, 2025 Team Status: Active Member Role Status Dates NON STAFF Primary Care Provider Active Start: January 27, 2025 Federica Elizalde CMA Attending Provider Active Start: January 27, 2025 Team Status: Inactive Member Role Status Dates Edi Joseph MD Primary Care Provide r, Attending Provider Active Start: March 17, 2025 End: March 17, 2025 Team Status: Inactive Member Role Status Dates [...] October 15, 2024 End: October 15, 2024 Site Coordinator Relationship Specialty Start Date End Date Edi Joseph MD [address] [place] [address] PCP - General Family Medicine 04/24/23 Site Coordinator Relationship Specialty Start Date End Date Edi Joseph MD [address] [place] [address] PCP - General Family Medicine 04/24/23 Goals (unrecognized section and content) Goals may [...] BE BASED ON THE PRIMARY CLINICAL RECORDS. [facility]. provides no warranty or guarantee of the accuracy or completeness of information in this document.
[2025-05-26 11:27] LABS: Basophils Absolute Auto 0.1 10^3/uL (0.0-0.1); Basophils Percent Auto 0.6 % (0.2-2.0); Eosinophils Absolute Auto 0.2 10^3/uL (0.0-0.7); Hematocrit 37.7 % (36.0-48.0); Hemoglobin 12.4 g/dL (12.0-16.0); Immature Granulocytes Abs Auto 0.03 10^3/uL (0.00-0.03); Immature Granulocytes Pct Auto 0.3 % (0.0-0.5); Lymphocytes Absolute Auto 1.7 10^3/uL (1.2-3.8); Lymphocytes Percent Auto 18.2 % (20.5-60.0); Mean Corpuscular HGB Conc 32.9 g/dL (29.9-35.2); Mean Corpuscular Hemoglobin 31.6 pg (26.7-34.0); Mean Corpuscular Volume 95.9 fL (81.0-99.0); Mean Platelet Volume 10.5 fL (9.5-13.5); Monocytes Absolute Auto 0.8 10^3/uL (0.3-0.8); Monocytes Percent Auto 8.9 % (1.7-12.0); Neutrophils Absolute Auto 6.4 10^3/uL (1.4-6.5); Platelet Count 246 10^3/uL (150-450); Red Blood Count 3.93 10^6/uL (4.20-5.40); Red Cell Distribution Width 13.4 % (11.0-15.0); White Blood Count 9.1 10^3/uL (4.0-11.0)
[2025-05-26 11:33] LABS: BUN Creatinine Ratio 19.6; Calcium 9.3 mg/dL (8.5-10.1); Carbon Dioxide 29.2 mmol/L (21.0-32.0); Chloride 106 mmol/L (98-107); Estimated GFR (African America >60 (>=60 mL/min/1.73m^2); Estimated GFR (Non-African Ame 58 (>=60 mL/min/1.73m^2); Glucose 96 mg/dL (74-106); Potassium 4.2 mmol/L (3.5-5.1); Sodium 143 mmol/L (136-145); Troponin I High Sensitivity 14.4 pg/mL (4.0-51.3)
[2025-05-26 11:43] LABS: D Dimer 1.72 mg/L FEU (<=0.59)
--- NOTE | 2025-05-26 11:45 | CT_ITS ---
[facility] [place] [id number] Patient Name: MARY SHEPHERD MRN: [facility]:[id number] date: 1940 Sex: F Assigned Patient Location: ER Current Patient Location: Accession/Order Number: [id number] Exam Date: 05/26/2025 12:53 Report Date: 05/26/2025 12:58 At the request of: JEAN-CLAUDE EDWARD MD Procedure: CT angio chest CTA chest CLINICAL DATA: Chest pain. TECHNIQUE: Intravenous contrast-enhanced CT angiography of the chest was performed. Axial, sagittal, coronal, and 3D-dimensional reconstructions were created and reviewed. These CT exams were performed using one or more of the following dose reduction techniques: Automated exposure control, adjustment of the mA and/or kV according to patient size, or use of iterative reconstruction technique. COMPARISON: CT chest 04/29/2023. FINDINGS: Chest: Mediastinum:Thoracic aorta demonstrates mild calcification without aneurysm dissection or rupture. Pulmonary trunk appears nondilated without evidence of pulmonary embolism. No pleural effusion. No lymphadenopathy. The esophagus is grossly unremarkable. Lungs:Scattered areas of atelectasis/scarring. No consolidation pneumothorax or pleural effusion. Diffuse bronchial wall thickening. Abd: No acute findings.[ Soft tissues/Bones: Chest wall demonstrates acute process. Osseous structures demonstrate degenerative change. CT/CT angio chest IMPRESSION: No acute findings. No acute aortic pathology. No evidence of acute pulmonary embolism. Impression dictated by: Tray Bonilla Jr., D.O. 05/26/2025 12:58 PM Dictation Location: [place] Electronically authenticated by: [id number] Y Date: 05/26/2025 12:58
[2025-05-26 13:43] LABS: Troponin I High Sensitivity 14.1 pg/mL (4.0-51.3)
== END 2025-05-26 14:12 | disposition home or self-care (01) ==
PROVIDERS: Emergency Provider Emergency Medicine; PCP Family Medicine
DX: R07.9 Chest pain, unspecified (principal); R06.02 Shortness of breath; F03.90 Unspecified dementia, unspecified severity, without behavioral disturbance, psychotic disturbance, mood disturbance, and anxiety
CPT/HCPCS: 36415; 71045; 71275; 80048; 84484; 85025; 85378; 93005; 99285; Q9967